=== PATIENT | female | born 1970 | race Caucasian/White ===

== ENCOUNTER 2021-10-09 16:15 | Emergency (ER) | payer OTHER ==
[2021-10-09 16:41] LABS: Hematocrit 43.1 % (36.0-45.0); Lymphocytes % 18.5 % (15.3-44.8); MPV 8.1 fL (7.6-11.3); RBC Red Blood Cell Count 5.34 M/uL (3.86-4.86)
[2021-10-09] MEDS ORDERED: NA CHLORIDE 0.9% 1,000 ML ONE (16:46)
[2021-10-09] MEDS ORDERED: ONDANSETRON 4 MG/2 ML VIAL ONE (16:46)
[2021-10-09] MEDS ORDERED: FAMOTIDINE 20 MG/2 ML VIAL IV ONE (16:46)
[2021-10-09 17:17] LABS: Albumin 3.7 g/dL (3.4-5.0); Protein, Total 8.3 g/dL (6.4-8.2)
[2021-10-09 17:18] LABS: Potassium 3.7 mmol/L (3.5-5.1)
--- NOTE | 2021-10-09 17:36 | RAD REPORT ---
EXAM DESCRIPTION: RAD - Chest Single View - 10/09/2021 5:18 pm CLINICAL HISTORY: COUGH COMPARISON: No comparisons FINDINGS: Lines: None. Lungs: No evidence of edema or pneumonia. Pleural: No significant pleural effusions or pneumothorax. Cardiac: The heart size is within normal limits. Bones: No acute fractures. Plate and screw fixation of the right proximal humerus. Remote right-sided rib fractures. Other: IMPRESSION: No acute cardiopulmonary disease.
--- NOTE | 2021-10-09 17:54 | ER ---
Nurse's Notes [facility] Name: Cindy Garcia Age: 51 yrs Sex: Female : 1970 Arrival Date: 10/09/2021 Time: 16:16 Bed 13 Private MD: Diagnosis: Nausea with vomiting, unspecified Presentation: 10/09 16:25 Chief complaint: Patient states: N/V, cough x a few days. Coronavirus screen: At this jl7 time, the client does not indicate any symptoms associated with coronavirus-19. Ebola Screen: No symptoms or risks identified at this time. Initial Sepsis Screen: Does the patient meet any 2 criteria? No. Patient's initial sepsis screen is negative. Does the patient have a suspected source of infection? No. Patient's initial sepsis screen is negative. Risk Assessment: Do you want to hurt yourself or someone else? Patient reports no desire to harm self or others. Onset of symptoms is unknown. 16:25 Method Of Arrival: Wheelchair jl7 16:25 Acuity: JOSE MIGUEL 3 jl7 Triage Assessment: 16:27 General: Appears in no apparent distress. uncomfortable, Behavior is calm, cooperative, jl7 appropriate for age. Pain: Denies pain. GI: Reports nausea, vomiting. 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 - Social history:: Smoking status: Patient denies any tobacco usage or history of. - Family history:: not pertinent. - Hospitalizations: : No recent hospitalization is reported. Screenin:46 Abuse screen: Denies threats or abuse. Nutritional screening: No deficits noted. ap3 Tuberculosis screening: No symptoms or risk factors identified. Fall Risk Fall in past 12 months (25 points). Secondary diagnosis (15 points) impaired mobility, IV access (20 points). Ambulatory Aid- None/Bed Rest/Nurse Assist (0 pts). Gait- Weak (10 pts.). Mental Status- Oriented to own ability (0 pts). Total Berg Fall Scale indicates High Risk Score (45 or more points). Fall prevention measures have been instituted. Side Rails Up X 2 Placed Close to Nursing Station Frequent Obs/Assessments Occuring As available patient and family educated on Fall Prevention Program and Strategies. Assessment: 16:47 General: Appears in no apparent distress. uncomfortable, Behavior is calm, cooperative, ap3 appropriate for age. Pain: Denies pain. Neuro: Level of Consciousness is awake, alert, obeys commands, Oriented to person, place, time, situation, Appropriate for age. Cardiovascular: Patient's skin is warm and dry. Respiratory: Airway is patent Respiratory effort is even, unlabored. GI: Abdomen is flat, Reports nausea, vomiting. 18:25 General: patient awaiting transportation prior to departure . ap3 Vital Signs: 16:25 BP 125 / 85; Pulse 81; Resp 17; Temp 96.8; Pulse Ox 100% on R/A; Weight 45.36 kg; jl7 Height 5 ft. 3 in. (160.02 cm); Pain 0/10; 18:14 BP 98 / 78; Pulse 76; Pulse Ox 100% on R/A; ap3 16:25 Body Mass Index 17.71 (45.36 kg, 160.02 cm) jl7 ED Course: 16:16 Patient arrived in ED. as 16:17 Yosvany Viveros MD is Attending Physician. rn 16:18 Iesha Stapleton RN is Primary Nurse. ap3 16:27 Triage completed. jl7 16:27 Arm band placed on right wrist. jl7 16:47 Patient has correct armband on for positive identification. Bed in low position. Call ap3 light in reach. Side rails up X 1. library monitor on. Pulse ox on. Door closed. Noise minimized. 16:47 Warm blanket given. ap3 17:20 XRAY Chest (1 view) In Process Unspecified. EDMS 18:14 No provider procedures requiring assistance completed. IV discontinued, intact, ap3 bleeding controlled, No redness/swelling at site. Pressure dressing applied. Administered Medications: 16:45 Drug: NS 0.9% 1000 ml Route: IV; Rate: 1 bolus; Site: right antecubital; jl7 18:14 Follow up: IV Status: Completed infusion; IV Intake: 1000ml ap3 16:47 Drug: Zofran (Ondansetron) 4 mg Route: IVP; Site: right antecubital; jl7 18:15 Follow up: Response: No adverse reaction; Nausea is decreased ap3 16:54 Drug: Pepcid (famotidine) 20 mg Route: IVP; Site: right antecubital; jl7 18:15 Follow up: Response: No adverse reaction ap3 Intake: 18:14 IV: 1000ml; Total: 1000ml. ap3 Outcome: 17:54 Discharge ordered by . rn 18:14 Discharged to home ambulatory. ap3 18:14 Condition: good 18:14 Discharge instructions given to patient, Instructed on discharge instructions, follow up and referral plans. medication usage, Demonstrated understanding of instructions, follow-up care, medications, Prescriptions given X 1. 18:38 Patient left the ED. ap3 Signatures: Dispatcher [employer] EDMS Flory Mckinney Roman, MD MD rn Leal, Jahala, RN RN jl7 Iesha Stapleton RN RN ap3
--- NOTE | 2021-10-09 17:54 | EDPHYS ---
Physician Documentation [facility] Name: Cindy Garcia Age: 51 yrs Sex: Female : 1970 Arrival Date: 10/09/2021 Time: 16:16 Bed 13 Private MD: ED Physician Yosvany Viveros HPI: 10/09 16:53 This 51 yrs old Female presents to ER via Wheelchair with complaints of Nausea/Vomiting rn diarrhea. 16:53 The patient presents to the emergency department with nausea, vomiting, diarrhea. rn 16:53 Onset: The symptoms/episode began/occurred 3 day(s) ago. Possible causes: unknown. The rn symptoms are aggravated by nothing. The symptoms are alleviated by nothing. Associated signs and symptoms: Pertinent positives: diarrhea, nausea, vomiting, Pertinent negatives: abdominal pain, fever, GI bleeding. Severity of symptoms: At their worst the symptoms were moderate in the emergency department the symptoms are unchanged. The patient has experienced similar episodes in the past, chronically. The patient has not recently seen a physician. Patient reports nausea/vomiting/diarrhea for a few days now. Reports associated cough and gagging when mucus is in her throat. States that this is a chronic problem, just moved here from [place] and has this almost monthly. States goes to the ER gets fluids and nausea medicine and feels better and goes home and happens all over again. Denies focal abdominal pain or fever. Reports feels dehydrated. Reports this episode feels like her other episodes. Denies any clear diagnosis in the past.. 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 - Social history:: Smoking status: Patient denies any tobacco usage or history of. - Family history:: not pertinent. - Hospitalizations: : No recent hospitalization is reported. ROS: 16:53 Constitutional: Negative for fever, chills, and weight loss, Eyes: Negative for injury, rn pain, redness, and discharge, Neck: Negative for injury, pain, and swelling, Cardiovascular: Negative for chest pain, palpitations, and edema, Respiratory: Positive for cough Abdomen/GI: Positive for nausea/vomiting/diarrhea Back: Negative for injury and pain, : Negative for injury, bleeding, discharge, and swelling, MS/Extremity: Negative for injury and deformity, Skin: Negative for injury, rash, and discoloration, Neuro: Negative for headache, numbness, tingling, and seizure. Exam: 16:53 Constitutional: This is a well developed, well nourished patient who is awake, alert, rn retching but no emesis, holding emesis bag Head/Face: Normocephalic, atraumatic. Eyes: Periorbital areas with no swelling, redness, or edema. ENT: Dry mucous membranes Cardiovascular: Regular rate and rhythm. No pulse deficits. Respiratory: No increased work of breathing, no retractions or nasal flaring. Abdomen/GI: Soft, non-tender Skin: Warm, dry MS/ Extremity: Pulses equal, no cyanosis. Neuro: Awake and alert, GCS 15, oriented to person, place, time, and situation. Cranial nerves II-XII grossly intact. Motor strength 5/5 in all extremities. Sensory grossly intact. Cerebellar exam normal. Vital Signs: 16:25 BP 125 / 85; Pulse 81; Resp 17; Temp 96.8; Pulse Ox 100% on R/A; Weight 45.36 kg; jl7 Height 5 ft. 3 in. (160.02 cm); Pain 0/10; 18:14 BP 98 / 78; Pulse 76; Pulse Ox 100% on R/A; ap3 16:25 Body Mass Index 17.71 (45.36 kg, 160.02 cm) jl7 MDM: 16:17 Patient medically screened. rn 17:53 Differential diagnosis: viral gastroenteritis, gastroenteritis, acid reflux, viral rn syndrome, chiari malformation, chronic nausea/vomiting. Data reviewed: vital signs, nurses notes, lab test result(s), radiologic studies, and as a result, I will discharge patient. Counseling: I had a detailed discussion with the patient and/or guardian regarding: the historical points, exam findings, and any diagnostic results supporting the discharge/admit diagnosis, lab results, radiology results, the need for outpatient follow up, to return to the emergency department if symptoms worsen or persist or if there are any questions or concerns that arise at home. Response to treatment: the patient's symptoms have markedly improved after treatment, and as a result, I will discharge patient. Special discussion: I discussed with the patient/guardian in detail that at this point there is no indication for admission to the hospital. It is understood, however, that if the symptoms persist or worsen the patient needs to return immediately for re-evaluation. 10/09 16:24 Order name: CBC with Diff; Complete Time: 17:11 rn 10/09 16:24 Order name: CMP; Complete Time: 17:24 rn 10/09 16:24 Order name: Lipase; Complete Time: 17:24 rn 10/09 16:24 Order name: Flu; Complete Time: 17:11 rn 10/09 16:24 Order name: XRAY Chest (1 view); Complete Time: 17:53 rn 10/09 16:24 Order name: IV Start; Complete Time: 16:30 rn 10/09 16:24 Order name: Labs collected and sent; Complete Time: 16:46 rn Administered Medications: 16:45 Drug: NS 0.9% 1000 ml Route: IV; Rate: 1 bolus; Site: right antecubital; jl7 18:14 Follow up: IV Status: Completed infusion; IV Intake: 1000ml ap3 16:47 Drug: Zofran (Ondansetron) 4 mg Route: IVP; Site: right antecubital; jl7 18:15 Follow up: Response: No adverse reaction; Nausea is decreased ap3 16:54 Drug: Pepcid (famotidine) 20 mg Route: IVP; Site: right antecubital; jl7 18:15 Follow up: Response: No adverse reaction ap3 Disposition Summary: 10/09/21 17:54 Discharge Ordered Location: Home rn Problem: an ongoing problem rn Symptoms: have improved rn Condition: Stable rn Diagnosis - Nausea with vomiting, unspecified rn Followup: rn - With: Private Physician - When: As needed - Reason: Recheck today's complaints, Re-evaluation by your physician Discharge Instructions: - Discharge Summary Sheet rn - Nausea and Vomiting, Adult rn - Chiari Malformation rn Forms: - Medication Reconciliation Form rn - Thank You Letter rn - Antibiotic learning and development assistant - Prescription Opioid Use rn Prescriptions: - Zofran 4 mg Oral Tablet - take 1 tablet by ORAL route every 12 hours As needed; 10 tablet; Refills: 0, rn Product Selection Permitted Signatures: Dispatcher [employer] EDYosvany Jennings MD MD rn Lizeth Engel RN RN jl7 Iesha Stapleton RN ap3
[2021-10-09 19:17] VITALS: TEMP 96.8; O2SAT 100
[2021-10-09 19:25] VITALS: BP 98/78
== END 2021-10-09 18:38 | disposition home or self-care (01) ==
LOC: ER 16:15
DX: R11.2 Nausea with vomiting, unspecified (principal); R19.7 Diarrhea, unspecified; Z88.5 Allergy status to narcotic agent; Z88.8 Allergy status to other drugs, medicaments and biological substances
CPT/HCPCS: 96361; 85025; 36415; 83690; 80053; 87804 ×2; 71045; 96375; 96374; 99284; J7030; J2405; J3490

== ENCOUNTER 2021-10-10 16:57 | Emergency (ER) | payer OTHER ==
--- OUTSIDE RECORDS SUMMARY | 2021-10-10 16:59 | XMS REPORT | Continuity of Care Document ---
:1970 Author Organization [facility] t Address [address] [place] [address] Care Team Providers Name Role Phone Sergio Bowers DO Primary Care Physician JOCELYNN BRASWELL Attending Clinician Unavailable [id number] Attending Clinician Unavailable Robinson MATHEW Attending Clinician Payers Payer Name Policy Type Policy Number Effective Date Expiration Date Letitia pizarro CIGNA-SHEET 2 [id number] 2021 00:00:00 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 Social History Social Habit Start Date Stop Date Quantity Comments Source Tobacco use and 2021-09-03 2021-09-03 Smokeless tobacco Ke lsey Seybold exposure 00:00:00 00:00:00 non-user Alcohol intake 2021-09-03 2021-09-03 Lifetime Haritha Godoy bold 00:00:00 00:00:00 non-drinker (finding) Education 2021-09-03 2021-09-03 17 Haritha Lyle 00:00:00 00:00:00 Sex [birth year] Haritha connelly 00:00:00 00:00:00 Smoking Status Start Date Stop Date Source Never smoked tobacco Haritha walker Medications Ordered Filled Start Stop Current Ordering Indication Dosage Frequency Signature Comments Components Source Medication Medication Date Date Medication? Clinician (SIG) Name Name hydrOXYzine 25mg Q.5D Take 25 mg Haritha HCl 25 MG 09-03 by mouth Seybo ld oral Tablet 13:59: 00:00 as needed 11 :00 in the morning and 25 mg as needed in the evening for anxiety. Citalopram Yes 20mg Take 20 mg K elsey Hydrobromid 09-03 by mouth Seyb old e 20 MG 13:58: daily oral Tablet 52 Gabapentin Yes 300mg Take 300 Ke lsey 300 MG oral 3-29 mg by Seybold Capsule 13:36: mouth 3 32 times daily predniSONE Yes [id number] 10mg Take 1 Haritha (DELTASONE) - tablet (10 Se ybold 10 MG oral 00:00: mg total) tablet 00 by mouth daily hydrOXYzine Yes Haritha HCl 25 MG 3-21 Seybold oral Tablet 00:00: 00 Omeprazole Yes 1{capsu Take 1 Ke lsey 20 MG oral 2-04 le} capsule by Sey bold Delayed 00:00: mouth Release 00 daily Capsule ROPINIROLE Yes 1{tbl} Take 1 Obdulio sey HYDROCHLORI 2-04 tablet by Sey bold DE 1 MG 00:00: mouth oral Tablet 00 daily predniSONE 2021- No 1{tbl} Take 1 Ke lsey (DELTASONE) 2-04 - tablet by Se ybold 10 MG oral 00:00: 00:00 mouth tablet 00 :00 daily Vital Signs Vital Name Observation Time Observation Value Comments Source Systolic blood pressure 2021-09-03 18:33:00 103 mm[Hg] Haritha Lyle Diastolic blood 2021-09-03 18:33:00 65 mm[Hg] Pilo badillo Seybaaron pressure Heart rate 2021-09-03 18:33:00 86 /min Haritha block Body temperature 2021-09-03 18:33:00 36.5 Maria Luisa Joyce brumfield Seybold Respiratory rate 2021-09-03 18:33:00 14 /min Joyce brumfield Seybaaron Body height 2021-09-03 18:33:00 160 cm Haritha brumfieldbomil Body weight 2021-09-03 18:33:00 46.72 kg Haritha block BMI 2021-09-03 18:33:00 18.25 kg/m2 Haritha block Oxygen saturation in 2021-09-03 18:33:00 97 /min Haritha Lyle Arterial blood by Pulse oximetry Procedures This patient has no known procedures. Encounters Start End Encounter Admission Attending Care Care Encounter Source Date/Time Date/Time Type Type Clinicians Facility Department ID 2021-10-01 2021-10-01 Outpatient HARITHA BRASWELL HARITHA [id number] Haritha 11:00:00 11:00:00 JOCELYNN Blairo ld 2021-09-03 2021-09-03 Outpatient LAB90 HARITHA HARITHA [id number] Haritha 14:20:00 14:20:00 Seybol d 2021-09-03 2021-09-03 Office Vu Bowers [id number] Haritha 13:30:00 14:00:00 Visit Sergio Rivera [id number] Se ybold [id number] Results This patient has no known results.
[2021-10-10] MEDS ORDERED: FAMOTIDINE 20 MG/2 ML VIAL IV ONE (17:47)
[2021-10-10] MEDS ORDERED: MAGNESIUM SULFATE 1 gm IVPB 1 GM/100 ML BAG IV ONE (17:47)
[2021-10-10] MEDS ORDERED: ONDANSETRON 4 MG/2 ML VIAL ONE (17:47)
--- NOTE | 2021-10-10 17:54 | RAD REPORT ---
EXAM DESCRIPTION: RAD - Chest Single View - 10/10/2021 5:48 pm CLINICAL HISTORY: COUGH COMPARISON: <Comparisons> FINDINGS: Lines: None. Lungs: No evidence of edema or pneumonia. Pleural: No significant pleural effusions or pneumothorax. Cardiac: The heart size is within normal limits. Bones: No acute fractures. Remote rib fractures. Plate and screw fixation of the right humerus. Other: IMPRESSION: No acute cardiopulmonary disease.
[2021-10-10 18:22] LABS: Albumin 3.6 g/dL (3.4-5.0); Bilirubin Total 1.7 mg/dL (0.2-1.0); Potassium 3.9 mmol/L (3.5-5.1); Protein, Total 7.9 g/dL (6.4-8.2)
[2021-10-10 18:26] LABS: Absolute Lymphocytes (CBC) 0.4 K/uL (0.7-4.9); Hematocrit 42.7 % (36.0-45.0); Lymphocytes % 5.2 % (15.3-44.8); MPV 8.1 fL (7.6-11.3); RBC Red Blood Cell Count 5.33 M/uL (3.86-4.86)
[2021-10-10 20:10] LABS: Urine Blood Negative (Negative); Urine Glucose Negative (Negative); Urine Protein Trace (Negative); Urine Specific Gravity >=1.030 (1.005-1.030); Urine pH 5.5 (5.0-7.0)
--- NOTE | 2021-10-10 20:29 | ER ---
Nurse's Notes [facility] Name: Cindy Garcia Age: 51 yrs Sex: Female : 1970 Arrival Date: 10/10/2021 Time: 17:07 Bed 2 Private MD: Diagnosis: Cough Presentation: 10/10 17:08 Chief complaint: EMS states: Toned out for shaking and sweating, pt was diaphoretic in jl7 route, no fever, reports cough x last few days, denies N/V/D, was seen here yesterday and discharged, pt reports recently moving here from [place] and every time she went to the ER there she would get at least 3 bags of fluids before being discharged. Coronavirus screen: At this time, the client does not indicate any symptoms associated with coronavirus-19. Ebola Screen: No symptoms or risks identified at this time. Initial Sepsis Screen: Does the patient meet any 2 criteria? No. Patient's initial sepsis screen is negative. Does the patient have a suspected source of infection? No. Patient's initial sepsis screen is negative. Risk Assessment: Do you want to hurt yourself or someone else? Patient reports no desire to harm self or others. Onset of symptoms is unknown. 17:08 Method Of Arrival: EMS: [facility] 17:08 Acuity: JOSE MIGUEL 3 jl7 Triage Assessment: 20:30 General: Appears comfortable, Behavior is calm, cooperative. Pain: Denies pain. 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 - Social history:: Smoking status: Patient denies any tobacco usage or history of. Screenin:29 Abuse screen: Denies threats or abuse. Nutritional screening: No deficits noted. ll3 Tuberculosis screening: No symptoms or risk factors identified. 20:40 Fall Risk No fall in past 12 months (0 pts). No secondary diagnosis (0 pts). IV access ll3 (20 points). Ambulatory Aid- None/Bed Rest/Nurse Assist (0 pts). Gait- Normal/Bed Rest/Wheelchair (0 pts) Mental Status- Oriented to own ability (0 pts). Total Breg Fall Scale indicates No Risk (0-24 pts). Assessment: 20:29 Reassessment: Patient and/or family updated on plan of care and expected duration. Pain ll3 level reassessed. Patient is alert, oriented x 3, equal unlabored respirations, skin warm/dry/pink. Patient denies pain at this time. Patient states symptoms have improved. Vital Signs: 17:08 BP 147 / 81; Pulse 79; Resp 19; Temp 97.6(O); Pulse Ox 100% on R/A; Weight 45.36 kg; jl7 Height 5 ft. 3 in. (160.02 cm); Pain 0/10; 19:01 BP 104 / 77; Pulse 79; Resp 15; Pulse Ox 97% ; jl7 20:00 BP 100 / 88; Pulse 74; Resp 17; Pulse Ox 100% on R/A; ll3 17:08 Body Mass Index 17.71 (45.36 kg, 160.02 cm) jl7 ED Course: 17:07 Patient arrived in ED. jl7 17:13 Triage completed. jl7 17:13 Arm band placed on right wrist. jl7 17:14 Akin Donaldson PA is PHCP. cp 17:14 Akin Gunderson MD is Attending Physician. cp 17:36 Lizeth Engel RN is Primary Nurse. jl7 17:50 XRAY Chest (1 view) In Process Unspecified. EDMS 20:12 Urine Microscopic Only Sent. sm5 20:30 Patient has correct armband on for positive identification. Bed in low position. Call ll3 light in reach. Side rails up X 1. 20:40 No provider procedures requiring assistance completed. IV discontinued, intact, ll3 bleeding controlled, No redness/swelling at site. Pressure dressing applied. Administered Medications: 17:55 Drug: Zofran (Ondansetron) 4 mg Route: IVP; Site: right wrist; jl7 17:56 Drug: Pepcid (famotidine) 20 mg Route: IVP; Site: right wrist; jl7 17:56 Drug: Magnesium Sulfate 1 grams Route: IVPB; Infused Over: 1 hrs; Site: right wrist; jl7 Outcome: 20:28 Discharge ordered by . cp 20:40 Discharged to home ambulatory. ll3 20:40 Condition: stable 20:40 Discharge instructions given to patient, Instructed on discharge instructions, follow up and referral plans. medication usage, Demonstrated understanding of instructions, follow-up care, medications. 20:41 Patient left the ED. ll3 Signatures: Dispatcher [employer] EDMS Akin Donaldson PA PA cp Leal, Jahala, RN RN jl7 Kevan Haskins RN RN ll3 Christal Vann RN RN sm5
--- NOTE | 2021-10-10 20:29 | EDPHYS ---
Physician Documentation [facility] Name: Cindy Garcia Age: 51 yrs Sex: Female : 1970 Arrival Date: 10/10/2021 Time: 17:07 Bed 2 Private MD: ED Physician Akin Gunderson HPI: 10/10 17:30 This 51 yrs old Female presents to ER via EMS with complaints of Shaking and Sweating. cp 17:30 The patient or guardian reports cough, chronic. cp 17:30 Severity of symptoms: in the emergency department the symptoms are unchanged. cp Associated signs and symptoms: Pertinent positives: "shaking and sweating", Pertinent negatives: fever, vomiting. The patient has been recently seen at the [facility] Emergency Department, yesterday, for similar complaints tested for COVID-19 and influenza. 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 - Social history:: Smoking status: Patient denies any tobacco usage or history of. ROS: 17:35 Constitutional: Negative for body aches, fever, poor PO intake. cp 17:35 Eyes: Negative for injury, pain, redness, and discharge. cp 17:35 ENT: Negative for drainage from ear(s), ear pain, sore throat, difficulty swallowing, difficulty handling secretions. 17:35 Cardiovascular: Negative for chest pain, edema, palpitations. 17:35 Respiratory: Positive for cough, with no reported sputum, Negative for shortness of breath, wheezing. 17:35 Abdomen/GI: Positive for nausea, Negative for abdominal pain, vomiting, diarrhea, constipation. 17:35 Back: Negative for pain at rest, pain with movement. 17:35 : Negative for urinary symptoms. 17:35 Neuro: Negative for altered mental status, headache, weakness. 17:35 All other systems are negative. Exam: 17:40 Constitutional: The patient appears in no acute distress, alert, awake, cp non-diaphoretic, non-toxic, well developed, well nourished. 17:40 Head/Face: Normocephalic, atraumatic. cp 17:40 Eyes: Periorbital structures: appear normal, Conjunctiva: normal, no exudate, no injection, Sclera: no appreciated abnormality, Lids and lashes: appear normal, bilaterally. 17:40 ENT: External ear(s): are unremarkable, Nose: is normal, Mouth: Lips: moist, Oral mucosa: pink and intact, moist, Posterior pharynx: Airway: no evidence of obstruction, patent. 17:40 Neck: ROM/movement: is normal, is supple, without pain, no range of motions limitations. 17:40 Chest/axilla: Inspection: normal. 17:40 Cardiovascular: Rate: normal, Rhythm: regular, Edema: is not appreciated, JVD: is not appreciated. 17:40 Respiratory: the patient does not display signs of respiratory distress, Respirations: normal, no use of accessory muscles, no retractions, labored breathing, is not present, Breath sounds: are clear throughout, no decreased breath sounds, no stridor, no wheezing. 17:40 Abdomen/GI: Inspection: abdomen appears normal, Bowel sounds: active, all quadrants, Palpation: abdomen is soft and non-tender, in all quadrants. 17:40 Back: pain, is absent, ROM is normal. 17:40 Skin: cellulitis, is not appreciated, no rash present. 17:40 Neuro: Orientation: to person, place \\T\\ time. Mentation: is normal, Motor: moves all fours, strength is normal, Sensation: is normal. Vital Signs: 17:08 BP 147 / 81; Pulse 79; Resp 19; Temp 97.6(O); Pulse Ox 100% on R/A; Weight 45.36 kg; jl7 Height 5 ft. 3 in. (160.02 cm); Pain 0/10; 19:01 BP 104 / 77; Pulse 79; Resp 15; Pulse Ox 97% ; jl7 20:00 BP 100 / 88; Pulse 74; Resp 17; Pulse Ox 100% on R/A; ll3 17:08 Body Mass Index 17.71 (45.36 kg, 160.02 cm) jl7 MDM: 17:15 Patient medically screened. zaid 18:00 Differential Diagnosis: Bronchitis Influenza Viral Syndrome Pneumonia Other cp dehydration, electrolyte abnormality. 20:27 Data reviewed: vital signs, nurses notes, lab test result(s), radiologic studies, plain cp films. 20:27 Counseling: I had a detailed discussion with the patient and/or guardian regarding: the cp historical points, exam findings, and any diagnostic results supporting the discharge/admit diagnosis, lab results, radiology results, to return to the emergency department if symptoms worsen or persist or if there are any questions or concerns that arise at home. 20:27 Response to treatment: the patient's symptoms have markedly improved after treatment, and as a result, I will discharge patient. 10/10 17:26 Order name: CBC with Diff; Complete Time: 19:27 10/10 19:27 Interpretation: Normal except: WBC 6.9; RBC 5.33; BRENDAN% 89.8; LYM% 5.2; LYMA 0.4. 10/10 17:26 Order name: CMP; Complete Time: 19:27 10/10 19:28 Interpretation: Normal except: NA 133; GLUC 115; GFR 78; A/G 0.8; GLOB 4.3; ALK 127; cp BILIT 1.7. 10/10 17:26 Order name: Lipase; Complete Time: 19:27 10/10 19:28 Interpretation: Reviewed. 10/10 17:26 Order name: Urine Microscopic Only 10/10 17:26 Order name: XRAY Chest (1 view); Complete Time: 19:27 10/10 19:28 Interpretation: Report review. 10/10 20:10 Order name: Urine Dipstick-Ancillary; Complete Time: 20:15 EDMS 10/10 20:15 Interpretation: Normal except: UKET 2+; UPROT Trace. 10/10 17:26 Order name: IV Saline Lock; Complete Time: 17:56 10/10 17: Order name: Labs collected and sent; Complete Time: 17:56 10/10 17: Order name: Urine Dipstick-Ancillary (obtain specimen); Complete Time: 20:12 cp Administered Medications: 17:55 Drug: Zofran (Ondansetron) 4 mg Route: IVP; Site: right wrist; jl7 17:56 Drug: Pepcid (famotidine) 20 mg Route: IVP; Site: right wrist; jl7 17:56 Drug: Magnesium Sulfate 1 grams Route: IVPB; Infused Over: 1 hrs; Site: right wrist; jl7 Disposition Summary: 10/10/21 20:28 Discharge Ordered Location: Home cp Problem: an ongoing problem cp Symptoms: have improved cp Condition: Stable cp Diagnosis - Cough cp Followup: cp - With: Private Physician - When: 1 - 2 days - Reason: Recheck today's complaints Discharge Instructions: - Discharge Summary Sheet cp - Nausea, Adult cp - Cough, Adult cp Forms: - Medication Reconciliation Form cp - Thank You Letter cp - Antibiotic Education cp - Prescription Opioid Use cp Prescriptions: - Tessalon Perles 100 mg Oral Capsule - take 1 capsule by ORAL route every 8 hours As needed; 15 capsule; Refills: 0, cp Product Selection Permitted - Zofran 4 mg Oral Tablet - take 1 tablet by ORAL route every 12 hours As needed; 20 tablet; Refills: 0, cp Product Selection Permitted Signatures: Dispatcher [employer] EDAkin Chapin MD MD cha Page, Corey, PA PA Lizeth Rodríguez RN RN jl7 Corrections: (The following items were deleted from the chart) 17:37 17:26 Urine Test ordered. cp jl7 18:02 18:00 This 51 yrs old Female presents to ER via EMS with complaints of Shaking and cp Sweating. cp 19:28 19:27 Normal except: NA 133; GLUC 115; GFR 78. cp cp 19:28 19:28 Normal except: NA 133; GLUC 115; GFR 78; A/G 0.8. cp cp
[2021-10-10 20:38] LABS: Urine Bacteria <20 /HPF (<20); Urine Mucus 3+ /HPF (NONE SEEN); Urine RBC <5 /HPF (NONE SEEN)
[2021-10-10 21:02] VITALS: TEMP 97.6
[2021-10-10 21:05] VITALS: BP 100/88; O2SAT 100
== END 2021-10-10 20:41 | disposition home or self-care (01) ==
LOC: ER 16:57
DX: R05.9 Cough, unspecified (principal); R11.0 Nausea; Z88.5 Allergy status to narcotic agent; Z88.8 Allergy status to other drugs, medicaments and biological substances
CPT/HCPCS: 85025; 36415; 83690; 80053; 71045; 96375; 96374; 99284; J3475; J2405; J3490; 81003; 81015

== ENCOUNTER 2021-12-14 23:34 | Emergency (ER) | payer OTHER, SELFPAY ==
[2021-12-15 01:03] LABS: Absolute Lymphocytes (CBC) 0.7 K/uL (0.7-4.9); Hematocrit 35.8 % (36.0-45.0); Lymphocytes % 23.2 % (15.3-44.8); MCV 80.8 fL (80-100); MPV 8.3 fL (7.6-11.3); RBC Red Blood Cell Count 4.43 M/uL (3.86-4.86)
[2021-12-15 01:08] LABS: Protime INR 1.16
[2021-12-15] MEDS ORDERED: NA CHLORIDE 0.9% 1,000 ML ONE (01:17)
[2021-12-15] MEDS ORDERED: CEFTRIAXONE 1000 MG/VIAL ONE (01:17)
[2021-12-15 01:21] LABS: ALT/SGPT 28 U/L (12-78); AST/SGOT 34 U/L (15-37); Alkaline Phosphatase 259 U/L (45-117); BUN Blood Urea Nitrogen 12 mg/dL (7-18); Bicarbonate 24 mmol/L (21-32); Bilirubin Direct 0.4 mg/dL (0-0.2); Bilirubin Total 1.1 mg/dL (0.2-1.0); Glomerular Filtration Rate 86 ml/min (=/>90); Glucose Level 89 mg/dL (74-106); Potassium 3.6 mmol/L (3.5-5.1); Sodium Level 134 mmol/L (136-145)
[2021-12-15 01:22] LABS: Albumin 3.1 g/dL (3.4-5.0); Magnesium 1.5 mg/dL (1.8-2.4); NT PRO-BNP 327 pg/mL (<125)
[2021-12-15 01:25] LABS: Troponin High Sensitivity < 3.0 pg/mL (<58.9)
[2021-12-15 02:15] LABS: Urine Blood Negative (Negative); Urine Glucose Negative (Negative); Urine Protein Negative (Negative)
--- NOTE | 2021-12-15 02:18 | ER ---
Nurse's Notes [facility] Name: Cindy Garcia Age: 51 yrs Sex: Female : 1970 Arrival Date: 12/14/2021 Time: 23:40 Bed 14 Private MD: Diagnosis: Hypomagnesemia;Acute upper respiratory infection, unspecified-Infuenza B;Fever, unspecified Presentation: 12/14 23:40 Chief complaint: EMS states: "We were called out because patient stated she couldn't vc1 cool off and she was running a low grade fever and nauseous. She also just had left hip surgery for a broken hip.". Coronavirus screen: Vaccine status: Patient reports receiving the 2nd dose of the covid vaccine. Pfizer chills, fever, nausea, shaking with chills, Client presents with at least one sign or symptom that may indicate coronavirus-19. Standard/surgical mask placed on the client. Provider contacted for isolation considerations. Ebola Screen: No symptoms or risks identified at this time. Initial Sepsis Screen: Does the patient meet any 2 criteria? HR > 90 bpm. No. Patient's initial sepsis screen is negative. Does the patient have a suspected source of infection? No. Patient's initial sepsis screen is negative. Risk Assessment: Do you want to hurt yourself or someone else? Patient reports no desire to harm self or others. Onset of symptoms was December 14, 2021. 23:40 Method Of Arrival: EMS: [facility] vc1 23:40 Acuity: JOSE MIGUEL 3 vc1 23:50 Care prior to arrival: Medication(s) given: Tylenol, 1000 mg, zofran 4 mg, Vicodin. vc1 Care prior to arrival: IV initiated. 20 GA, in the left forearm, Glucose check: 109. Triage Assessment: 23:52 General: Appears in no apparent distress. uncomfortable, Behavior is calm, cooperative, vc1 appropriate for age. Pain: Denies pain. EENT: No deficits noted. Neuro: Level of Consciousness is awake, alert, obeys commands, Oriented to person, place, time, situation, Appropriate for age. Cardiovascular: Reports diaphoresis, Denies chest pain, Patient's skin is warm and dry. Respiratory: Airway is patent Respiratory effort is even, unlabored, Respiratory pattern is regular, symmetrical. GI: Reports gaseousness, indigestion, nausea, Patient currently denies vomiting. : No deficits noted. Derm: Skin is intact, is healthy with good turgor, Skin temperature is warm Reports feeling very hot and being unable to cool off. Musculoskeletal: No deficits noted. 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 - Social history:: Smoking status: Patient denies any tobacco usage or history of. Screenin:54 Abuse screen: Denies threats or abuse. Nutritional screening: No deficits noted. vc1 Tuberculosis screening: No symptoms or risk factors identified. Fall Risk None identified. Assessment: 12/15 00:15 Reassessment: See triage assessment. vc1 01:15 Reassessment: No changes from previously documented assessment. Patient and/or family vc1 updated on plan of care and expected duration. Pain level reassessed. Patient is alert, oriented x 3, equal unlabored respirations, skin warm/dry/pink. 02:15 Reassessment: Patient and/or family updated on plan of care and expected duration. Pain vc1 level reassessed. Patient is alert, oriented x 3, equal unlabored respirations, skin warm/dry/pink. Patient states feeling better. Patient states symptoms have improved. 03:15 Reassessment: No changes from previously documented assessment. vc1 03:45 Reassessment: Patient and/or family updated on plan of care and expected duration. Pain vc1 level reassessed. Patient is alert, oriented x 3, equal unlabored respirations, skin warm/dry/pink. Patient denies pain at this time. Patient states feeling better. Patient states symptoms have improved. Vital Signs: 12/14 23:40 BP 111 / 85 RA (auto/reg); Pulse 101 MON; Resp 13; Temp 98.5(O); Pulse Ox 100% on R/A; vc1 Weight 47.63 kg; Height 5 ft. 3 in. (160.02 cm); Pain 0/10; 23:40 Body Mass Index 18.60 (47.63 kg, 160.02 cm) vc1 ED Course: 23:40 Patient arrived in ED. vc1 23:44 Triage completed. vc1 23:50 Katarina Crystal, RN is Primary Nurse. vc1 23:53 Arm band placed on right wrist. vc1 23:54 Patient has correct armband on for positive identification. Bed in low position. Call vc1 light in reach. Client placed on continuous cardiac and pulse oximetry monitoring. NIBP monitoring applied. 23:59 Akin Gunderson MD is Attending Physician. [facility] 12/15 00:40 Initial lab(s) drawn, by ED staff, sent to lab. First set of blood cultures drawn by ED 5 staff, Second set of blood cultures drawn by nd. 00:54 Maintain EMS IV. Dressing intact. Good blood return noted. 5 00:56 Warm blanket given. 5 01:09 EKG done, by ED staff, reviewed by Akin Gunderson MD COVID swab sent to lab. Flu and/or 5 RSV swab sent to lab. 01:27 XRAY Chest (1 view) In Process Unspecified. EDMS 02:16 Urine Culture Sent. mh5 03:45 No provider procedures requiring assistance completed. IV discontinued, intact, vc1 bleeding controlled, No redness/swelling at site. Pressure dressing applied. Administered Medications: 01:17 Drug: NS 0.9% 1000 ml Route: IV; Rate: 1 bolus; Site: left forearm; vc1 02:17 Follow up: IV Status: Completed infusion; IV Intake: 1000ml vc1 01:17 Drug: Rocephin (cefTRIAXone) 1 grams Route: IV; Rate: per protocol; Site: left forearm; vc1 01:20 Follow up: IV Status: Completed infusion; IV Intake: 10ml vc1 02:29 Drug: Zithromax (azithromycin) 500 mg Route: PO; vc1 03:00 Follow up: Response: No adverse reaction; Marked relief of symptoms vc1 02:30 Drug: Magnesium Sulfate 2 grams Route: IVPB; Infused Over: 30 mins; Site: left forearm; vc1 03:30 Follow up: IV Status: Completed infusion; IV Intake: 50ml vc1 02:30 Drug: Tamiflu (oseltamivir) 75 mg Route: PO; vc1 03:00 Follow up: Response: No adverse reaction vc1 Medication: 03:45 VIS not applicable for this client. vc1 Intake: 01:20 IV: 10ml; Total: 10ml. vc1 02:17 IV: 1000ml; Total: 1010ml. vc1 03:30 IV: 50ml; Total: 1060ml. vc1 Outcome: 02:18 Discharge ordered by . zaid 04:13 Patient left the ED. vc1 04:15 Discharged to home via wheelchair. vc1 04:15 Condition: improved 04:15 Discharge instructions given to patient, Instructed on discharge instructions, follow up and referral plans. Demonstrated understanding of instructions, follow-up care. 04:16 Prescriptions given X 3. vc1 Signatures: Dispatcher [employer] EDAkin Chapin MD MD cha Martinez, [facility] Katarina Crystal RN RN vc1 Corrections: (The following items were deleted from the chart) 12/14 23:46 23:44 PMHx: celiac; vc1 vc1
--- NOTE | 2021-12-15 02:19 | EDPHYS ---
Physician Documentation [facility] Name: Cindy Garcia Age: 51 yrs Sex: Female : 1970 Arrival Date: 12/14/2021 Time: 23:40 Bed 14 Private MD: ED Physician Akin Gunderson HPI: 12/15 00:27 This 51 yrs old Female presents to ER via EMS with complaints of fever, zaid nausea and weakness. 00:27 The patient presents to the emergency department with nausea, that is mild. 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 - Social history:: Smoking status: Patient denies any tobacco usage or history of. ROS: 12/15 00:43 Constitutional: Negative for fever, chills, and weight loss, Eyes: Negative for injury, zaid pain, redness, and discharge, ENT: Negative for injury, pain, and discharge, Neck: Negative for injury, pain, and swelling, Cardiovascular: Negative for chest pain, palpitations, and edema, Respiratory: Negative for shortness of breath, cough, wheezing, and pleuritic chest pain, Abdomen/GI: Negative for abdominal pain, nausea, vomiting, diarrhea, and constipation, Back: Negative for injury and pain, : Negative for injury, bleeding, discharge, and swelling, MS/Extremity: Negative for injury and deformity, Skin: Negative for injury, rash, and discoloration, Neuro: Negative for headache, weakness, numbness, tingling, and seizure, Psych: Negative for depression, anxiety, suicide ideation, homicidal ideation, and hallucinations, Allergy/Immunology: Negative for hives, rash, and allergies, Endocrine: Negative for neck swelling, polydipsia, polyuria, polyphagia, and marked weight changes, Hematologic/Lymphatic: Negative for swollen nodes, abnormal bleeding, and unusual bruising. Exam: 00:43 Constitutional: This is a well developed, well nourished patient who is awake, alert, zaid and in no acute distress. Head/Face: Normocephalic, atraumatic. Eyes: Pupils equal round and reactive to light, extra-ocular motions intact. Lids and lashes normal. Conjunctiva and sclera are non-icteric and not injected. Cornea within normal limits. Periorbital areas with no swelling, redness, or edema. ENT: Nares patent. No nasal discharge, no septal abnormalities noted. Tympanic membranes are normal and external auditory canals are clear. Oropharynx with no redness, swelling, or masses, exudates, or evidence of obstruction, uvula midline. Mucous membranes moist. Neck: Trachea midline, no thyromegaly or masses palpated, and no cervical lymphadenopathy. Supple, full range of motion without nuchal rigidity, or vertebral point tenderness. No Meningismus. Chest/axilla: Normal chest wall appearance and motion. Nontender with no deformity. No lesions are appreciated. Cardiovascular: Regular rate and rhythm with a normal S1 and S2. No gallops, murmurs, or rubs. Normal PMI, no JVD. No pulse deficits. Respiratory: Lungs have equal breath sounds bilaterally, clear to auscultation and percussion. No rales, rhonchi or wheezes noted. No increased work of breathing, no retractions or nasal flaring. Abdomen/GI: Soft, non-tender, with normal bowel sounds. No distension or tympany. No guarding or rebound. No evidence of tenderness throughout. Back: No spinal tenderness. No costovertebral tenderness. Full range of motion. Skin: Warm, dry with normal turgor. Normal color with no rashes, no lesions, and no evidence of cellulitis. MS/ Extremity: Pulses equal, no cyanosis. Neurovascular intact. Full, normal range of motion. Neuro: Awake and alert, GCS 15, oriented to person, place, time, and situation. Cranial nerves II-XII grossly intact. Motor strength 5/5 in all extremities. Sensory grossly intact. Cerebellar exam normal. Normal gait. Psych: Awake, alert, with orientation to person, place and time. Behavior, mood, and affect are within normal limits. 02:17 ECG was reviewed by the Attending Physician. [facility] Vital Signs: 12/14 23:40 BP 111 / 85 RA (auto/reg); Pulse 101 MON; Resp 13; Temp 98.5(O); Pulse Ox 100% on R/A; vc1 Weight 47.63 kg; Height 5 ft. 3 in. (160.02 cm); Pain 0/10; 23:40 Body Mass Index 18.60 (47.63 kg, 160.02 cm) vc1 MDM: 23:59 Patient medically screened. [facility] 12/15 00:47 Differential diagnosis: Nonspecific abd pain, gastritis, cholecystitis, pancreatitis, zaid diverticulitis, viral gastroenteritis, gastroenteritis, viral Infection, bacterial infection, URI, bronchitis, pneumonia UTI, gastroenteritis. Differential Diagnosis sepsis. Data reviewed: vital signs, nurses notes, lab test result(s), EKG, radiologic studies, plain films. Data interpreted: media monitor: rate is 101 beats/min, rhythm is regular, Pulse oximetry: on room air is 100 %. Test interpretation: by ED physician or midlevel provider: ECG, plain radiologic studies. Counseling: I had a detailed discussion with the patient and/or guardian regarding: the historical points, exam findings, and any diagnostic results supporting the discharge/admit diagnosis, lab results, radiology results. 12/16 99:23 Order name: Basic Metabolic Panel; Complete Time: 02:02 [facility] 12/16 99:23 Order name: CBC with Diff; Complete Time: 02:02 [facility] 12/1523 Order name: LFT's; Complete Time: 02:02 [facility] 12/1523 Order name: Magnesium; Complete Time: 02:02 [facility] 12/16 99:23 Order name: NT PRO-BNP; Complete Time: 02:02 [facility] 12/16 99:23 Order name: PT-INR; Complete Time: 02:02 [facility] 12/15 Order name: Troponin HS; Complete Time: 02:02 [facility] 12/16 99:23 Order name: XRAY Chest (1 view) [facility] 12/16 99:23 Order name: Blood Culture Adult (2) [facility] 12/16 99:23 Order name: Lactate; Complete Time: 02:02 [facility] 12/1523 Order name: Flu; Complete Time: 02:02 [facility] 12/15 00:23 Order name: SARS-COV-2 RT PCR (Document "Date of Onset" if Symptomatic); Complete Time: zaid 02:17 12/15 00:23 Order name: Urine Culture [facility] 12/15 02:15 Order name: Urine Dipstick-Ancillary; Complete Time: 02:17 EDMS 12/15 00:23 Order name: EKG; Complete Time: 00:24 zaid 12/16 99:23 Order name: Cardiac monitoring; Complete Time: : [facility] 12/16 99:23 Order name: EKG - Nurse/Tech; Complete Time: : [facility] 12/16 99:23 Order name: IV Saline Lock; Complete Time: : [facility] 12/16 99: Order name: Labs collected and sent; Complete Time: : [facility] 12/16 99: Order name: O2 Per Protocol; Complete Time: 01: [facility] 12/16 99:23 Order name: O2 Sat Monitoring; Complete Time: : [facility] 12/16 99:23 Order name: Urine Dipstick-Ancillary (obtain specimen); Complete Time: 02:16 [facility] EC: Rate is 87 beats/min. Rhythm is regular. QRS [place] is Normal. GA interval is normal. QRS zaid interval is normal. QT interval is normal. No Q waves. T waves are Normal. No ST changes noted. Clinical impression: NSR w/ Non-specific ST/T Changes and No evidence of ischemia. Interpreted by me. Reviewed by me. Administered Medications: 01: Drug: NS 0.9% 1000 ml Route: IV; Rate: 1 bolus; Site: left forearm; vc1 02:17 Follow up: IV Status: Completed infusion; IV Intake: 1000ml vc1 01:17 Drug: Rocephin (cefTRIAXone) 1 grams Route: IV; Rate: per protocol; Site: left forearm; vc1 01:20 Follow up: IV Status: Completed infusion; IV Intake: 10ml vc1 02:29 Drug: Zithromax (azithromycin) 500 mg Route: PO; vc1 03:00 Follow up: Response: No adverse reaction; Marked relief of symptoms vc1 02:30 Drug: Magnesium Sulfate 2 grams Route: IVPB; Infused Over: 30 mins; Site: left forearm; vc1 03:30 Follow up: IV Status: Completed infusion; IV Intake: 50ml vc1 02:30 Drug: Tamiflu (oseltamivir) 75 mg Route: PO; vc1 03:00 Follow up: Response: No adverse reaction vc1 Disposition Summary: 12/15/21 02:18 Discharge Ordered Location: Home [facility] Problem: new zaid Symptoms: have improved zaid Condition: Stable zaid Diagnosis - Hypomagnesemia zaid - Acute upper respiratory infection, unspecified - Infuenza B zaid - Fever, unspecified zaid Followup: [facility] - With: Private Physician - When: 2 - 3 days - Reason: Recheck today's complaints, Continuance of care, Re-evaluation by your physician Discharge Instructions: - Discharge Summary Sheet zaid - Fever, Adult zaid - Hypomagnesemia zaid - Cool Mist Vaporizer zaid - Upper Respiratory Infection, Adult, [id number] zaid - Cough, Adult, [id number] zaid - Viral Respiratory Infection, [id number] zaid - Cough, Adult [facility] Forms: - Medication Reconciliation Form [facility] - Thank You Letter [facility] - Antibiotic Education [facility] - Prescription Opioid Use [facility] Prescriptions: - Zofran 4 mg Oral Tablet - take 1 tablet by ORAL route every 12 hours As needed; 20 tablet; Refills: 0, [facility] Product Selection Permitted - Zithromax Z-Harsh 250 mg Oral Tablet - take 1 tablet by ORAL route as directed for 5 days Day 1 - take two (2) tablets [facility] one time. Day 2, 3, 4 , 5 take one (1) tablet once daily.; 6 tablet; Refills: 0, Product Selection Permitted - Tamiflu 75 mg Oral Capsule - take 1 tablet by ORAL route every 12 hours for 5 days; 14 tablet; Refills: 0, [facility] Product Selection Permitted Signatures: Dispatcher [employer] Akin Moran MD MD cha Calcote, Vanessa, RN RN vc1 Corrections: (The following items were deleted from the chart) 12/14 23:46 23:44 PMHx: celiac; vc1 vc1
[2021-12-15] MEDS ORDERED: OSELTAMIVIR 75 MG CAP ONE (02:32)
[2021-12-15] MEDS ORDERED: Magnesium Sulfate 2gm IVPB 2 G/50 ML BAG IV ONE (02:32)
[2021-12-15] MEDS ORDERED: AZITHROMYCIN 250 MG TAB ONE (02:32)
[2021-12-15 04:33] VITALS: BP 111/85; TEMP 98.5; O2SAT 100
--- NOTE | 2021-12-16 12:24 | RAD REPORT ---
EXAM DESCRIPTION: Chest Single View CLINICAL HISTORY: COUGH COMPARISON: None. FINDINGS: Single frontal radiograph view of the chest. Cardiomediastinal silhouette: Normal size and contour. Lungs: No consolidation, pneumothorax, or pleural effusion. Bones: Proximal right humeral fixation. Degenerative change of the spine. Leads overlie the chest. Re mote bilateral rib fractures. Upper abdomen: No abnormality identified. IMPRESSION: 1. No acute pulmonary process identified. Electronically signed by: Lio Melara 12/15/2021 2:32 AM CDT Due to temporary technical issues with the PACS/Fluency reporting system, reports are being signed by the in house radiologists without review as a courtesy to insure prompt reporting. The interpreting radiologist is fully responsible for the content of the report.
--- NOTE | 2021-12-16 13:49 | EKG ---
Test Date: 2021-12-15 Test Time: 01:21:57 Guidance Counselor: SHAJI MEASUREMENT RESULTS: Intervals: Rate: 87 ID: [id number] QRSD: 74 QT: 366 QTc: 440 Benedict: P: 67 ID: [id number] QRS: 73 T: 32 INTERPRETIVE STATEMENTS: Normal sinus rhythm Possible Left atrial enlargement Nonspecific T wave abnormality Abnormal ECG No previous ECG available for comparison Electronically Signed On 12-16-21 13:46:31 CDT by Gregg Horowitz
== END 2021-12-15 04:13 | disposition home or self-care (01) ==
LOC: ER 23:34
DX: J10.1 Influenza due to other identified influenza virus with other respiratory manifestations (principal); E83.42 Hypomagnesemia; F41.9 Anxiety disorder, unspecified; Z88.5 Allergy status to narcotic agent; Z88.8 Allergy status to other drugs, medicaments and biological substances; Z20.822 Contact with and (suspected) exposure to COVID-19
CPT/HCPCS: 36415; 71045; 80048; 80076; 81003; 83605; 83735; 83880; 84484; 85025; 85610; 87040; 87086; 87088; 87804; 93005; 96361; 96365; 96375; 99284; J3475; J7030; U0003

== ENCOUNTER 2022-03-25 15:32 | Inpatient (IN) | payer OTHER ==
--- OUTSIDE RECORDS SUMMARY | 2022-03-25 15:36 | XMS REPORT | Continuity of Care Document ---
:1970 Author Organization [facility] t Address [address] [place] [address] Care Team Providers Name Role Phone Sergio Bowers DO Primary Care Physician [id number] Attending Clinician Unavailable PEGGY ELY Attending Clinician Unavailable MARCELA MACHADO Attending Clinician Unavailable JOCELYNN BRASWELL Attending Clinician Unavailable LAB90 Attending Clinician Unavailable Sergio Bowers DO Attending Clinician [id number] Admitting Clinician Unavailable LACIE LEONARD Admitting Clinician Unavailable Payers Payer Name Policy Type Policy Number Effective Date Expiration Date S juarez [facility] [id number] [employer] MEDICARE [id number] 2021 00:00:00 CIGNA OON [id number] 2010 00:00:00 MED[place] [id number] 2021 00:00:00 CIGNA-SHEET METAL 2 [id number] 2021 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 HL 00:00:00 FUND Problems Condition Condition Condition Status Onset Resolution Last Treating Co mments Source Name Details Category Date Date Treatment Clinician Date 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 3-29 Seyb old 00:00: 00 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 00:00: 00 Anxiety Anxiety Disease Active Dina 3-29 Seybold 00:00: 00 Gastroesop Gastroesop Disease Active K elsey hageal hageal 3-29 Seybold reflux reflux 00:00: disease disease 00 without without esophagiti esophagiti s s 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, type I on, type I 00 RA RA Disease Active Dina (rheumatoi (rheumatoi 06-08 Se ybold d d 00:00: arthritis) arthritis) 00 Allergies, Adverse Reactions, Alerts Allergy Allergy Status Severity Reaction(s) Onset Inactive Treating Comm ents Source Name Type Date Date Clinician CYCLOBEN Allergy Active Low [facility] OXYCODON Allergy Active [facility]AM [facility] NO KNOWN Allergy Active [facility] ALLERGIE S Social History Social Habit Start Date Stop Date Quantity Comments Source Tobacco use and 2021-09-03 2021-09-03 Smokeless tobacco Ke lsey Seybold exposure 00:00:00 00:00:00 non-user Alcohol intake 2021-09-03 2021-09-03 Lifetime Dina Wrightjustino bold 00:00:00 00:00:00 non-drinker (finding) Education 2021-09-03 2021-09-03 17 Dina Wrightybold 00:00:00 00:00:00 [birth year] Dina Se ybaaron 00:00:00 00:00:00 Smoking Status Start Date Stop Date Source Never smoked tobacco Dina Seyb old Medications Ordered Filled Start Stop Current Ordering Indication Dosage Frequency Signature Comments Components Source Medication Medication Date Date Medication? Clinician (SIG) Name Name hydrOXYzine 25mg Q.5D Take 25 mg Dina HCl 25 MG 09-03 by mouth Seybo ld oral Tablet 13:59: 00:00 as needed 11 :00 in the morning and 25 mg as needed in the evening for anxiety. Citalopram Yes 20mg Take 20 mg K wilfredo Hydrobromid 09-03 by mouth Seyb old e 20 MG 13:58: daily oral Tablet 52 Gabapentin Yes 300mg Take 300 Ke lsey 300 MG oral 3-29 mg by Seybold Capsule 13:36: mouth 3 32 times daily predniSONE Yes [id number] 10mg Take 1 Dina (DELTASONE) 3-29 tablet (10 Se ybold 10 MG oral 00:00: mg total) tablet 00 by mouth daily hydrOXYzine Yes Dina HCl 25 MG 3-21 Seybold oral Tablet [...] 1{tbl} Take 1 Ke lsey (DELTASONE) 2-04 03-29 tablet by Se ybold 10 MG oral 00:00: 00:00 mouth tablet 00 :00 daily Vital Signs Vital Name Observation Time Observation Value Comments Source HEIGHT 2021-12-10 12:26:00 160 cm WEIGHT 2021-12-10 12:26:00 45.632 kg WEIGHT 2021-12-09 19:36:00 45.36 kg WEIGHT 2021-12-07 04:00:00 45.768 kg HEIGHT 2021-12-10 12:26:00 160 cm WEIGHT 2021-12-10 12:26:00 45.632 kg WEIGHT 2021-12-09 19:36:00 45.36 kg WEIGHT 2021-12-07 04:00:00 45.768 kg Systolic blood pressure 2021-09-03 18:33:00 103 mm[Hg] Dina Seybold Diastolic blood 2021-09-03 18:33:00 65 mm[Hg] Kelse y Seybold pressure Heart rate 2021-09-03 18:33:00 86 /min Dina S eybold Body temperature 2021-09-03 18:33:00 36.5 Maria Luisa Joyce ey Seybold Respiratory rate 2021-09-03 18:33:00 14 /min Joyce ey Seybold Body height 2021-09-03 18:33:00 160 cm Dina S eybold Body weight 2021-09-03 18:33:00 46.72 kg Dina S eybold BMI 2021-09-03 18:33:00 18.25 kg/m2 Dina block Oxygen saturation in 2021-09-03 18:33:00 97 /min Dinajaspal Lyle Arterial blood by Pulse oximetry Procedures This patient has no known procedures. Encounters Start End Encounter Admission Attending Care Care Encounter Source Date/Time Date/Time Type Type Clinicians Facility Department ID 2021-12-23 Outpatient 3 [id number] [facility] [id number] [facility] 14[facility] [place] 2021-12-11 Outpatient 3 [id number] [facility] REF [id number] [facility] 11:36:46 [facility] [place] 2021-12-07 Outpatient 3 [id number] [facility] REF [id number] [facility] 11:10:50 [facility] [place] 2021-12-06 Outpatient 3 [id number] [facility] REF [id number] [facility] 15:10:33 [facility] [place] 2021-12-03 2021-12-12 Inpatient ER ELY, [facility] [id number] [facility] 19:31:00 13:47:00 PEGGY 2021-10-01 2021-10-01 Outpatient DINA BRASWELL [id number] Dina 11:00:00 11:00:00 JOCELYNN Blairo ld 2021-09-03 2021-09-03 Outpatient LAB90 DINA MG [id number] Dina 14:20:00 14:20:00 Seybol d 2021-09-03 2021-09-03 Office Vu Bowers [id number] Dina 13:30:00 14:00:00 Visit Sergio Rivera [id number] Se connelly [id number] Results Test Description Test Time Test Comments Results Result Comments Source MAGNESIUM 2021-12-12 06:27:55 Test Item Value Reference Range Interpretation Comme nts MAGNESIUM (BEAKER) (test code = 627) 1.8 mg/dL 1.5-3.0 Supervisor Network Control Operators ID - LITOOperator ID - LITOOperator ID - LITOOperator ID - LITOBASIC METABOLIC [id number] 06:26:06 Test Item Value Reference Range Interpretation Comments SODIUM (BEAKER) 137 meq/L 135-148 (test code = 381) POTASSIUM (BEAKER) 3.7 meq/L 3.6-5.5 (test code = 379) CHLORIDE (BEAKER) 105 meq/L 98-106 (test code = 382) CO2 (BEAKER) (test 24 meq/L 20-29 code = 355) BLOOD UREA NITROGEN 17 mg/dL 10-26 (BEAKER) (test code = 354) CREATININE (BEAKER) 0.65 mg/dL 0.50-1.20 (test code = 358) GLUCOSE RANDOM 83 mg/dL 70-110 (BEAKER) (test code = 652) CALCIUM (BEAKER) 8.8 mg/dL 8.5-10.5 (test code = 697) EGFR (BEAKER) (test 96 mL/min/1.73 ESTIMA NATI GFR IS code = 1092) sq m NOT ACCURATE CREATININE CLEARANCE IN PREDICTING GLOMERULAR FILTRATION RATE . ESTIMATED GFR I S NOT APPLICABLE FOR DIALYSIS PATIEN TS. Supervisor Network Control Operators ID - LITOOperator ID - LITOOperator ID - LITOOperator ID - LITOOperator ID - LITOOperator ID - LITOOperator ID - LITOOperator ID - LITOOperator ID - LITOSARS-COV2/RT-PCR ([facility])2021-12-11 07:44:17 Test Item Value Reference Range Interpretation Comments SARS-COV2/RT-PCR Negative Negative The SARS-Co V-2 target (test code = nucleic acids a re not [id number]) detected in thi s specimen. Negative result s do not preclude SARS-C oV-2 infection and s hould not be used as the nico e basis for patient managem ent decisions. Nega tive results must be combine d with clinical observ ations, patient history , and epidemiological information. A false negativ e result may occur if a spec imen is improperly donna ected, transported or handled. This SARS CoV-2 test is a rapid, real-time RT-PC R test intended for th e qualitative detection of nu cleic acid from SARS-CoV-2 in a nasopharyngeal swab specimen collected from individuals suspected of CO VID-19 by their healthcar e provider. This test has been authorized by FDA under an EUA for use by authorized laboratories. This test is only authorized for the duration of the declaration that circumstances exist justifying the authorization of emergency use of in vitro diagnostic tests for detection and/or diagnosis of COVID-19 under Section 564(b)(1) of the Federal Food, Drug and Cosmetic Act, 21 U.S.C. 360bbb-3(b)(1), unless the authorization is terminated or revoked sooner. Fact Sheet for Healthcare Providers: https://www.[employer]/Documents/Xpert%20Xpress%20SARS%20CoV-2/Fact%20Sheets/302-3802%33VSAM-OAA-8%20 HEALTHCARE%20PROVIDERS%20FACT%20SHEET.pdf Fact Sheet for Healthcare Patients: https://www.[employer]/Documents/Xpert%20Xp ress%20SARS%20CoV-2/Fact%20Sheets/302-3801%69STDH-IST-3%20PATIENT%20FACT%20SHEET .[id number] 06:21:50 Test Item Value Reference Range Interpretation Comments MAGNESIUM (BEAKER) (test code = 3.2 mg/dL 1.5-3.0 H 627) Supervisor Network Control Operators ID - [id number] ID - [id number] ID - vuey59Gggrwtus ID - [id number] BASIC METABOLIC [id number] 06:20:23 Test Item Value Reference Range Interpretation Comments SODIUM (BEAKER) 136 meq/L 135-148 (test code = 381) POTASSIUM (BEAKER) 3.7 meq/L 3.6-5.5 (test code = 379) CHLORIDE (BEAKER) 102 meq/L 98-106 (test code = 382) CO2 (BEAKER) (test 24 meq/L 20-29 code = 355) BLOOD UREA NITROGEN 17 mg/dL 10-26 (BEAKER) (test code = 354) CREATININE (BEAKER) 0.74 mg/dL 0.50-1.20 (test code = 358) GLUCOSE RANDOM 93 mg/dL 70-110 (BEAKER) (test code = 652) CALCIUM (BEAKER) 8.7 mg/dL 8.5-10.5 (test code = 697) EGFR (BEAKER) (test 82 mL/min/1.73 ESTIMA NATI GFR IS code = 1092) sq m NOT ACCURATE CREATININE CLEARANCE IN PREDICTING GLOMERULAR FILTRATION RATE . ESTIMATED GFR I S NOT APPLICABLE FOR DIALYSIS PATIEN TS. Supervisor Network Control Operators ID - [id number] ID - [id number] ID - [id number] ID - jezj14Gspiuvtd ID - mzrz37Bglzwbeg ID - izuc53Ynoiywrq ID - fgsb44Jrcevepe ID - [id number] ID - [id number] 09:41:16 Test Item Value Reference Range Interpretation Comments MAGNESIUM (BEAKER) (test code = 1.5 mg/dL 1.5-3.0 627) Supervisor Network Control Operators ID - [id number] ID - [id number] ID - bdhwllqal013Qgxewrqo ID - [id number] METABOLIC [id number] 06:06:16 Test Item Value Reference Range Interpretation Comments SODIUM (BEAKER) 137 meq/L 135-148 (test code = 381) POTASSIUM (BEAKER) 3.9 meq/L 3.6-5.5 (test code = 379) CHLORIDE (BEAKER) 101 meq/L 98-106 (test code = 382) CO2 (BEAKER) (test 24 meq/L 20-29 code = 355) BLOOD UREA NITROGEN 13 mg/dL 10-26 (BEAKER) (test code = 354) CREATININE (BEAKER) 0.66 mg/dL 0.50-1.20 (test code = 358) GLUCOSE RANDOM 83 mg/dL 70-110 (BEAKER) (test code = 652) CALCIUM (BEAKER) 9.2 mg/dL 8.5-10.5 (test code = 697) EGFR (BEAKER) (test 94 mL/min/1.73 ESTIMA NATI GFR IS code = 1092) sq m NOT ACCURATE CREATININE CLEARANCE IN PREDICTING GLOMERULAR FILTRATION RATE . ESTIMATED GFR I S NOT APPLICABLE FOR DIALYSIS PATIEN TS. Supervisor Network Control Operators ID - [id number] ID - [id number] ID - [id number] ID - sndkdrehj331Etwsmpqs ID - ssuzltnsu322Hctwguze ID - cyqcwzftv641Bgfdfjeh ID - thsnzlooi585Jhomxvvn ID - cbkgltoax156Iiisalrm ID - [id number] ID - tdbrtiycv672Mmcymmgv ID - iwhekeblu758Qxoxvehz ID - [id number] 08:57:03 Test Item Value Reference Range Interpretation Comments MAGNESIUM (BEAKER) (test code = 1.3 mg/dL 1.5-3.0 L 627) Supervisor Network Control Operators ID - DSENSONBASIC METABOLIC [id number] 07:15:00 Test Item Value Reference Range Interpretation Comments SODIUM (BEAKER) 136 meq/L 135-148 (test code = 381) POTASSIUM (BEAKER) 3.7 meq/L 3.6-5.5 (test code = 379) CHLORIDE (BEAKER) 102 meq/L 98-106 (test code = 382) CO2 (BEAKER) (test 25 meq/L 20-29 code = 355) BLOOD UREA NITROGEN 11 mg/dL 10-26 (BEAKER) (test code = 354) CREATININE (BEAKER) 0.66 mg/dL 0.50-1.20 (test code = 358) GLUCOSE RANDOM 80 mg/dL 70-110 (BEAKER) (test code = 652) CALCIUM (BEAKER) 8.9 mg/dL 8.5-10.5 (test code = 697) EGFR (BEAKER) (test 94 mL/min/1.73 ESTIMA NATI GFR IS code = 1092) sq m NOT ACCURATE CREATININE CLEARANCE IN PREDICTING GLOMERULAR FILTRATION RATE . ESTIMATED GFR I S NOT APPLICABLE FOR DIALYSIS PATIEN TS. Supervisor Network Control Operators ID - [id number] ID - [id number] ID - [id number] ID - [id number] ID - ZVCO45Ximzghtt ID - QCEO35Oykryplc ID - YTTS69Vmmuwjvv ID - [id number] ID - SVPL23Eouzronr ID - KKZK64Bifjcfjg ID - DSENSONOperator ID - [id number] 08:51:49 Test Item Value Reference Range Interpretation Comments MAGNESIUM (BEAKER) (test code = 1.5 mg/dL 1.5-3.0 627) Supervisor Network Control Operators ID - DSENSONCOMPREHENSIVE METABOLIC [id number] 06:19:44 Test Item Value Reference Range Interpretation Comments TOTAL PROTEIN 6.0 gm/dL 6.0-8.5 (BEAKER) (test code = 770) ALBUMIN (BEAKER) 3.0 g/dL 3.5-5.0 L (test code = 1145) ALKALINE PHOSPHATASE 173 U/L 30-115 H (BEAKER) (test code = 346) BILIRUBIN TOTAL 0.7 mg/dL 0.1-1.2 (BEAKER) (test code = 377) SODIUM (BEAKER) (test 132 meq/L 135-148 L code = 381) POTASSIUM (BEAKER) 3.9 meq/L 3.6-5.5 (test code = 379) CHLORIDE (BEAKER) 102 meq/L 98-106 (test code = 382) CO2 (BEAKER) (test 26 meq/L 20-29 code = 355) BLOOD UREA NITROGEN 10 mg/dL 10-26 (BEAKER) (test code = 354) CREATININE (BEAKER) 0.63 mg/dL 0.50-1.20 (test code = 358) GLUCOSE RANDOM 85 mg/dL 70-110 (BEAKER) (test code = 652) CALCIUM (BEAKER) 9.2 mg/dL 8.5-10.5 (test code = 697) AST (SGOT) (BEAKER) 34 U/L 5-40 (test code = 353) ALT (SGPT) (BEAKER) 20 U/L 5-50 (test code = 347) EGFR (BEAKER) (test 99 mL/min/1.73 ESTIMA NATI GFR IS code = 1092) sq m NOT ACCURATE CREATININE CLEARANCE IN PREDICTING GLOMERULAR FILTRATION RATE . ESTIMATED GFR I S NOT APPLICABLE FOR DIALYSIS PATIEN TS. Supervisor Network Control Operators ID - [id number] ID - [id number] ID - [id number] ID - [id number] ID - [id number] ID - BHKLSKKNH646Yuoqbjcc ID - LNNEGQTVJ485Dkhpwkkj ID - [id number] ID - [id number] ID - [id number] ID - HQPVJOWZD771Ddjdzjiv ID - ZPBESWFOX657Nyqrhwpo ID - EPAUQXTXH069Tyrkwtnc ID - [id number] ID - [id number] ID -[id number] W/PLT COUNT & AUTO DIFFERENTIAL 2021-12-08 06:07:26 Test Item Value Reference Range Interpretation Comments WHITE BLOOD CELL COUNT (BEAKER) 3.7 K/ L 4.0-10.0 L (test code = 775) RED BLOOD CELL COUNT (BEAKER) 4.02 M/ L 4.00-5.00 (test code = 761) HEMOGLOBIN (BEAKER) (test code = 10.7 GM/DL 12.0-15.5 L 410) HEMATOCRIT (BEAKER) (test code = 32.6 % 36.0-46.0 L 411) MEAN CORPUSCULAR VOLUME (BEAKER) 81.1 fL 82.0-99.0 L (test code = 753) MEAN CORPUSCULAR HEMOGLOBIN 26.6 pg 27.0-33.0 L (BEAKER) (test code = 751) MEAN CORPUSCULAR HEMOGLOBIN CONC 32.8 GM/DL 32.0-36.0 (BEAKER) (test code = 752) RED CELL DISTRIBUTION WIDTH 14.4 % 12.0-15.0 (BEAKER) (test code = 412) PLATELET COUNT (BEAKER) (test 148 K/CU MM 150-430 L code = 756) MEAN PLATELET VOLUME (BEAKER) 10.5 fL 6.0-11.5 (test code = 754) NUCLEATED RED BLOOD CELLS 0 /100 WBC 0-0 (BEAKER) (test code = 413) NEUTROPHILS RELATIVE PERCENT 52 % (BEAKER) (test code = 429) LYMPHOCYTES RELATIVE PERCENT 28 % (BEAKER) (test code = 430) MONOCYTES RELATIVE PERCENT 14 % (BEAKER) (test code = 431) EOSINOPHILS RELATIVE PERCENT 5 % (BEAKER) (test code = 432) BASOPHILS RELATIVE PERCENT 1 % (BEAKER) (test code = 437) NEUTROPHILS ABSOLUTE COUNT 1.93 K/ L 1.80-8.00 (BEAKER) (test code = 670) LYMPHOCYTES ABSOLUTE COUNT 1.03 K/ L 1.48-4.50 L (BEAKER) (test code = 414) MONOCYTES ABSOLUTE COUNT (BEAKER) 0.52 K/ L 0.00-1.30 (test code = 415) EOSINOPHILS ABSOLUTE COUNT 0.19 K/ L 0.00-0.50 (BEAKER) (test code = 416) BASOPHILS ABSOLUTE COUNT (BEAKER) 0.02 K/ L 0.00-0.20 (test code = 417) IMMATURE GRANULOCYTES-RELATIVE 1 % 0-0 H PERCENT (BEAKER) (test code = 2801) COMPREHENSIVE METABOLIC [id number] 06:17:39 Test Item Value Reference Range Interpretation Comments TOTAL PROTEIN 5.6 gm/dL 6.0-8.5 L (BEAKER) (test code = 770) ALBUMIN (BEAKER) 2.7 g/dL 3.5-5.0 L (test code = 1145) ALKALINE PHOSPHATASE 180 U/L 30-115 H (BEAKER) (test code = 346) BILIRUBIN TOTAL 0.6 mg/dL 0.1-1.2 (BEAKER) (test code = 377) SODIUM (BEAKER) (test 138 meq/L 135-148 code = 381) POTASSIUM (BEAKER) 3.3 meq/L 3.6-5.5 L (test code = 379) CHLORIDE (BEAKER) 105 meq/L 98-106 (test code = 382) CO2 (BEAKER) (test 23 meq/L 20-29 code = 355) BLOOD UREA NITROGEN 9 mg/dL 10-26 L (BEAKER) (test code = 354) CREATININE (BEAKER) 0.66 mg/dL 0.50-1.20 (test code = 358) GLUCOSE RANDOM 112 mg/dL 70-110 H (BEAKER) (test code = 652) CALCIUM (BEAKER) 8.5 mg/dL 8.5-10.5 (test code = 697) AST (SGOT) (BEAKER) 16 U/L 5-40 (test code = 353) ALT (SGPT) (BEAKER) 17 U/L 5-50 (test code = 347) EGFR (BEAKER) (test 94 mL/min/1.73 ESTIMA NATI GFR IS code = 1092) sq m NOT ACCURATE CREATININE CLEARANCE IN PREDICTING GLOMERULAR FILTRATION RATE . ESTIMATED GFR I S NOT APPLICABLE FOR DIALYSIS PATIEN TS. Supervisor Network Control Operators ID - [id number] ID - cgvu15Dkhwoeli ID - gpuc30Tdgiqfcw ID - fqus54Mjggedra ID - qenw59Plrgayax ID - ccuj48Sxeiaqdf ID - jjvs11Hzegxioe ID - chxh17Ildurcrf ID - vcpm73Rwrhtzjy ID - mqtq62Btsevirp ID - qkbf37Vcbwxzad ID - zjoz65Nthaxdjk ID - wosn65Kvpvgiow ID - qovq40Iphyvjhm ID - auvs49Felfzqhj ID - jnxr16Wyvqawas ID - dpgn16Jfffpnww ID - egbu20Tdocrdje ID - [id number] W/PLT COUNT & AUTO [id number] 05:38:17 Test Item Value Reference Range Interpretation Comments WHITE BLOOD CELL COUNT (BEAKER) 3.6 K/ L 4.0-10.0 L (test code = 775) RED BLOOD CELL COUNT (BEAKER) 3.76 M/ L 4.00-5.00 L (test code = 761) HEMOGLOBIN (BEAKER) (test code = 9.9 GM/DL 12.0-15.5 L 410) HEMATOCRIT (BEAKER) (test code = 30.1 % 36.0-46.0 L 411) MEAN CORPUSCULAR VOLUME (BEAKER) 80.1 fL 82.0-99.0 L (test code = 753) MEAN CORPUSCULAR HEMOGLOBIN 26.3 pg 27.0-33.0 L (BEAKER) (test code = 751) MEAN CORPUSCULAR HEMOGLOBIN CONC 32.9 GM/DL 32.0-36.0 (BEAKER) (test code = 752) RED CELL DISTRIBUTION WIDTH 14.4 % 12.0-15.0 (BEAKER) (test code = 412) PLATELET COUNT (BEAKER) (test 157 K/CU MM 150-430 code = 756) MEAN PLATELET VOLUME (BEAKER) 10.4 fL 6.0-11.5 (test code = 754) NUCLEATED RED BLOOD CELLS 0 /100 WBC 0-0 (BEAKER) (test code = 413) NEUTROPHILS RELATIVE PERCENT 54 % (BEAKER) (test code = 429) LYMPHOCYTES RELATIVE PERCENT 27 % (BEAKER) (test code = 430) MONOCYTES RELATIVE PERCENT 14 % (BEAKER) (test code = 431) EOSINOPHILS RELATIVE PERCENT 4 % (BEAKER) (test code = 432) BASOPHILS RELATIVE PERCENT 0 % (BEAKER) (test code = 437) NEUTROPHILS ABSOLUTE COUNT 1.93 K/ L 1.80-8.00 (BEAKER) (test code = 670) LYMPHOCYTES ABSOLUTE COUNT 0.96 K/ L 1.48-4.50 L (BEAKER) (test code = 414) MONOCYTES ABSOLUTE COUNT (BEAKER) 0.50 K/ L 0.00-1.30 (test code = 415) EOSINOPHILS ABSOLUTE COUNT 0.15 K/ L 0.00-0.50 (BEAKER) (test code = 416) BASOPHILS ABSOLUTE COUNT (BEAKER) 0.01 K/ L 0.00-0.20 (test code = 417) IMMATURE GRANULOCYTES-RELATIVE 1 % 0-0 H PERCENT (BEAKER) (test code = 2801) COMPREHENSIVE METABOLIC [id number] 05:14:59 Test Item Value Reference Range Interpretation Comments TOTAL PROTEIN 5.6 gm/dL 6.0-8.5 L (BEAKER) (test code = 770) ALBUMIN (BEAKER) 2.7 g/dL 3.5-5.0 L (test code = 1145) ALKALINE PHOSPHATASE 239 U/L 30-115 H (BEAKER) (test code = 346) BILIRUBIN TOTAL 0.9 mg/dL 0.1-1.2 (BEAKER) (test code = 377) SODIUM (BEAKER) (test 137 meq/L 135-148 code = 381) POTASSIUM (BEAKER) 3.8 meq/L 3.6-5.5 (test code = 379) CHLORIDE (BEAKER) 104 meq/L 98-106 (test code = 382) CO2 (BEAKER) (test 24 meq/L 20-29 code = 355) BLOOD UREA NITROGEN 7 mg/dL 10-26 L (BEAKER) (test code = 354) CREATININE (BEAKER) 0.65 mg/dL 0.50-1.20 (test code = 358) GLUCOSE RANDOM 89 mg/dL 70-110 (BEAKER) (test code = 652) CALCIUM (BEAKER) 8.6 mg/dL 8.5-10.5 (test code = 697) AST (SGOT) (BEAKER) 39 U/L 5-40 (test code = 353) ALT (SGPT) (BEAKER) 24 U/L 5-50 (test code = 347) EGFR (BEAKER) (test 96 mL/min/1.73 ESTIMA NATI GFR IS code = 1092) sq m NOT ACCURATE CREATININE CLEARANCE IN PREDICTING GLOMERULAR FILTRATION RATE . ESTIMATED GFR I S NOT APPLICABLE FOR DIALYSIS PATIEN TS. Supervisor Network Control Operators ID - LITOOperator ID - LITOOperator ID - LITOOperator ID - LITOOperator ID - LITOOperator ID - LITOOperator ID - LITOOperator ID - LITOOperator ID - LITOOperator ID - LITOOperator ID - LITOOperator ID - LITOOperator ID - LITOOperator ID - LITOOperator ID - LITOOperator ID - LITOOperator ID - L ITOOperator ID - LITOOperator ID - LITOCBC W/PLT COUNT & AUTO DIFFERENTIAL 2021-12-06 04:52:51 Test Item Value Reference Range Interpretation Comments WHITE BLOOD CELL COUNT (BEAKER) 3.3 K/ L 4.0-10.0 L (test code = 775) RED BLOOD CELL COUNT (BEAKER) 3.84 M/ L 4.00-5.00 L (test code = 761) HEMOGLOBIN (BEAKER) (test code = 10.2 GM/DL 12.0-15.5 L 410) HEMATOCRIT (BEAKER) (test code = 31.4 % 36.0-46.0 L 411) MEAN CORPUSCULAR VOLUME (BEAKER) 81.8 fL 82.0-99.0 L (test code = 753) MEAN CORPUSCULAR HEMOGLOBIN 26.6 pg 27.0-33.0 L (BEAKER) (test code = 751) MEAN CORPUSCULAR HEMOGLOBIN CONC 32.5 GM/DL 32.0-36.0 (BEAKER) (test code = 752) RED CELL DISTRIBUTION WIDTH 14.3 % 12.0-15.0 (BEAKER) (test code = 412) PLATELET COUNT (BEAKER) (test 169 K/CU MM 150-430 code = 756) MEAN PLATELET VOLUME (BEAKER) 10.1 fL 6.0-11.5 (test code = 754) NUCLEATED RED BLOOD CELLS 0 /100 WBC 0-0 (BEAKER) (test code = 413) NEUTROPHILS RELATIVE PERCENT 55 % (BEAKER) (test code = 429) LYMPHOCYTES RELATIVE PERCENT 26 % (BEAKER) (test code = 430) MONOCYTES RELATIVE PERCENT 16 % (BEAKER) (test code = 431) EOSINOPHILS RELATIVE PERCENT 3 % (BEAKER) (test code = 432) BASOPHILS RELATIVE PERCENT 0 % (BEAKER) (test code = 437) NEUTROPHILS ABSOLUTE COUNT 1.79 K/ L 1.80-8.00 L (BEAKER) (test code = 670) LYMPHOCYTES ABSOLUTE COUNT 0.84 K/ L 1.48-4.50 L (BEAKER) (test code = 414) MONOCYTES ABSOLUTE COUNT (BEAKER) 0.52 K/ L 0.00-1.30 (test code = 415) EOSINOPHILS ABSOLUTE COUNT 0.11 K/ L 0.00-0.50 (BEAKER) (test code = 416) BASOPHILS ABSOLUTE COUNT (BEAKER) 0.01 K/ L 0.00-0.20 (test code = 417) IMMATURE GRANULOCYTES-RELATIVE 0 % 0-0 PERCENT (BEAKER) (test code = 2801) IRON, TIBC, % SAT. (WITHOUT FERRITIN)2021-12-05 05:23:52 Test Item Value Reference Range Interpretation Comments IRON (BEAKER) (test code = 547) 36.0 ug/dL 45.0-170.0 L TOTAL IRON BINDING CAPACITY 209 ug/dL 250-550 L (BEAKER) (test code = 769) IRON % SATURATION (2) (BEAKER) 17 % 20-55 L (test code = 2590) Supervisor Network Control Operators ID - [id number] ID - [id number] METABOLIC [id number] 05:23:34 Test Item Value Reference Range Interpretation Comments TOTAL PROTEIN 5.6 gm/dL 6.0-8.5 L (BEAKER) (test code = 770) ALBUMIN (BEAKER) 2.8 g/dL 3.5-5.0 L (test code = 1145) ALKALINE PHOSPHATASE 288 U/L 30-115 H (BEAKER) (test code = 346) BILIRUBIN TOTAL 1.3 mg/dL 0.1-1.2 H (BEAKER) (test code = 377) SODIUM (BEAKER) (test 133 meq/L 135-148 L code = 381) POTASSIUM (BEAKER) 3.9 meq/L 3.6-5.5 (test code = 379) CHLORIDE (BEAKER) 105 meq/L 98-106 (test code = 382) CO2 (BEAKER) (test 23 meq/L 20-29 code = 355) BLOOD UREA NITROGEN 5 mg/dL 10-26 L (BEAKER) (test code = 354) CREATININE (BEAKER) 0.73 mg/dL 0.50-1.20 (test code = 358) GLUCOSE RANDOM 107 mg/dL 70-110 (BEAKER) (test code = 652) CALCIUM (BEAKER) 8.2 mg/dL 8.5-10.5 L (test code = 697) AST (SGOT) (BEAKER) 109 U/L 5-40 H (test code = 353) ALT (SGPT) (BEAKER) 64 U/L 5-50 H (test code = 347) EGFR (BEAKER) (test 84 mL/min/1.73 ESTIMA NATI GFR IS code = 1092) sq m NOT ACCURATE CREATININE CLEARANCE IN PREDICTING GLOMERULAR FILTRATION RATE . ESTIMATED GFR I S NOT APPLICABLE FOR DIALYSIS PATIEN TS. Supervisor Network Control Operators ID - [id number] ID - [id number] ID - [id number] ID - [id number] ID - [id number] ID - [id number] ID - [id number] ID - [id number] ID - [id number] ID - [id number] ID - [id number] ID - [id number] ID - [id number] ID - [id number] ID - [id number] ID -[id number] ID - [id number] ID - [id number] ID - [id number] W/PLT COUNT & AUTO DIFFERENTIAL 2021-12-05 05:14:34 Test Item Value Reference Range Interpretation Comments WHITE BLOOD CELL COUNT (BEAKER) 2.6 K/ L 4.0-10.0 L (test code = 775) RED BLOOD CELL COUNT (BEAKER) 4.23 M/ L 4.00-5.00 (test code = 761) HEMOGLOBIN (BEAKER) (test code = 11.5 GM/DL 12.0-15.5 L 410) HEMATOCRIT (BEAKER) (test code = 35.0 % 36.0-46.0 L 411) MEAN CORPUSCULAR VOLUME (BEAKER) 82.7 fL 82.0-99.0 (test code = 753) MEAN CORPUSCULAR HEMOGLOBIN 27.2 pg 27.0-33.0 (BEAKER) (test code = 751) MEAN CORPUSCULAR HEMOGLOBIN CONC 32.9 GM/DL 32.0-36.0 (BEAKER) (test code = 752) RED CELL DISTRIBUTION WIDTH 14.8 % 12.0-15.0 (BEAKER) (test code = 412) PLATELET COUNT (BEAKER) (test 137 K/CU MM 150-430 L code = 756) MEAN PLATELET VOLUME (BEAKER) 10.5 fL 6.0-11.5 (test code = 754) NUCLEATED RED BLOOD CELLS 0 /100 WBC 0-0 (BEAKER) (test code = 413) NEUTROPHILS RELATIVE PERCENT 58 % (BEAKER) (test code = 429) LYMPHOCYTES RELATIVE PERCENT 26 % (BEAKER) (test code = 430) MONOCYTES RELATIVE PERCENT 13 % (BEAKER) (test code = 431) EOSINOPHILS RELATIVE PERCENT 3 % (BEAKER) (test code = 432) BASOPHILS RELATIVE PERCENT 0 % (BEAKER) (test code = 437) NEUTROPHILS ABSOLUTE COUNT 1.52 K/ L 1.80-8.00 L (BEAKER) (test code = 670) LYMPHOCYTES ABSOLUTE COUNT 0.67 K/ L 1.48-4.50 L (BEAKER) (test code = 414) MONOCYTES ABSOLUTE COUNT (BEAKER) 0.35 K/ L 0.00-1.30 (test code = 415) EOSINOPHILS ABSOLUTE COUNT 0.09 K/ L 0.00-0.50 (BEAKER) (test code = 416) BASOPHILS ABSOLUTE COUNT (BEAKER) 0.00 K/ L 0.00-0.20 (test code = 417) IMMATURE GRANULOCYTES-RELATIVE 0 % 0-0 PERCENT (BEAKER) (test code = 2801) U/S, ABDOMINAL, [id number] 00:01:00Reason for exam:->Elevated liver chemistries and screen for splenomegaly - 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 Liver: 12.4 cm , normal. Normal echogenicity. No focal lesions. Gallbladder: Absent. Biliary tree: No intrahepatic ductal dilatation. CBD: 6 mm. MPV: 7 mm Spleen: Splenomegaly, measuring 13.5 x 4.2 x 4.4 cm. Pancreas: Partially obscured by bowel gas but unremarkable where visualized. Right kidney: 9.5 x 3.5 x 4.3 cm. Normal echogenicity.Left kidney: 9.4 x 3.2 x 4.2 cm. Normal echogenicity. No ascites is present in the abdomen. The visualized abdominal aorta is normal in caliber. The IVC and Hepatic veins are patent. Impression: Mild splenomegaly. Previous cholecystectomy. Signed: Bridger Paniagua MDReport Verified Date/Time: 12/05/2021 00:01:33 CT, EXTREMITY, LOWER WITHOUT CONTRAST, LEFT 2021-12-04 16:18:00Unlisted Reason for Exam - Click Yes and Enter Reason Below- >NoPlease specify:->left hip [facility] : 1970 Sex: FFINAL REPORT CT of the left hip without contrast History: Hip trauma, nondiagnostic xrayComparisons: None Technique: CT of the left hip was performed without contrast. Axial images were generated as were multiplanar reformatted images in the coronal and sagittal planes. This exam was performed according to our departmental dose optimization program which includes automated exposure control, adjustment of the mA and/or kV according to patient's size and/or use of iterative reconstructivetechnique. Findings: There is a impacted subcapital fracture of the left femur, with mild valgus deformity and apex anterior angulation. Symphysis pubis is congruent. Symphysis pubis is congruent. Bony mineralization is decreased. There is a horizontal band of sclerosis in the distal sacrum, most likely to represent an insufficiency fracture. The left- sided hamstring, iliopsoas, and gluteus tendons appear grossly intact. The left pelvic and proximal thigh musculature appear unremarkable. No hematomais identified. There is peripheral vascular calcification. Visualized pelvic contents are unremarkable. IMPRESSION: Impacted subcapital left femoral fracture. Insufficiency fracture in the distal sacrum. Signed: Tiera Koch Verified Date/Time: 12/04/2021 16:18:12 Reading Location: [address] Ortho Consult Reading Room FL, FLUORO, NON-SPECIFIC, UP TO 1 [id number] 14:56:00Reason for exam:->CLOSED REDUCTION, FRACTURE, FEMUR, WITH PINNING - [facility] : 1970 Sex: FAn imaging unit was utilized for this procedure. No radiologist interpretation was requested. Refer to the EMR for findings. Refer to PACS for any patient radiation dose information.PROTHROMBIN [id number] 10:28:29 Test Item Value Reference Range Interpretation Comments PROTIME (BEAKER) 11.6 seconds 9.3-12.0 Final Infor mation (test code = 759) (Auto Outp ut) INR (BEAKER) (test 1.06 See_Comment Final Inf ormation code = 370) (Auto Output) [Automated mess age] The system [employer] generated this result transmitted ref erence range: <=5.90. The reference range was not used to int erpret this result as normal/abnormal . RECOMMENDED COUMADIN/WARFARIN INR THERAPY RANGESSTANDARD DOSE: 2.0 - 3.0 Includes: PROPHYLAXIS for venous thrombosis, systemic embolization; TREATMENT for venous thrombosis and/or pulmonary embolus.HIGH RISK: Target INR is 2.5-3.5 for patients with mechanical heart valves.RAD, FEMUR, MIN. 2 VIEWS, LEFT 2021-12-04 08:13:00Reason for exam:->left hip pain, femoral neck fracture [facility]AND[facility] : 1970 Sex: FFINAL REPORT Left humerus, 2 views. History: Left hip pain, femoral neck fracture Findings: The soft tissues are normal. The bones are diffusely osteopenic. A minimally displaced left femoral neck fracture is identified. There is no evidence of dislocation. Remaining bones are intact. There are no erosions or periosteal reaction. The joint spaces are within normal limits. IMPRESSION:Left femoral neck fracture. Signed: Robb Baumanort Verified Date/Time: 12/04/2021 08:13:08 Reading Location: [facility] Mammo Reading Room CREATINE KINASE (CK)2021-12-04 07:51:45 Test Item Value Reference Range Interpretation Comments CREATINE KINASE TOTAL (BEAKER) (test 15 U/L 25-235 L code = 380) Supervisor Network Control Operators ID - [id number] FUNCTION [id number] 07:21:47 Test Item Value Reference Range Interpretation Comments TOTAL PROTEIN (BEAKER) (test code = 5.6 gm/dL 6.0-8.5 L 770) ALBUMIN (BEAKER) (test code = 1145) 2.8 g/dL 3.5-5.0 L BILIRUBIN TOTAL (BEAKER) (test code 1.3 mg/dL 0.1-1.2 H = 377) BILIRUBIN DIRECT (BEAKER) (test 0.8 mg/dL 0.0-0.4 H code = 706) ALKALINE PHOSPHATASE (BEAKER) (test 251 U/L 30-115 H code = 346) AST (SGOT) (BEAKER) (test code = 279 U/L 5-40 H 353) ALT (SGPT) (BEAKER) (test code = 97 U/L 5-50 H 347) Supervisor Network Control Operators ID - [id number] ID - [id number] ID - [id number] ID - [id number] ID - [id number] ID - [id number] ID - frcs23Thnrexpi ID - [id number] ID - [id number] ID - [id number] 07:13:20 Test Item Value Reference Range Interpretation Comments ETHANOL (BEAKER) < mg/dL See_Comment [Automated message] The (test code = 400) system [employer] generated this result tra nsmitted reference range : <=10. The reference r sanchez was not used to int erpret this result as normal/abnormal . Supervisor Network Control Operators ID - [id number], [id number] 06:26:04 Test Item Value Reference Range Interpretation Comments PARATHYROID HORMONE INTACT 61.1 pg/mL 15.0-90.0 (BEAKER) (test code = 577) Supervisor Network Control Operators ID - [id number] METABOLIC [id number] 05:51:19 Test Item Value Reference Range Interpretation Comments TOTAL PROTEIN 5.9 gm/dL 6.0-8.5 L (BEAKER) (test code = 770) ALBUMIN (BEAKER) 3.0 g/dL 3.5-5.0 L (test code = 1145) ALKALINE PHOSPHATASE 241 U/L 30-115 H (BEAKER) (test code = 346) BILIRUBIN TOTAL 1.4 mg/dL 0.1-1.2 H (BEAKER) (test code = 377) SODIUM (BEAKER) (test 138 meq/L 135-148 code = 381) POTASSIUM (BEAKER) 4.0 meq/L 3.6-5.5 (test code = 379) CHLORIDE (BEAKER) 108 meq/L 98-106 H (test code = 382) CO2 (BEAKER) (test 24 meq/L 20-29 code = 355) BLOOD UREA NITROGEN 10 mg/dL 10-26 (BEAKER) (test code = 354) CREATININE (BEAKER) 0.70 mg/dL 0.50-1.20 (test code = 358) GLUCOSE RANDOM 92 mg/dL 70-110 (BEAKER) (test code = 652) CALCIUM (BEAKER) 8.3 mg/dL 8.5-10.5 L (test code = 697) AST (SGOT) (BEAKER) 285 U/L 5-40 H (test code = 353) ALT (SGPT) (BEAKER) 91 U/L 5-50 H (test code = 347) EGFR (BEAKER) (test 88 mL/min/1.73 ESTIMA NATI GFR IS code = 1092) sq m NOT ACCURATE CREATININE CLEARANCE IN PREDICTING GLOMERULAR FILTRATION RATE . ESTIMATED GFR I S NOT APPLICABLE FOR DIALYSIS PATIEN TS. Supervisor Network Control Operators ID - [id number] ID - [id number] ID - [id number] ID - [id number] ID - [id number] ID - [id number] ID - [id number] ID - [id number] ID - [id number] ID - [id number] ID - [id number] ID - [id number] ID - [id number] ID - [id number] ID - [id number] ID - vwic17Gpqtciae ID - eiwe16Hridlerw ID - [id number] ID - [id number] W/PLT COUNT & AUTO [id number] 05:41:52 Test Item Value Reference Range Interpretation Comments WHITE BLOOD CELL COUNT (BEAKER) 2.0 K/ L 4.0-10.0 L (test code = 775) RED BLOOD CELL COUNT (BEAKER) 4.20 M/ L 4.00-5.00 (test code = 761) HEMOGLOBIN (BEAKER) (test code = 11.3 GM/DL 12.0-15.5 L 410) HEMATOCRIT (BEAKER) (test code = 34.9 % 36.0-46.0 L 411) MEAN CORPUSCULAR VOLUME (BEAKER) 83.1 fL 82.0-99.0 (test code = 753) MEAN CORPUSCULAR HEMOGLOBIN 26.9 pg 27.0-33.0 L (BEAKER) (test code = 751) MEAN CORPUSCULAR HEMOGLOBIN CONC 32.4 GM/DL 32.0-36.0 (BEAKER) (test code = 752) RED CELL DISTRIBUTION WIDTH 14.5 % 12.0-15.0 (BEAKER) (test code = 412) PLATELET COUNT (BEAKER) (test 129 K/CU MM 150-430 L code = 756) MEAN PLATELET VOLUME (BEAKER) 10.3 fL 6.0-11.5 (test code = 754) NUCLEATED RED BLOOD CELLS 0 /100 WBC 0-0 (BEAKER) (test code = 413) NEUTROPHILS RELATIVE PERCENT 50 % (BEAKER) (test code = 429) LYMPHOCYTES RELATIVE PERCENT 29 % (BEAKER) (test code = 430) MONOCYTES RELATIVE PERCENT 15 % (BEAKER) (test code = 431) EOSINOPHILS RELATIVE PERCENT 6 % (BEAKER) (test code = 432) BASOPHILS RELATIVE PERCENT 1 % (BEAKER) (test code = 437) NEUTROPHILS ABSOLUTE COUNT 1.00 K/ L 1.80-8.00 L (BEAKER) (test code = 670) LYMPHOCYTES ABSOLUTE COUNT 0.59 K/ L 1.48-4.50 L (BEAKER) (test code = 414) MONOCYTES ABSOLUTE COUNT (BEAKER) 0.30 K/ L 0.00-1.30 (test code = 415) EOSINOPHILS ABSOLUTE COUNT 0.11 K/ L 0.00-0.50 (BEAKER) (test code = 416) BASOPHILS ABSOLUTE COUNT (BEAKER) 0.01 K/ L 0.00-0.20 (test code = 417) IMMATURE GRANULOCYTES-RELATIVE 0 % 0-0 PERCENT (BEAKER) (test code = 2801) SCREEN, [id number] 05:26:16 Test Item Value Reference Range Interpretation Comments TEST URINE (BEAKER) (test Negative Negative code = 583) SARS-COV2/RT-PCR ([facility])2021-12-04 01:49:23 Test Item Value Reference Range Interpretation Comments SARS-COV2/RT-PCR (test Negative Not Detected, Negative, See code = 8508769) external report for linked test COMPREHENSIVE METABOLIC [id number] 21:22:23 Test Item Value Reference Range Interpretation Comments TOTAL PROTEIN 6.2 gm/dL 6.0-8.5 (BEAKER) (test code = 770) ALBUMIN (BEAKER) 3.2 g/dL 3.5-5.0 L (test code = 1145) ALKALINE PHOSPHATASE 108 U/L 30-115 (BEAKER) (test code = 346) BILIRUBIN TOTAL 1.0 mg/dL 0.1-1.2 (BEAKER) (test code = 377) SODIUM (BEAKER) (test 139 meq/L 135-148 code = 381) POTASSIUM (BEAKER) 3.5 meq/L 3.6-5.5 L (test code = 379) CHLORIDE (BEAKER) 109 meq/L 98-106 H (test code = 382) CO2 (BEAKER) (test 22 meq/L 20-29 code = 355) BLOOD UREA NITROGEN 11 mg/dL 10-26 (BEAKER) (test code = 354) CREATININE (BEAKER) 0.68 mg/dL 0.50-1.20 (test code = 358) GLUCOSE RANDOM 100 mg/dL 70-110 (BEAKER) (test code = 652) CALCIUM (BEAKER) 8.6 mg/dL 8.5-10.5 (test code = 697) AST (SGOT) (BEAKER) 27 U/L 5-40 (test code = 353) ALT (SGPT) (BEAKER) 13 U/L 5-50 (test code = 347) EGFR (BEAKER) (test 91 mL/min/1.73 ESTIMA NATI GFR IS code = 1092) sq m NOT ACCURATE CREATININE CLEARANCE IN PREDICTING GLOMERULAR FILTRATION RATE . ESTIMATED GFR I S NOT APPLICABLE FOR DIALYSIS PATIEN TS. Supervisor Network Control Operators ID - PAULSILOCOOperator ID - PAULSILOCOOperator ID - PAULSILOCOOperator ID - PAULSILOCOOperator ID - PAULSILOCOOperator ID - PAULSILOCOOperator ID - PAULSILOCOOperator ID - PAULSILOCOOperator ID - PAULSILOCOOperator ID - PAULSILOCOOperator ID - PAULSILOCOOperator ID - PAULSILOCOOperator ID - P AULSILOCOOperator ID - PAULSILOCOOperator ID - PAULSILOCOOperator ID - [id number] 21:19:26 Test Item Value Reference Range Interpretation Comments MAGNESIUM (BEAKER) (test code = 1.5 mg/dL 1.5-3.0 627) Supervisor Network Control Operators ID - PAULSILOCOOperator ID - PAULSILOCOOperator ID - PAULSILOCOOperator ID - [id number] 21:15:47 Test Item Value Reference Range Interpretation Comments PHOSPHORUS (BEAKER) (test code = 2.6 mg/dL 2.5-4.5 604) Supervisor Network Control Operators ID - PAULSILOCOPROTHROMBIN TIME/[id number] 21:14:26 Test Item Value Reference Range Interpretation Comments PROTIME (BEAKER) 11.1 seconds 9.3-12.0 Final Infor mation (test code = 759) (Auto Outp ut) INR (BEAKER) (test 1.01 See_Comment Final Inf ormation code = 370) (Auto Output) [Automated mess age] The system [employer] generated this result transmitted ref erence range: <=5.90. The reference range was not used to int erpret this result as normal/abnormal . RECOMMENDED COUMADIN/WARFARIN INR THERAPY RANGESSTANDARD DOSE: 2.0 - 3.0 Includes: PROPHYLAXIS for venous thrombosis, systemic embolization; TREATMENT for venous thrombosis and/or pulmonary embolus.HIGH RISK: Target INR is 2.5-3.5 for patients with mechanical heart valves.CBC W/PLT COUNT & AUTO [id number] 21:03:25 Test Item Value Reference Range Interpretation Comments WHITE BLOOD CELL COUNT (BEAKER) 4.2 K/ L 4.0-10.0 (test code = 775) RED BLOOD CELL COUNT (BEAKER) 4.42 M/ L 4.00-5.00 (test code = 761) HEMOGLOBIN (BEAKER) (test code = 11.8 GM/DL 12.0-15.5 L 410) HEMATOCRIT (BEAKER) (test code = 36.6 % 36.0-46.0 411) MEAN CORPUSCULAR VOLUME (BEAKER) 82.8 fL 82.0-99.0 (test code = 753) MEAN CORPUSCULAR HEMOGLOBIN 26.7 pg 27.0-33.0 L (BEAKER) (test code = 751) MEAN CORPUSCULAR HEMOGLOBIN CONC 32.2 GM/DL 32.0-36.0 (BEAKER) (test code = 752) RED CELL DISTRIBUTION WIDTH 14.3 % 12.0-15.0 (BEAKER) (test code = 412) PLATELET COUNT (BEAKER) (test 174 K/CU MM 150-430 code = 756) MEAN PLATELET VOLUME (BEAKER) 10.3 fL 6.0-11.5 (test code = 754) NUCLEATED RED BLOOD CELLS 0 /100 WBC 0-0 (BEAKER) (test code = 413) NEUTROPHILS RELATIVE PERCENT 56 % (BEAKER) (test code = 429) LYMPHOCYTES RELATIVE PERCENT 24 % (BEAKER) (test code = 430) MONOCYTES RELATIVE PERCENT 17 % (BEAKER) (test code = 431) EOSINOPHILS RELATIVE PERCENT 3 % (BEAKER) (test code = 432) BASOPHILS RELATIVE PERCENT 0 % (BEAKER) (test code = 437) NEUTROPHILS ABSOLUTE COUNT 2.37 K/ L 1.80-8.00 (BEAKER) (test code = 670) LYMPHOCYTES ABSOLUTE COUNT 1.00 K/ L 1.48-4.50 L (BEAKER) (test code = 414) MONOCYTES ABSOLUTE COUNT (BEAKER) 0.70 K/ L 0.00-1.30 (test code = 415) EOSINOPHILS ABSOLUTE COUNT 0.13 K/ L 0.00-0.50 (BEAKER) (test code = 416) BASOPHILS ABSOLUTE COUNT (BEAKER) 0.01 K/ L 0.00-0.20 (test code = 417) IMMATURE GRANULOCYTES-RELATIVE 0 % 0-0 PERCENT (BEAKER) (test code = 2801)
[2022-03-25 17:00] LABS: Absolute Lymphocytes (CBC) 0.6 K/uL (0.7-4.9); Hematocrit 43.1 % (36.0-45.0); Lymphocytes % 22.1 % (15.3-44.8); MCV 84.4 fL (80-100); MPV 8.8 fL (7.6-11.3); RBC Red Blood Cell Count 5.11 M/uL (3.86-4.86)
[2022-03-25 17:01] LABS: Protime INR 1.03
--- NOTE | 2022-03-25 17:06 | RAD REPORT ---
EXAM DESCRIPTION: Jose Elias Single View03/25/2022 4:57 pm CLINICAL HISTORY: Vomiting, malaise COMPARISON: 2020 FINDINGS: The lungs appear clear of acute infiltrate. The heart is normal size IMPRESSION: No acute abnormalities displayed
[2022-03-25 17:17] LABS: Albumin 3.5 g/dL (3.4-5.0); Bilirubin Direct 0.3 mg/dL (0-0.2); Magnesium 1.7 mg/dL (1.8-2.4); Potassium 3.6 mmol/L (3.5-5.1); Protein, Total 7.3 g/dL (6.4-8.2); Troponin High Sensitivity 4.4 pg/mL (<58.9)
[2022-03-25] MEDS ORDERED: ONDANSETRON 4 MG/2 ML VIAL ONE (17:22)
[2022-03-25] MEDS ORDERED: MAGNESIUM SULFATE 1 gm IVPB 1 GM/100 ML BAG IV ONE (17:28)
--- NOTE | 2022-03-25 19:07 | RAD REPORT ---
EXAM DESCRIPTION: US - Abdomen Exam Complete - 03/25/2022 6:44 pm CLINICAL HISTORY: Abdominal pain COMPARISON: none FINDINGS: The liver has a normal echotexture. Cholecystectomy. The biliary tree is normal caliber. The pancreas is normal in size and echotexture The right kidney measures 9 centimeters with a normal echotexture. The left kidney measures 9 centimeters with a normal echotexture. The spleen measures 16 centimeters. Abdominal aorta/IVC do not demonstrate a significant abnormality IMPRESSION: Mild to moderate splenomegaly
[2022-03-25 19:16] LABS: Blood Morphology Comment NOT SEEN (NOT SEEN); Platelet Estimate ADEQ; White Blood Cell Scan OK (OK)
[2022-03-25] MEDS ORDERED: FENTANYL CITR 100 MCG/2 ML ONE (20:07)
--- NOTE | 2022-03-25 21:13 | RAD REPORT ---
EXAM DESCRIPTION: CT - Abdomen Pelvis W Contrast - 03/25/2022 8:57 pm CLINICAL HISTORY: Abdominal pain COMPARISON: none. TECHNIQUE: Computed axial tomography of the abdomen pelvis was obtained. 100 cc Isovue-300 was admin istered intravenously. Oral contrast was not requested which limits evaluation of bowel and appendix All CT scans are performed using dose optimization technique as appropriate and may include automated exposure control or mA/KV adjustment according to patient size. FINDINGS: Cholecystectomy. Mild prominence of the intra and extrahepatic biliary tree Spleen is mildly to moderately enlarged The liver,, pancreas, adrenal and left kidney appear unremarkable. Tiny right renal calculus. No hydronephrosis There is no evidence of diverticulitis. No adnexal mass Postsurgical changes involve the femora IMPRESSION: Mild to moderate splenomegaly Mild prominence of the intra and extrahepatic biliary tree probably is physiologic and related to the cholecystectomy. Pathology such as a stricture or non visualized stone within the duct can also resu lt in this appearance and should be correlated clinically and with appropriate lab values
--- NOTE | 2022-03-25 22:13 | ER ---
Nurse's Notes [facility] Name: Cindy Garcia Age: 51 yrs Sex: Female : 1970 Arrival Date: 03/25/2022 Time: 15:47 Bed 23 Private MD: Diagnosis: Nausea with vomiting, unspecified;Elevated liver enzymes Presentation: 03/25 15:50 Chief complaint: EMS states: "patient was with sister and she is complaining of em6 generalized weakness and nausea and vomiting. No pain. we started a 20 G Right AC. gave 250 mL of fluids. normal sinus rhythm and normal vitals. gave 4 mg of Zofran.". Coronavirus screen: At this time, the client does not indicate any symptoms associated with coronavirus-19. Ebola Screen: Patient negative for fever greater than or equal to 101.5 degrees Fahrenheit, and additional compatible Ebola Virus Disease symptoms. Initial Sepsis Screen: Does the patient meet any 2 criteria? No. Patient's initial sepsis screen is negative. Does the patient have a suspected source of infection? No. Patient's initial sepsis screen is negative. Risk Assessment: Do you want to hurt yourself or someone else? Patient reports no desire to harm self or others. Onset of symptoms was March 24, 2022 at 21:00. 15:50 Acuity: JOSE MIGUEL 3 em6 15:50 Method Of Arrival: EMS: [facility] em6 Historical: - Allergies: 15:52 Cyclobenzaprine; em6 15:52 Oxycodone HCl; em6 15:52 OxyContin; em6 - Home Meds: 15:52 "anti-anxiety" [Active]; "heart burn med" [Active]; Prednisone Oral [Active]; Requip em6 Oral [Active]; - PMHx: 15:52 celiac; chiari malformation; GERD; Osteoporosis; Rheumatoid Arthritis; em6 - PSHx: 15:52 Appendectomy; Cholecystectomy; em6 - Immunization history:: Adult Immunizations unknown. - Social history:: Smoking status: unknown. Screenin:49 Abuse screen: Denies threats or abuse. Nutritional screening: No deficits noted. em6 Tuberculosis screening: No symptoms or risk factors identified. Fall Risk IV access (20 points). Gait- Weak (10 pts.). Total Berg Fall Scale indicates No Risk (0-24 pts). Assessment: 15:48 General: Appears comfortable, Behavior is cooperative. Pain: Denies pain. Neuro: Level em6 of Consciousness is awake, alert, obeys commands, Oriented to person, place, time, situation, Reports weakness. Cardiovascular: Patient's skin is warm and dry. Respiratory: Airway is patent Respiratory effort is even, unlabored, Respiratory pattern is regular, symmetrical, Breath sounds are clear bilaterally. GI: Abdomen is non-distended, Abd is soft and non tender X 4 quads. Reports nausea, vomiting. : No signs and/or symptoms were reported regarding the genitourinary system. EENT: No signs and/or symptoms were reported regarding the EENT system. Derm: No signs and/or symptoms reported regarding the dermatologic system. Musculoskeletal: Circulation, motion, and sensation intact. 16:57 Reassessment: Patient appears in no apparent distress at this time. No changes from em6 previously documented assessment. Patient and/or family updated on plan of care and expected duration. Pain level reassessed. Patient is alert, oriented x 3, equal unlabored respirations, skin warm/dry/pink. 18:00 Reassessment: Patient appears in no apparent distress at this time. No changes from em6 previously documented assessment. Patient and/or family updated on plan of care and expected duration. Pain level reassessed. Patient is alert, oriented x 3, equal unlabored respirations, skin warm/dry/pink. 19:00 Reassessment: Patient appears in no apparent distress at this time. No changes from em6 previously documented assessment. Patient and/or family updated on plan of care and expected duration. Pain level reassessed. Patient is alert, oriented x 3, equal unlabored respirations, skin warm/dry/pink. 20:00 Reassessment: notified provider of pain. new order given. Pain: Complains of pain in em6 abdomen Pain currently is 7 out of 10 on a pain scale. 21:00 Reassessment: Patient appears in no apparent distress at this time. No changes from em6 previously documented assessment. Patient and/or family updated on plan of care and expected duration. Pain level reassessed. Patient is alert, oriented x 3, equal unlabored respirations, skin warm/dry/pink. 22:00 Reassessment: Patient appears in no apparent distress at this time. No changes from em6 previously documented assessment. Patient and/or family updated on plan of care and expected duration. Pain level reassessed. Patient is alert, oriented x 3, equal unlabored respirations, skin warm/dry/pink. 23:00 Reassessment: Patient appears in no apparent distress at this time. No changes from em6 previously documented assessment. Patient and/or family updated on plan of care and expected duration. Pain level reassessed. Patient is alert, oriented x 3, equal unlabored respirations, skin warm/dry/pink. Vital Signs: 15:47 BP 115 / 95; Pulse 70; Resp 16; Temp 97.2; Pulse Ox 100% on R/A; Weight 52.16 kg; em6 Height 5 ft. (152.40 cm); Pain 0/10; 16:57 BP 114 / 74; Pulse 69; Resp 20; Pulse Ox 100% on R/A; em6 18:00 BP 106 / 79; Pulse 68; Resp 17; Pulse Ox 100% on R/A; em6 19:00 BP 103 / 69; Pulse 69; Resp 20; Pulse Ox 100% on R/A; em6 20:00 BP 110 / 84; Pulse 76; Resp 20; Pulse Ox 100% ; em6 21:00 BP 102 / 72; Pulse 70; Resp 20; Pulse Ox 100% on R/A; em6 22:00 BP 99 / 65; Pulse 77; Resp 18; Pulse Ox 98% on R/A; em6 15:47 Body Mass Index 22.46 (52.16 kg, 152.40 cm) em6 ED Course: 15:47 Patient arrived in ED. em6 15:47 Donna Mckinney, RN is Primary Nurse. em6 15:50 Maintain EMS IV. Dressing intact. Good blood return noted. Site clean \\T\\ dry. Gauge \\T\\ em 6 site: 20 Right AC . 15:52 Triage completed. em6 15:52 Arm band placed on. em6 15:53 [facility] snw 15:53 Akin Gunderson MD is Attending Physician. snw 15:53 Bed in low position. Call light in reach. Side rails up X2. Pulse ox on. NIBP on. Warm em6 blanket given. 16:56 XRAY Chest (1 view) Sent. em6 16:59 XRAY Chest (1 view) In Process Unspecified. EDMS 18:46 US Abdomen Complete In Process Unspecified. EDMS 20:59 Abdomen In Process Unspecified. EDMS 22:11 Adalberto Cummings MD is Hospitalizing Provider. snw 23:24 SARS RAPID Sent. em6 Administered Medications: 17:35 Drug: Zofran (Ondansetron) 4 mg Route: IVP; Site: right antecubital; em6 18:13 Follow up: Response: No adverse reaction em6 17:35 Drug: Magnesium Sulfate 1 grams Route: IVPB; Infused Over: 1 hrs; Site: right em6 antecubital; 19:18 Follow up: Response: No adverse reaction; IV Status: Completed infusion; IV Intake: em6 250ml 20:08 Drug: fentaNYL (PF) 25 mcg Route: IVP; Site: right antecubital; em6 21:00 Follow up: Response: No adverse reaction; RASS: Alert and Calm (0) em6 23:05 Drug: predniSONE 10 mg Route: PO; em6 23:49 Follow up: Response: No adverse reaction em6 Intake: 19:18 IV: 250ml; Total: 250ml. em6 Outcome: 22:12 Decision to Hospitalize by Provider. snw 03/26 01:21 Patient left the ED. cg Signatures: Dispatcher [employer] Regla Olivo, CORNER CUTTER-C CORNER CUTTER-Joyce Mcpherson RN RN Dnona Carmona RN RN em6
--- NOTE | 2022-03-25 22:13 | EDPHYS ---
Physician Documentation [facility] Name: Cindy Garcia Age: 51 yrs Sex: Female : 1970 Arrival Date: 03/25/2022 Time: 15:47 Bed 23 Private MD: ED Physician Akin Gunderson HPI: 03/25 16:09 This 51 yrs old Female presents to ER via EMS with complaints of Weakness, snw Nausea/Vomiting. 16:09 The patient presents to the emergency department with weakness of the entire body, snw generalized weakness, that is moderate. Onset: The symptoms/episode began/occurred acutely. Associated signs and symptoms: Pertinent positives: nausea, weakness. Severity of symptoms: At their worst the symptoms were mild moderate. The patient has experienced similar episodes in the past. It is unknown whether or not the patient has recently seen a physician, sees Dr Engel. Historical: - Allergies: 15:52 Cyclobenzaprine; em6 15:52 Oxycodone HCl; em6 15:52 OxyContin; em6 - Home Meds: 15:52 "anti-anxiety" [Active]; "heart burn med" [Active]; Prednisone Oral [Active]; Requip em6 Oral [Active]; - PMHx: 15:52 celiac; chiari malformation; GERD; Osteoporosis; Rheumatoid Arthritis; em6 - PSHx: 15:52 Appendectomy; Cholecystectomy; em6 - Immunization history:: Adult Immunizations unknown. - Social history:: Smoking status: unknown. ROS: 16:09 Eyes: Negative for injury, pain, redness, and discharge, ENT: Negative for injury, snw pain, and discharge, Neck: Negative for injury, pain, and swelling, Cardiovascular: Negative for chest pain, palpitations, and edema, Respiratory: Negative for shortness of breath, cough, wheezing, and pleuritic chest pain. 16:09 Back: Negative for injury and pain, : Negative for injury, bleeding, discharge, and swelling, MS/Extremity: Negative for injury and deformity, Skin: Negative for injury, rash, and discoloration, Psych: Negative for depression, anxiety, suicide ideation, homicidal ideation, and hallucinations. 16:09 Constitutional: Positive for body aches, fatigue, malaise, poor PO intake. 16:09 Abdomen/GI: Positive for nausea and vomiting. 16:09 Neuro: Positive for weakness. Exam: 16:07 Head/Face: Normocephalic, atraumatic. Eyes: Pupils equal round and reactive to light, snw extra-ocular motions intact. Lids and lashes normal. Conjunctiva and sclera are non-icteric and not injected. Cornea within normal limits. Periorbital areas with no swelling, redness, or edema. Neck: Trachea midline, no thyromegaly or masses palpated, and no cervical lymphadenopathy. Supple, full range of motion without nuchal rigidity, or vertebral point tenderness. No Meningismus. Chest/axilla: Normal chest wall appearance and motion. Nontender with no deformity. No lesions are appreciated. Cardiovascular: Regular rate and rhythm with a normal S1 and S2. No gallops, murmurs, or rubs. Normal PMI, no JVD. No pulse deficits. Respiratory: Lungs have equal breath sounds bilaterally, clear to auscultation and percussion. No rales, rhonchi or wheezes noted. No increased work of breathing, no retractions or nasal flaring. Abdomen/GI: Soft, non-tender, with normal bowel sounds. No distension or tympany. No guarding or rebound. No evidence of tenderness throughout. Back: No spinal tenderness. No costovertebral tenderness. Full range of motion. MS/ Extremity: Pulses equal, no cyanosis. Neurovascular intact. Full, normal range of motion. 16:07 Neuro: Awake and alert, GCS 15, oriented to person, place, time, and situation. Cranial nerves II-XII grossly intact. Motor strength 5/5 in all extremities. Sensory grossly intact. Cerebellar exam normal. 16:07 Constitutional: The patient appears awake, frail, listless, unkempt, edentulous 16:07 ENT: Dental exam: missing teeth, diffusely. 16:07 Skin: Appearance: Color: dusky, Moisture: dry. Vital Signs: 15:47 BP 115 / 95; Pulse 70; Resp 16; Temp 97.2; Pulse Ox 100% on R/A; Weight 52.16 kg; em6 Height 5 ft. (152.40 cm); Pain 0/10; 16:57 BP 114 / 74; Pulse 69; Resp 20; Pulse Ox 100% on R/A; em6 18:00 BP 106 / 79; Pulse 68; Resp 17; Pulse Ox 100% on R/A; em6 19:00 BP 103 / 69; Pulse 69; Resp 20; Pulse Ox 100% on R/A; em6 20:00 BP 110 / 84; Pulse 76; Resp 20; Pulse Ox 100% ; em6 21:00 BP 102 / 72; Pulse 70; Resp 20; Pulse Ox 100% on R/A; em6 22:00 BP 99 / 65; Pulse 77; Resp 18; Pulse Ox 98% on R/A; em6 15:47 Body Mass Index 22.46 (52.16 kg, 152.40 cm) em6 MDM: 15:55 Patient medically screened. zaid 21:51 Data reviewed: vital signs, nurses notes. Data interpreted: Pulse oximetry: on room air snw is 100 %. Interpretation: normal. Counseling: I had a detailed discussion with the patient and/or guardian regarding: the historical points, exam findings, and any diagnostic results supporting the discharge/admit diagnosis, lab results, radiology results, the need for further work-up and treatment in the hospital. Physician consultation: Nathaly Steiner PA-C was called at 21:51, regarding admission, to the medical/surgical unit. 03/25 15:57 Order name: Basic Metabolic Panel; Complete Time: 17:20 snw 03/25 15:57 Order name: CBC with Diff; Complete Time: 19:18 snw 03/25 15:57 Order name: LFT's; Complete Time: 17:20 snw 03/25 15:57 Order name: Magnesium; Complete Time: 17:20 snw 03/25 15:57 Order name: NT PRO-BNP; Complete Time: 17:20 snw 03/25 15:57 Order name: PT-INR; Complete Time: 17:06 snw 03/25 15:57 Order name: Troponin HS; Complete Time: 17:20 snw 03/25 15:57 Order name: XRAY Chest (1 view); Complete Time: 17:06 snw 03/25 17:36 Order name: US Abdomen Complete; Complete Time: 19:10 snw 03/25 19:17 Order name: CBC Smear Scan; Complete Time: 19:18 EDMS 03/25 19:20 Order name: Add On-Lab snw 03/25 19:37 Order name: [place] Screen; Complete Time: 19:37 EDMS 03/25 19:45 Order name: CT Abd/Pelvis - IV Contrast Only snw 03/25 22:51 Order name: SARS RAPID; Complete Time: 23:40 snw 03/25 15:57 Order name: EKG; Complete Time: 15:57 snw 03/25 15:57 Order name: Cardiac monitoring; Complete Time: 16:56 snw 03/25 15:57 Order name: EKG - Nurse/Tech; Complete Time: 16:56 snw 03/25 15:57 Order name: IV Saline Lock; Complete Time: 16:56 snw 03/25 15:57 Order name: Labs collected and sent; Complete Time: 16:56 snw 03/25 15:57 Order name: O2 Per Protocol; Complete Time: 16:56 snw 03/25 15:57 Order name: O2 Sat Monitoring; Complete Time: 16:56 snw 03/25 20:46 Order name: Abdomen ; Complete Time: 21:18 EDMS EC:55 Rhythm is regular. QRS [place] is Normal. MD interval is normal. Clinical impression: snw Normal ECG. Administered Medications: 17:35 Drug: Zofran (Ondansetron) 4 mg Route: IVP; Site: right antecubital; em6 18:13 Follow up: Response: No adverse reaction em6 17:35 Drug: Magnesium Sulfate 1 grams Route: IVPB; Infused Over: 1 hrs; Site: right em6 antecubital; 19:18 Follow up: Response: No adverse reaction; IV Status: Completed infusion; IV Intake: em6 250ml 20:08 Drug: fentaNYL (PF) 25 mcg Route: IVP; Site: right antecubital; em6 21:00 Follow up: Response: No adverse reaction; RASS: Alert and Calm (0) em6 23:05 Drug: predniSONE 10 mg Route: PO; em6 23:49 Follow up: Response: No adverse reaction em6 Disposition Summary: 03/25/22 22:12 Hospitalization Ordered Hospitalization Status: Inpatient Admission snw Provider: Adalberto Cummings Location: Telemetry/MedSurg (Inpatient) snw Condition: Stable snw Problem: new snw Symptoms: are unchanged snw Bed/Room Type: Standard snw Room Assignment: 403(03/25/22 23:58) cg Diagnosis - Nausea with vomiting, unspecified snw - Elevated liver enzymes snw Forms: - Medication Reconciliation Form snw - SBAR form snw Signatures: Dispatcher [employer] EDMS Akin Gunderson MD MD cha Waters, Shelly, MERCHANDISE DISPLAYER-C MERCHANDISE DISPLAYER-Csnw Joyce Post, RN RN cg Donna Mckinney RN RN em6 Nathaly Steiner, PALashonC PAGloria sb4 Corrections: (The following items were deleted from the chart) 20:39 20:13 CT CHEST,ABD,PELVIS W/WO ordered. EDMS EDMS 20:39 20:39 Chest Abdomen Pelvis W Cont ordered. EDMS EDMS 20:58 20:41 Abdomen ordered. EDMS EDMS 23:58 22:12 snw cg
[2022-03-25] MEDS ORDERED: predniSONE 10 MG TAB ONE (23:05)
--- NOTE | 2022-03-25 23:10 | P.HP ---
Certification for Inpatient Patient admitted to: Inpatient With expected LOS: <2 Midnights Patient will require the following post-hospital care: None Practitioner: I am a practitioner with admitting privileges, knowledge of patient current condition, hospital course, and medical plan of care. Services: Services provided to patient in accordance with Admission requirements found in Title 42 Section 412.3 of the Code of Federal Regulations Patient History Date of Service: 03/25/22 Primary Care Provider: Maren Reason for admission: Weakness, N/V, Elevated LFTs History of Present Illness: Patient is a 51-year-old female with medical history of celiac disease, RA, GERD, chiari malformation and thrombocytopenia who presented to the ED with complaints of generalized weakness and nausea and vomiting that began this morning. She is not complaining of any abdominal pain. Her labs are significant for WBC 2.9, AST 226, ALT 241, alk phos 324, direct bili 0.3, magnesium 1.7. Her gallbladder was removed in 2009. Abdominal US showed mild to moderate splenomegaly. Abdominal CT showed "Mild prominence of the intra and extrahepat ic biliary tree probably is physiologic and related to the cholecystectomy. Pathology such as a stricture or non visualized stone within the duct can also result in this appearance and should be correlated clinically and with appropriate lab values." She was given Zofran, magnesium, and fentanyl in the ED. General surgery was contacted for possible intraoperative cholangiogram tomorrow. Patient is admitted for further management. Home medications list reviewed: Yes - Past Medical/Surgical History Diabetic: No -: Chiari malformation -: Celiac disease -: Thrombocytopenia -: GERD -: Rheumatoid arthritis -: Cholecystectomy -: Appendectomy -: Hip repair Psychosocial/ Personal History: Patient lives at home with her sister - Family History Mother -: Heart disease Father -: Lung disease - Social History Smoking Status: Never smoker Alcohol use: No CD- Drugs: No Caffeine use: Yes Place of Residence: Home Review of Systems General: Weakness Gastrointestinal: Nausea, Vomiting Physical Examination - Physical Exam General: Alert, In no apparent distress HEENT: Atraumatic, EOMI, Sclerae nonicteric Neck: Supple, No LAD Respiratory: Clear to auscultation bilaterally, Normal air movement Cardiovascular: Regular rate/rhythm, Normal S1 S2 Gastrointestinal: Normal bowel sounds, No tenderness Musculoskeletal: No tenderness Integumentary: No rashes Neurological: Normal speech, Sensation intact, Normal affect - Studies Laboratory Data (last 24 hrs) 03/25/22 16:49: PT 11.3, INR 1.03 03/25/22 16:49: WBC 2.90 L, Hgb 14.8, Hct 43.1, Plt Count 141 L 03/25/22 16:49: Sodium 140, Potassium 3.6, BUN 15, Creatinine 0.80, Glucose 91, Magnesium 1.7 L, Total Bilirubin 1.0, AST 226 H, ALT 241 H, Alkaline Phosphatase 325 H Assessment and Plan - Problems (Diagnosis) (1) Elevated LFTs Current Visit: Yes Status: Acute (2) Thrombocytopenia Current Visit: Yes Status: Chronic (3) Hypomagnesemia Current Visit: Yes Status: Acute (4) Rheumatoid arthritis Current Visit: Yes Status: Chronic Qualifiers: Rheumatoid arthritis location: multiple sites Rheumatoid factor presence: unspecified presence Qualified Code(s): M06.9 - Rheumatoid arthritis, unspecified - Plan -Patient will be admitted for further management -NPO at midnight. IV fluids for hydration -General surgery notified about possible intraoperative cholangiogram -Monitor LFTs. Per chart review, alk phos was elevated 3 months ago but AST and ALT were not. -Pain medication and antiemetics as needed -Monitor and replete electrolytes per protocol -Reconcile and continue home medications -VTE prophylaxis -Full code Discharge Plan: Home Plan to discharge in: 48 Hours - Advance Directives Does patient have a Living Will: No Does patient have a Durable POA for Healthcare: No - Code Status/Comfort Care Code Status Assessed: Yes (Full) Critical Care: No Time Spent Managing Pts Care (In Minutes): 50
[2022-03-25 23:39] LABS: SARS-CoV-2 Antigen Rapid Res Negative (Negative)
[2022-03-26] MEDS ORDERED: ACETAMINOPHEN 500 MG TAB PO PRN (01:14)
[2022-03-26 01:20] VITALS: BMI 20.7
[2022-03-26] MEDS: MORPHINE 2 MG/ML SYR IV PRN ×2 (01:40→10:53)
[2022-03-26] MEDS: ONDANSETRON 4 MG/2 ML VIAL IV PRN ×3 (01:40→23:02)
[2022-03-26] MEDS: NA CHLORIDE 0.9% 1,000 ML IV SCH ×2 (01:40→13:40)
[2022-03-26 01:52] LABS: Urine Bilirubin NEGATIVE (Negative); Urine Blood Negative (Negative); Urine Clarity Clear (Clear); Urine Color Light-Yellow (Yellow); Urine Glucose NEGATIVE (Negative); Urine Protein NEGATIVE (Negative); Urine Urobilinogen Normal (Normal)
[2022-03-26 01:53] LABS: Specific Gravity > 1.030 (1.005-1.030)
[2022-03-26] MEDS ORDERED: CODEINE 30MG/APAP 300MG TAB PO PRN ×2 (05:26→05:50)
[2022-03-26 05:27] LABS: Absolute Lymphocytes (CBC) 0.5 K/uL (0.7-4.9); Hematocrit 40.7 % (36.0-45.0); Lymphocytes % 18.7 % (15.3-44.8); MCV 84.3 fL (80-100); MPV 8.5 fL (7.6-11.3); RBC Red Blood Cell Count 4.83 M/uL (3.86-4.86)
[2022-03-26 05:43] LABS: Albumin 3.2 g/dL (3.4-5.0); Bilirubin Total 1.3 mg/dL (0.2-1.0); Magnesium 2.2 mg/dL (1.8-2.4); Phosphorus 3.2 mg/dL (2.5-4.9); Potassium 3.8 mmol/L (3.5-5.1); Protein, Total 6.5 g/dL (6.4-8.2)
[2022-03-26] MEDS ORDERED: KCL 20 MEQ/100 mL IVPB 20 MEQ/100 ML BAG IV SCH (07:30)
[2022-03-26] MEDS ORDERED: INFLUENZA VACCINE (for 6+ mo) 0.5 ML DOSE IMVAC ONE (08:00)
[2022-03-26] MEDS: predniSONE 10 MG TAB PO SCH (08:00)
[2022-03-26] MEDS: GABAPENTIN 300 MG CAP PO SCH (08:38)
[2022-03-26] MEDS: ROPINIROLE HCL 1 MG TAB PO SCH (08:38)
--- NOTE | 2022-03-26 13:08 | RAD REPORT ---
EXAM DESCRIPTION: MRI - Cholangiogram - 03/26/2022 12:50 pm CLINICAL HISTORY: biliary obstruction Abdominal pain COMPARISON: Abdomen Pelvis W Contrast dated 03/25/2022 FINDINGS: Three-dimensional MRCP was performed using maximum intensity projection reconstruction on the same work station. The intrahepatic biliary tree is mildly prominent. The common bile duct is normal caliber without radha dence of retained stone, stricture or mass. The pancreatic duct is not pathologically dilated. Cholecystectomy. Limited T2 sequences through the abdomen demonstrates no bulky adenopathy, significant free fluid or abscess. IMPRESSION: Mild intrahepatic biliary tree dilatation is seen status post cholecystectomy. This is m ost likely related physiologic reservoir affect. There is no evidence of retained stone or a strictur e in the common bile duct.
--- NOTE | 2022-03-26 14:53 | P.CNS ---
Date of Consult: 03/26/22 PC: I was asked to see this 51-year-old female in regards to her elevation of liver enzymes. HPC: Patient apparently had a laparoscopic cholecystectomy done a number of years ago. She presents now with not feeling well nausea and vomiting and elevation of her liver enzymes alkaline phosphatase and bilirubin. PSHx: Laparoscopic cholecystectomy 10 years ago. PMHx: Celiac disease and chronic abdominal issues Social Hx: Allergic to oxycodone Sys R: No cough, wheeze, shortness of breath. No chest pain or palpitations. Denies any urinary complaint O/E: Awake alert stable HEENT: Nonicteric Chest: Chest movement equal bilaterally Abd: Soft nontender no localizing signs [place]: Intact Data: Liver enzymes alkaline phosphatase and bilirubin were elevated on admission. Have subsided slightly since then. MRCP read as no stones seen. Some post surgical dilatation. Impression: Patient has already had a cholecystectomy so a cholangiogram would not be an option at this point. MRCP essentially is normal. Patient, once her pain subsides, could possibly be worked up as an outpatient with a consultation to a chalk cutter regarding her transaminases bilirubin and alk phosphatase. Plan: Patient does not require any immediate surgical intervention at this time. Thank you for the consult.
[2022-03-26] MEDS ORDERED: PROMETHAZINE 25 MG TABLET PO ONE (16:09)
--- NOTE | 2022-03-26 16:34 | EKG ---
Test Date: 2022-03-25 Test Time: 16:49:03 Production Specialist: SARMAD MEASUREMENT RESULTS: Intervals: Rate: 76 AK: 138 QRSD: 70 QT: 398 QTc: 447 [place]: P: 70 AK: 138 QRS: 75 T: 69 INTERPRETIVE STATEMENTS: Normal sinus rhythm Normal ECG Compared to ECG 12/15/2021 01:21:57 T-wave abnormality no longer present Electronically Signed On 03-26-22 16:33:27 CDT by Gregg Horowitz
[2022-03-27] MEDS: NA CHLORIDE 0.9% 1,000 ML IV SCH ×2 (01:10→08:27)
[2022-03-27 01:42] VITALS: O2SAT 98
[2022-03-27 03:43] LABS: Absolute Lymphocytes (CBC) 0.7 K/uL (0.7-4.9); Hematocrit 38.5 % (36.0-45.0); Lymphocytes % 27.6 % (15.3-44.8); MPV 7.8 fL (7.6-11.3); RBC Red Blood Cell Count 4.54 M/uL (3.86-4.86)
[2022-03-27 04:00] LABS: Albumin 2.9 g/dL (3.4-5.0)
[2022-03-27 04:04] LABS: Bilirubin Total 1.3 mg/dL (0.2-1.0); Protein, Total 6.1 g/dL (6.4-8.2)
[2022-03-27 04:19] LABS: Potassium 3.2 mmol/L (3.5-5.1)
[2022-03-27 04:20] LABS: Magnesium 1.8 mg/dL (1.8-2.4)
[2022-03-27] MEDS: predniSONE 10 MG TAB PO SCH (08:00)
[2022-03-27] MEDS: KCL 20 MEQ/100 mL IVPB 20 MEQ/100 ML BAG IV SCH ×2 (08:26→10:01)
[2022-03-27] MEDS: ROPINIROLE HCL 1 MG TAB PO SCH (08:27)
[2022-03-27] MEDS: GABAPENTIN 300 MG CAP PO SCH (08:27)
[2022-03-27] MEDS ORDERED: POTASSIUM CL SA 10 MEQ TAB PO ONE (09:00)
[2022-03-27] MEDS ORDERED: MAGNESIUM SULFATE 1 gm IVPB 1 GM/100 ML BAG IV ONE (09:00)
--- NOTE | 2022-03-27 10:45 | P.PN ---
Date of Service: 03/26/22 Subjective Patient continues to improve. His clinical symptoms are much better. He do not have this MRCP is pending. Physical Examination - Physical Exam General: Alert, In no apparent distress Respiratory: Clear to auscultation bilaterally, Normal air movement Cardiovascular: Regular rate/rhythm, Normal S1 S2 Gastrointestinal: Normal bowel sounds, No tenderness Neurological: No focal deficits Assessment and Plan - Problems (Diagnosis) (1) Elevated LFTs Current Visit: Yes Status: Acute (2) Thrombocytopenia Current Visit: Yes Status: Chronic (3) Hypomagnesemia Current Visit: Yes Status: Acute (4) Rheumatoid arthritis Current Visit: Yes Status: Chronic Qualifiers: Rheumatoid arthritis location: multiple sites Rheumatoid factor presence: unspecified presence Qualified Code(s): M06.9 - Rheumatoid arthritis, unspecified - Plan -Patient will be admitted for further management -MRCP; spoke with surgery and no surgical intervention at this time -General surgery notified; no surgical intervention at this time -Transient elevation of LFTs; refrain from liver toxic medications going forward; refrain from alcohol use -Pain medication and antiemetics as needed -Monitor and replete electrolytes per protocol -Reconcile and continue home medications -VTE prophylaxis -Full code
--- NOTE | 2022-03-27 10:49 | P.DS ---
Discharge Date: 03/27/22 Primary Care Provider: Maren Reason for Admission: Weakness, N/V, Elevated LFTs Brief History of Present Illness: Patient is a 51-year-old female with medical history of celiac disease, RA, GERD, chiari malformation and thrombocytopenia who presented to the ED with complaints of generalized weakness and nausea and vomiting that began this morning. She is not complaining of any abdominal pain. Her labs are significant for WBC 2.9, AST 226, ALT 241, alk phos 324, direct bili 0.3, magnesium 1.7. Her gallbladder was removed in 2009. Abdominal US showed mild to moderate splenomegaly. Abdominal CT showed "Mild prominence of the intra and extrahepatic biliary tree probably is physiologic and related to the cholecystectomy. Pathology such as a stricture or non visualized stone within the duct can also result in this appearance and should be correlated clinically and with appropriate lab values." She was given Zofran, magnesium, and fentanyl in the ED. General surgery was contacted for possible intraoperative cholangiogram tomorrow. Patient is admitted for further management. Hospital Course: Patient is clinically doing better. MRCP did not reveal any significant abnormalities. LFTs have improved. At this time, patient is stable for discharge home. Outpatient gastroenterology follow-up for her celiac disease. Outpatient rheumatologic follow-up. Vital Signs/Physical Exam: Temp Pulse Resp BP Pulse Ox 97.0 F 74 14 119/76 99 03/27/22 08:00 03/27/22 08:00 03/27/22 08:00 03/27/22 08:00 03/27/22 08:00 General: Alert, In no apparent distress, Oriented x3 Laboratory Data at Discharge: WBC Cancelled 03/27/22 06:00 Hgb Cancelled 03/27/22 06:00 Hct Cancelled 03/27/22 06:00 Plt Count Cancelled 03/27/22 06:00 PT 11.3 SECONDS (9.5-12.5) 03/25/22 16:49 INR 1.03 03/25/22 16:49 Sodium Cancelled 03/27/22 06:00 Potassium Cancelled 03/27/22 06:00 BUN Cancelled 03/27/22 06:00 Creatinine Cancelled 03/27/22 06:00 Glucose Cancelled 03/27/22 06:00 Phosphorus 3.2 mg/dL (2.5-4.9) 03/26/22 05:08 Magnesium 1.8 mg/dL (1.8-2.4) 03/27/22 03:19 Total Bilirubin Cancelled 03/27/22 06:00 AST Cancelled 03/27/22 06:00 ALT Cancelled 03/27/22 06:00 Alkaline Phosphatase Cancelled 03/27/22 06:00 Home Medications: Citalopram [Celexa*] 10 mg PO DAILY 03/26/22 Codeine/APAP [Tylenol #3*] 1 tab PO PRN PRN 03/26/22 Gabapentin 300 mg PO DAILY 03/26/22 Ropinirole HCl [Requip*] 1 mg PO DAILY 03/26/22 predniSONE [Deltasone*] 10 mg PO DAILY 03/26/22 Physician Discharge Instructions: -DC IV and DC home -Follow-up with PCP in 1 to 2 weeks -Follow-up with curriculum manager in 1 to 2 weeks -Follow-up with supervisor screen printing in 1 to 2 weeks -Please call Dr. Cummings at [phone] if any questions regarding hospital stay -Please call nursing station at [phone] if any nursing or medication questions -Return to the emergency room if symptoms worsen Diet: Regular Activity: Non-weight bearing Followup: NONE,NONE [Primary Care Provider] - Time spent managing pt's care (in minutes): 35
[2022-03-27] MEDS ORDERED: SODIUM CHLORIDE 0.9% 10ML INJ IV PRN (11:28)
[2022-03-27] MEDS ORDERED: PANTOPRAZOLE 40 MG INJ IVP ONE (11:28)
[2022-03-27] MEDS: ONDANSETRON 4 MG/2 ML VIAL IV PRN (11:56)
[2022-03-27 13:01] VITALS: BP 102/68; TEMP 97.7
== END 2022-03-27 12:23 | disposition home or self-care (01) | DRG 948 ==
LOC: ER 15:32 → ERHOLD 23:01 → 4TH 03-26 01:12
PROVIDERS: ADMIT Hospitalist; ATTEND Hospitalist
DX: R53.1 Weakness (principal); K21.9 Gastro-esophageal reflux disease without esophagitis; M06.9 Rheumatoid arthritis, unspecified; E83.42 Hypomagnesemia; D69.6 Thrombocytopenia, unspecified; R16.1 Splenomegaly, not elsewhere classified; R79.89 Other specified abnormal findings of blood chemistry; Z23 Encounter for immunization; Z88.5 Allergy status to narcotic agent; Z88.8 Allergy status to other drugs, medicaments and biological substances; Z90.49 Acquired absence of other specified parts of digestive tract; Z79.52 Long term (current) use of systemic steroids; Z79.899 Other long term (current) drug therapy; Z20.822 Contact with and (suspected) exposure to COVID-19
CPT/HCPCS: 36415; 71045; 74177; 74181; 76700; 80048; 80053; 80076; 81003; 83735; 83880; 84100; 84484; 85025; 85610; 86308; 87811; 90471; 93005; 96365; 96366; 96375; 99284; C9113; J2270; J2405; J3010; J3475; J3480; J7030; J7512; Q0169; Q2035; Q9967

== ENCOUNTER 2022-11-04 14:48 | Emergency (ER) | payer OTHER ==
--- OUTSIDE RECORDS SUMMARY | 2022-11-04 14:53 | XMS REPORT | Continuity of Care Document ---
:1970 Author Organization [facility] t Address [address] [place] [address] [place] [id number] Care Team Providers Name Role Phone Chava Bowers DO Primary Care Physician [id number] Attending Clinician Unavailable SHIMON POST Attending Clinician Unavailable Shimon Post DDS Attending Clinician CHAVA BOWERS Attending Clinician Unavailable Doctor Unassigned, Craig Beach Attending Clinician Unavailable PEGGY ELY Attending Clinician Unavailable MARCELA MACHADO Attending Clinician Unavailable JOCELYNN BRASWELL Attending Clinician Unavailable LAB90 Attending Clinician Unavailable Chava Bowers DO Attending Clinician [id number] Admitting Clinician Unavailable LACIE LEONARD Admitting Clinician Unavailable Payers Payer Name Policy Type Policy Number Effective Date Expiration Date S juarez WM WM [id number] DENTAL GENERIC [id number] 2022 00:00:00 CIGNA-SHEET METAL 2 [id number] 2021 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 HL 00:00:00 FUND WELLMED MEDICARE [id number] 2021 00:00:00 CIGNA OON [id number] 2010 00:00:[address] 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 00:00: 00 Anxiety Anxiety Disease Active Dina 3-29 Seybold 00:00: 00 Gastroesop Gastroesop Disease Active Anoop villalobos hageal hageal 3- Seybold reflux reflux 00:00: disease disease 00 without without esophagiti esophagiti s s 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 [address] [place] CYCLOBEN DRUG Active Low Dizziness Unive rs ZAPRINE INGREDI 6-28 ity of 00:00: [address] OXYCODON DRUG Active Low ITCHING Univers E-ACETAM 6-28 ity of INOPHEN 00:00: [address] Cycloben Drug Active Dizziness Unive rs zaprine Intolera 6-28 ity of nce 00:00: [address] Oxycodon Drug Active Itching Univers e-Acetam Intolera 6-28 ity of inophen nce 00:00: [address] NO KNOWN Allergy Active [facility] ALLERGIE S NO KNOWN Drug Active Univers ALLERGIE Class ity of S [facility] Social History Social Habit Start Date Stop Date Quantity Comments Source Exposure to 2022-07-28 2022-08-07 Not sure University SARS-CoV-2 00:00:00 13:14:00 [facility] (event) Branch Tobacco use and 2021-09-03 2021-09-03 Smokeless tobacco Ke mickyey Seybold exposure 00:00:00 00:00:00 non-user Alcohol intake 2021-09-03 2021-09-03 Lifetime Dina Godoy bold 00:00:00 00:00:00 non-drinker (finding) Education 2021-09-03 2021-09-03 17 Dina Valdo 00:00:00 00:00:00 Sex [birth year] Universit y of 00:00:00 00:00:00 [facility] Smoking Status Start Date Stop Date Source Tobacco smoking consumption Univ [facility] of [facility] Branch Never smoked tobacco Dina walker Medications Ordered Filled Start Stop Current Ordering Indication Dosage Frequency Signature Comments Components Source Medication Medication Date Date Medication? Clinician (SIG) Name Name citalopram Yes 20mg Take 1 Unive rs 20 mg 3-02 tablet by ity of tablet 13:23: mouth. [address] Branch gabapentin Yes 600mg Take 1 Univ ers 600 mg 3-02 tablet by ity of tablet 13:23: mouth. [address] citalopram Yes 20mg Take 1 Unive rs 20 mg 3-02 tablet by ity of tablet 13:23: mouth. [address] gabapentin Yes 600mg Take 1 Univ ers 600 mg 3-02 tablet by ity of tablet 13:23: mouth. [address] Branch citalopram Yes 20mg Take 1 Unive rs 20 mg 3-02 tablet by ity of tablet 13:23: mouth. [address] Branch gabapentin Yes 600mg Take 1 Univ ers 600 mg 3-02 tablet by ity of tablet 13:23: mouth. [address] escitalopra 2021-06 Yes TAKE 1 Univ ers m oxalate 2-06 TABLET BY ity o f 10 mg 00:00: MOUTH [place] tablet 00 EVERY DAY Medical *NEEDS Branch APPT* escitalopra 2021-06 Yes TAKE 1 Univ ers m oxalate 2-06 TABLET BY ity o f 10 mg 00:00: MOUTH [place] tablet 00 EVERY DAY Medical *NEEDS Branch APPT* escitalopra 2021-06 Yes TAKE 1 Univ ers m oxalate 2-06 TABLET BY ity o f 10 mg 00:00: MOUTH [place] tablet 00 EVERY DAY Medical *NEEDS Branch APPT* predniSONE 2021-06 Yes 10mg Take 1 Unive rs 10 mg 0-23 tablet by ity of tablet 00:00: mouth in [place] 00 the Medical morning. Branch predniSONE 2021-06 Yes 10mg Take 1 Unive rs 10 mg 0-23 tablet by ity of tablet 00:00: mouth in [place] 00 the Medical morning. Branch predniSONE 2021-06 Yes 10mg Take 1 Unive rs 10 mg 0-23 tablet by ity of tablet 00:00: mouth in [place] 00 the Medical morning. Branch acetaminoph 2021-06 Yes TAKE 1 Univ ers en-codeine 0-20 TABLET BY ity of 300-30 mg 00:00: MOUTH [place] tablet 00 EVERY 6 Medical HOURS Branch NEEDED FOR PAIN SCALE 5-7 (MODERATE) *MAY IMPAIR ALERTNESS* * acetaminoph 2021-06 Yes TAKE 1 Univ ers en-codeine 0-20 TABLET BY ity of 300-30 mg 00:00: MOUTH [place] tablet 00 EVERY 6 Medical HOURS Branch NEEDED FOR PAIN SCALE 5-7 (MODERATE) *MAY IMPAIR ALERTNESS* * acetaminoph 2021-06 Yes TAKE 1 Univ ers en-codeine 0-20 TABLET BY ity of 300-30 mg 00:00: MOUTH [place] tablet 00 EVERY 6 Medical HOURS Branch NEEDED FOR PAIN SCALE 5-7 (MODERATE) *MAY IMPAIR ALERTNESS* * ondansetron Yes 4mg 1 tablet. U nivers 4 mg tablet - ity of 00:00: [place] 00 Medical Branch ondansetron Yes 4mg 1 tablet. U nivers 4 mg tablet - ity of 00:00: [place] Medical Branch ondansetron Yes 4mg 1 tablet. U nivers 4 mg tablet 10-14 ity of 00:00: [place] 00 Medical Branch hydrOXYzine 2021-2021- No 25mg Q.5D Take 25 mg Dina HCl 25 MG -03 09-29 by mouth Seybo ld oral Tablet 13:59: 00:00 as needed 11 :00 in the morning and 25 mg as needed in the evening for anxiety. Citalopram Yes 20mg Take 20 mg K elsey Hydrobromid -29 by mouth Seyb old e 20 MG 13:58: daily oral Tablet 52 Gabapentin 2021-0 Yes 300mg Take 300 Ke lsey 300 MG oral 3-29 mg by Seybold Capsule 13:36: mouth 3 32 times daily predniSONE 2022-0 Yes [id number] 10mg Take 1 Dina (DELTASONE) 3-29 tablet (10 Se ybold 10 MG oral 00:00: mg total) tablet 00 by mouth daily hydrOXYzine 2021-0 Yes 25mg 1 tablet. U nivers 25 mg 3-21 ity of tablet 00:00: [address] hydrOXYzine 2021-0 Yes 25mg 1 tablet. U nivers 25 mg 3-21 ity of tablet 00:00: [address] hydrOXYzine 2021-0 Yes 25mg 1 tablet. U nivers 25 mg 3-21 ity of tablet 00:00: [address] hydrOXYzine 2021-0 Yes Dina HCl 25 MG 3-21 Seybold oral Tablet 00:00: 00 omeprazole 2021-0 Yes 20mg Take 1 Unive rs 20 mg 2-04 capsule by ity of capsule 00:00: mouth in [place] the Medical morning. Branch omeprazole 2021-0 Yes 20mg Take 1 Unive rs 20 mg 2-04 capsule by ity of capsule 00:00: mouth in [place] the Medical morning. Branch omeprazole 2021-0 Yes 20mg Take 1 Unive rs 20 mg 2-04 capsule by ity of capsule 00:00: mouth in [place] the Medical morning. Branch Omeprazole 2021-0 Yes 1{capsu Take 1 Ke lsey 20 MG oral 2-04 le} capsule by Sey bold Delayed 00:00: mouth Release 00 daily Capsule ROPINIROLE 2021-0 Yes 1{tbl} Take 1 Obdulio sey HYDROCHLORI 2-04 tablet by Jayne bold DE 1 MG 00:00: mouth oral Tablet 00 daily predniSONE 2021-0 2021- No 1{tbl} Take 1 Ke lsey (DELTASONE) 2-04 03-29 tablet by Se ybold 10 MG oral 00:00: 00:00 mouth tablet 00 :00 daily Vital Signs Vital Name Observation Time Observation Value Comments Source Systolic blood 2022-08-07 19:23:00 113 mm[Hg] Univer sity of pressure [facility] Diastolic blood 2022-08-07 19:23:00 78 mm[Hg] Unive rsity of pressure [facility] Heart rate 2022-08-07 19:23:00 67 /[facility] 2022-08-07 19:23:00 36.72 Maria Luisa [facility] Body height 2022-08-07 19:23:00 154.9 cm [facility] Body weight 2022-08-07 19:23:00 48.988 kg [facility] BMI 2022-08-07 19:23:00 20.41 kg/m2 [facility] HEIGHT 2021-12-10 12:26:00 160 cm WEIGHT 2021-12-10 12:26:00 45.632 kg WEIGHT 2021-12-09 19:36:00 45.36 kg WEIGHT 2021-12-07 04:00:00 45.768 kg HEIGHT 2021-12-10 12:26:00 160 cm WEIGHT 2021-12-10 12:26:00 45.632 kg WEIGHT 2021-12-09 19:36:00 45.36 kg WEIGHT 2021-12-07 04:00:00 45.768 kg Systolic blood 2021-09-03 18:33:00 103 mm[Hg] Dina Seybold pressure Diastolic blood 2021-09-03 18:33:00 65 mm[Hg] Kelse y Seybold pressure Heart rate 2021-09-03 18:33:00 86 /min Dina S octavianobold Body temperature 2021-09-03 18:33:00 36.5 Maria Luisa Joyce ey Seybold Respiratory rate 2021-09-03 18:33:00 14 /min Joyce ey Seybold Body height 2021-09-03 18:33:00 160 cm Dina S eybold Body weight 2021-09-03 18:33:00 46.72 kg Dina S eybold BMI 2021-09-03 18:33:00 18.25 kg/m2 Dina S octavianobold Oxygen saturation in 2021-09-03 18:33:00 97 /min Dina Wrightybold Arterial blood by Pulse oximetry Procedures Procedure Date / Time Performed Performing Clinician [facility] e REFERRAL- 2022-06-25 06:01:00 Doctor [facility] REQUEST/RESPONSE Name Medical Branch Encounters Start End Encounter Admission Attending Care Care Encounter Source Date/Time Date/Time Type Type Clinicians Facility Department ID 2021-12-23 Outpatient 3 [id number] ENCSL [facility] [id number] [facility] 14:41:40 [facility] [place] 2021-12-11 Outpatient 3 [id number] ENCSL REF [id number] [facility] 11:36:46 [facility] [place] 2021-12-07 Outpatient 3 [id number] ENCS[facility] REF [id number] [facility] 11:10:50 [facility] [place] 2021-12-06 Outpatient 3 [id number] ENCSL REF [id number] [facility] 15:10:33 [facility] [place] 2022-08-07 2022-08-07 [id number] Univers 13:30:00 13:48:30 SHIMON mcwilliams of [facility] 2022-08-07 2022-08-07 Office Sincere [facility] [id number] Univers 13:30:00 13:48:30 Visit Shimon VALENTIN [id number] ity [facility] [id number] [id number] [facility] 199 Branch 2022-07-09 2022-07-09 Outpatient DINA BOWERS [id number] Dina 13:30:00 13:30:00 CHAVA Seybol d 2022-06-26 2022-06-26 Outpatient DINA BOWERS [id number] Dina 14:45:00 14:45:00 CHAVA Seybol d 2022-06-25 2022-06-25 Outpatient DINA BOWERS [id number] Dina 00:00:00 00:00:00 CHAVA Seybol d 2022-06-25 2022-06-25 Orders Doctor BERGER [id number] Univers 00:00:00 00:00:00 Only Unassigned, MAULIK [id number] ity of [facility] [id number] Jaime as [id number] [facility] 009 Branch 2021-12-03 2021-12-12 Inpatient ER ELY, [facility] Orth[facility]edic [id number] [facility] 19:31:00 13:47:00 PEGGY 2021-10-01 2021-10-01 Outpatient DINA BRASWELL [id number] Dina 11:00:00 11:00:00 JOCELYNN Queen ld 2021-09-03 2021-09-03 Outpatient LAB90 DINA MG [id number] Dina 14:20:00 14:20:00 Seybol d 2021-09-03 2021-09-03 Office Vu Bowers [id number] Dina 13:30:00 14:00:00 Visit Chava Rivera [id number] Se connelly [id number] Results Test Description Test Time Test Comments Results Result Comments Source MAGNESIUM 2021-12-12 06:27:55 Test Item Value Reference Range Interpretation Comme nts MAGNESIUM (BEAKER) (test code = 627) 1.8 mg/dL 1.5-3.0 Checker/Stocker ID - LITOOperator ID - LITOOperator ID - LITOOperator ID - LITOBASIC METABOLIC [id number] 06:26:06 Test Item Value Reference Range Interpretation [...] S NOT APPLICABLE FOR DIALYSIS PATIEN TS. Checker/Stocker ID - LITOOperator ID - LITOOperator ID - LITOOperator ID - LITOOperator ID - LITOOperator ID - LITOOperator ID - LITOOperator ID - LITOOperator ID - LITOSARS-COV2/RT-PCR ([facility])2021-12-11 07:44:17 Test Item Value Reference Range Interpretation Comments SARS-COV2/RT-PCR Negative Negative The SARS-Co V-2 target (test code = nucleic acids a re not [id number]) detected in thi s specimen. Negative result [...] revoked sooner. Fact Sheet for Healthcare Providers: https://www.[employer]co m/Documents/Xpert%20Xpress%20SARS%20CoV-2/Fact%20Sheets/532-3802%48VLDA-KPQ-5%20 HEALTHCARE%20PROVIDERS%20FACT%20SHEET.pdf Fact Sheet for Healthcare Patients: https://www.[employer]Documents/Xpert%20Xp ress%20SARS%20CoV-2/Fact%20Sheets/861-3801%00KNUT-XWA-5%20PATIENT%20FACT%20SHEET .[id number] 06:21:50 Test Item Value Reference Range Interpretation Comments MAGNESIUM (BEAKER) (test code = 3.2 mg/dL 1.5-3.0 H 627) Checker/Stocker ID - [id number] ID - akhb34Pfdfsmqo ID - eaih91Ufcqbesb ID - znmp04 BASIC METABOLIC [id number] 06:20:23 Test Item Value Reference Range Interpretation [...] S NOT APPLICABLE FOR DIALYSIS PATIEN TS. Checker/Stocker ID - tbbt14Lqiomfmk ID - yqiv56Zypebnpk ID - noiu65Steacqph ID - ymlo22Bugwtvvq ID - fojo00Ifgwrnia ID - tkrv89Ktpqcwlu ID - rlqc18Uhzohneo ID - ubfg21Tmvkaukm ID - [id number] 09:41:16 Test Item Value Reference Range Interpretation Comments MAGNESIUM (BEAKER) (test code = 1.5 mg/dL 1.5-3.0 627) Checker/Stocker ID - jyuvvljnj031Ltxswdpu ID - kwwvceyrb756Gclooest ID - jrzxoaclh646Adcjxfgu ID - vjabdrsgl127IANKV METABOLIC [id number] 06:06:16 Test Item Value Reference Range Interpretation Comments SODIUM (BEAKER) 137 meq/L 135-148 (test code = 381) POTASSIUM (BEAKER) 3.9 meq/L 3.6-5.5 (test code = 379) CHLORIDE (BEAKER) 101 meq/L 98-106 (test code = 382) CO2 (BEAKER) (test 24 meq/L - code = 355) BLOOD UREA NITROGEN 13 mg/dL 10- (BEAKER) (test code = 354) CREATININE (BEAKER) [...] S NOT APPLICABLE FOR DIALYSIS PATIEN TS. Checker/Stocker ID - ehhervxwp185Ulkrpwcp ID - vcbfycvxj820Vmuwqblc ID - ybpuwyhrj311Acacqfii ID - cenokicfi215Mkzculxf ID - nvkifyulz601Fronluzm ID - vuxmwouuj038Fsxubyoq ID - fccyvvcvg388Pfgdbyzf ID - vsxpmrukp825Muvcxgmv ID - tvzkfuhyt766Trgckvhy ID - utdocexts098Swbwykrc ID - negddieuc346Jxxxtpbt ID - [id number] 08:57:03 Test Item Value Reference Range Interpretation Comments MAGNESIUM (BEAKER) (test code = 1.3 mg/dL 1.5-3.0 L 627) Checker/Stocker ID - DSENSONBASIC METABOLIC [id number] 07:15:00 Test Item Value Reference Range Interpretation Comments SODIUM (BEAKER) 136 meq/L 135-148 (test code = 381) POTASSIUM (BEAKER) 3.7 meq/L 3.6-5.5 (test code = 379) CHLORIDE (BEAKER) 102 meq/L 98-106 (test code = 382) CO2 (BEAKER) (test 25 meq/L -29 code = 355) BLOOD UREA NITROGEN 11 mg/dL 10- (BEAKER) (test code = 354) CREATININE (BEAKER) [...] S NOT APPLICABLE FOR DIALYSIS PATIEN TS. Checker/Stocker ID - BPXM80Wiprwhhz ID - GFSE07Itkbprjf ID - EUMT03Tlrasorz ID - AGHN86Zqlmttrs ID - LURR38Ibjjlmah ID - BRNY72Pftgzjqr ID - NRIX16Wkaktjkb ID - RIEX34Melihstv ID - XEEO54Oceeifua ID - CIKP53Dwazcygs ID - DSENSONOperator ID - [id number] 08:51:49 Test Item Value Reference Range Interpretation Comments MAGNESIUM (BEAKER) (test code = 1.5 mg/dL 1.5-3.0 627) Checker/Stocker ID - DSENSONCOMPREHENSIVE METABOLIC [id number] 06:19:44 Test Item Value Reference Range Interpretation [...] S NOT APPLICABLE FOR DIALYSIS PATIEN TS. Checker/Stocker ID - [id number] ID - EFCBCREXA398Epzgdmad ID - TBHNBSVKQ867Xrxmtova ID - RTDLLOWXG611Jupbxjlk ID - NPTXBMBZB037Ztdvrwhc ID - LZYZNJIRY772Bvcneacf ID - CNEDTHVBI217Fgtwsvpp ID - FRGOTXVNI020Faewvayn ID - ZKPUZZWWL554Bwhtfseu ID - OOXBJERFK083Hsobgaqw ID - YOBLQFQJX560Bgyauhwi ID - PQYQWRBOP174Ypptkceb ID - KRWHTEXZY806Nyakomqf ID - ELKZAJSAL565Lhcxfiur ID - RNEPPYASW514Qruzqvjz ID -CIPGGCENH710JCH W/PLT COUNT & AUTO DIFFERENTIAL 2021-12-08 06:07:26 [...] (BEAKER) (test code = 2801) COMPREHENSIVE METABOLIC [id number] 06:17:39 Test Item Value Reference Range Interpretation [...] S NOT APPLICABLE FOR DIALYSIS PATIEN TS. Checker/Stocker ID - iwdn89Dmhpuinz ID - qhfm92Mtegvine ID - ipds74Livvmpzl ID - bohq33Zoeuyhug ID - tcad86Zklxapqm ID - szbt61Dtnyavsn ID - vkmg59Fqhetzfl ID - nugv02Qbiipbpz ID - wldg57Soyqdadw ID - tyto31Xjotdjwn ID - tumm31Ktvrzhvj ID - phgx81Fckiwpce ID - renz28Lnzaalcf ID - adzy43Lcmupiqh ID - pkdc79Daqzhztu ID - grcv06Oauqeggq ID - tywu63Qaiednho ID - dezy64Wbocbipz ID - rzef79ODN W/PLT COUNT & AUTO [id number] 05:38:17 Test Item Value Reference Range Interpretation [...] (BEAKER) (test code = 2801) COMPREHENSIVE METABOLIC [id number] 05:14:59 Test Item Value Reference Range Interpretation [...] S NOT APPLICABLE FOR DIALYSIS PATIEN TS. Checker/Stocker ID - LITOOperator ID - LITOOperator ID [...] 17 % 20-55 L (test code = 6120) Checker/Stocker ID - [id number] ID - TFHJOTVOI778PGGKGXGFJVESE METABOLIC [id number] 05:23:34 Test Item Value Reference Range Interpretation [...] S NOT APPLICABLE FOR DIALYSIS PATIEN TS. Checker/Stocker ID - WZYZILHOH222Pcyxlwrk ID - IHMAFQZCK057Eahadkke ID - LQCBZDGWK143Cmcfncrm ID - HDRGHJUNT771Ihhrftkt ID - LYLEQRANM120Ncznuibi ID - TVYYNRFSD235Uqptfwkf ID - LARATQLDJ730Gxsxirui ID - ACRWSZIRV976Sjylwmmv ID - TZKYFWEMK001Lspesrys ID - MRYNEVCLS089Ucttqywj ID - FUNWERCMI432Htyukkuw ID - ZBQQAHAGZ763Wmiuecmi ID - BVMKTIDQW430Ryxdyjsg ID - BFSFXXUKL344Pgppmdgy ID - EPHESRBPW131Istjuonm ID -VXEPKYOSG746Tozjkbjh ID - SNRBZFIYO783Rfbwiwyu ID - NPZIGHYVI596Xgsqocjl ID - NFVCGKCJI445MVB W/PLT COUNT & AUTO DIFFERENTIAL 2021-12-05 05:14:34 [...] (BEAKER) (test code = 2801) U/S, ABDOMINAL, [id number] 00:01:00Reason for exam:->Elevated liver chemistries and screen for splenomegaly - concern for Felty [facility] 1970 Sex: FFINAL REPORT History: Elevated [...] and Enter Reason Below- >NoPlease specify:->left hip [facility] : 1970 Sex: FFINAL REPORT [...] in the distal sacrum. Signed: Tiera Koch MDReport Verified Date/Time: 12/04/2021 16:18:12 Reading Location: [facility] B1 C013X Ortho Consult Reading Room FL, FLUORO, NON-SPECIFIC, UP TO 1 [id number] 14:56:00Reason for exam:->CLOSED REDUCTION, FRACTURE, FEMUR, WITH PINNING - Left [facility] : 1970 Sex: FAn imaging unit was utilized for this procedure. No radiologist interpretation was requested. Refer to the EMR for findings. Refer to PACS for any patient radiation dose information.PROTHROMBIN TIME/[id number] 10:28:29 Test Item Value Reference Range Interpretation Comments PROTIME (BEAKER) 11.6 seconds 9.3-12.0 Final Infor mation (test code = 759) (Auto Outp ut) INR (BEAKER) (test 1.06 See_Comment Final Inf ormation code = 370) (Auto Output) [Automated mess age] The system [employer] generated this result transmitted ref erence range: [...] for exam:->left hip pain, femoral neck fracture [facility] : 1970 Sex: FFINAL REPORT Left humerus, 2 views. History: Left hip pain, femoral neck fracture Findings: The soft tissues are normal. The bones are diffusely osteopenic. A minimally displaced left femoral neck fracture is identified. There is no evidence of dislocation. Remaining bones are intact. There are no erosions or periosteal reaction. The joint spaces are within normal limits. IMPRESSION:Leftfemoral neck fracture. Signed: [facility] Verified Date/Time: 12/04/2021 08:13:08 Reading Location: [facility] Mammo Reading Room CREATINE KINASE (CK)2021-12-04 07:51:45 Test Item Value Reference Range Interpretation Comments CREATINE KINASE TOTAL (BEAKER) (test 15 U/L 25-235 L code = 380) Checker/Stocker ID - [id number] FUNCTION [id number] 07:21:47 Test Item Value Reference Range Interpretation [...] code = 97 U/L 5-50 H 347) Checker/Stocker ID - xjxo00Ofoidfvw ID - lstb17Tkflwvxe ID - fhjo10Muwrjfgh ID - jwsq55Prjikahs ID - ztmt20Zfznyqvd ID - bufb22Wpdsoadu ID - uczt61Klqctnol ID - zzqo37Kpcdcpac ID - obiu04Sufkefek ID - [id number] 07:13:20 Test Item Value Reference Range Interpretation Comments ETHANOL (BEAKER) < mg/dL See_Comment [Automated message] The (test code = 400) system [employer] generated this result tra nsmitted reference range : <=10. The reference r sanchez was not used to int erpret this result as normal/abnormal . Checker/Stocker ID - [id number], [id number] 06:26:04 Test Item Value Reference Range Interpretation Comments PARATHYROID HORMONE INTACT 61.1 pg/mL 15.0-90.0 (BEAKER) (test code = 577) Checker/Stocker ID - [id number] METABOLIC [id number] 05:51:19 Test Item Value Reference Range Interpretation [...] S NOT APPLICABLE FOR DIALYSIS PATIEN TS. Checker/Stocker ID - jsaz29Kbypfoep ID - aotp63Ajivbckm ID - uwie73Shokeojx ID - gyew94Fjpeznlo ID - ckqz83Lpjyvvra ID - pwmh95Qejgskzz ID - sapc88Lbxetdpl ID - dtib84Lvqiyjtc ID - yfve09Cexuiqqr ID - gkvt02Wmmtxlan ID - oseu17Faiiawln ID - wuwm46Fzzvcktd ID - khid28Phcvbzhn ID - qchp68Uxltvcaz ID - vdsc16Zepdrvsn ID - cakj90Yhmzhzci ID - sxpk45Uglnevis ID - bcuh85Kfheartg ID - cthu67HTZ W/PLT COUNT & AUTO [id number] 05:41:52 Test Item Value Reference Range Interpretation [...] PERCENT (BEAKER) (test code = 2801) SCREEN, [id number] 05:26:16 Test Item Value Reference Range Interpretation Comments TEST URINE (BEAKER) (test Negative Negative code = 583) SARS-COV2/RT-PCR ([facility])2021-12-04 01:49:23 Test Item Value Reference Range Interpretation Comments SARS-COV2/RT-PCR (test Negative Not Detected, Negative, See code = 5028852) external report for linked test COMPREHENSIVE METABOLIC [id number] 21:22:23 Test Item Value Reference Range Interpretation [...] S NOT APPLICABLE FOR DIALYSIS PATIEN TS. Checker/Stocker ID - PAULSILOCOOperator ID - PAULSILOCOOperator ID - PAULSILOCOOperator ID - PAULSILOCOOperator ID - PAULSILOCOOperator ID - PAULSILOCOOperator ID - PAULSILOCOOperator ID - PAULSILOCOOperator ID - PAULSILOCOOperator ID - PAULSILOCOOperator ID - PAULSILOCOOperator ID - PAULSILOCOOperator ID - P AULSILOCOOperator ID - PAULSILOCOOperator ID - PAULSILOCOOperator ID - [id number] 21:19:26 Test Item Value Reference Range Interpretation Comments MAGNESIUM (BEAKER) (test code = 1.5 mg/dL 1.5-3.0 627) Checker/Stocker ID - PAULSILOCOOperator ID - PAULSILOCOOperator ID - PAULSILOCOOperator ID - [id number] 21:15:47 Test Item Value Reference Range Interpretation Comments PHOSPHORUS (BEAKER) (test code = 2.6 mg/dL 2.5-4.5 604) Checker/Stocker ID - PAULSILOCOPROTHROMBIN [id number] 21:14:26 Test Item Value Reference Range Interpretation Comments PROTIME (BEAKER) 11.1 seconds 9.3-12.0 Final Infor mation (test code = 759) (Auto Outp ut) INR (BEAKER) (test 1.01 See_Comment Final Inf ormation code = 370) (Auto Output) [Automated mess age] The system [employer] generated this result transmitted ref erence range: <=5.90. The reference range was not used to int erpret this result as normal/abnormal . RECOMMENDED COUMADIN/WARFARIN INR THERAPY RANGESSTANDARD DOSE: 2.0 - 3.0 Includes: PROPHYLAXIS for venous thrombosis, systemic embolization; TREATMENT for venous thrombosis and/or pulmonary embolus.HIGH RISK: Target INR is 2.5-3.5 for patients with mechanical heart valves.CBC W/PLT COUNT & AUTO [id number] 21:03:25 Test Item Value Reference Range Interpretation [...] % 0-0 PERCENT (BEAKER) (test code = 4617)
--- NOTE | 2022-11-04 16:30 | RAD REPORT ---
EXAM DESCRIPTION: RAD - Lumbar Spine 3 Views - 11/04/2022 4:23 pm CLINICAL HISTORY: Back pain FINDINGS: Mild compression deformities involve several lower thoracic and lumbar vertebra without significant c hange 2021 No acute fracture or dislocation is seen. Mild spondylosis. Bones are osteoporotic
[2022-11-04] MEDS ORDERED: LIDOCAINE 4% PATCH ONE (17:12)
[2022-11-04] MEDS ORDERED: HYDROCODONE/APAP 5/325 MG TAB ONE (17:12)
--- NOTE | 2022-11-04 17:34 | RAD REPORT ---
EXAM DESCRIPTION: CT - Pelvis Wo Cont - 11/04/2022 5:13 pm CLINICAL HISTORY: Pelvic pain COMPARISON: None. TECHNIQUE: Computed axial tomography of the pelvis was obtained. Coronal and sagittal reconstruction performed All CT scans are performed using dose optimization technique as appropriate and may include automated exposure control or mA/KV adjustment according to patient size. FINDINGS: Compression screws have been placed into left femoral head and neck. The left femoral head is flattened and sclerotic compatible with avascular necrosis. Screws and plates have been placed into proximal right femur, right femoral neck and head. There is a lucency within the hardware at the level of the intratrochanteric region. No bony fracture visualized. No dislocation. Osteoporosis Small left hip joint effusion. Muscles surrounding the hips unremarkable. Subcutaneous tissues normal IMPRESSION: Avascular necrosis left femoral head Lucency within the hardware involving the right femur. Presumably this represents a fracture of the h ardware although this is uncertain No bony fracture visualized
--- NOTE | 2022-11-04 17:40 | RAD REPORT ---
EXAM DESCRIPTION: CTSpine Lumbar Wo Con11/04/2022 5:13 pm CLINICAL HISTORY: Back pain. Lumbar fracture COMPARISON: 2021 TECHNIQUE: Computed axial tomography lumbar spine was obtained with coronal and sagittal reconstruct ion. All CT scans are performed using dose optimization technique as appropriate and may include automated exposure control or mA/KV adjustment according to patient size. FINDINGS: Mild old compression deformities involve L1, L2, L3 and L4. No acute fracture visualized. No dislocation Disc bulge L2-3 results in mild central spinal stenosis Disc bulge, ligamentum flavum facet hypertrophy L3-4 and L4-5 resulting in mild to moderate central s cici stenosis IMPRESSION: Negative for an acute lumbar fracture Spondylosis L3-4 and L4-5 resulting in mild to moderate central spinal stenosis If patient continues to have symptoms to suggest significant lumbar spinal pathology then MRI would b e recommended
--- NOTE | 2022-11-04 17:46 | RAD REPORT ---
EXAM DESCRIPTION: CTThoracic Spine W/o Cont11/04/2022 5:13 pm CLINICAL HISTORY: Back pain. thoracic spine fracture COMPARISON: None TECHNIQUE: Computed axial tomography of thoracic spine was obtained with coronal and sagittal recons truction. All CT scans are performed using dose optimization technique as appropriate and may include automated exposure control or mA/KV adjustment according to patient size. FINDINGS: Mild compression deformities involve T7, T10, T11 and T12 vertebral bodies. They all appea r chronic. No acute fracture or dislocation is seen. No high-grade central/foraminal stenosis is visualized. IMPRESSION: Negative for acute thoracic fracture If the patient has clinical symptoms to suggest spinal cord pathology then MRI would be recommended.
--- NOTE | 2022-11-04 19:21 | EDPHYS ---
Physician Documentation [facility] Name: Cindy Garcia Age: 52 yrs Sex: Female : 1970 Arrival Date: 11/04/2022 Time: 14:48 Bed Treatment Private MD: ED Physician Armani Reed HPI: 11/04 15:50 This 52 yrs old Female presents to ER via EMS with complaints of Back Pain. cp 15:50 The patient presents with pain that is chronic. cp 15:50 The symptoms are located in the low back. Onset: The symptoms/episode began/occurred cp worse over past 4 days after moving items in home. The pain does not radiate. Associated signs and symptoms: Pertinent negatives: abdominal pain, chest pain, constipation, dysuria, fever, hematuria, incontinence, numbness, urinary retention, weakness. Severity of symptoms: in the emergency department the symptoms are unchanged, despite home interventions. Historical: - Allergies: 15:39 Cyclobenzaprine; iw 15:39 Oxycodone HCl; iw 15:39 OxyContin; iw - PMHx: 15:39 celiac; chiari malformation; GERD; Osteoporosis; Rheumatoid Arthritis; iw - PSHx: 15:39 Appendectomy; Cholecystectomy; iw - Immunization history:: Adult Immunizations up to date. - Social history:: Smoking status: unknown. ROS: 15:55 Constitutional: Negative for body aches, chills, fever, poor PO intake. cp 15:55 Eyes: Negative for injury, pain, redness, and discharge. cp 15:55 Neck: Negative for pain with movement, pain at rest, stiffness. 15:55 Cardiovascular: Negative for chest pain, edema, palpitations. 15:55 Respiratory: Negative for cough, shortness of breath, wheezing. 15:55 Abdomen/GI: Negative for abdominal pain, nausea, vomiting, and diarrhea, constipation, bowel incontinence. 15:55 Back: Positive for pain at rest, pain with movement, of the low back area and mid back area. 15:55 : Negative for urinary symptoms, hematuria, difficulty urinating, bladder incontinence. 15:55 Skin: Negative for rash. 15:55 Neuro: Negative for altered mental status, dizziness, headache, numbness, tingling, weakness. 15:55 All other systems are negative. Exam: 16:00 Constitutional: The patient appears in no acute distress, alert, awake, cp non-diaphoretic, non-toxic, well developed, frail. 16:00 Head/Face: Normocephalic, atraumatic. cp 16:00 Eyes: Periorbital structures: appear normal, Conjunctiva: normal, Sclera: no appreciated abnormality, Lids and lashes: appear normal, bilaterally. 16:00 ENT: External ear(s): are unremarkable, Nose: is normal, Mouth: Lips: moist, Oral mucosa: pink and intact, moist, Posterior pharynx: is normal, airway is patent, no erythema, no exudate. 16:00 Neck: ROM/movement: is normal, is supple, without pain, no range of motions limitations, no nuchal rigidity. 16:00 Chest/axilla: Inspection: normal. 16:00 Cardiovascular: Rate: normal, Rhythm: regular. 16:00 Respiratory: the patient does not display signs of respiratory distress, Respirations: normal, no use of accessory muscles, no retractions, Breath sounds: are clear throughout, no decreased breath sounds, no stridor, no wheezing. 16:00 Abdomen/GI: Inspection: abdomen appears normal, Palpation: abdomen is soft and non-tender, in all quadrants. 16:00 Back: pain, that is moderate, of the low back area and mid back area, ROM is painful, with all movement. 16:00 Skin: no rash present. 16:00 Neuro: Motor: moves all fours, strength is normal, Sensation: is normal, Deep tendon reflexes are 3+ (brisk) in the right patellar and left patellar. Vital Signs: 17:45 BP 115 / 63; Pulse 75; Resp 16; Temp 98; Pulse Ox 98% ; bp MDM: 15:40 Patient medically screened. cp 17:00 Differential diagnosis: chronic back pain, Fracture Neoplasm Pyelonephritis ruptured cp disc, spinal injury, Ureterolithiasis vertebral fracture. 19:20 Data reviewed: vital signs, nurses notes, radiologic studies, CT scan, plain films. cp 19:20 Consideration of Admission/Observation Escalation of care including cp admission/observation considered. I considered the following discharge prescriptions or medication management in the emergency department Medications were administered in the Emergency Department. See MAR. Care significantly affected by the following chronic conditions: osteoporosis. Counseling: I had a detailed discussion with the patient and/or guardian regarding: the historical points, exam findings, and any diagnostic results supporting the discharge/admit diagnosis, radiology results, the need for outpatient follow up, a family practitioner, a neurosurgeon, to return to the emergency department if symptoms worsen or persist or if there are any questions or concerns that arise at home. Response to treatment: the patient's symptoms have markedly improved after treatment, and as a result, I will discharge patient. 11/04 15:41 Order name: XRAY Lumbar Spine (3 Views); Complete Time: 17:53 cp 11/04 16:36 Order name: CT Thoracic Spine Wo Cont; Complete Time: 17:53 cp 11/04 16:36 Order name: CT Lumbar Spine Wo Con; Complete Time: 17:53 cp 11/04 16:36 Order name: CT Pelvis wo Cont; Complete Time: 17:53 cp Administered Medications: 17:28 Drug: Lidoderm Topical Patch 5 % (700 mg/patch) 1 patches Route: Topical; Site: kb3 affected area; 17:28 Drug: HYDROcodone-acetaminophen PO 5 mg-325 mg 1 tabs Route: PO; kb3 Disposition Summary: 11/04/22 19:21 Discharge Ordered Location: Home cp Problem: an acute exacerbation cp Symptoms: have improved cp Condition: Stable cp Diagnosis - Dorsalgia, unspecified cp Followup: cp - With: Private Physician - When: 2 - 3 days - Reason: Recheck today's complaints Discharge Instructions: - Discharge Summary Sheet cp - Chronic Back Pain cp Forms: - Medication Reconciliation Form cp - Thank You Letter cp - Antibiotic Education cp - Prescription Opioid Use cp Prescriptions: - Mobic 7.5 mg Oral Tablet - take 1 tablet by ORAL route once daily take with food; 20 tablet; Refills: 0, cp Product Selection Permitted - Tramadol 50 mg Oral Tablet - take 1 tablet by ORAL route every 8 hours as needed; 12 tablet; Refills: 0, cp Product Selection Permitted - methocarbamol 500 mg Oral Tablet - take 1 tablet by ORAL route 3 times per day; 30 tablet; Refills: 0, Product cp Selection Permitted Signatures: Dispatcher [employer] Ayana Israel RN RN Akin Mcginnis PA PA cp Peltier, Brian, RN RN bp Bradberry, Kelly, RN RN kb3
--- NOTE | 2022-11-04 19:21 | ER ---
Nurse's Notes [facility] Name: Cindy Garcia Age: 52 yrs Sex: Female : 1970 Arrival Date: 11/04/2022 Time: 14:48 Bed Treatment Private MD: Diagnosis: Dorsalgia, unspecified Presentation: 11/04 15:37 Chief complaint: Patient states: back pain X 4 days after moving stuff in her house. iw Coronavirus screen: At this time, the client does not indicate any symptoms associated with coronavirus-19. Ebola Screen: Patient negative for fever greater than or equal to 101.5 degrees Fahrenheit, and additional compatible Ebola Virus Disease symptoms Patient denies exposure to infectious person. Patient denies travel to an Ebola-affected area in the 21 days before illness onset. No symptoms or risks identified at this time. Initial Sepsis Screen: Does the patient meet any 2 criteria? No. Patient's initial sepsis screen is negative. Does the patient have a suspected source of infection? No. Patient's initial sepsis screen is negative. Risk Assessment: Do you want to hurt yourself or someone else? Patient reports no desire to harm self or others. Onset of symptoms was October 31, 2022. 15:37 Method Of Arrival: EMS: [facility] iw 15:37 Acuity: JOSE MIGUEL 3 iw Triage Assessment: 17:30 General: Appears uncomfortable, Behavior is cooperative, appropriate for age, anxious. bp Pain: Complains of pain in back. EENT: No deficits noted. Neuro: No deficits noted. Cardiovascular: No deficits noted. Respiratory: No deficits noted. GI: No signs and/or symptoms were reported involving the gastrointestinal system. : No signs and/or symptoms were reported regarding the genitourinary system. Derm: No deficits noted. Musculoskeletal: Reports pain in back. Historical: - Allergies: 15:39 Cyclobenzaprine; iw 15:39 Oxycodone HCl; iw 15:39 OxyContin; iw - PMHx: 15:39 celiac; chiari malformation; GERD; Osteoporosis; Rheumatoid Arthritis; iw - PSHx: 15:39 Appendectomy; Cholecystectomy; iw - Immunization history:: Adult Immunizations up to date. - Social history:: Smoking status: unknown. Screenin:47 [facility] ED Fall Risk Assessment (Adult) History of falling in the last 3 months, bp including since admission No falls in past 3 months (0 pts). Abuse screen: Denies threats or abuse. Denies injuries from another. Nutritional screening: No deficits noted. Tuberculosis screening: No symptoms or risk factors identified. Assessment: 17:30 General: SEE TRIAGE NOTE. bp 19:43 Reassessment: Patient appears in no apparent distress at this time. Patient and/or jb4 family updated on plan of care and expected duration. Pain level reassessed. Patient is alert, oriented x 3, equal unlabored respirations, skin warm/dry/pink. Vital Signs: 17:45 BP 115 / 63; Pulse 75; Resp 16; Temp 98; Pulse Ox 98% ; bp ED Course: 14:53 Patient arrived in ED. im 15:04 Akin Donaldson PA is PHCP. cp 15:04 Armani Reed MD is Attending Physician. cp 15:38 Triage completed. iw 15:39 Arm band placed on. iw 16:24 XRAY Lumbar Spine (3 Views) In Process Unspecified. EDMS 17:15 CT Thoracic Spine Wo Cont In Process Unspecified. EDMS 17:15 CT Lumbar Spine Wo Con In Process Unspecified. EDMS 17:15 CT Pelvis wo Cont In Process Unspecified. EDMS 17:44 Paul Carranza, RN is Primary Nurse. bp 17:47 Patient has correct armband on for positive identification. Bed in low position. Call bp light in reach. Side rails up X2. 19:43 No provider procedures requiring assistance completed. IV discontinued, intact, jb4 bleeding controlled, No redness/swelling at site. Pressure dressing applied. Administered Medications: 17:28 Drug: Lidoderm Topical Patch 5 % (700 mg/patch) 1 patches Route: Topical; Site: kb3 affected area; 17:28 Drug: HYDROcodone-acetaminophen PO 5 mg-325 mg 1 tabs Route: PO; kb3 Medication: 17:30 VIS not applicable for this client. bp Outcome: 19:21 Discharge ordered by . cp 19:43 Discharged to home via wheelchair, with family. jb4 19:43 Condition: stable 19:43 Discharge instructions given to patient, Instructed on discharge instructions, follow up and referral plans. no drinking with medication, no driving heavy equipment, medication usage, Demonstrated understanding of instructions, follow-up care, medications, Prescriptions given X 3. 19:44 Patient left the ED. jb4 Signatures: Dispatcher [employer] EDMS Ayana Thomas, RN RN Akin Mcginnis PA PA cp Bryson, James RN RN jb4 Paul Carranza RN RN Goldie Young, RN RN kb3 Miriam Herring
[2022-11-04 19:56] VITALS: BP 115/63; TEMP 98; O2SAT 98
== END 2022-11-04 19:44 | disposition home or self-care (01) ==
LOC: ER 14:48
DX: M54.9 Dorsalgia, unspecified (principal); Z88.5 Allergy status to narcotic agent; Z88.6 Allergy status to analgesic agent
CPT/HCPCS: 72131; 72128; 72192; 72100; J2001; 99284

== ENCOUNTER 2023-02-20 16:51 | Emergency (ER) | payer OTHER ==
--- OUTSIDE RECORDS SUMMARY | 2023-02-20 16:56 | XMS REPORT | Continuity of Care Document ---
:1970 Author Organization [facility] t Address [address] [place] [address] [address] [place] [address] Care Team Providers Name Role Phone Chava Bowers DO Primary Care Physician [id number] Attending Clinician Unavailable Doctor Unassigned, [place] Attending Clinician Unavailable SHIMON POST Attending Clinician Unavailable Shimon Post DDS Attending Clinician CHAVA BOWERS Attending Clinician Unavailable PEGGY ELY Attending Clinician Unavailable MARCELA MACHADO Attending Clinician Unavailable JOCELYNN BRASWELL Attending Clinician Unavailable LAB90 Attending Clinician Unavailable Chava Bowers DO Attending Clinician [id number] Admitting Clinician Unavailable LACIE LEONARD Admitting Clinician Unavailable Payers Payer Name Policy Type Policy Number Effective Date Expiration Date S juarez [facility] WM [id number] CIGNA-SHEET METAL 2 [id number] 2021 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 00:00:00 [facility] MEDICARE [id number] 2021 00:00:00 CIGNA OON [id number] 2010 00:00:00 MEDICAID OF [place] [id number] 2021 00:00:00 Problems Condition Condition Condition Status Onset Resolution Last Treating Co mments Source Name Details Category Date Date Treatment Clinician Date Left Left Disease Active [facility] displaced 12-04 Luke s femoral femoral 00:00: Medical neck neck 00 Center fracture fracture Age-relate Age-relate Disease Active [facility] 6-29 [facility] osteoporos osteoporos 00:00: Me dical is with is with 00 Center current current pathologic pathologic al al fracture fracture Femur Femur Disease Recurre [facility] fracture, fracture, nce 6- Luke s left left 00:00: Medical 00 Center 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 [...] [facility] E-ACETAM 6-28 [facility] INOPHEN 00:00: Medical Center Cycloben Drug Active [facility] zaprine Intolera -28 [facility] nce 00:00: Medical Center Oxycodon Drug Active [facility] e-Acetam Intolera 6-28 [facility] inophen nce 00:00: Medical Center CYCLOBEN DRUG Active Low Dizziness Unive rs ZAPRINE INGREDI 6- ity of 00:00: [address] OXYCODON DRUG Active Low ITCHING Univers E-ACETAM 6-28 ity of INOPHEN 00:00: [address] NO KNOWN Allergy Active [facility] ALLERGIE S NO KNOWN Drug Active Univers ALLERGIE Class ity of S [facility] Social History Social Habit Start Date Stop Date Quantity Comments Source History SDOH [facility] Transport Non-Med Medical [facility] History SDOH [facility] Alcohol Std Medical Cente r Drinks History SDSD [facility] Alcohol Binge Medical Shaye ter Exposure to 2022-07-28 2022-08-07 [facility]14[facility]00 [place] [facility] (event) Branch Alcohol intake 2021-12-06 2021-12-[address] [facility] 00:00:00 00:00:00 non-drinker Medical Cente r (finding) History SDSD 2021-12-04 2021-12-[address] [facility] Transport Med 00:00:00 00:00:[address] History [facility] 2021-12-04 2021-12-[address] [facility] Housing Unable to 00:00:00 00:00:00 Medical Center Pay History [facility] 2021-12-04 2021-12-[address] [facility] Housing Places 00:00:00 00:00:00 Medical Ce nter Lived History [facility] 2021-12-04 2021-12-[address] [facility] Housing Homeless 00:00:00 00:00:00 Medical Center Last Year Tobacco use and 2021-12-03 2021-12-[address] [facility] exposure 00:00:00 00:00:00 non-user Medical Center History [facility] 2021-12-03 2021-12-[address] [facility] Alcohol Frequency 00:00:00 00:00:00 Medical Center Education 2021-09-03 2021-09-03 17 Dina Lyle 00:00:00 00:00:00 Sex Ass[birth year] At [birth year] Universit y of 00:00:00 00:00:00 [place] [facility] Smoking Status Start Date Stop Date Source Tobacco smoking consumption [facility] unknown Branch Never smoked tobacco [facility] Medications Ordered Filled Start Stop Current Ordering Indication Dosage Frequency Signature Comments Components Source Medication Medication Date Date Medication? Clinician (SIG) Name Name citalopram Yes 20mg Take 1 Unive rs 20 mg 3-02 tablet by ity of tablet 13:23: mouth. [place] [address] Medical Branch gabapentin Yes 600mg Take 1 Univ ers 600 mg 3-02 tablet by ity of tablet 13:23: mouth. [address] citalopram 2022-0 Yes 20mg Take 1 Unive rs 20 mg 3-02 tablet by ity of tablet 13:23: mouth. [address] Branch gabapentin 3-0 Yes 600mg Take 1 Univ ers 600 mg 3-02 tablet by ity of tablet 13:23: mouth. [address] citalopram 2022-0 Yes 20mg Take 1 Unive rs 20 mg 3-02 tablet by ity of tablet 13:23: mouth. [address] Branch gabapentin 3-0 Yes 600mg Take 1 Univ ers 600 mg 3-02 tablet by ity of tablet 13:23: mouth. [address] citalopram 2022-0 Yes 20mg Take 1 Unive rs 20 mg 3-02 tablet by ity of tablet 13:23: mouth. [address] gabapentin 3-0 Yes 600mg Take 1 Univ ers 600 mg 3-02 tablet by ity of tablet 13:23: mouth. [address] Branch escitalopra 2021-06 Yes TAKE 1 Univ ers [...] by ity of tablet 00:00: mouth in [place] 00 the Medical morning. Branch predniSONE 2021-06 Yes 10mg Take 1 Unive rs 10 mg 0-23 tablet by ity of tablet 00:00: mouth in [place] 00 the Medical morning. Branch predniSONE 2021-06 Yes 10mg Take 1 Unive rs 10 mg 0-23 tablet by ity of tablet 00:00: mouth in [place] 00 the Medical morning. Branch predniSONE 2021-06 Yes 10mg Take 1 Unive rs 10 mg 0-23 tablet by ity of tablet 00:00: mouth in [place] 00 the Medical morning. Branch acetaminoph 2021-06 [...] SCALE 5-7 (MODERATE) *MAY IMPAIR ALERTNESS* * ergocalcife 2022- No [id number] Q7D Take [address] rol 12-14- capsule [facility] (ERGOCALCIF 00:00: 23:59 (50,000 Me dical LÓPEZ) 1,250 00 :00 Units Center mcg (50,000 total) by unit) mouth once capsule a week. predniSONE Yes 10mg QD Take [address] (DELTASONE) 7-07 by mouth Luke s 10 MG 13:52: daily. Medical tablet 51 Center gabapentin Yes 600mg Take [address] (NEURONTIN) 7-07 mg by [facility]ukes 600 MG 13:52: mouth 2 Medical tablet 51 (two) Center times daily before meals TID - 600 mg, 300 mg, 600 mg . gabapentin Yes 300mg Take [address] (NEURONTIN) 7-07 mg by Lukes 300 MG 13:52: mouth Medical capsule 51 daily Center before lunch. citalopram 2021-0 Yes 20mg QD Take [address] (CeleXA) 20 -07 by mouth Luke s MG tablet 13:52: daily. Medica l [address] omeprazole 2021-0 Yes 20mg QD Take [address] (PriLOSEC) 07 by mouth [facility]ukes 20 MG 13:52: daily. Medical capsule [address] ondansetron 2021-0 Yes 4mg 1 tablet. U nivers 4 mg tablet - ity of 00:00: [address] ondansetron 2021-0 Yes 4mg 1 tablet. U nivers 4 mg tablet 10-14 ity of 00:00: [address] ondansetron 2021-0 Yes 4mg 1 tablet. U nivers 4 mg tablet 10-14 ity of 00:00: [place] [facility] ondansetron 2021-0 Yes 4mg 1 tablet. U nivers 4 mg tablet 10-14 ity of 00:00: [address] hydrOXYzine 2021-0 2021- No 25mg Q.5D Take 25 mg Dina HCl 25 MG 3-29 03-29 by mouth Seybo ld oral Tablet 13:59: 00:00 as needed 11 :00 in the morning and 25 mg as needed in the evening for anxiety. Citalopram 2021-0 Yes 20mg Take 20 mg K elsey Hydrobromid 3-29 by mouth Seyb old e 20 MG 13:58: daily oral Tablet 52 Gabapentin 2021-0 Yes 300mg Take 300 [place] 300 MG oral 3-29 mg by Seybold Capsule 13:36: mouth 3 32 times daily predniSONE 2021-0 Yes [id number] 10mg Take 1 Dina (DELTASONE) 3-29 tablet (10 Se ybold 10 MG oral 00:00: mg total) tablet 00 by mouth daily hydrOXYzine 2-0 Yes 25mg 1 tablet. U nivers 25 mg 3-21 ity of tablet 00:00: [address] hydrOXYzine 2-0 Yes 25mg 1 tablet. U nivers 25 mg 3-21 ity of tablet 00:00: [address] hydrOXYzine 2-0 Yes 25mg 1 tablet. U nivers 25 mg 3-21 ity of tablet 00:00: [place] 00 Medical Branch hydrOXYzine 2021-0 Yes 25mg 1 tablet. U nivers 25 mg 3-21 ity of tablet 00:00: [place] 00 Medical Branch hydrOXYzine 2021-0 Yes Dina HCl 25 MG 3-21 Seybold oral Tablet 00:00: 00 omeprazole 2021-0 Yes 20mg Take 1 Unive rs 20 mg 2-04 capsule by ity of capsule 00:00: mouth in [place] the Medical morning. Branch omeprazole 2021-0 Yes 20mg Take 1 Unive rs 20 mg 2-04 capsule by ity of capsule 00:00: mouth in [place] the Medical morning. Branch omeprazole 2021-0 Yes 20mg Take 1 Unive rs 20 mg 2-04 capsule by ity of capsule 00:00: mouth in [place] the Medical morning. Branch omeprazole 2021-0 Yes 20mg Take 1 Unive rs 20 mg 2-04 capsule by ity of capsule 00:00: mouth in [place] the Medical morning. Branch Omeprazole 0 Yes 1{capsu Take 1 Ke lsey 20 MG oral 2-04 le} capsule by y bold Delayed 00:00: mouth Release 00 daily [...] 19:23:00 113 mm[Hg] Univer sity of pressure [facility] Diastolic blood 2022-08-07 19:23:00 78 mm[Hg] Unive rsity [facility] Heart rate 2022-08-07 19:23:00 67 /min [facility] Body temperature 2022-08-07 19:23:00 36.72 Maria Luisa [facility] Body height 2022-08-07 19:23:00 154.9 cm [facility] Body weight 2022-08-07 19:23:00 48.988 kg [facility] BMI 2022-08-07 19:23:00 20.41 kg/m2 [facility] HEIGHT 2021-12-10 12:26:00 160 cm [...] Heart rate 2021-09-03 18:33:00 86 /min Dina brumfieldbold Body temperature 2021-09-03 18:33:00 36.5 Maria Luisa Joyce ey Seybold Respiratory rate 2021-09-03 18:33:00 14 /min Joyce ey Seybold Body height 2021-09-03 18:33:00 160 cm Dina S eybold Body weight 2021-09-03 18:33:00 46.72 kg Dina S eybold BMI 2021-09-03 18:33:00 18.25 kg/m2 Dina brumfieldbold Oxygen saturation in 2021-09-03 18:33:00 97 /min Dina Wrightybold Arterial blood by Pulse oximetry Procedures Procedure Date / Time Performing Clinician Source Performed AUTHORIZATION TO RELEASE 2022-11-07 05:01:00 Doctor Unassigned, No [facility] PHI TO [facility] Name [facility] Branch REFERRAL- 2022-06-25 06:01:00 Doctor Unassigned, No [facility] REQUEST/RESPONSE Name [facility] Plan of Care Planned Activity Planned Date Details Comments Source Future Scheduled 2026-09-03 Lipid panel (procedure) [facility] Test 00:00:00 [code = 43468059] Medical Ce nter Future Scheduled 2023-02-06 Influenza Vaccine (#1) [facility] Test 00:00:00 [code = Influenza Vaccine [facility] (#1)] Future Scheduled 2022-12-[address] [facility] Test 00:00:00 Counseling and Screening [facility] (12+) [code = Tobacco Cessation Counseling and Screening (12+)] Future Scheduled 2022-06-09 MEDICARE ANNUAL WELLNESS [facility] Test 00:00:00 (YEAR 2 or FIRST YEAR if [facility] no IPPE) [code = MEDICARE ANNUAL WELLNESS (YEAR 2 or FIRST YEAR if no IPPE)] Future Scheduled 2022-06-[address] [facility] Test 00:00:00 (12+) [code = DEPRESSION [facility] SCREENING (12+)] Future Scheduled 2019 SHINGLES VACCINES ([address] [facility] Test 00:00:00 2) [code = SHINGLES [facility] Center VACCINES (1 of 2)] Future Scheduled 1990 Screening for malignant [facility] Test 00:00:00 neoplasm of cervix Medical C enter (procedure) [code = 099786047] Future Scheduled 1988 DTAP/TDAP/TD VACCINES ([address] [facility] Test 00:00:00 - Tdap) [code = Medical Cent er DTAP/TDAP/TD VACCINES (1 - Tdap)] Future Scheduled 1987 HEPATITIS C SCREENING [facility] Test 00:00:00 [code = HEPATITIS C Medical Center SCREENING] Future Scheduled [address] [facility] Test 00:00:00 virus screening Medical Cent er (procedure) [code = 658798863] Future Scheduled 1970 COVID-19 VACCINE (#1) [facility] Test 00:00:00 [code = COVID-[address] [facility] (#1)] Future Scheduled 1969 Screening for malignant [facility] Test 00:00:00 neoplasm of breast Medical C enter (procedure) [code = 283950841] Future Scheduled 1969 CT Colonography (combo) [facility] Test 00:00:00 [code = CT Colonography [facility] Center (combo)] Future Scheduled 1969 Screening for malignant [facility] Test 00:00:00 neoplasm of colon Medical Ce nter (procedure) [code = 067926254] Future Scheduled 1969 Screening for malignant [facility] Test 00:00:00 neoplasm of colon Medical Ce nter (procedure) [code = 035897030] Future Scheduled 1969 Screening for malignant [facility] Test 00:00:00 neoplasm of colon Medical Ce nter (procedure) [code = 561474899] Future Scheduled 1969 Screening for malignant [facility] Test 00:00:00 neoplasm of colon Medical Ce nter (procedure) [code = 201274711] Future Scheduled 1970 Sigmoidoscopy [code = [facility] Test 00:00:00 Sigmoidoscopy] Medical Cente r Encounters Start End Encounter Admission Attending Care Care Encounter Source Date/Time Date/Time Type Type Clinicians Facility Department ID 2021-12-23 Outpatient [id number] [facility] [id number] [facility] 14:41:40 [facility] [place] 2021-12-11 Outpatient 3 [id number] [facility] REF [id number] [facility] 11:36:46 [facility] [place] 2021-12-07 Outpatient 3 [id number] [facility] REF [id number] [facility] 11:10:50 [facility] [place] 2021-12-06 Outpatient 3 [id number] [facility] REF [id number] [facility] 15:10:33 [facility] [place] 2022-11-07 2022-11-07 Orders Doctor BERGER [id number] Univers 00:00:00 00:00:00 Only Unassigned, MAULIK [id number] ity of [place] [facility] 4.2.7.2.686 Jaime as [id number] [address] 2022-08-07 2022-08-07 Outpatient IMELDA HOUSER [facility] [id number] Univers 13:30:00 13:48:30 SHIMON mcwilliams [facility] 2022-08-07 2022-08-07 Office IMELDA Post [id number] Univers 13:30:00 13:48:30 Visit Shimon VALENTIN [id number] ity [facility] 4[place].7.2.[place] [id number] [facility] 199 Branch 2022-07-09 2022-07-09 Outpatient DINA BOWERS [id number] Dina 13:30:00 13:30:00 CHAVA Seybol d 2022-06-26 2022-06-26 Outpatient DINA BOWERS [id number] Dina 14:45:00 14:45:00 CHAVA Seybol d 2022-06-25 2022-06-25 Outpatient DINA BOWERS [id number] Dina 00:00:00 00:00:00 CHAVA Seybol d 2022-06-25 2022-06-25 Orders Doctor AB [id number] Univers 00:00:00 00:00:00 Only Unassigned, MAULIK 350.1.13.10 ity of [place] [facility] 4.2.7.2.686 Jaime as [id number] [facility] 009 Branch 2021-12-03 2021-12-12 Inpatient ER ELY, [facility] 7 [id number] [facility] 19:31:00 13:47:00 PEGGY 2021-10-01 2021-10-01 Outpatient DINA BRASWELL [id number] Dina 11:00:00 11:00:00 JOCELYNN jaeger 2021-09-03 2021-09-03 Outpatient LAB90 DINA MG [id number] Dina 14:20:00 14:20:00 Seybol d 2021-09-03 2021-09-03 Office Vu Bowers [id number] Dina 13:30:00 14:00:00 Visit Chava Rivera 350.1.13.13 Se ybaaron 1.2.7.2.686 [id number] Results Test Description Test Time Test Comments Results Result Comments Source MAGNESIUM 2021-12-12 06:27:55 Test Item Value Reference Range Interpretation Comme nts MAGNESIUM (BEAKER) (test code = 627) 1.8 mg/dL 1.5-3.0 Decorative Engraver ID - LITOOperator ID - LITOOperator ID - LITOOperator ID - LITOBASIC METABOLIC [id number] 06:26:06 Test Item Value Reference Range Interpretation [...] S NOT APPLICABLE FOR DIALYSIS PATIEN TS. Decorative Engraver ID - LITOOperator ID - LITOOperator ID - LITOOperator ID - LITOOperator ID - LITOOperator ID - LITOOperator ID - LITOOperator ID - LITOOperator ID - LITOSARS-COV2/RT-PCR ([facility])2021-12-11 07:44:17 Test Item Value Reference Range Interpretation Comments SARS-COV2/RT-PCR Negative Negative The SARS-Co V-2 target (test code = nucleic acids a re not [id number]) detected in thi s specimen. Negative result [...] revoked sooner. Fact Sheet for Healthcare Providers: https://www.[employer]/Documents/Xpert%20Xpress%20SARS%20CoV-2/Fact%20Sheets/302-3802%97QXVD-URZ-7%2 0HEALTHCARE%20PROVIDERS%20FACT%20SHEET.pdf Fact Sheet for Healthcare Patients: https://www.[employer]/Documents/Xpert%20X press%20SARS%20CoV-2/Fact%20Sheets/302-3801%48HLHH-DZJ-6%20PATIENT%20FACT%20SHEE T.[id number] 06:21:50 Test Item Value Reference Range Interpretation Comments MAGNESIUM (BEAKER) (test code = 3.2 mg/dL 1.5-3.0 H 627) Decorative Engraver ID - maoa31Rnrtjwte ID - zchj16Qammcrql ID - pent41Hnftvmbq ID - znmp04 BASIC METABOLIC [id number] 06:20:23 Test Item Value Reference Range Interpretation [...] S NOT APPLICABLE FOR DIALYSIS PATIEN TS. Decorative Engraver ID - azji14Fhotvwdw ID - djww73Vnwwrxwp ID - vtth91Cxqumasf ID - wvsu72Epqergyw ID - ltgs69Xewlamqc ID - gdwf23Vvpvrhes ID - uuio65Ndzqjwyk ID - ukqs80Xybcyhnv ID - [id number] 09:41:16 Test Item Value Reference Range Interpretation Comments MAGNESIUM (BEAKER) (test code = 1.5 mg/dL 1.5-3.0 627) Decorative Engraver ID - eywehixth289Fkyjncht ID - lseyiahlv131Bogdiojx ID - soanqzofs371Xzomhoty ID - vnuanqhaz103BFNGL METABOLIC [id number] 06:06:16 Test Item Value Reference Range Interpretation [...] S NOT APPLICABLE FOR DIALYSIS PATIEN TS. Decorative Engraver ID - hdgejaxnu377Vtxpopsw ID - hajmmaoon061Hzbnysam ID - ocejpvezb549Hwjshwla ID - pzxyyekku930Zbohcleu ID - jmclbqwwi503Ajnzrwqi ID - mtdswlzua207Owqcehxs ID - hcxebzzho949Jbugafnl ID - aksahnjyf539Wiwvlotn ID - uahlgfhdp033Kgvfmkkl ID - uanqwhxhk278Eklltnat ID - edczsufjo487Qigoejvo ID - [id number] 08:57:03 Test Item Value Reference Range Interpretation Comments MAGNESIUM (BEAKER) (test code = 1.3 mg/dL 1.5-3.0 L 627) Decorative Engraver ID - DSENSONBASIC METABOLIC [id number] 07:15:00 Test Item Value Reference Range Interpretation [...] S NOT APPLICABLE FOR DIALYSIS PATIEN TS. Decorative Engraver ID - VVAZ87Wfynzfxy ID - RIWJ43Fmqwgirp ID - UTQA34Yakdkkkt ID - YBWG91Jiwyyrbe ID - PGHU63Axeomjsg ID - WOWP11Xkhnzngy ID - QTYI02Pwltejor ID - TFMF85Wqnrqzxj ID - IYIP87Hpgovwcw ID - LFIO46Nwovgvvy ID - DSENSONOperator ID - [id number] 08:51:49 Test Item Value Reference Range Interpretation Comments MAGNESIUM (BEAKER) (test code = 1.5 mg/dL 1.5-3.0 627) Decorative Engraver ID - DSENSONCOMPREHENSIVE METABOLIC [id number] 06:19:44 Test Item Value Reference Range Interpretation [...] S NOT APPLICABLE FOR DIALYSIS PATIEN TS. Decorative Engraver ID - DRZBZJPJV105Vameqvdj ID - PJUTAMXFT437Ozkaplzz ID - ONPJURUWP915Wlfhsrfh ID - OAGYRDXDX084Ovvpkfxy ID - CJUDAAWGJ247Yagcrhks ID - MTYNCERLM000Fkownpbu ID - BLFAXGUEI711Vmdkfxmy ID - QNVPNPNPU928Orqtatzz ID - CLTTFHLZK435Zfqpocql ID - UFUBEXYQD676Znrllpng ID - BBFQOUWNK641Qbqmubqz ID - EYBONYXDR698Qqgmcshm ID - EIDNTEYGL728Vyfwlroe ID - YRIALOSJC078Wvmfrmbz ID - PJXLUAMDW438Kdpogovt ID -AADQHEZMZ399APO W/PLT COUNT & AUTO DIFFERENTIAL 2021-12-08 06:07:26 [...] (BEAKER) (test code = 2801) COMPREHENSIVE METABOLIC [id number] 06:17:39 Test Item Value Reference Range Interpretation [...] S NOT APPLICABLE FOR DIALYSIS PATIEN TS. Decorative Engraver ID - tksa55Wnjuqcxa ID - txkw07Vtkvsrfy ID - sbyt89Rwxfrfef ID - munx18Cgiizdqt ID - qtvj49Nrhuahoi ID - hpgc42Mpedcuih ID - elqh23Rjuazbeu ID - ovkn23Xdzzhqfn ID - swxw93Bcylulnf ID - xxcm50Ccdxgpjr ID - visd19Ndmxnskf ID - hems90Zlowsnas ID - azor23Scquzylc ID - ibop80Yijlbpls ID - ovot44Ymqprwmr ID - asnq50Vqnygpqx ID - eyod94Lcmetfqv ID - vbhg38Omdzmeqd ID - ogot75MJT W/PLT COUNT & AUTO [id number] 05:38:17 Test Item Value Reference Range Interpretation [...] (BEAKER) (test code = 2801) COMPREHENSIVE METABOLIC [id number] 05:14:59 Test Item Value Reference Range Interpretation [...] S NOT APPLICABLE FOR DIALYSIS PATIEN TS. Decorative Engraver ID - LITOOperator ID - LITOOperator ID [...] % 20-55 L (test code = 2590) Decorative Engraver ID - VSYDHOLCY133Ioamsnwo ID - QKMYVACJK381UPJGHLUXWQDIN METABOLIC [id number] 05:23:34 Test Item Value Reference Range Interpretation [...] S NOT APPLICABLE FOR DIALYSIS PATIEN TS. Decorative Engraver ID - WMCYQGPFF420Vilwmfyo ID - CDGBSOMQO145Draglkec ID - SSJSZHJOJ607Ctibmide ID - GLSVOBLEY496Qpelvawz ID - TLLQDCATQ478Wsexwpuz ID - QLTBHBJTE924Wxntymkn ID - XVSALWRQZ596Rxytkjkz ID - VSYFSHFPJ173Usidwmot ID - CJRTLRRCM297Apslkpsy ID - YYYLGKWXW008Zhvxgndq ID - BVRCIAFZK975Hxynvflu ID - BTVRLFODV454Qrcmrwzl ID - CFETDIPUK302Hgwitihw ID - NXTPYCDLJ590Nrunzrwz ID - RZVVKBQKT202Unuholzm ID -XTMWLKBZU223Igqcsuxy ID - TRLYLKLUG593Naomotkq ID - DJIPIMATJ835Fqlgrjfj ID - MRPZHOKOX759SZF W/PLT COUNT & AUTO DIFFERENTIAL 2021-12-05 05:14:34 [...] (BEAKER) (test code = 2801) U/S, ABDOMINAL, [id number] 00:01:00Reason for exam:->Elevated liver chemistries and screen for splenomegaly - 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 Previous cholecystectomy. Signed: Bridger Paniagua MDRgayatriort Verified Date/Time: 12/05/2021 00:01:33 CT, EXTREMITY, LOWER WITHOUT CONTRAST, LEFT 2021-12-04 16:18:00Unlisted Reason for Exam - Click Yes and Enter Reason Below- >NoPlease specify:->left [facility] 1970 Sex: FFINAL REPORT CT of the left hip without contrast History: Hip trauma, nondiagnostic xray Comparisons: None Technique: CT of the left hip was performed without contrast. Axial images were generated as were multiplanar reformatted images in the coronal and sagittal planes. This exam was performed according to our departmental dose optimization program which includes automated exposure control, adjustment of the mA and/or kV according to patient's size and/or use of iterative reconstructive technique. Findings: There is a impacted subcapital fracture [...] and proximal thigh musculature appear unremarkable. No hematoma is identified. There is peripheral vascular calcification. Visualized pelvic contents are unremarkable. IMPRESSION: Impacted subcapital left femoral fracture. Insufficiency fracture in the distal sacrum. Signed: Tiera Koch Verified Date/Time: 12/04/2021 16:18:12 Reading Location: [address] Ortho Consult Reading Room FL, FLUORO, NON-SPECIFIC, UP TO 1 [id number] 14:56:00Reason for exam:->CLOSED REDUCTION, FRACTURE, FEMUR, WITH PINNING - Left [facility] : 1970 Sex: FAn imaging unit was utilized for this procedure. No radiologist interpretation was requested. Refer to the EMR for findings. Refer to PACS for any patient radiation dose information.PROTHROMBIN TIME/[id number] 10:28:29 Test Item Value Reference Range Interpretation Comments PROTIME (BEAKER) 11.6 seconds 9.3-12.0 Final Infor mation (test code = 759) (Auto Outp ut) INR (BEAKER) (test 1.06 See_Comment Final Inf ormation code = 370) (Auto Output) [Automated mess age] The system [employer] generated this result transmitted ref erence range: [...] for exam:->left hip pain, femoral neck fracture [facility] 1970 Sex: FFINAL [...] 15 U/L 25-235 L code = 380) Decorative Engraver ID - tzxk08AFFHETC FUNCTION [id number] 07:21:47 Test Item Value Reference Range Interpretation [...] code = 97 U/L 5-50 H 347) Decorative Engraver ID - kleb54Bfocexkr ID - tvft99Ylskythd ID - stfm98Dinunawz ID - ioji27Dcgwkcqc ID - xbvc14Muhykygl ID - fxwh05Yfnvvhbq ID - ihac49Fydwhgom ID - yhjp29Hawrtmiw ID - skrb28Bjnkhwly ID - [id number] 07:13:20 Test Item Value Reference Range Interpretation Comments ETHANOL (BEAKER) < mg/dL See_Comment [Automated message] The (test code = 400) system [employer] generated this result tra nsmitted reference range : <=10. The reference r sanchez was not used to int erpret this result as normal/abnormal . Decorative Engraver ID - gehh89WHF, [id number] 06:26:04 Test Item Value Reference Range Interpretation Comments PARATHYROID HORMONE INTACT 61.1 pg/mL 15.0-90.0 (BEAKER) (test code = 577) Decorative Engraver ID - [id number] METABOLIC [id number] 05:51:19 Test Item Value Reference Range Interpretation [...] S NOT APPLICABLE FOR DIALYSIS PATIEN TS. Decorative Engraver ID - [id number] ID - [id number] ID - [id number] ID - [id number] ID - [id number] ID - [id number] ID - [id number] ID - [id number] ID - [id number] ID - [id number] ID - [id number] ID - [id number] ID - [id number] ID - [id number] ID - [id number] ID - [id number] ID - [id number] ID - [id number] ID - [id number] W/PLT COUNT & AUTO [id number] 05:41:52 Test Item Value Reference Range Interpretation [...] PERCENT (BEAKER) (test code = 2801) SCREEN, [id number] 05:26:16 Test Item Value Reference Range Interpretation Comments TEST URINE (BEAKER) (test Negative Negative code = 583) SARS-COV2/RT-PCR ([facility])2021-12-04 01:49:23 Test Item Value Reference Range Interpretation Comments SARS-COV2/RT-PCR (test Negative Not Detected, Negative, See code = [id number]) external report for linked test COMPREHENSIVE METABOLIC [id number] 21:22:23 Test Item Value Reference Range Interpretation [...] S NOT APPLICABLE FOR DIALYSIS PATIEN TS. Decorative Engraver ID - PAULSILOCOOperator ID - PAULSILOCOOperator ID - PAULSILOCOOperator ID - PAULSILOCOOperator ID - PAULSILOCOOperator ID - PAULSILOCOOperator ID - PAULSILOCOOperator ID - PAULSILOCOOperator ID - PAULSILOCOOperator ID - PAULSILOCOOperator ID - PAULSILOCOOperator ID - PAULSILOCOOperator ID - P AULSILOCOOperator ID - PAULSILOCOOperator ID - PAULSILOCOOperator ID - [id number] 21:19:26 Test Item Value Reference Range Interpretation Comments MAGNESIUM (BEAKER) (test code = 1.5 mg/dL 1.5-3.0 627) Decorative Engraver ID - PAULSILOCOOperator ID - PAULSILOCOOperator ID - PAULSILOCOOperator ID - [id number] 21:15:47 Test Item Value Reference Range Interpretation Comments PHOSPHORUS (BEAKER) (test code = 2.6 mg/dL 2.5-4.5 604) Decorative Engraver ID - PAULSILOCOPROTHROMBIN [id number] 21:14:26 Test Item Value Reference Range Interpretation Comments PROTIME (BEAKER) 11.1 seconds 9.3-12.0 Final Infor mation (test code = 759) (Auto Outp ut) INR (BEAKER) (test 1.01 See_Comment Final Inf ormation code = 370) (Auto Output) [Automated mess age] The system [employer] generated this result transmitted ref erence range: <=5.90. The reference range was not used to int erpret this result as normal/abnormal . RECOMMENDED COUMADIN/WARFARIN INR THERAPY RANGESSTANDARD DOSE: 2.0 - 3.0 Includes: PROPHYLAXIS for venous thrombosis, systemic embolization; TREATMENT for venous thrombosis and/or pulmonary embolus.HIGH RISK: Target INR is 2.5-3.5 for patients with mechanical heart valves.CBC W/PLT COUNT & AUTO [id number] 21:03:25 Test Item Value Reference Range Interpretation [...]
--- NOTE | 2023-02-20 17:14 | ER ---
Nurse's Notes [facility] Name: Cindy Garcia Age: 52 yrs Sex: Female : 1970 Arrival Date: 02/20/2023 Time: 16:51 Bed IW1 Private MD: Diagnosis: Rheumatoid arthritis, unspecified Presentation: 02/20 17:06 Chief complaint: Takes prednisone 10 mg PO ever night, has been out for 7 days, c/o hb pain all over 10. Hx of RA. Coronavirus screen: At this time, the client does not indicate any symptoms associated with coronavirus-19. Ebola Screen: No symptoms or risks identified at this time. Initial Sepsis Screen: Does the patient meet any 2 criteria? No. Patient's initial sepsis screen is negative. Does the patient have a suspected source of infection? No. Patient's initial sepsis screen is negative. Risk Assessment: Do you want to hurt yourself or someone else? Patient reports no desire to harm self or others. Onset of symptoms was February 20, 2023. 17:06 Method Of Arrival: Ambulatory hb 17:06 Acuity: JOSE MIGUEL 4 hb Historical: - Allergies: 17:09 Cyclobenzaprine; hb 17:09 Oxycodone HCl; hb 17:09 OxyContin; hb - PMHx: 17:09 celiac; chiari malformation; GERD; Osteoporosis; Rheumatoid Arthritis; hb - PSHx: 17:09 Appendectomy; Cholecystectomy; hb - Immunization history:: Adult Immunizations up to date. - Social history:: Smoking status: Patient denies any tobacco usage or history of. Vital Signs: 17:06 BP 114 / 83; Pulse 87; Resp 16; Temp 97.9(O); Pulse Ox 100% on R/A; Weight 41.73 kg; hb Height 5 ft. 1 in. ; Pain 10/10; 17:06 Body Mass Index 17.38 (41.73 kg, 154.94 cm) hb 17:06 Pain Scale: Adult hb ED Course: 16:55 Patient arrived in ED. mg5 16:56 [facility] Steiner [facility] sb4 16:56 Cr Norman DO is Attending Physician. sb4 17:09 Triage completed. hb 17:09 Arm band placed on. hb Administered Medications: 17:20 Drug: predniSONE PO 10 mg Route: PO; hb Outcome: 17:13 Discharge ordered by MD. shook 17:22 Patient left the ED. hb Signatures: Vielka Holman RN RN Nathaly Rubi PA-C PA-C sb4 Elham Adams mg5 Corrections: (The following items were deleted from the chart) 17:13 17:06 Acuity: JOSE MIGUEL 3 hb hb
--- NOTE | 2023-02-20 17:14 | EDPHYS ---
Physician Documentation [facility] Name: Cindy Garcia Age: 52 yrs Sex: Female : 1970 Arrival Date: 02/20/2023 Time: 16:51 Bed IW1 Private MD: ED Physician Cr Norman HPI: 02/20 17:17 This 52 yrs old Female presents to ER via Ambulatory with complaints of Pain All Over. sb4 17:17 patient with history of rheumatoid arthritis. she has been taking prednisone daily for sb4 15+ years. 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 she did speak with someone today told her she had an appointment yesterday that she missed. they refused to refill her prednisone until she was seen and she couldn't get in for another appointment for 2 more weeks. she complains of severe pain all over and cannot get any relief. Historical: - Allergies: 17:09 Cyclobenzaprine; hb 17:09 Oxycodone HCl; hb 17:09 OxyContin; hb - PMHx: 17:09 celiac; chiari malformation; GERD; Osteoporosis; Rheumatoid Arthritis; hb - PSHx: 17:09 Appendectomy; Cholecystectomy; hb - Immunization history:: Adult Immunizations up to date. - Social history:: Smoking status: Patient denies any tobacco usage or history of. ROS: 17:20 Constitutional: Negative for fever, chills, and weight loss. sb4 17:20 MS/extremity: Positive for pain, entire body. 17:20 All other systems are negative. Exam: 17:22 Head/Face: Normocephalic, atraumatic. Eyes: Extra-ocular motions intact. Periorbital sb4 areas with no swelling, redness, or edema. ENT: Mucous membranes moist. Skin: Warm, dry with normal turgor. Normal color with no rashes, no lesions, and no evidence of cellulitis. MS/ Extremity: Pulses equal, no cyanosis. Neurovascular intact. Full, normal range of motion. Neuro: Awake and alert, GCS 15, oriented to person, place, time, and situation. Cranial nerves II-XII grossly intact. Motor strength 5/5 in all extremities. Sensory grossly intact. Cerebellar exam normal. Normal gait. 17:22 Constitutional: The patient appears alert, awake, frail, in obvious pain. Vital Signs: 17:06 BP 114 / 83; Pulse 87; Resp 16; Temp 97.9(O); Pulse Ox 100% on R/A; Weight 41.73 kg; hb Height 5 ft. 1 in. ; Pain 10/10; 17:06 Body Mass Index 17.38 (41.73 kg, 154.94 cm) hb 17:06 Pain Scale: Adult hb MDM: 17:10 Patient medically screened. sb4 17:22 Data reviewed: vital signs, nurses notes, and as a result, I will discharge patient. sb4 Counseling: I had a detailed discussion with the patient and/or guardian regarding the historical points, exam findings, and any diagnostic results supporting the discharge/admit diagnosis, the need for outpatient follow up, a custom shop worker, to return to the emergency department if symptoms worsen or persist or if there are any questions or concerns that arise at home. Administered Medications: 17:20 Drug: predniSONE PO 10 mg Route: PO; hb Disposition: 19:26 Co-signature as Attending Physician, Cr Norman DO I was immediately available on-site ms3 in the Emergency Department for consultation in the care of the patient. Disposition Summary: 02/20/23 17:13 Discharge Ordered Location: Home sb4 Problem: an acute exacerbation sb4 Symptoms: are unchanged sb4 Condition: Stable sb4 Diagnosis - Rheumatoid arthritis, unspecified sb4 Followup: sb4 - With: Private Physician - When: As needed - Reason: Recheck today's complaints, Continuance of care, Re-evaluation by your physician Discharge Instructions: - Discharge Summary Sheet sb4 - Rheumatoid Arthritis sb4 Forms: - Medication Reconciliation Form sb4 - Thank You Letter sb4 - Antibiotic Education sb4 - Prescription Opioid Use sb4 - Patient Portal Instructions sb4 - Leadership Thank You Letter sb4 Prescriptions: - prednisone 10 mg Oral tablet - take 1 tablet by ORAL route daily; 20 tablet; Refills: 0, Product Selection sb4 Permitted Signatures: Vielka Holman, RN RN Cr Norman DO DO ms3 Nathaly Steiner PA-C PA-C sb4
[2023-02-20] MEDS ORDERED: predniSONE 10 MG TAB ONE (17:27)
[2023-02-20 17:32] VITALS: BP 114/83; TEMP 97.9; O2SAT 100
== END 2023-02-20 17:22 | disposition home or self-care (01) ==
LOC: ER 16:51
DX: M06.9 Rheumatoid arthritis, unspecified (principal); Z88.5 Allergy status to narcotic agent; Z88.8 Allergy status to other drugs, medicaments and biological substances
CPT/HCPCS: 99282; J7512

== ENCOUNTER 2023-05-01 18:53 | Emergency (ER) | payer OTHER ==
--- OUTSIDE RECORDS SUMMARY | 2023-05-01 18:58 | XMS REPORT | Continuity of Care Document ---
:1970 Author Organization [facility] t Address [address] [place] [address] [address] [place] [address] Care Team Providers Name Role Phone Pcp, Patient Does Not Have A Primary Care Physician [phone] Attending Clinician Unavailable Doctor Unassigned, [place] Attending Clinician Unavailable SHIMON POST Attending Clinician Unavailable Shimon Post DDS Attending Clinician CHAVA BOWERS Attending Clinician Unavailable PEGGY ELY Attending Clinician Unavailable MARCELA MACHADO Attending Clinician Unavailable JOCELYNN BRASWELL Attending Clinician Unavailable LAB90 Attending Clinician Unavailable Chava Bowers DO Attending Clinician [id number] Admitting Clinician Unavailable LACIE LEONARD Admitting Clinician Unavailable Payers Payer Name Policy Type Policy Number Effective Date Expiration Date S juarez [facility] WM [id number] CIGNA-SHEET METAL 2 [id number] 2021 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 00:00:00 FUND [facility] MEDICARE [id number] 2021 00:00:00 CIGNA OON [id number] 2010 00:00:00 MEDICAID OF [place] [id number] 2021 00:00:00 Problems Condition Condition Condition Status [...] Source Name Type Date Date Clinician CYCLOBEN DRUG Active Low Dizziness Unive rs ZAPRINE INGREDI 6-28 ity of 00:00: [address] OXYCODON DRUG Active Low ITCHING Univers E-ACETAM 6-28 ity of INOPHEN 00:00: [address] CYCLOBEN Allergy Active Low [facility]28 [facility] 00:[facility]: Medical [place] OXYCODON Allergy Active Low [facility] E-ACETAM 6-28 [facility] INOPHEN 00:00: Medical [place] Cycloben Drug Active [facility] zaprine Intolera 6-28 [facility] nce 00:[facility]: Medical Center Oxycodon Drug Active [facility] e-Acetam Intolera 6-28 [facility] inophen nce 00:00: Medical 00 [place] NO KNOWN Drug Active Univers ALLERGIE Class ity of S [facility] NO KNOWN Allergy Active [facility] ALLERGIE S Social History Social Habit Start Date Stop Date Quantity Comments Source History SDOH [facility] Alcohol Std Drinks Medica l Center History [facility] Alcohol Binge Medical Shaye [facility] History [facility] Non-Med Medical Center Sexual orientation [facility] Exposure to 2022-07-28 2022-08-07 Not sure University SARS-CoV-2 (event) 00:00:00 13:14:00 [facility] Alcohol intake 2021-12-06 2021-12-[address] [facility] 00:00:00 00:00:00 non-drinker Medical Cente r (finding) History [facility] 2021-12-04 2021-12-[address] [facility] Transport Med 00:00:00 00:00:[address] History [facility] 2021-12-04 2021-12-[address] [facility] Housing Unable to 00:00:00 00:00:00 Medical Center Pay History [facility] 2021-12-04 2021-12-[address] [facility] Housing Places 00:00:00 00:00:00 Medical Ce nter Lived History [facility] 2021-12-04 2021-12-[address] [facility] Housing Homeless 00:00:00 00:00:00 Medical Center Last Year Tobacco use and 2021-12-03 2021-12-[address] [facility] k[facility] exposure 00:00:00 00:00:00 tobacco non-user Medical Center History [facility] 2021-12-03 2021-12-[address] [facility] Alcohol Frequency 00:00:00 00:00:00 Medical Center Education 2021-09-03 2021-09-03 17 Dina Lyle 00:00:00 00:00:00 Sex [birth year] At [birth year] Universit y of 00:00:00 00:00:00 [place] [facility] [place] Smoking Status Start Date Stop Date Source Tobacco smoking consumption Univ [facility] Branch Never smoked tobacco [facility] Medications Ordered Filled Start Stop Current Ordering Indication Dosage Frequency Signature Comments Components Source Medication Medication Date Date Medication? Clinician (SIG) Name Name citalopram Yes 20mg Take 1 Unive rs 20 mg 3-02 tablet by ity of tablet 13:23: mouth. [place] [address] Medical Branch gabapentin 2023-0 Yes 600mg Take 1 Univ ers 600 mg 3-02 tablet by ity of tablet 13:23: mouth. [address] Branch citalopram 2022-0 Yes 20mg Take 1 Unive rs 20 mg 3-02 tablet by ity of tablet 13:23: mouth. [address] gabapentin 2022-0 Yes 600mg Take 1 Univ ers 600 mg 3-02 tablet by ity of tablet 13:23: mouth. [address] Branch citalopram 2022-0 Yes 20mg Take 1 Unive rs 20 mg 3-02 tablet by ity of tablet 13:23: mouth. [address] gabapentin 2022-0 Yes 600mg Take 1 Univ ers 600 mg 3-02 tablet by ity of tablet 13:23: mouth. [address] citalopram 2022-0 Yes 20mg Take 1 Unive rs 20 mg 3-02 tablet by ity of tablet 13:23: mouth. [address] gabapentin 2022-0 Yes 600mg Take 1 Univ ers 600 mg 3-02 tablet by ity of tablet 13:23: mouth. [place] [address] Medical Branch escitalopra 2021-06 Yes TAKE 1 Univ [...] by ity of tablet 00:00: mouth in [place] 00 the Medical morning. Branch predniSONE 2021-06 Yes 10mg Take 1 Unive rs 10 mg 0-23 tablet by ity of tablet 00:00: mouth in [place] 00 the Medical morning. Branch predniSONE 2021-06 Yes 10mg Take 1 Unive rs 10 mg 0-23 tablet by ity of tablet 00:00: mouth in [place] 00 the Medical morning. Branch predniSONE 2021-06 Yes 10mg Take 1 Unive rs 10 mg 0-23 tablet by ity of tablet 00:00: mouth in [place] 00 the Medical morning. Branch acetaminoph 2021-06 [...] 5-7 (MODERATE) *MAY IMPAIR ALERTNESS* * ergocalcife 3- No [id number] Q7D Take [address] rol 12-14- capsule [facility] (ERGOCALCIF 00:00: 23:59 (50,000 Me dical LÓPEZ) 1,250 00 :00 Units Center mcg (50,000 total) by unit) mouth once capsule a week. ergocalcife 2021-0 3- No [id number] Q7D Take [address] rol 12-14- capsule [facility]ukes (ERGOCALCIF 00:00: 23:59 (50,000 Me dical LÓPEZ) 1,250 00 :00 Units Center mcg (50,000 total) by unit) mouth once capsule a week. ergocalcife 2021-0 3- No [id number] Q7D Take [address] rol 12-14- capsule [facility] (ERGOCALCIF 00:00: 23:59 (50,000 Me dical LÓPEZ) 1,250 00 :00 Units Center mcg (50,000 total) by unit) mouth once capsule a week. predniSONE 2022-0 Yes 10mg QD Take [address] (DELTASONE) 7-07 by mouth Luke s 10 MG 13:52: daily. Medical tablet 51 Center gabapentin 2022-0 Yes 600mg Take [address] (NEURONTIN) 7-07 mg by [facility]ukes 600 MG 13:52: mouth 2 Medical tablet 51 (two) Center times daily before meals TID - 600 mg, 300 mg, 600 mg . gabapentin 2022-0 Yes 300mg Take [address] (NEURONTIN) 7-07 mg by [facility]ukes 300 MG 13:52: mouth Medical capsule 51 daily Center before lunch. citalopram 2022-0 Yes 20mg QD Take [address] (CeleXA) 20 7-07 by mouth Luke s MG tablet 13:52: daily. Medica l Center omeprazole 2-0 Yes 20mg QD Take [address] (PriLOSEC) 7-07 by mouth [facility]ukes 20 MG 13:52: daily. Medical capsule 51 Center predniSONE 2-0 Yes 10mg QD Take [address] (DELTASONE) 7-07 by mouth Luke s 10 MG 13:52: daily. Medical tablet 51 Center gabapentin 2-0 Yes 600mg Take [address] (NEURONTIN) 7-07 mg by [facility]ukes 600 MG 13:52: mouth 2 Medical tablet 51 (two) Center times daily before meals TID - 600 mg, 300 mg, 600 mg . gabapentin 2022-0 Yes 300mg Take [address] (NEURONTIN) 7-07 mg by [facility]ukes 300 MG 13:52: mouth Medical capsule 51 daily Center before lunch. citalopram 2022-0 Yes 20mg QD Take [address] (CeleXA) 20 7-07 by mouth Luke s MG tablet 13:52: daily. Medica l Center omeprazole 2022-0 Yes 20mg QD Take [address] (PriLOSEC) 7-07 by mouth [facility] 20 MG 13:52: daily. Medical capsule 51 Center predniSONE 2022-0 Yes 10mg QD Take [address] (DELTASONE) 7-07 by mouth Luke s 10 MG 13:52: daily. Medical tablet 51 Center gabapentin 0 Yes 600mg Take [address] (NEURONTIN) 7-07 mg by [facility]ukes 600 MG 13:52: mouth 2 Medical tablet 51 (two) Center times daily before meals TID - 600 mg, 300 mg, 600 mg . gabapentin 0 Yes 300mg Take [address] (NEURONTIN) 7-07 mg by [facility]ukes 300 MG 13:52: mouth Medical capsule 51 daily Center before lunch. citalopram 0 Yes 20mg QD Take [address] (CeleXA) 20 7-07 by mouth Luke s MG tablet 13:52: daily. Medica l 51 Center omeprazole 0 Yes 20mg QD Take [address] (PriLOSEC) -07 by mouth [facility]ukes 20 MG 13:52: daily. Medical capsule 51 Center ondansetron 0 Yes 4mg 1 tablet. U nivers 4 mg tablet 5- ity of 00:00: [address] ondansetron 0 Yes 4mg 1 tablet. U nivers 4 mg tablet - ity of 00:00: [address] ondansetron 0 Yes 4mg 1 tablet. U nivers 4 mg tablet - ity of 00:00: [address] ondansetron 0 Yes 4mg 1 tablet. U nivers 4 mg tablet - ity of 00:00: [address] hydrOXYzine 2021-0 2021- No 25mg Q.5D Take 25 mg Dina HCl 25 MG -03 09- by mouth Seybo ld oral Tablet 13:59: [...] 3 32 times daily predniSONE 2021-0 Yes [id number] 10mg Take 1 Dina (DELTASONE) -29 tablet (10 Se ybold 10 MG oral 00:00: mg total) tablet 00 by mouth daily hydrOXYzine 2022-0 Yes 25mg 1 tablet. U nivers 25 mg 3-21 ity of tablet 00:00: [address] Branch hydrOXYzine 2022-0 Yes 25mg 1 tablet. U nivers 25 mg 3-21 ity of tablet 00:00: [address] Branch hydrOXYzine 2-0 Yes 25mg 1 tablet. U nivers 25 mg 3-21 ity of tablet 00:00: [address] Branch hydrOXYzine 2-0 Yes Dina HCl 25 MG 3-21 Seybold oral Tablet 00:00: 00 hydrOXYzine 2-0 Yes 25mg 1 tablet. U nivers 25 mg 3-21 ity of tablet 00:00: [address] Omeprazole 2021-0 Yes 1{capsu Take 1 Ke lsey 20 MG oral 2-04 le} capsule by Sey bold Delayed 00:00: mouth Release 00 daily Capsule omeprazole 2021-0 Yes 20mg Take 1 Unive rs 20 mg 2-04 capsule by ity of capsule 00:00: mouth in [place] the Medical morning. Branch omeprazole 2-0 Yes 20mg Take 1 Unive rs 20 mg 2-04 capsule by ity of capsule 00:00: mouth in [place] the Medical morning. Branch ROPINIROLE 2021-0 Yes 1{tbl} Take 1 Obdulio sey HYDROCHLORI 2-04 tablet by Sey bold DE 1 MG 00:00: mouth oral Tablet 00 daily omeprazole 2-0 Yes 20mg Take 1 Unive rs 20 mg 2-04 capsule by ity of capsule 00:00: mouth in [place] the Medical morning. Branch omeprazole 2-0 Yes 20mg Take 1 Unive rs 20 mg 2-04 capsule by ity of capsule 00:00: mouth in [place] the Medical morning. Branch predniSONE 2-0 2021- No 1{tbl} Take 1 Ke lsey (DELTASONE) 2-04 -29 tablet by Se ybold 10 MG oral 00:00: 00:00 mouth tablet 00 :00 daily Vital Signs Vital Name Observation Time Observation Value Comments Source Systolic blood 2022-08-07 19:23:00 113 mm[Hg] Univer sity of pressure [facility] Diastolic blood 2022-08-07 19:23:00 78 mm[Hg] Unive rsity of [facility] Heart rate 2022-08-07 19:23:00 67 /min [facility] Body temperature 2022-08-07 19:23:00 36.72 Maria Luisa [facility] Body height 2022-08-07 19:23:00 154.9 cm [facility] Body weight 2022-08-07 19:23:00 48.988 kg [facility] BMI 2022-08-07 19:23:00 20.41 kg/m2 [facility] HEIGHT 2021-12-10 12:26:00 160 cm WEIGHT 2021-12-10 12:26:00 45.632 kg WEIGHT 2021-12-09 19:36:00 45.36 kg WEIGHT 2021-12-07 04:00:00 45.768 kg HEIGHT 2021-12-10 12:26:00 160 cm WEIGHT 2021-12-10 12:26:00 45.632 kg WEIGHT 2021-12-09 19:36:00 45.36 kg WEIGHT 2021-12-07 04:00:00 45.768 kg Heart rate 2021-09-03 18:33:00 86 /min Dina S octavianobomil Body temperature 2021-09-03 18:33:00 36.5 Maria Luisa Joyce ey Seybold Respiratory rate 2021-09-03 18:33:00 14 /min Joyce ey Seybold Body height 2021-09-03 18:33:00 160 cm Dina S eybold Body weight 2021-09-03 18:33:00 46.72 kg Dina S eybold BMI 2021-09-03 18:33:00 18.25 kg/m2 Dina S octavianobold Oxygen saturation in 2021-09-03 18:33:00 97 /min Dina Lyle Arterial blood by Pulse oximetry Systolic blood 2021-09-03 18:33:00 103 mm[Hg] Dina Seybold pressure Diastolic blood 2021-09-03 18:33:00 65 mm[Hg] Kelse y Seybold pressure Procedures Procedure Date / Time Performing Clinician Source Performed AUTHORIZATION TO RELEASE 2022-11-07 05:01:00 Doctor Unassigned, No [facility] PHI TO [facility] Name Medical Branch REFERRAL- 2022-06-25 06:01:00 Doctor Unassigned, No [facility] REQUEST/RESPONSE Name Medical Branch Plan of Care Planned Activity Planned Date Details Comments Source Future Scheduled 2026-09-03 Lipid panel (procedure) [facility] 00:00:00 [code = 73600529] Medical Ce nter Future Scheduled 2026-09-03 Lipid panel (procedure) [facility] 00:00:00 [code = 29814613] Medical Ce nter Future Scheduled 2026-09-03 Lipid panel (procedure) [facility] Test 00:00:00 [code = 83461243] Medical Ce nter Future Scheduled 2023-02-06 Influenza Vaccine (#1) [facility] 00:00:00 [code = Influenza Vaccine Me dical Center (#1)] Future Scheduled 2023-02-06 Influenza Vaccine (#1) [facility] 00:00:00 [code = Influenza Vaccine Me dical Center (#1)] Future Scheduled 2023-02-06 Influenza Vaccine (#1) [facility] 00:00:00 [code = Influenza Vaccine Me dical Center (#1)] Future Scheduled 2022-12-[address] [facility] Test 00:00:00 Counseling and Screening Med ical Center (12+) [code = Tobacco Cessation Counseling and Screening (12+)] Future Scheduled 2022-12-[address] [facility] Test 00:00:00 Counseling and Screening Med ical Center (12+) [code = Tobacco Cessation Counseling and Screening (12+)] Future Scheduled 2022-12-[address] [facility] Test 00:00:00 Counseling and Screening Med ical Center (12+) [code = Tobacco Cessation Counseling and Screening (12+)] Future Scheduled 2022-06-09 MEDICARE ANNUAL WELLNESS [facility] Test 00:00:00 (YEAR 2 or FIRST YEAR if Med ical Center no IPPE) [code = MEDICARE ANNUAL WELLNESS (YEAR 2 or FIRST YEAR if no IPPE)] Future Scheduled 2022-06-09 MEDICARE ANNUAL WELLNESS [facility] Test 00:00:00 (YEAR 2 or FIRST YEAR if Med ical Center no IPPE) [code = MEDICARE ANNUAL WELLNESS (YEAR 2 or FIRST YEAR if no IPPE)] Future Scheduled 2022-06-09 MEDICARE ANNUAL WELLNESS [facility] Test 00:00:00 (YEAR 2 or FIRST YEAR if Med ical Center no IPPE) [code = MEDICARE ANNUAL WELLNESS (YEAR 2 or FIRST YEAR if no IPPE)] Future Scheduled 2022-06-[address] [facility] Test 00:00:00 (12+) [code = DEPRESSION Med ical Center SCREENING (12+)] Future Scheduled 2022-06-[address] [facility] Test 00:00:00 (12+) [code = DEPRESSION Med ical Center SCREENING (12+)] Future Scheduled 2022-06-[address] [facility] Test 00:00:00 (12+) [code = DEPRESSION Med ical Center SCREENING (12+)] Future Scheduled 2019 SHINGLES VACCINES ([address] [facility] 00:00:00 2) [code = SHINGLES [facility] Center VACCINES (1 of 2)] Future Scheduled 2019 SHINGLES VACCINES ([address] [facility] Test 00:00:00 2) [code = SHINGLES [facility] Center VACCINES (1 of 2)] Future Scheduled 2019 SHINGLES VACCINES ([address] [facility] 00:00:00 2) [code = SHINGLES Medical Center VACCINES (1 of 2)] Future Scheduled 1990 Screening for malignant [facility] Test 00:00:00 neoplasm of cervix Medical C enter (procedure) [code = 882989947] Future Scheduled 1990 Screening for malignant [facility] Test 00:00:00 neoplasm of cervix Medical C enter (procedure) [code = 698280950] Future Scheduled 1990 Screening for malignant [facility] Test 00:00:00 neoplasm of cervix Medical C enter (procedure) [code = 084288600] Future Scheduled 1988 DTAP/TDAP/TD VACCINES ([address] [facility] 00:00:00 - Tdap) [code = Medical Cent er DTAP/TDAP/TD VACCINES (1 - Tdap)] Future Scheduled 1988 DTAP/TDAP/TD VACCINES ([address] [facility] Test 00:00:00 - Tdap) [code = Medical Cent er DTAP/TDAP/TD VACCINES (1 - Tdap)] Future Scheduled 1988 DTAP/TDAP/TD VACCINES ([address] [facility] 00:00:00 - Tdap) [code = Medical Cent er DTAP/TDAP/TD VACCINES (1 - Tdap)] Future Scheduled 1987 HEPATITIS C [facility]CRE[facility] 00:00:00 [code = HEPATITIS C Medical Center SCREENING] Future Scheduled 1987 HEPATITIS C [facility] 00:00:00 [code = HEPATITIS C Medical Center SCREENING] Future Scheduled 1987 HEPATITIS C [facility]CRE[facility] 00:00:00 [code = HEPATITIS C Medical Center SCREENING] Future Scheduled [address] [facility] 00:00:00 virus screening Medical Cent er (procedure) [code = 499783749] Future Scheduled [address] [facility] 00:00:00 virus screening Medical Cent er (procedure) [code = 267949733] Future Scheduled [address] [facility] 00:00:00 virus screening Medical Cent er (procedure) [code = 445393957] Future Scheduled 1970 COVID-19 VACCINE (#1) [facility] 00:00:00 [code = COVID-19 VACCINE Med ical Center (#1)] Future Scheduled 1969 COVID-19 VACCINE (#1) [facility] 00:00:00 [code = COVID-19 VACCINE Med ical Center (#1)] Future Scheduled 1969 COVID-19 VACCINE (#1) [facility] 00:00:00 [code = COVID-19 VACCINE Med ical Center (#1)] Future Scheduled 1969 Screening for malignant [facility] Test 00:00:00 neoplasm of breast Medical C enter (procedure) [code = 468609106] Future Scheduled 1969 CT Colonography (combo) [facility] 00:00:00 [code = CT Colonography [facility] (combo)] Future Scheduled 1969 Screening for malignant [facility] Test 00:00:00 neoplasm of colon Medical Ce nter (procedure) [code = 170815663] Future Scheduled 1969 Screening for malignant [facility] Test 00:00:00 neoplasm of colon Medical Ce nter (procedure) [code = 116923686] Future Scheduled 1969 Screening for malignant [facility] Test 00:00:00 neoplasm of colon Medical Ce nter (procedure) [code = 847872165] Future Scheduled 1969 Screening for malignant [facility] Test 00:00:00 neoplasm of colon Medical Ce nter (procedure) [code = 297143141] Future Scheduled 1970 Sigmoidoscopy [code = [facility] S[facility]oidoscopy] Medical Cente r Future Scheduled 1969 Screening for malignant [facility] Test 00:00:00 neoplasm of breast Medical C enter (procedure) [code = 028269743] Future Scheduled 1969 CT Colonography (combo) [facility] Test 00:00:00 [code = CT [facility] (combo)] Future Scheduled 1969 Screening for malignant [facility] Test 00:00:00 neoplasm of colon Medical Ce nter (procedure) [code = 554781103] Future Scheduled 1969 Screening for malignant [facility] Test 00:00:00 neoplasm of colon Medical Ce nter (procedure) [code = 416291496] Future Scheduled 1969 Screening for malignant [facility] 00:00:00 neoplasm of colon Medical Ce nter (procedure) [code = 860956476] Future Scheduled 1969 Screening for malignant [facility] 00:00:00 neoplasm of colon Medical Ce nter (procedure) [code = 870802198] Future Scheduled 1970 Sigmoidoscopy [code = [facility] 00:00:[facility] Sigmoidoscopy] Medical Cente r Future Scheduled 1969 Screening for malignant [facility] Test 00:00:00 neoplasm of breast Medical C enter (procedure) [code = 766603121] Future Scheduled 1969 CT Colonography (combo) [facility] Test 00:00:00 [code = CT Colonography [facility] (combo)] Future Scheduled 1969 Screening for malignant [facility] Test 00:00:00 neoplasm of colon Medical Ce nter (procedure) [code = 787533696] Future Scheduled 1969 Screening for malignant [facility] 00:00:00 neoplasm of colon Medical Ce nter (procedure) [code = 205198306] Future Scheduled 1969 Screening for malignant [facility] 00:00:00 neoplasm of colon Medical Ce nter (procedure) [code = 237569414] Future Scheduled 1969 Screening for malignant [facility] 00:00:00 neoplasm of colon Medical Ce nter (procedure) [code = 839488506] Future Scheduled 1970 Sigmoidoscopy [code = [facility] 00:[facility] Sigmoidoscopy] Medical Cente r Encounters Start End Encounter Admission Attending Care Care Encounter Source Date/Time Date/Time Type Type Clinicians Facility Department ID 2021-12-23 Outpatient 3 [id number] ENCSL [facility] [id number] [facility] 14:41:40 [facility] [place] 2021-12-11 Outpatient 3 [id number] ENCS[facility] REF [id number] [facility] 11:36:46 [facility] [place] 2021-12-07 Outpatient 3 [id number] [facility] REF [id number] [facility] 11:10:50 [facility] [place] 2021-12-06 Outpatient 3 [id number] ENCS[facility] REF [id number] [facility] 15:10:33 [facility] [place] 2022-11-07 2022-11-07 Orders Doctor AB [id number] Univers 00:00:00 00:00:00 Only Unassigned, MAULIK [id number] ity of [place] [facility] [id number] Jaime as [id number] [address] 2022-08-07 2022-08-07 Outpatient IMELDA HOUSER RIGARRET [id number] Univers 13:30:00 13:48:30 SHIMON mcwilliams [facility] 2022-08-07 2022-08-07 Office IMELDA Post [id number] Univers 13:30:00 13:48:30 Visit Shimon VALENTIN [id number] ity of [facility] [place] [id number] [facility] 199 Branch 2022-07-09 2022-07-09 Outpatient DINA BOWERS [id number] Dina 13:30:00 13:30:00 CHAVA Seybol d 2022-06-26 2022-06-26 Outpatient DINA BOWERS [id number] Dina 14:45:00 14:45:00 CHAVA Seybol d 2022-06-25 2022-06-25 Outpatient DINA BOWERS [id number] Dina 00:00:00 00:00:00 CHAVA Seybol d 2022-06-25 2022-06-25 Orders Doctor BERGER [id number] Univers 00:00:00 00:00:00 Only Unassigned, MAULIK [id number] ity of [facility] 4.2.7.2.686 Jaime as [id number] [facility] 009 Branch 2021-12-03 2021-12-12 Inpatient ER ELY, [facility] [id number] [facility] 19:31:00 13:47:00 PEGGY 2021-10-01 2021-10-01 Outpatient DINA BRASWELL [id number] Dina 11:00:00 11:00:00 JOCELYNN jaeger 2021-09-03 2021-09-03 Outpatient LAB90 DINA MG [id number] Dina 14:20:00 14:20:00 Seybol d 2021-09-03 2021-09-03 Office Vu Bowers [id number] Dina 13:30:00 14:00:00 Visit Chava Rivera 350.1.13.13 maricel 1.2.7.2.686 [id number] Results Test Description Test Time Test Comments Results Result Comments Source MAGNESIUM 2021-12-12 06:27:55 Test Item Value Reference Range Interpretation Comme nts MAGNESIUM (BEAKER) (test code = 627) 1.8 mg/dL 1.5-3.0 Warehouse Team Leader ID - LITOOperator ID - LITOOperator ID - LITOOperator ID - LITOBASIC METABOLIC [id number] 06:26:06 Test Item Value Reference Range Interpretation [...] S NOT APPLICABLE FOR DIALYSIS PATIEN TS. Warehouse Team Leader ID - LITOOperator ID - LITOOperator ID - LITOOperator ID - LITOOperator ID - LITOOperator ID - LITOOperator ID - LITOOperator ID - LITOOperator ID - LITOSARS-COV2/RT-PCR ([facility])2021-12-11 07:44:17 Test Item Value Reference Range Interpretation Comments SARS-COV2/RT-PCR Negative Negative The SARS-Co V-2 target (test code = nucleic acids a re not [id number]) detected in thi s specimen. Negative result [...] revoked sooner. Fact Sheet for Healthcare Providers: https://www.[employer] m/Documents/Xpert%20Xpress%20SARS%20CoV-2/Fact%20Sheets/302-3802%86UJUM-EPH-5%20 HEALTHCARE%20PROVIDERS%20FACT%20SHEET.pdf Fact Sheet for Healthcare Patients: https://www.[employer]/Documents/Xpert%20Xp ress%20SARS%20CoV-2/Fact%20Sheets/302-3801%71HKCM-WNY-6%20PATIENT%20FACT%20SHEET .[id number] 06:21:50 Test Item Value Reference Range Interpretation Comments MAGNESIUM (BEAKER) (test code = 3.2 mg/dL 1.5-3.0 H 627) Warehouse Team Leader ID - [id number] ID - [id number] ID - [id number] ID - [id number] BASIC METABOLIC [id number] 06:20:23 Test Item Value Reference Range Interpretation [...] S NOT APPLICABLE FOR DIALYSIS PATIEN TS. Warehouse Team Leader ID - [id number] ID - [id number] ID - [id number] ID - [id number] ID - [id number] ID - [id number] ID - [id number] ID - [id number] ID - [id number] 09:41:16 Test Item Value Reference Range Interpretation Comments MAGNESIUM (BEAKER) (test code = 1.5 mg/dL 1.5-3.0 627) Warehouse Team Leader ID - [id number] ID - [id number] ID - [id number] ID - [id number] METABOLIC [id number] 06:06:16 Test Item Value Reference Range Interpretation [...] S NOT APPLICABLE FOR DIALYSIS PATIEN TS. Warehouse Team Leader ID - [id number] ID - [id number] ID - [id number] ID - [id number] ID - [id number] ID - [id number] ID - exjeeniwk100Hxortdzl ID - [id number] ID - [id number] ID - [id number] ID - [id number] ID - [id number] 08:57:03 Test Item Value Reference Range Interpretation Comments MAGNESIUM (BEAKER) (test code = 1.3 mg/dL 1.5-3.0 L 627) Warehouse Team Leader ID - DSENSONBASIC METABOLIC [id number] 07:15:00 Test Item Value Reference Range Interpretation [...] S NOT APPLICABLE FOR DIALYSIS PATIEN TS. Warehouse Team Leader ID - [id number] ID - GZXJ27Lxxwpvog ID - JREZ43Cbfajccs ID - TRQV01Skfoptgw ID - ARCZ34Hqphtqgl ID - PBUG61Essxkqcb ID - CPRI15Scfregia ID - PEFO54Extvgdun ID - VFDV91Jlyfureo ID - UOHA17Ahlcgtci ID - DSENSONOperator ID - [id number] 08:51:49 Test Item Value Reference Range Interpretation Comments MAGNESIUM (BEAKER) (test code = 1.5 mg/dL 1.5-3.0 627) Warehouse Team Leader ID - DSENSONCOMPREHENSIVE METABOLIC [id number] 06:19:44 Test Item Value Reference Range Interpretation [...] S NOT APPLICABLE FOR DIALYSIS PATIEN TS. Warehouse Team Leader ID - [id number] ID - ZQJKVLEUQ156Pjhqmgde ID - DGVWAKKWH738Yhrtyqqa ID - DDPOFQSZY793Ltzvpric ID - KWRVRTGPZ018Xyzjdggl ID - OOIQWBJRE197Tgsdsbbr ID - XCIJUSOMK366Nfpvdcqk ID - UYPAQRQAP427Zitxtmhx ID - THYLIYCZK788Mxjwedfu ID - GQKFIJUUM376Xcmmxwqi ID - DYMNPYWWZ620Ncpjqame ID - EJVMXZPZI486Rsujateo ID - MVSTTVVHT870Tsznordh ID - TQFBNOCXI554Uflmhihc ID - JHEKAPXEJ426Bcmpnrkw ID -[id number] W/PLT COUNT & AUTO DIFFERENTIAL 2021-12-08 06:07:26 [...] (BEAKER) (test code = 2801) COMPREHENSIVE METABOLIC [id number] 06:17:39 Test Item Value Reference Range Interpretation [...] S NOT APPLICABLE FOR DIALYSIS PATIEN TS. Warehouse Team Leader ID - wmer39Pgtwrkwg ID - kxhb52Jijnuysq ID - jknh46Xbqqkdrh ID - zset79Jklgmwey ID - fgnd92Mzlmovru ID - vfgq93Jtbhossu ID - fmwg54Uuhtkxys ID - zylo23Couiezmd ID - ayio13Mdimdcgs ID - swej12Qizxdzln ID - rgce85Zrygzojm ID - gfhp57Vmnxagyz ID - imvx29Fhmchozg ID - pagx03Qhtdjezs ID - tguq36Vmauioyb ID - dwxy45Radibxhp ID - vrhw47Cnzlxcpk ID - jziy97Mfjfeapy ID - kjoq06BSC W/PLT COUNT & AUTO [id number] 05:38:17 Test Item Value Reference Range Interpretation [...] (BEAKER) (test code = 2801) COMPREHENSIVE METABOLIC [id number] 05:14:59 Test Item Value Reference Range Interpretation [...] S NOT APPLICABLE FOR DIALYSIS PATIEN TS. Warehouse Team Leader ID - LITOOperator ID - LITOOperator ID [...] % 20-55 L (test code = 2590) Warehouse Team Leader ID - [id number] ID - [id number] METABOLIC [id number] 05:23:34 Test Item Value Reference Range Interpretation [...] S NOT APPLICABLE FOR DIALYSIS PATIEN TS. Warehouse Team Leader ID - [id number] ID - IVRQCQFNU289Jxesxfzd ID - BQQSVGSZT585Spjymsgo ID - RZGFJQJWI212Ykyefeaz ID - FKWQJHXSQ569Qjcgacbo ID - OPDYXANTS839Orxmhohv ID - DPEJZTLKH042Mpxsxzsr ID - WWKOSKIXZ824Jbebwogw ID - TJQIXDSVT920Mkwfphha ID - PLWDZPOLE654Ibvccvoo ID - YBIEGJQAY334Yedqdike ID - HQUGJKUUU042Txmchcfv ID - MMTILFEFF960Jpcwzekt ID - ENBGCBWKG269Mbgintzr ID - YPGFAMDNN203Atsuzexp ID -CQMOUEJTI770Yuzimpxi ID - HOKPPOXGT337Jsmtlzvq ID - FYKWPYYWT733Zwyfhkuz ID - [id number] W/PLT COUNT & AUTO DIFFERENTIAL 2021-12-05 05:14:34 [...] (BEAKER) (test code = 2801) U/S, ABDOMINAL, [id number] 00:01:00Reason for exam:->Elevated liver chemistries and screen for splenomegaly - 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 Liver: 12.4 cm , normal. Normal echogenicity. No focallesions. Gallbladder: Absent. Biliary tree: No intrahepatic ductal dilatation. CBD: 6 mm. MPV: 7 mm Spleen: Splenomegaly, measuring 13.5 x 4.2 x 4.4 cm. Pancreas: Partially obscured by bowel gas but unremarkable where visualized. Right kidney: 9.5 x 3.5 x 4.3 cm. Normal echogenicity.Left kidney: 9.4 x3.2 x 4.2 cm. Normal echogenicity. No ascites is present in the abdomen. The visualized abdominal aor ta is normal in caliber. The IVC and Hepatic veins are patent. Impression: Mild splenomegaly. Previous cholecystectomy. Signed: Bridger Paniagua MDReport Verified Date/Time: 12/05/2021 00:01:33 CT, EXTREMITY, LOWER WITHOUT CONTRAST, [id number] 16:18:00Unlisted Reason for Exam - Click Yes and Enter Reason Below->NoPlease specify:->left hip [facility] : 1970 Sex: [...] Koch Verified Date/Time: 12/04/2021 16:18:12 Reading Location: [address] Ortho Consult Reading Room FL, FLUORO, NON-SPECIFIC, UP TO 1 [id number] 14:56:00Reason for exam:->CLOSED REDUCTION, FRACTURE, FEMUR, WITH PINNING - Left [facility] : 1970 Sex: FAn imaging unit was utilized for this procedure. No radiologist interpretation was requested. Refer to the EMR for findings. Refer to PACS for any patient radiation dose information.PROTHROMBIN [id number] 10:28:29 Test Item Value Reference Range Interpretation Comments PROTIME (BEAKER) 11.6 seconds 9.3-12.0 Final Infor mation (test code = 759) (Auto Outp ut) INR (BEAKER) (test 1.06 See_Comment Final Inf ormation code = 370) (Auto Output) [Automated mess age] The system Avitide generated this result transmitted ref erence range: [...] for exam:->left hip pain, femoral neck fracture [facility] : 1970 Sex: FFINAL REPORT [...] Baumanort Verified Date/Time: 12/04/2021 08:13:08 Reading Location: [facility] Mammo Reading Room CREATINE KINASE (CK)2021-12-04 07:51:45 Test Item Value Reference Range Interpretation Comments CREATINE KINASE TOTAL (BEAKER) (test 15 U/L 25-235 L code = 380) Warehouse Team Leader ID - [id number] FUNCTION [id number] 07:21:47 Test Item Value Reference Range Interpretation [...] code = 97 U/L 5-50 H 347) Warehouse Team Leader ID - umsj95Xleochze ID - qhze60Tdrnpjws ID - cqpl37Nelmyriy ID - ycxa87Cwqpwovi ID - tidh39Bvlattiz ID - xrly57Mwzoesmc ID - xihc28Ssuoajrh ID - dpbg26Iafjvmbm ID - gfcm14Lknudguf ID - [id number] 07:13:20 Test Item Value Reference Range Interpretation Comments ETHANOL (BEAKER) < mg/dL See_Comment [Automated message] The (test code = 400) system i generated this result tra nsmitted reference range : <=10. The reference r sanchez was not used to int erpret this result as normal/abnormal . Warehouse Team Leader ID - [id number], [id number] 06:26:04 Test Item Value Reference Range Interpretation Comments PARATHYROID HORMONE INTACT 61.1 pg/mL 15.0-90.0 (BEAKER) (test code = 577) Warehouse Team Leader ID - [id number] METABOLIC [id number] 05:51:19 Test Item Value Reference Range Interpretation [...] S NOT APPLICABLE FOR DIALYSIS PATIEN TS. Warehouse Team Leader ID - qmhw97Gzdnmegp ID - tfxq00Vovlyykv ID - mpsh16Ptvkoily ID - lacz61Hqjbgnpy ID - fxre46Iswiljkp ID - fehr58Fbowocku ID - jwfp21Ewtofmoy ID - zpfp38Pwockqzj ID - rjwc97Ymottcvm ID - sail71Yxkklmtu ID - zydl09Csijfzev ID - fhpb93Napfzpdg ID - pamd26Apimbrps ID - fmfs24Iayjmrch ID - wbfp30Kukxbrmn ID - myeu19Gkglpvti ID - pzcs11Pkyfyrii ID - bbcx17Fnyddnjd ID - xodv53OQG W/PLT COUNT & AUTO [id number] 05:41:52 Test Item Value Reference Range Interpretation [...] PERCENT (BEAKER) (test code = 2801) SCREEN, [id number] 05:26:16 Test Item Value Reference Range Interpretation Comments TEST URINE (BEAKER) (test Negative Negative code = 583) SARS-COV2/RT-PCR ([facility])2021-12-04 01:49:23 Test Item Value Reference Range Interpretation Comments SARS-COV2/RT-PCR (test Negative Not Detected, Negative, See code = [id number]) external report for linked test COMPREHENSIVE METABOLIC [id number] 21:22:23 Test Item Value Reference Range Interpretation [...] S NOT APPLICABLE FOR DIALYSIS PATIEN TS. Warehouse Team Leader ID - PAULSILOCOOperator ID - PAULSILOCOOperator ID - PAULSILOCOOperator ID - PAULSILOCOOperator ID - PAULSILOCOOperator ID - PAULSILOCOOperator ID - PAULSILOCOOperator ID - PAULSILOCOOperator ID - PAULSILOCOOperator ID - PAULSILOCOOperator ID - PAULSILOCOOperator ID - PAULSILOCOOperator ID - P AULSILOCOOperator ID - PAULSILOCOOperator ID - PAULSILOCOOperator ID - [id number] 21:19:26 Test Item Value Reference Range Interpretation Comments MAGNESIUM (BEAKER) (test code = 1.5 mg/dL 1.5-3.0 627) Warehouse Team Leader ID - PAULSILOCOOperator ID - PAULSILOCOOperator ID - PAULSILOCOOperator ID - [id number] 21:15:47 Test Item Value Reference Range Interpretation Comments PHOSPHORUS (BEAKER) (test code = 2.6 mg/dL 2.5-4.5 604) Warehouse Team Leader ID - PAULSILOCOPROTHROMBIN [id number] 21:14:26 Test Item Value Reference Range Interpretation Comments PROTIME (BEAKER) 11.1 seconds 9.3-12.0 Final Infor mation (test code = 759) (Auto Outp ut) INR (BEAKER) (test 1.01 See_Comment Final Inf ormation code = 370) (Auto Output) [Automated mess age] The system [employer]itide generated this result transmitted ref erence range: <=5.90. The reference range was not used to int erpret this result as normal/abnormal . RECOMMENDED COUMADIN/WARFARIN INR THERAPY RANGESSTANDARD DOSE: 2.0 - 3.0 Includes: PROPHYLAXIS for venous thrombosis, systemic embolization; TREATMENT for venous thrombosis and/or pulmonary embolus.HIGH RISK: Target INR is 2.5-3.5 for patients with mechanical heart valves.CBC W/PLT COUNT & AUTO [id number] 21:03:25 Test Item Value Reference Range Interpretation [...] 417) IMMATURE GRANULOCYTES-RELATIVE 0 % 0-0 PERCENT (FELICIA) (test code = 2801)
[2023-05-01 19:56] LABS: Absolute Lymphocytes (CBC) 1.3 K/uL (0.7-4.9); Hematocrit 35.8 % (36.0-45.0); Lymphocytes % 17.3 % (15.3-44.8); MCV 85.4 fL (80-100); MPV 8.2 fL (7.6-11.3); Platelets 140 thou/uL (152-406); RBC Red Blood Cell Count 4.19 M/uL (3.86-4.86)
[2023-05-01 20:16] LABS: Magnesium 1.7 mg/dL (1.6-2.4); Potassium 3.1 mEq/L (3.5-5.1)
--- NOTE | 2023-05-01 20:30 | EDPHYS ---
Physician Documentation [facility] Name: Cindy Garcia Age: 53 yrs Sex: Female : 1970 Arrival Date: 05/01/2023 Time: 18:53 Bed 19 Private MD: James Engel ED Physician Cr Norman HPI: 05/01 19:22 This 53 yrs old Female presents to ER via EMS with complaints of Abnormal Lab Results. ms3 19:22 53-year-old female with past medical history of celiac disease, Arnold-Chiari ms3 malformation, GERD, osteoporosis, rheumatoid arthritis presents to the emergency department via [facility] for diarrhea that began 1 hour prior to arrival. Patient denies pain at this time. Patient denies any alleviating or inciting factors. Patient states she is concerned her magnesium may be low. Historical: - Allergies: 18:56 Cyclobenzaprine; eh3 18:56 Oxycodone HCl; eh3 18:56 OxyContin; eh3 - PMHx: 18:56 celiac; chiari malformation; GERD; Osteoporosis; Rheumatoid Arthritis; eh3 19:45 Pseudothrombocytopenia; eh3 - PSHx: 18:56 Appendectomy; Cholecystectomy; eh3 - Immunization history:: Adult Immunizations unknown. - Social history:: Smoking status: unknown. ROS: 19:22 Constitutional: Negative for fever, and chills. Cardiovascular: Negative for chest ms3 pain, and palpitations. Respiratory: Negative for shortness of breath, cough, wheezing, and pleuritic chest pain, 19:22 MS/Extremity: Negative for injury and deformity, Skin: Negative for injury, rash, and discoloration, 19:22 Abdomen/GI: Positive for diarrhea, 19:22 All other systems are negative, Exam: 19:22 Constitutional: This is a well developed, well nourished patient who is awake, alert, ms3 and in no acute distress. Head/Face: Normocephalic, atraumatic. Neck: Trachea midline, no cervical lymphadenopathy. Supple, full range of motion without nuchal rigidity, or vertebral point tenderness. No Meningismus. Chest/axilla: Normal chest wall appearance and motion. Nontender with no deformity. Cardiovascular: Regular rate and rhythm with a normal S1 and S2. No gallops, murmurs, or rubs. Normal PMI, no JVD. No pulse deficits. Respiratory: Lungs have equal breath sounds bilaterally, clear to auscultation and percussion. No rales, rhonchi or wheezes noted. No increased work of breathing, no retractions or nasal flaring. Abdomen/GI: Soft, non-tender, with normal bowel sounds. No distension or tympany. No guarding or rebound. No evidence of tenderness throughout. MS/ Extremity: Pulses equal, no cyanosis. Neurovascular intact. Full, normal range of motion. 19:22 Skin: Multiple sores on face. Vital Signs: 18:56 BP 103 / 76; Pulse 82; Resp 18; Temp 98.2(O); Pulse Ox 98% on R/A; Weight 45.81 kg; eh3 Height 5 ft. 0 in. ; 20:00 BP 106 / 73; Pulse 72; Resp 18; Pulse Ox 100% on R/A; eh3 18:56 Body Mass Index 19.73 (45.81 kg, 152.4 cm) [facility] MDM: 19:22 Differential diagnosis: viral gastroenteritis, Hypomagnesemia versus electrolyte ms3 abnormality. 19:24 Patient medically screened. ms3 20:30 Data reviewed: vital signs, nurses notes, lab test result(s), and as a result, I will ms3 discharge patient. I considered the following discharge prescriptions or medication management in the emergency department Medications were administered in the Emergency Department. See MAR. Historians other than the Patient: EMS: [facility]. Counseling: I had a detailed discussion with the patient and/or guardian regarding the historical points, exam findings, and any diagnostic results supporting the discharge/admit diagnosis, lab results, the need for outpatient follow up, to return to the emergency department if symptoms worsen or persist or if there are any questions or concerns that arise at home. Special discussion: I discussed with the patient/guardian in detail that at this point there is no indication for admission to the hospital. It is understood, however, that if the symptoms persist or worsen the patient needs to return immediately for re-evaluation. ED course: Discussed labs with patient. Patient to follow with her primary care physician in 2 to 3 days. Patient understands and agrees with plan. All questions were answered. Return precautions discussed include worsening symptoms, or any other concerns. On reevaluation patient's abdomen benign, patient ambulatory in emergency department, alert and oriented x4, in no apparent distress.. 05/01 19:22 Order name: CBC with Diff; Complete Time: 20:24 ms3 05/01 19:22 Order name: BMP; Complete Time: 20:24 ms3 05/01 19:22 Order name: Magnesium; Complete Time: 20:24 ms3 Administered Medications: 20:30 Drug: Potassium Chloride PO 40 mEq PO once Route: PO; 3 20:48 Follow up: Response: No adverse reaction eh3 Disposition Summary: 05/01/23 20:30 Discharge Ordered Notes: Location: Home ms3 Condition: Stable ms3 Diagnosis - Hypokalemia ms3 - Diarrhea, unspecified ms3 Followup: ms3 - With: James Engel MD - When: 2 - 3 days - Reason: Recheck today's complaints Discharge Instructions: - Discharge Summary Sheet ms3 - Diarrhea, Adult ms3 - Hypokalemia ms3 Forms: - Medication Reconciliation Form ms3 - Thank You Letter ms3 - Antibiotic Education ms3 - Prescription Opioid Use ms3 - Patient Portal Instructions ms3 - Leadership Thank You Letter ms3 Signatures: Dispatcher [employer] EDMS Cr Norman DO DO ms3 Nilsa Smith, RN RN 3
--- NOTE | 2023-05-01 20:30 | ER ---
Nurse's Notes [facility] Name: Cindy Garcia Age: 53 yrs Sex: Female : 1970 Arrival Date: 05/01/2023 Time: 18:53 Bed 19 Private MD: James Engel Diagnosis: Hypokalemia;Diarrhea, unspecified Presentation: 05/01 18:56 Chief complaint: EMS states: toned out to home for cold sweats, nausea, diarrhea, and eh3 dizziness. Pt reports that she has celiac disease, has not taken magnesium in one week, and thinks her magnesium level is low. Coronavirus screen: Vaccine status: Patient reports being unvaccinated. Ebola Screen: No symptoms or risks identified at this time. Risk Assessment: Do you want to hurt yourself or someone else? Patient reports no desire to harm self or others. Onset of symptoms was May 01, 2023. 18:56 Method Of Arrival: EMS: [facility] 18:56 Acuity: JOSE MIGUEL 3 eh3 18:56 Initial Sepsis Screen: Does the patient meet any 2 criteria? No. Patient's initial 3 sepsis screen is negative. Does the patient have a suspected source of infection? No. Patient's initial sepsis screen is negative. Triage Assessment: 18:56 General: Appears in no apparent distress. uncomfortable, Behavior is cooperative. Pain: eh3 Denies pain. Neuro: Level of Consciousness is awake, alert, obeys commands, Oriented to person, place, time, situation. Neuro: Reports dizziness. Cardiovascular: Capillary refill < 3 seconds Patient's skin is warm and dry. Respiratory: Airway is patent Respiratory effort is even, unlabored, Respiratory pattern is regular, symmetrical. GI: Abdomen is flat, non-distended, Reports diarrhea, nausea. Derm: Skin is pink, warm \T\ dry. Musculoskeletal: Circulation, motion, and sensation intact. Historical: - Allergies: 18:56 Cyclobenzaprine; eh3 18:56 Oxycodone HCl; eh3 18:56 OxyContin; eh3 - PMHx: 18:56 celiac; chiari malformation; GERD; Osteoporosis; Rheumatoid Arthritis; eh3 19:45 Pseudothrombocytopenia; eh3 - PSHx: 18:56 Appendectomy; Cholecystectomy; eh3 - Immunization history:: Adult Immunizations unknown. - Social history:: Smoking status: unknown. Screenin:01 [facility] ED Fall Risk Assessment (Adult) Score/Fall Risk Level 0 - 2 = Low Risk. Abuse eh3 screen: Denies threats or abuse. Denies injuries from another. Nutritional screening: No deficits noted. Tuberculosis screening: No symptoms or risk factors identified. Assessment: 19:01 Reassessment: No changes from previously documented assessment. See triage assessment. 3 20:00 Reassessment: Patient appears in no apparent distress at this time. Patient and/or 3 family updated on plan of care and expected duration. Pain level reassessed. Patient is alert, oriented x 3, equal unlabored respirations, skin warm/dry/pink. Vital Signs: 18:56 BP 103 / 76; Pulse 82; Resp 18; Temp 98.2(O); Pulse Ox 98% on R/A; Weight 45.81 kg; eh3 Height 5 ft. 0 in. ; 20:00 BP 106 / 73; Pulse 72; Resp 18; Pulse Ox 100% on R/A; eh3 18:56 Body Mass Index 19.73 (45.81 kg, 152.4 cm) 3 ED Course: 18:54 Patient arrived in ED. as 18:54 James Engel MD is Private Physician. as 18:55 Cr Norman DO is Attending Physician. ms3 18:56 Nilsa Smith, AGUSTINA is Primary Nurse. eh3 18:56 Arm band placed on. 3 19:01 Triage completed. eh3 19:01 Patient has correct armband on for positive identification. Bed in low position. Call 3 light in reach. Side rails up X2. Provided Education on: use of call schmitt. Client placed on continuous cardiac and pulse oximetry monitoring. NIBP monitoring applied. 19:01 Maintain EMS IV. Dressing intact. Good blood return noted. Site clean \T\ dry. Gauge \T\ eh 3 site: 20g RAC. 20:29 James Engel MD is Referral Physician. ms3 20:49 No provider procedures requiring assistance completed. IV discontinued, intact, eh3 bleeding controlled, No redness/swelling at site. Pressure dressing applied. Administered Medications: 20:30 Drug: Potassium Chloride PO 40 mEq PO once Route: PO; 3 20:48 Follow up: Response: No adverse reaction 3 Medication: 20:49 VIS not applicable for this client. 3 Outcome: 20:30 Discharge ordered by . ms3 20:49 Discharged to home via wheelchair, [facility] 20:49 Condition: stable 20:49 Discharge instructions given to patient, Instructed on discharge instructions, follow up and referral plans. Demonstrated understanding of instructions, follow-up care, 20:55 Patient left the ED. 3 Signatures: Flory Mckinney Marcus, DO DO ms3 Nilsa Smith, RN RN 3
[2023-05-01] MEDS ORDERED: POTASSIUM CL SA 10 MEQ TAB PO ONE (20:45)
[2023-05-01 21:49] VITALS: TEMP 98.2
[2023-05-01 21:51] VITALS: BP 106/73; O2SAT 100
== END 2023-05-01 20:55 | disposition home or self-care (01) ==
LOC: ER 18:53
DX: E87.6 Hypokalemia (principal); R19.7 Diarrhea, unspecified; K90.0 Celiac disease; Q07.00 Arnold-Chiari syndrome without spina bifida or hydrocephalus; K21.9 Gastro-esophageal reflux disease without esophagitis; M81.0 Age-related osteoporosis without current pathological fracture; M06.9 Rheumatoid arthritis, unspecified
CPT/HCPCS: 36415; 80048; 83735; 85025; 99284

== ENCOUNTER 2023-05-12 09:55 | Observation (INO) | payer OTHER ==
[2023-05-07 11:30] LABS: Absolute Lymphocytes (CBC) 0.7 K/uL (0.7-4.9); Hematocrit 39.6 % (36.0-45.0); Lymphocytes % 12.3 % (15.3-44.8); MPV 8.9 fL (7.6-11.3); Platelets 138 thou/uL (152-406)
--- NOTE | 2023-05-08 14:50 | EKG ---
Test Date: 2023-05-07 Test Time: 11:50:45 Green Coffee Blender: ESTELLE MEASUREMENT RESULTS: Intervals: Rate: 54 WI: 128 QRSD: 70 QT: 420 QTc: 398 [place]: P: 46 WI: 128 QRS: 71 T: 75 INTERPRETIVE STATEMENTS: Sinus bradycardia Otherwise normal ECG Compared to ECG 03/25/2022 16:49:03 Sinus rhythm no longer present Electronically Signed On 05-08-23 14:46:03 BICYCLE REPAIRER by Gregg Horowitz
[2023-05-12] MEDS ORDERED: CEFAZOLIN SODIUM 1 GM/VIAL ONE (10:12)
[2023-05-12] MEDS ORDERED: Ringers Lactate 1,000 ML IV ONE ×4 (10:12→16:02)
[2023-05-12] MEDS ORDERED: dexAMETHasone 10 MG/ML VIAL ONE (10:52)
[2023-05-12] MEDS ORDERED: LIDOCAINE 1% MPF 5 ML VIAL ONE (10:52)
[2023-05-12] MEDS ORDERED: DEXMEDETOMIDINE HCL 200 MCG/2 ML VIAL ONE (10:53)
[2023-05-12] MEDS ORDERED: FENTANYL CITR 100 MCG/2 ML ONE (10:53)
[2023-05-12] MEDS ORDERED: EPINEPHRINE 1 MG/ML VIAL ONE (10:53)
[2023-05-12] MEDS ORDERED: ROPLVACAINE HCL 20 ML ONE (10:54)
[2023-05-12] MEDS ORDERED: ROPIVACAINE HCL 20 ML ONE (10:54)
[2023-05-12] MEDS ORDERED: MAGNESIUM SULFATE 1 gm IVPB 1 GM/100 ML BAG IV ONE (10:54)
[2023-05-12] MEDS ORDERED: MIDAZOLAM HCL 2 MG/2 ML INJ ONE ×2 (10:54→11:04)
[2023-05-12] MEDS ORDERED: propofoL 200 MG/20 ML VIAL IV ONE (12:18)
[2023-05-12] MEDS ORDERED: EPINEPHrine 1 MG/10 ML SYR ONE (12:18)
[2023-05-12] MEDS ORDERED: LIDOCAINE 2% MPF 5 ML VIAL ONE ×3 (12:18→12:50)
[2023-05-12] MEDS ORDERED: Phenylephrine HCl 10 MG/ML 1 ML VIAL ONE (12:22)
[2023-05-12] MEDS ORDERED: NS 0.9% VIAL 20 ML ONE (12:22)
[2023-05-12] MEDS ORDERED: ONDANSETRON 4 MG/2 ML VIAL ONE (12:23)
[2023-05-12] MEDS ORDERED: propofoL 1,000 MG/100 ML VIAL IV ONE (13:02)
[2023-05-12] MEDS ORDERED: KETAMINE HCL IN 0.9 % NACL 50 MG/5 ML SYRINGE IV ONE (13:13)
[2023-05-12] MEDS ORDERED: HYDROCORTISONE SUC 250 MG INJ ONE (14:25)
[2023-05-12] MEDS ORDERED: DOCUSATE NA 100 MG CAP PO PRN (14:58)
--- NOTE | 2023-05-12 14:58 | RAD REPORT ---
EXAM DESCRIPTION: RAD - Hip Right 1 View - 05/12/2023 2:27 pm CLINICAL HISTORY: Right hip surgery FINDINGS: No fracture visualized. Osteoporosis Intraoperative film obtained during the placement of a right hip prosthesis
[2023-05-12] MEDS ORDERED: NS 0.9% VIAL 10 ML ONE (15:00)
--- NOTE | 2023-05-12 15:07 | P.BOP ---
Preoperative diagnosis: left hip arthritis with retained hardware Postoperative diagnosis: same Primary procedure: total hip arthoplasty Secondary procedure: hardware removal Estimated blood loss: 150 ccs Anesthesia: Spinal Complications: None Transferred to: Recovery Room Condition: Good
--- NOTE | 2023-05-12 15:34 | P.CNS ---
Date of Consult: 05/12/23 Reason for Consult: Medical management Requesting Physician: Kenroy Faulkner Chief Complaint: Left hip pain History of Present Illness: 53-year-old female with history of rheumatoid arthritis, GERD, restless leg syndrome, anxiety/depression had surgery today with Dr. Faulkner for left hip arthritis with retained hardware, she had a total hip arthroplasty with hardware removal. Hospitalist team has been consulted for assistance with medical management Allergies oxycodone [From OxyContin] Allergy (Severe, Verified 05/07/23 10:31) Severe vomiting/Vertigo cyclobenzaprine Allergy (Verified 05/07/23 10:31) Nausea/Vomiting Home Medications: Ropinirole HCl [Requip*] 1 mg PO BEDTIME 03/26/22 predniSONE [Deltasone*] 10 mg PO DAILY 03/26/22 Calcium Carbonate [Calcium] 600 mg PO DAILY 05/07/23 Escitalopram [Lexapro] 20 mg PO DAILY 05/07/23 Lactose-Reduced Food [Ensure Complete] 296 ml PO DAILY 05/07/23 Magnesium [Magnesium Gluconate] 200 mg PO DAILY 05/07/23 Omeprazole 20 mg PO DAILY 05/07/23 - Past Medical/Surgical History Diabetic: No -: Chiari malformation -: pseudothrombocytopenia -: Rheumatoid arthritis -: Celiac Disease -: Anxiety/depression -: GERD -: Cholecystectomy/Appendectomy -: right ankle reconstruction (pins removed later) -: left Hip repair -: right shoulder repair (pins and Plate) -: Chiari malformation decompression -: femur fracture surgery (gonzalez) -: left knee patella repair -: right wrist Psychosocial/ Personal History: Patient lives at home with her sister - Family History Mother Medical History: Heart disease, Other (see notes) Notes: alcoholic/smoker Father Medical History: Lung disease, Other (see notes) Notes: of Asthma attack - Social History Smoking Status: Unknown if ever smoked Alcohol use: No CD- Drugs: Yes Caffeine use: Yes Place of Residence: Home Review of Systems 10-point ROS is otherwise unremarkable Musculoskeletal: Other (Left hip pain) Physical Examination Temp Pulse Resp BP Pulse Ox 97.6 F 57 16 70/43 L 05/12/23 15:11 05/12/23 15:21 05/12/23 15:21 05/12/23 15:21 General: Alert, In no apparent distress, Oriented x3 HEENT: Atraumatic, PERRLA, Mucous membr. moist/pink Neck: Supple, 2+ carotid pulse no bruit Respiratory: Clear to auscultation bilaterally, Normal air movement Cardiovascular: Regular rate/rhythm, Normal S1 S2 Gastrointestinal: Normal bowel sounds Musculoskeletal: No tenderness Integumentary: No rashes Neurological: Normal speech, Normal affect Conclusions/Impression: Assessment: Left hip arthritis status post arthroplasty, hardware removal 05/12/2023 Rheumatoid arthritis GERD Restless leg syndrome Anxiety/depression Plan: Left hip arthritis status post arthroplasty, hardware removal 05/12/2023 Continue with plan per Ortho PT, social media assistant consult in place As needed pain medications Rheumatoid arthritis Takes prednisone 10 mg daily chronically, continued As needed pain medication GERD PPI continued Restless leg syndrome Ropinirole continued Anxiety/depression Continue home medication DVT PPX: Lovenox Code status: Full Critical Care: No Time Spent Managing Pts care (In Minutes): 25
[2023-05-12 17:21] LABS: Hematocrit 34.2 % (36.0-45.0)
--- NOTE | 2023-05-12 17:59 | OP ---
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 Procedure: 1.Left total hip arthroplasty using the [place] cemented system from [employer]. 2.Secondary procedure is removal of retained hip screws. Estimated Blood Loss: 150 cc. Complication: There were no complications. Indications For Operation: Ms. Garcia is a 53-year-old female who unfortunately sustained a hip fra cture. This was treated at an outside facility with 3 cannulated screws. Unfortunately, she apparen tly went on to have AVN and protrusion of the screws as well as severe arthritic change and extreme p ain. Despite conservative measures, she continued to have pain and problems, and risks, benefits, an d alternatives of different methods of treating this have been discussed. Our primary concern is the hip arthritis; however, to achieve total hip arthroplasty, we will need to remove the screw. She sa ys she understands things as presented, understands the risks associated with total hip arthroplasty as well as screw removal. Also understands her bones were extremely brittle. May have some intraope rative complications because of this, in addition to other possible complications. She says she unde rstands everything as presented and agrees to proceed. Description Of Procedure: The patient was taken to the operating room. Spinal anesthesia was obtain ed by Anesthesia. Following this, she was then rolled right side down and her left lower extremity w as then prepped and draped in usual sterile fashion for the procedure. The incision that was made by the other physician to place the screws appeared to be off target from where our incision would be. Therefore, we made an incision which was slightly more distal than normal, although only slightly di stal in the normal position. This was taken down carefully through skin and soft tissues. Meticulou s hemostasis being maintained using Bovie electrocautery. This led down to the fascia. The fascia w as then divided. The screws were easily seen and the fascia was divided up until gluteus guy mus cles were encountered. They were then spread using finger pressure. Following this, the Charnley wa s placed and we have good access to the screws, which were then sequentially removed without difficul ty. The wound was then copiously irrigated. Following this, the external rotators and capsule were then taken down as 1 layer and carefully tagged for later repair. The hip was then dislocated and a standard neck cut was made. Attempts were made to size the head, however, it was completely misshape n and we can only get a rough estimate. Following this, attention was turned to the acetabulum. The re was a quite a bit of soft tissue in the acetabulum, which was removed. Also the labrum was remove d. After this, initial reaming was then done with placement of a reamer, which appeared to be approp riate sized, then reamed up sequentially. A size 46 cup appeared to be ideal and it was then placed in the usual fashion. It appeared to be extremely stable. After this, attention was then turned to the femur and very carefully box sorter was used followed by broaching. This was then carefully broa ched up with very light taps to avoid any fracture of the femur. Decision was made not to move forwa rd with press-fit, but a longer cemented hip. The femur itself was then jet lavaged until it ran com pletely clear. The bone plug was placed to appropriate depth and cement was pressurized observing th e holes in the femur for any extravasation of cement and pressure over the holes allowing for some in terdigitation of the cement proximally. Following this, the extra stem was then placed to appropriat e depth and held in place inversion until the cement hardened. After this, the liner was placed in t he acetabulum and gently tapped. After this was then trialed using a neutral ball, this was extremel y stable with full flexion, full adduction, internal rotation to at least 45 degrees. She had some t ightness in extension, however, it was felt that she does have a tight hip from her previous injuries and we will go with this standard option. Standard option was then placed on the femoral neck. It was then relocated. It was copiously irrigated and the external rotators and capsule were then repai red back to the greater trochanter using bone tunnels. This was followed by copious irrigation and c losure of the fascia using Vicryl in a watertight fashion followed by closure of skin followed by sta ples. She was then placed in Aquacel dressing, awakened, taken to recovery room in good condition. There were no complications. SE/MODL Voice ID: [id number] Report ID: [id number]
[2023-05-12] MEDS ORDERED: HYDROMORPHONE HCL 1 MG/ML INJ ONE (18:04)
--- OUTSIDE RECORDS SUMMARY | 2023-05-12 19:45 | XMS REPORT | Continuity of Care Document ---
:1970 Author Organization [facility] t Address [address] [place] [address]. [address] [place] [address] Care Team Providers Name Role Phone Pcp, Patient Does Not Have A Primary Care Physician [phone] Attending Clinician Unavailable Doctor Unassigned, [place] Attending Clinician Unavailable HSIMON POST Attending Clinician Unavailable Shimon Post DDS Attending Clinician CHAVA BOWERS Attending Clinician Unavailable PEGGY ELY Attending Clinician Unavailable MARCELA MACHADO Attending Clinician Unavailable JOCELYNN BRASWELL Attending Clinician Unavailable LAB90 Attending Clinician Unavailable Chava Bowers DO Attending Clinician [id number] Admitting Clinician Unavailable LACIE LEONARD Admitting Clinician Unavailable Payers Payer Name Policy Type Policy Number Effective Date Expiration Date S juarez [facility] [id number] CIGNA-SHEET METAL 2 [id number] 2021 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 HL 00:00:00 FUND WELLMED MEDICARE [id number] 2021 00:00:00 CIGNA OON [id number] 2010 00:00:00 [facility] [id number] 2021 00:00:00 Problems Condition Condition Condition Status [...] Gastroesop Disease Active Anoop villalobos hageal hageal 09-03 [facility] reflux reflux 00:00: [...] [facility] 00:00: Medical [place] OXYCODON Allergy Active Low [facility] E-ACETAM 6[facility]28 [facility] INOPHEN 00:00: Medical Center CYCLOBEN DRUG Active Low Dizziness Unive rs ZAPRINE INGREDI 6-28 ity of 00:00: [address] OXYCODON DRUG Active Low ITCHING Univers E-ACETAM 6-28 ity of INOPHEN 00:00: [address] Cycloben Drug Active [facility] z[facility]rine Intolera 6-28 [facility] nce 00:00: Medical [place] Oxycodon Drug Active [facility] e-Acetam Intolera 6-28 [facility] inophen nce 00:00: Medical Center NO KNOWN Allergy Active [facility] ALLERGIE S NO KNOWN Drug Active Univers ALLERGIE Class [facility] [place] [facility] Social History Social Habit Start Date Stop Date Quantity Comments Source History SDTN [facility] Alcohol Std Drinks Medica l Center History SDTN [facility] Alcohol Binge Medical Shaye ter History [facility] Transport Non-Med Medical Center Sexual orientation [facility] Exposure to 2022-07-28 2022-08-07 Not sure [facility]-CoV-2 (event) 00:00:00 13:14:00 [facility] Alcohol intake 2021-12-06 2021-12-[address] [facility] 00:00:00 00:00:00 non-drinker Medical Cente r (finding) History [facility] 2021-12-04 2021-12-[address] [facility] Transport Med 00:00:00 00:00:[address] History [facility] 2021-12-04 2021-12-[address] [facility] Housing Unable to 00:00:00 00:00:00 Medical Center Pay History [facility] 2021-12-04 2021-12-[address] [facility] Housing Places 00:00:00 00:00:00 Medical Ce nter Lived History [facility] 2021-12-04 2021-12-[address] [facility] Housing Homeless 00:00:00 00:00:00 Medical Center Last Year Tobacco use and 2021-12-03 2021-12-[address] Jayshree kes exposure 00:00:00 00:00:00 tobacco non-user Medical Center History [facility] 2021-12-03 2021-12-[address] [facility] Alcohol Frequency 00:00:00 00:00:00 Medical Center Education 2021-09-03 2021-09-03 17 Dian Lyle 00:00:00 00:00:00 Sex [birth year] At [birth year] Universit y of 00:00:00 00:00:00 [facility] Smoking Status Start Date Stop Date Source Tobacco smoking consumption [facility] Branch Never smoked tobacco [facility] Medications Ordered Filled Start Stop Current Ordering Indication Dosage Frequency Signature Comments Components Source Medication Medication Date Date Medication? Clinician (SIG) Name Name citalopram Yes 20mg Take 1 Unive rs 20 mg 3-02 tablet by ity of tablet 13:23: mouth. [place] [facility] gabapentin 2022-0 Yes 600mg Take 1 Univ ers 600 mg 3-02 tablet by ity of tablet 13:23: mouth. [address] citalopram 2022-0 Yes 20mg Take 1 Unive rs 20 mg 3-02 tablet by ity of tablet 13:23: mouth. [address] gabapentin 2022-0 Yes 600mg Take 1 Univ ers 600 mg 3-02 tablet by ity of tablet 13:23: mouth. [address] citalopram 2022-0 Yes 20mg Take 1 Unive rs 20 mg 3-02 tablet by ity of tablet 13:23: mouth. [address] gabapentin 2022-0 Yes 600mg Take 1 Univ ers 600 mg 3-02 tablet by ity of tablet 13:23: mouth. [address] citalopram 2022-0 Yes 20mg Take 1 Unive rs 20 mg 3-02 tablet by ity of tablet 13:23: mouth. [address] gabapentin 2022-0 Yes 600mg Take 1 Univ ers 600 mg 3-02 tablet by ity of tablet 13:23: mouth. [address] Branch escitalopra 2021-06 Yes TAKE 1 [...] by ity of tablet 00:00: mouth in [place] 00 the Medical morning. Branch predniSONE 2021-06 Yes 10mg Take 1 Unive rs 10 mg 0-23 tablet by ity of tablet 00:00: mouth in [place] 00 the Medical morning. Branch predniSONE 2022-1 Yes 10mg Take 1 Unive rs 10 mg 0-23 tablet by ity of tablet 00:00: mouth in [place] 00 the Medical morning. Branch predniSONE 2021-06 Yes 10mg Take 1 Unive rs 10 mg 0-23 tablet by ity of tablet 00:00: mouth in [place] 00 the Medical morning. Branch acetaminoph 2021-06 [...] *MAY IMPAIR ALERTNESS* * ergocalcife 2022- No [id number] Q7D Take [address] rol 12-14 capsule [facility] (ERGOCALCIF 00:00: 23:59 (50,000 Me dical LÓPEZ) 1,250 00 :00 Units Center mcg (50,000 total) by unit) mouth once capsule a week. ergocalcife 2021-0 3- No [id number] Q7D Take [address] rol 12-14- capsule [facility] (ERGOCALCIF 00:00: 23:59 (50,000 Me dical LÓPEZ) 1,250 00 :00 Units Center mcg (50,000 total) by unit) mouth once capsule a week. ergocalcife 2021-0 3- No [id number] Q7D Take [address] rol 12-14 capsule [facility] (ERGOCALCIF 00:00: 23:59 (50,000 Me dical LÓPEZ) 1,250 00 :00 Units Center mcg (50,000 total) by unit) mouth once capsule a week. ergocalcife 202-0 2023- No [id number] Q7D Take [address] rol 12-14-09 capsule [facility] (ERGOCALCIF 00:00: 23:59 (50,000 Me dical LÓPEZ) 1,250 00 :00 Units Center mcg (50,000 total) by unit) mouth once capsule a week. predniSONE 2022-0 Yes 10mg QD Take [address] (DELTASONE) 7-07 by mouth Luke s 10 MG 13:52: daily. Medical tablet 51 Center gabapentin 2021-0 Yes 600mg Take [address] (NEURONTIN) 7-07 mg by [facility] 600 MG 13:52: mouth 2 Medical tablet 51 (two) Center times daily before meals TID - 600 mg, 300 mg, 600 mg . gabapentin 2-0 Yes 300mg Take [address] (NEURONTIN) 7-07 mg by [facility]ukes 300 MG 13:52: mouth Medical capsule 51 daily Center before lunch. citalopram 2-0 Yes 20mg QD Take [address] (CeleXA) 20 7-07 by mouth Luke s MG tablet 13:52: daily. Medica l 51 Center omeprazole 2021-0 Yes 20mg QD Take 20 [...] mg, 300 mg, 600 mg . gabapentin 2-0 Yes 300mg Take [address] (NEURONTIN) 7-07 mg by [facility]ukes 300 MG 13:52: mouth Medical capsule 51 daily Center before lunch. citalopram 2-0 Yes 20mg QD Take [address] (CeleXA) 20 7-07 by mouth Luke s MG tablet 13:52: daily. Medica l [address] [place] [address] omeprazole 2-0 Yes 20mg QD Take [address] (PriLOSEC) 7-07 by mouth [facility]ukes 20 MG 13:52: daily. Medical capsule [address] [place] [address] predniSONE 2-0 Yes 10mg QD Take [address] (DELTASONE) 7-07 by mouth Luke s 10 MG 13:52: daily. Medical tablet [address] [place] [address] gabapentin 2-0 Yes 600mg Take 600 CH [...] s MG tablet 13:52: daily. Medica l [address] [place] [address] omeprazole 2022-0 Yes 20mg QD Take [address] (PriLOSEC) 7-07 by mouth [facility] 20 MG 13:52: daily. Medical capsule [address] [place] [address] ondansetron 2-0 Yes 4mg 1 tablet. U nivers 4 mg tablet - ity of 00:00: [place] [facility] ondansetron 2021-0 Yes 4mg 1 tablet. U nivers 4 mg tablet 10-14 ity of 00:00: [address] ondansetron 2021-0 Yes 4mg 1 tablet. U nivers 4 mg tablet 10-14 ity of 00:00: [place] [facility] ondansetron 2021-0 Yes 4mg 1 tablet. U nivers 4 mg tablet 10-14 ity of 00:00: [address] hydrOXYzine 2021-0 2022- No 25mg Q.5D Take 25 mg Dina [...] 3 32 times daily predniSONE 2021-0 Yes [id number] 10mg Take 1 Dina (DELTASONE) 3-29 tablet (10 Se ybold 10 MG oral 00:00: mg total) tablet 00 by mouth daily hydrOXYzine 2021-0 Yes Dina HCl 25 MG 3-21 Seybold oral Tablet 00:00: 00 hydrOXYzine 2021-0 Yes 25mg 1 tablet. U nivers 25 mg 3-21 ity of tablet 00:00: [address] hydrOXYzine 2-0 Yes 25mg 1 tablet. U nivers 25 mg 3-21 ity of tablet 00:00: [address] hydrOXYzine 2021-0 Yes 25mg 1 tablet. U nivers 25 mg 3-21 ity of tablet 00:00: [address] hydrOXYzine 2021-0 Yes 25mg 1 tablet. U nivers 25 mg 3-21 ity of tablet 00:00: [address] omeprazole 2021-0 Yes 20mg Take 1 Unive rs 20 mg 2-04 capsule by ity of capsule 00:00: mouth in [place] the Medical morning. Branch omeprazole Yes 20mg Take 1 Unive rs 20 mg 2-04 capsule by ity of capsule 00:00: mouth in [place] the morning. Branch omeprazole 0 Yes 20mg Take 1 Unive rs 20 mg 2-04 capsule by ity of capsule 00:00: mouth in [place] the morning. Branch Omeprazole Yes 1{capsu Take 1 Ke lsey 20 MG oral 2-04 le} capsule by Sey bold Delayed 00:00: mouth Release 00 daily Capsule ROPINIROLE Yes 1{tbl} Take 1 Obdulio sey HYDROCHLORI 2-04 tablet by Sey bold DE 1 MG 00:00: mouth oral Tablet 00 daily omeprazole Yes 20mg Take 1 Unive rs 20 mg 2-04 capsule by ity of capsule 00:00: mouth in [place] 00 the morning. Branch predniSONE 2021- No 1{tbl} Take 1 Ke lsey (DELTASONE) 2-04 03-29 tablet by Se ybold 10 MG oral 00:00: 00:00 mouth tablet 00 :00 daily Vital Signs Vital Name Observation Time Observation Value Comments Source Systolic blood 2022-08-07 19:23:00 113 mm[Hg] Univer sity of [facility] Diastolic blood 2022-08-07 19:23:00 78 mm[Hg] [facility] rate 2022-08-07 19:23:00 67 /min [facility] Body temperature 2022-08-07 19:23:00 36.72 Maria Luisa [facility] Body height 2022-08-07 19:23:00 154.9 cm [facility] Body weight 2022-08-07 19:23:00 48.988 kg [facility] BMI 2022-08-07 19:23:00 20.41 kg/m2 [facility] HEIGHT 2021-12-10 12:26:00 160 cm WEIGHT 2021-12-10 12:26:00 45.632 kg WEIGHT 2021-12-09 19:36:00 45.36 kg WEIGHT 2021-12-07 04:00:00 45.768 kg HEIGHT 2021-12-10 12:26:00 160 cm WEIGHT 2021-12-10 12:26:00 45.632 kg WEIGHT 2021-12-09 19:36:00 45.36 kg WEIGHT 2021-12-07 04:00:00 45.768 kg Body height 2021-09-03 18:33:00 160 cm Dnia block Body weight 2021-09-03 18:33:00 46.72 kg Dina brumfieldbomil BMI 2021-09-03 18:33:00 18.25 kg/m2 Dina block Oxygen saturation in 2021-09-03 18:33:00 97 /min Dinajaspal Lyle Arterial blood by Pulse oximetry Systolic blood 2021-09-03 18:33:00 103 mm[Hg] Dina Seybold pressure Diastolic blood 2021-09-03 18:33:00 65 mm[Hg] Kelse y Seybold pressure Heart rate 2021-09-03 18:33:00 86 /min Dina block Body temperature 2021-09-03 18:33:00 36.5 Maria Luisa Joyce ey Seybold Respiratory rate 2021-09-03 18:33:00 14 /min Joyce ey Seybold Procedures Procedure Date / Time Performing Clinician Source Performed AUTHORIZATION TO RELEASE 2022-11-07 05:01:00 Doctor Unassigned, No [facility] PHI TO [facility] Name Medical Branch REFERRAL- 2022-06-25 06:01:00 Doctor Unassigned, No [facility] REQUEST/RESPONSE Name Medical Branch Plan of Care Planned Activity Planned Date Details Comments Source Future Scheduled 2026-09-03 Lipid panel (procedure) [facility] 00:00:00 [code = 06717372] Medical Ce nter Future Scheduled 2026-09-03 Lipid panel (procedure) [facility] 00:00:00 [code = 23518139] Medical Ce nter Future Scheduled 2026-09-03 Lipid panel (procedure) [facility] Test 00:00:00 [code = 25872890] Medical Ce nter Future Scheduled 2026-09-03 Lipid panel (procedure) [facility] Test 00:00:00 [code = 16679126] Medical Ce nter Future Scheduled 2023-02-06 Influenza [...] cervix Medical C enter (procedure) [code = 249296731] Future Scheduled 1990 Screening for malignant [facility] Test 00:00:00 neoplasm of cervix Medical C enter (procedure) [code = 796072689] Future Scheduled 1990 Screening for malignant [facility] Test 00:00:00 neoplasm of cervix Medical C enter (procedure) [code = 122776667] Future Scheduled 1990 Screening for malignant [facility] Test 00:00:00 neoplasm of cervix Medical C enter (procedure) [code = 184195553] Future Scheduled 1988 DTAP/TDAP/TD VACCINES (1 CHI [...] screening Medical Cent er (procedure) [code = 295266846] Future Scheduled [address] [facility] Test 00:00:00 virus screening Medical Cent er (procedure) [code = 871549023] Future Scheduled [address] [facility] Test 00:00:00 virus screening Medical Cent er (procedure) [code = 304790419] Future Scheduled [address] [facility] Test 00:00:00 virus screening Medical Cent er (procedure) [code = 726187117] Future Scheduled 1969 COVID-19 VACCINE (#1) CH [...] breast Medical C enter (procedure) [code = 077345604] Future Scheduled 1969 CT Colonography (combo) [facility] Test 00:00:00 [code = CT Colonography [facility] (combo)] Future Scheduled 1969 Screening for malignant [facility] Test 00:00:00 neoplasm of colon Medical Ce nter (procedure) [code = 626446427] Future Scheduled 1969 Screening for malignant [facility] Test 00:00:00 neoplasm of colon Medical Ce nter (procedure) [code = 278504498] Future Scheduled 1969 Screening for malignant [facility] Test 00:00:00 neoplasm of colon Medical Ce nter (procedure) [code = 566841070] Future Scheduled 1969 Screening for malignant [facility] Test 00:00:00 neoplasm of colon Medical Ce nter (procedure) [code = 260749081] Future Scheduled 1970 Sigmoidoscopy [code = [facility] Sigmoidoscopy] Medical Cente r Future Scheduled 1969 Screening for malignant [facility] Test 00:00:00 neoplasm of breast Medical C enter (procedure) [code = 939562299] Future Scheduled 1969 CT Colonography (combo) [facility] Test 00:00:00 [code = CT Colonography [facility] (combo)] Future Scheduled 1969 Screening for malignant [facility] Test 00:00:00 neoplasm of colon Medical Ce nter (procedure) [code = 710809338] Future Scheduled 1969 Screening for malignant [facility] Test 00:00:00 neoplasm of colon Medical Ce nter (procedure) [code = 180622315] Future Scheduled 1969 Screening for malignant [facility] Test 00:00:00 neoplasm of colon Medical Ce nter (procedure) [code = 068911543] Future Scheduled 1969 Screening for malignant [facility] Test 00:00:00 neoplasm of colon Medical Ce nter (procedure) [code = 536236117] Future Scheduled 1970 Sigmoidoscopy [code = [facility] 00:[facility]:00 Sigmoidoscopy] Medical Cente r Future Scheduled 1969 Screening for malignant [facility] Test 00:00:00 neoplasm of breast Medical C enter (procedure) [code = 172618267] Future Scheduled 1969 CT Colonography (combo) [facility] Test 00:00:00 [code = CT Colonography [facility] (combo)] Future Scheduled 1969 Screening for malignant [facility] Test 00:00:00 neoplasm of colon Medical Ce nter (procedure) [code = 777536990] Future Scheduled 1969 Screening for malignant [facility] Test 00:00:00 neoplasm of colon Medical Ce nter (procedure) [code = 982214254] Future Scheduled 1969 Screening for malignant [facility] Test 00:00:00 neoplasm of colon Medical Ce nter (procedure) [code = 463469273] Future Scheduled 1969 Screening for malignant [facility] Test 00:00:00 neoplasm of colon Medical Ce nter (procedure) [code = 439360244] Future Scheduled 1970 Sigmoidoscopy [code = [facility] 00:[facility] Sigmoidoscopy] Medical Cente r Future Scheduled 1969 Screening for malignant [facility] Test 00:00:00 neoplasm of breast Medical C enter (procedure) [code = 758947423] Future Scheduled 1969 CT Colonography (combo) [facility] Test 00:00:00 [code = CT Colonography [facility]i [facility]ef[facility] Center (combo)] Future Scheduled 1969 Screening for malignant [facility] Test 00:00:00 neoplasm of colon Medical Ce nter (procedure) [code = 420306582] Future Scheduled 1969 Screening for malignant [facility] Test 00:00:00 neoplasm of colon Medical Ce nter (procedure) [code = 906203564] Future Scheduled 1969 Screening for malignant [facility] Test 00:00:00 neoplasm of colon Medical Ce nter (procedure) [code = 481403936] Future Scheduled 1969 Screening for malignant [facility] Test 00:00:00 neoplasm of colon Medical Ce nter (procedure) [code = 810242851] Future Scheduled 1970 Sigmoidoscopy [code = [facility] 00:[facility] Sigmoidoscopy] Medical Cente r Encounters Start End Encounter Admission Attending Care Care Encounter Source Date/Time Date/Time Type Type Clinicians Facility Department ID 2021-12-23 Outpatient 3 [id number] [facility] [id number] [facility] 14:41:[facility] 2021-12-11 Outpatient 3 [id number] [facility] REF [id number] [facility] 11:36:46 [facility] 2021-12-07 Outpatient 3 [id number] [facility] REF [id number] [facility] 11:10:50 [facility] 2021-12-06 Outpatient 3 [id number] [facility] REF [id number] [facility] 15:10:33 [facility] 2022-11-07 2022-11-07 Orders Doctor AB 1.2.840.114 [id number] Univers 00:00:00 00:00:00 Only Unassigned, MAULIK 350.1.13.10 ity of [place] [facility] 4.2.7.2.686 Jaime as [id number] [address] 2022-08-07 2022-08-07 Outpatient R [facility] [id number] Univers 13:30:00 13:48:30 SHIMON mcwilliams [facility] 2022-08-07 2022-08-07 Office IMELDA Post 1.2.840.114 [id number] Univers 13:30:00 13:48:30 Visit Shimon Seble VALENTIN 350.1.13.10 ity of [facility] 4[place]7.2.[place] [id number] [facility] 199 Branch 2022-07-09 2022-07-09 Outpatient DINA BOWERS [id number] Dina 13:30:00 13:30:00 CHAVA Seybol d 2022-06-26 2022-06-26 Outpatient DINA BOWERS [id number] Dina 14:45:00 14:45:00 CHAVA Seybol d 2022-06-25 2022-06-25 Outpatient DINA BOWERS [id number] Dina 00:00:00 00:00:00 CHAVA Seybol d 2022-06-25 2022-06-25 Orders Doctor AB 1.2.840.114 [id number] Univers 00:00:00 00:00:00 Only Unassigned, MAULIK 350.1.13.[address] [facility] 4.2.7.2.686 Jaime as [id number] [facility] 009 Branch 2021-12-03 2021-12-12 Inpatient ER ELY, [facility] [id number] [facility] 19:31:00 13:47:00 PEGGY 2021-10-01 2021-10-01 Outpatient DINA BRASWELL [id number] Dina 11:00:00 11:00:00 JOCELYNN jaeger 2021-09-03 2021-09-03 Outpatient LAB90 DINA MG [id number] Dina 14:20:00 14:20:00 Seybol d 2021-09-03 2021-09-03 Office Vu Bowers 1.2.840.114 [id number] Dina 13:30:00 14:00:00 Visit Chava Rivera 350.1.13.13 Se maricel 1.2.7.2.686 [id number] 0 Results Test Description Test Time Test Comments Results Result Comments Source MAGNESIUM 2021-12-12 06:27:55 Test Item Value Reference Range Interpretation Comme nts MAGNESIUM (BEAKER) (test code = 627) 1.8 mg/dL 1.5-3.0 Computer Numerical Control Grinder ID - LITOOperator ID - LITOOperator ID - LITOOperator ID - LITOBASIC METABOLIC [id number] 06:26:06 Test Item Value Reference Range Interpretation [...] S NOT APPLICABLE FOR DIALYSIS PATIEN TS. Computer Numerical Control Grinder ID - LITOOperator ID - LITOOperator ID - LITOOperator ID - LITOOperator ID - LITOOperator ID - LITOOperator ID - LITOOperator ID - LITOOperator ID - LITOSARS-COV2/RT-PCR ([facility])2021-12-11 07:44:17 Test Item Value Reference Range Interpretation Comments SARS-COV2/RT-PCR Negative Negative The SARS-Co V-2 target (test code = nucleic acids a re not [id number]) detected in thi s specimen. Negative result [...] revoked sooner. Fact Sheet for Healthcare Providers: https://www.[employer]/Documents/Xpert%20Xpress%20SARS%20CoV-2/Fact%20Sheets/302-3802%04GDNR-QGD-3%2 0HEALTHCARE%20PROVIDERS%20FACT%20SHEET.pdf Fact Sheet for Healthcare Patients: https://www.[employer]/Documents/Xpert%20X press%20SARS%20CoV-2/Fact%20Sheets/302-3801%36QLNG-WVS-8%20PATIENT%20FACT%20SHEE T.[id number] 06:21:50 Test Item Value Reference Range Interpretation Comments MAGNESIUM (BEAKER) (test code = 3.2 mg/dL 1.5-3.0 H 627) Computer Numerical Control Grinder ID - hyfr29Zmojvnte ID - aovl98Pqykjhyw ID - soks32Edyenawo ID - [id number] BASIC METABOLIC [id number] 06:20:23 Test Item Value Reference Range Interpretation [...] S NOT APPLICABLE FOR DIALYSIS PATIEN TS. Computer Numerical Control Grinder ID - uriq56Zbqolazb ID - glfd30Klikmcrv ID - hwzh30Kpymyurd ID - fedc46Qiyrfcek ID - heos72Sgjuslzb ID - wrhi22Adeoencp ID - dhvk66Lttuszau ID - wamb44Jrxpalyx ID - [id number] 09:41:16 Test Item Value Reference Range Interpretation Comments MAGNESIUM (BEAKER) (test code = 1.5 mg/dL 1.5-3.0 627) Computer Numerical Control Grinder ID - hckcimuhn450Qzkfirve ID - ttdtjfxtn277Sikrgfre ID - cbhdpetgz475Nnfbeuqe ID - fbjmlcydl545TKCIM METABOLIC [id number] 06:06:16 Test Item Value Reference Range Interpretation [...] S NOT APPLICABLE FOR DIALYSIS PATIEN TS. Computer Numerical Control Grinder ID - fyvpaxivw250Khaesdnb ID - ysmpzujzz311Zanejlxc ID - yhkqlziow856Ckneovgk ID - borugmkgh320Wmdtxmto ID - acmfveyse953Wawahryc ID - yldjgrapp290Oaaiuysq ID - liyfahxsd857Wuxgrdnq ID - rqhjsejim022Orenftxc ID - qjteidtyj713Mwakknho ID - rrlbvanqo667Zwfqbinm ID - hubzhdurt817Adusdxis ID - [id number] 08:57:03 Test Item Value Reference Range Interpretation Comments MAGNESIUM (BEAKER) (test code = 1.3 mg/dL 1.5-3.0 L 627) Computer Numerical Control Grinder ID - DSENSONBASIC METABOLIC [id number] 07:15:00 Test Item Value Reference Range Interpretation [...] S NOT APPLICABLE FOR DIALYSIS PATIEN TS. Computer Numerical Control Grinder ID - [id number] ID - RLWR74Liwqkpiy ID - MCBB32Nqmniket ID - YBXP24Vvtwmfpn ID - IUGB26Lntrdxtu ID - BTUB80Fsxkqhlz ID - SYAE72Vhhqyqqk ID - RPSO77Jbruumpp ID - XYWG00Jjlgxtep ID - SFVJ49Cjvwsfgs ID - DSENSONOperator ID - [id number] 08:51:49 Test Item Value Reference Range Interpretation Comments MAGNESIUM (BEAKER) (test code = 1.5 mg/dL 1.5-3.0 627) Computer Numerical Control Grinder ID - DSENSONCOMPREHENSIVE METABOLIC [id number] 06:19:44 Test Item Value Reference Range Interpretation [...] S NOT APPLICABLE FOR DIALYSIS PATIEN TS. Computer Numerical Control Grinder ID - [id number] ID - [id number] ID - CIJWVFUXU761Bpayuxny ID - RYLROGQFU421Nikerqpw ID - VRYPLUIEV472Spwmcxlf ID - NCWUHUTLE049Gfvjscju ID - QDPBLLXED013Ytbrbcws ID - GMYUMXJNJ710Oqepxwqz ID - VSEHUCWAH415Layxotsv ID - FKOTGCYCA513Zcierpyg ID - KRLZMGFQI346Ljedxcfv ID - OOEURDJEC079Gtkudtez ID - FVKJEHLMJ520Vyufgapc ID - EBAEJKANM599Qzqcduic ID - XJFSLCPEZ474Fremrpzo ID -[id number] W/PLT COUNT & AUTO DIFFERENTIAL 2021-12-08 06:07:26 [...] (BEAKER) (test code = 2801) COMPREHENSIVE METABOLIC [id number] 06:17:39 Test Item Value Reference Range Interpretation [...] S NOT APPLICABLE FOR DIALYSIS PATIEN TS. Computer Numerical Control Grinder ID - gbnl63Mpbitasy ID - sbyx46Zfupspkk ID - hwug14Spsijqsl ID - iyeq77Mrervhww ID - bjen57Fhqgljhr ID - slts34Esgexnhe ID - ebhd49Iijjferg ID - jhoc07Meygiwrq ID - xerf54Kmjykysy ID - pnvk55Sudirwkf ID - mlwo17Afclvawd ID - nkzr69Lrlrpskh ID - rnsf68Kwxsqeup ID - kfsg71Dcrutkex ID - pkog68Eaarlzuv ID - lgiz20Vsoxyegi ID - zeqt04Zdvkakps ID - qhyy96Lxtyavld ID - uwud12ZRW W/PLT COUNT & AUTO [id number] 05:38:17 Test Item Value Reference Range Interpretation [...] (BEAKER) (test code = 2801) COMPREHENSIVE METABOLIC [id number] 05:14:59 Test Item Value Reference Range Interpretation [...] S NOT APPLICABLE FOR DIALYSIS PATIEN TS. Computer Numerical Control Grinder ID - LITOOperator ID - LITOOperator ID [...] % 20-55 L (test code = 2590) Computer Numerical Control Grinder ID - [id number] ID - [id number] METABOLIC [id number] 05:23:34 Test Item Value Reference Range Interpretation [...] S NOT APPLICABLE FOR DIALYSIS PATIEN TS. Computer Numerical Control Grinder ID - [id number] ID - WBDJVZMRP184Muxxutnm ID - IOZZBSEAO507Lvaqvouk ID - KYFNSSBDL044Bmonwjkg ID - WWIFQXWAY262Nduptmaa ID - MOMGYJUDV828Xcbmmiyk ID - UZBFLOKDP583Yvacehjh ID - DYJVIBSYC904Mmdvftsy ID - VBLNBCIUG928Wpufqmbk ID - DKKJWEGXM583Kdoobwpi ID - [id number] ID - [id number] ID - [id number] ID - [id number] ID - [id number] ID -[id number] ID - [id number] ID - [id number] ID - [id number] W/PLT COUNT & AUTO DIFFERENTIAL 2021-12-05 05:14:34 [...] (BEAKER) (test code = 2801) U/S, ABDOMINAL, [id number] 00:01:00Reason for exam:->Elevated liver chemistries and screen for splenomegaly - 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 Signed: [facility] Verified Date/Time: 12/04/2021 16:18:12 Reading Location: [facility] C013X Ortho Consult Reading Room FL, FLUORO, NON-SPECIFIC, UP TO 1 [id number] 14:56:00Reason for exam:->CLOSED REDUCTION, FRACTURE, FEMUR, WITH PINNING - Left [facility] 1970 Sex: FAn imaging unit was utilized for this procedure. No radiologist interpretation was requested. Refer to the EMR for findings. Refer to PACS for any patient radiation dose information.PROTHROMBIN [id number] 10:28:29 Test Item Value Reference Range Interpretation Comments PROTIME (BEAKER) 11.6 seconds 9.3-12.0 Final Infor mation (test code = 759) (Auto Outp ut) INR (BEAKER) (test 1.06 See_Comment Final Inf ormation code = 370) (Auto Output) [Automated mess age] The system [employer] generated this result transmitted ref erence range: [...] for exam:->left hip pain, femoral neck fracture [facility] : 1970 Sex: FFINAL [...] limits. IMPRESSION:Left femoral neck fracture. Signed: Robb Bauman MDReport Verified Date/Time: 12/04/2021 08:13:08 [facility] CREATINE KINASE (CK)2021-12-04 07:51:45 Test Item Value Reference Range Interpretation Comments CREATINE KINASE TOTAL (BEAKER) (test 15 U/L 25-235 L code = 380) Computer Numerical Control Grinder ID - [id number] FUNCTION [id number] 07:21:47 Test Item Value Reference Range Interpretation [...] code = 97 U/L 5-50 H 347) Computer Numerical Control Grinder ID - [id number] ID - izox20Fvwwetxl ID - gfql87Mfczmbdc ID - oflc74Zbjrusqr ID - hewo87Fpvqfyxm ID - amkw38Lwmyrexs ID - xaqn39Xopdimbt ID - xagc29Gfpgcycs ID - wiry81Ismecrtj ID - [id number] 07:13:20 Test Item Value Reference Range Interpretation Comments ETHANOL (BEAKER) < mg/dL See_Comment [Automated message] The (test code = 400) system [facility] generated this result tra nsmitted reference range : <=10. The reference r sanchez was not used to int erpret this result as normal/abnormal . Computer Numerical Control Grinder ID - [id number], [id number] 06:26:04 Test Item Value Reference Range Interpretation Comments PARATHYROID HORMONE INTACT 61.1 pg/mL 15.0-90.0 (BEAKER) (test code = 577) Computer Numerical Control Grinder ID - [id number] METABOLIC [id number] 05:51:19 Test Item Value Reference Range Interpretation [...] S NOT APPLICABLE FOR DIALYSIS PATIEN TS. Computer Numerical Control Grinder ID - [id number] ID - ikxg04Cjhhdagx ID - iflk13Cvgubyny ID - cofi25Qtzkocvj ID - jyyw20Yitribup ID - vtje84Ajmwkggl ID - cdfd46Mxohsyoi ID - oehh44Vaagvepp ID - zzoo17Yjcypojt ID - mykl26Ewireptr ID - ygbh15Lefvtayi ID - nfsy11Jhhlmhwl ID - pnxr49Nbxhygro ID - kirr81Ukqmzgfd ID - wrqu29Moiacctv ID - bbuk41Fxddfnal ID - xgys32Ljlrsjni ID - fovt74Pajfoppi ID - [id number] W/PLT COUNT & AUTO [id number] 05:41:52 Test Item Value Reference Range Interpretation [...] PERCENT (BEAKER) (test code = 2801) SCREEN, [id number] 05:26:16 Test Item Value Reference Range Interpretation Comments TEST URINE (BEAKER) (test Negative Negative code = 583) SARS-COV2/RT-PCR ([facility])2021-12-04 01:49:23 Test Item Value Reference Range Interpretation Comments SARS-COV2/RT-PCR (test Negative Not Detected, Negative, See code = 1945473) external report for linked test COMPREHENSIVE METABOLIC [id number] 21:22:23 Test Item Value Reference Range Interpretation [...] S NOT APPLICABLE FOR DIALYSIS PATIEN TS. Computer Numerical Control Grinder ID - PAULSILOCOOperator ID - PAULSILOCOOperator ID - PAULSILOCOOperator ID - PAULSILOCOOperator ID - PAULSILOCOOperator ID - PAULSILOCOOperator ID - PAULSILOCOOperator ID - PAULSILOCOOperator ID - PAULSILOCOOperator ID - PAULSILOCOOperator ID - PAULSILOCOOperator ID - PAULSILOCOOperator ID - P AULSILOCOOperator ID - PAULSILOCOOperator ID - PAULSILOCOOperator ID - [id number] 21:19:26 Test Item Value Reference Range Interpretation Comments MAGNESIUM (BEAKER) (test code = 1.5 mg/dL 1.5-3.0 627) Computer Numerical Control Grinder ID - PAULSILOCOOperator ID - PAULSILOCOOperator ID - PAULSILOCOOperator ID - [id number] 21:15:47 Test Item Value Reference Range Interpretation Comments PHOSPHORUS (BEAKER) (test code = 2.6 mg/dL 2.5-4.5 604) Computer Numerical Control Grinder ID - [id number] [id number] 21:14:26 Test Item Value Reference Range Interpretation Comments PROTIME (BEAKER) 11.1 seconds 9.3-12.0 Final Infor mation (test code = 759) (Auto Outp ut) INR (BEAKER) (test 1.01 See_Comment Final Inf ormation code = 370) (Auto Output) [Automated mess age] The system [employer] generated this result transmitted ref erence range: <=5.90. The reference range was not used to int erpret this result as normal/abnormal . RECOMMENDED COUMADIN/WARFARIN INR THERAPY RANGESSTANDARD DOSE: 2.0 - 3.0 Includes: PROPHYLAXIS for venous thrombosis, systemic embolization; TREATMENT for venous thrombosis and/or pulmonary embolus.HIGH RISK: Target INR is 2.5-3.5 for patients with mechanical heart valves.CBC W/PLT COUNT & AUTO [id number] 21:03:25 Test Item Value Reference Range Interpretation [...]
[2023-05-12] MEDS: CEFAZOLIN 1 GM in NA CHLORIDE 0.9% 50 ML IVPB SCH (20:18)
[2023-05-12] MEDS: HYDROCODONE/APAP 7.5/325 MG TAB PO PRN (20:20)
[2023-05-12] MEDS: ROPINIROLE HCL 1 MG TAB PO SCH (20:21)
[2023-05-12] MEDS ORDERED: NA CHLORIDE 0.9% 100 ML ONE (20:28)
[2023-05-12 20:45] LABS: Hematocrit 31.8 % (36.0-45.0)
[2023-05-12 23:27] VITALS: BMI 17.2
[2023-05-12] MEDS: MORPHINE 2 MG/ML SYR IV PRN (23:28)
[2023-05-13] MEDS: CEFAZOLIN 1 GM in NA CHLORIDE 0.9% 50 ML IVPB SCH ×2 (00:32→07:56)
[2023-05-13] MEDS: HYDROCODONE/APAP 7.5/325 MG TAB PO PRN ×3 (02:04→16:01)
[2023-05-13] MEDS: ONDANSETRON 4 MG/2 ML VIAL IV PRN (02:08)
[2023-05-13 02:13] LABS: Hematocrit 28.3 % (36.0-45.0)
[2023-05-13] MEDS: MORPHINE 2 MG/ML SYR IV PRN ×3 (07:54→20:23)
[2023-05-13] MEDS: CALCIUM CARB 500MG/VIT D 200 IU TAB PO SCH (07:56)
[2023-05-13] MEDS: ESCITALOPRAM 20 MG TAB PO SCH (07:56)
[2023-05-13] MEDS: MAGNESIUM OXIDE 400 MG TAB PO SCH (07:56)
[2023-05-13] MEDS: PANTOPRAZOLE 40MG TABLET PO SCH (07:56)
[2023-05-13] MEDS: ENSURE PLANT-BASED PROTEIN VANILLA 330 ML CAN PO SCH (07:57)
[2023-05-13] MEDS: ENOXAPARIN 40 MG/0.4 ML SQ SCH (07:57)
[2023-05-13] MEDS: predniSONE 10 MG TAB PO SCH (07:57)
--- NOTE | 2023-05-13 08:59 | P.PN ---
Date of Service: 05/13/23 Subjective: Having a lot of pain this morning to left hip No other acute events overnight ROS: 10 point ROS as noted above, otherwise negative Physical exam GEN: Alert, oriented, NAD HEENT: Normal conjunctiva, sclera anicteric CV: Regular rate and rhythm, no edema Pulm: Nonlabored respirations on room air ABD: Soft, nontender, nondistended MSK: No joint tenderness Integumentary: Dressing to left hip CDI Neuro: Normal speech, normal affect Vitals reviewed Problem List Left hip arthritis status post arthroplasty, hardware removal 05/12/2023 Rheumatoid arthritis GERD Restless leg syndrome Anxiety/depression Plan: Left hip arthritis status post arthroplasty, hardware removal 05/12/2023 Continue with plan per Ortho PT, hospice social worker consult in place WBAT with posterior hip precautions LLE As needed pain medications Rheumatoid arthritis Takes prednisone 10 mg daily chronically, continued As needed pain medication GERD PPI continued Restless leg syndrome Ropinirole continued Anxiety/depression Continue home medication DVT PPX: Lovenox 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 Plan of care discussed with EEG TECHNICIAN Vaughn. Agree with plan as noted above with the following additions/corre ctions: Patient quite a bit of pain overnight and this morning, doing much better this afternoon Ambulated with physical therapy around the floor States she has 3 large steps to get into her house/IV, and is concerned that she will be able to go up the steps Will discuss further with physical therapy, to practice on steps prior to discharge Otherwise doing okay, anticipate DC home in the next 24 hours <Geovanni Viveros - Last Filed: 05/13/23 18:20>
[2023-05-13] MEDS: ROPINIROLE HCL 1 MG TAB PO SCH (20:19)
[2023-05-14] MEDS: HYDROCODONE/APAP 7.5/325 MG TAB PO PRN ×2 (01:20→20:41)
[2023-05-14] MEDS: ONDANSETRON 4 MG/2 ML VIAL IV PRN ×3 (01:21→20:53)
[2023-05-14 02:27] LABS: Hematocrit 30.3 % (36.0-45.0)
[2023-05-14] MEDS: MORPHINE 2 MG/ML SYR IV PRN (06:48)
[2023-05-14] MEDS: ENSURE PLANT-BASED PROTEIN VANILLA 330 ML CAN PO SCH (09:00)
[2023-05-14] MEDS: MAGNESIUM OXIDE 400 MG TAB PO SCH (09:00)
[2023-05-14] MEDS: ESCITALOPRAM 20 MG TAB PO SCH (09:42)
[2023-05-14] MEDS: CALCIUM CARB 500MG/VIT D 200 IU TAB PO SCH (09:42)
[2023-05-14] MEDS: ENOXAPARIN 40 MG/0.4 ML SQ SCH (09:43)
[2023-05-14] MEDS: predniSONE 10 MG TAB PO SCH (09:43)
[2023-05-14] MEDS: PANTOPRAZOLE 40MG TABLET PO SCH (09:43)
--- NOTE | 2023-05-14 16:12 | P.DS ---
Admission Date: 05/12/23 Discharge Date: 05/14/23 Disposition: DC HOME/HOME HEALTH CARE Discharge Condition: GOOD Reason for Admission: Left hip pain Procedures: Left hip arthroplasty Brief History of Present Illness: 53-year-old female with history of rheumatoid arthritis, GERD, restless leg syndrome, anxiety/depression had surgery today with Dr. Faulkner for left hip arthritis with retained hardware, she had a total hip arthroplasty with hardware removal. Hospitalist team has been consulted for assistance with medical management Hospital Course: Problem List Left hip arthritis status post arthroplasty, hardware removal 05/12/2023 Rheumatoid arthritis GERD Restless leg syndrome Anxiety/depression Patient was admitted to the hospital under observation after receiving a total left hip arthroplasty secondary to left hip arthritis with retained hardware. She tolerated the procedure well, had some significant pain thereafter admission but was able to work with physical therapy walking 250 feet, also was able to walk up steps as she has 3 steps to walk up at home. At this time she is stable for discharge. Follow-up with primary care doctor and orthopedics in 1 to 2 weeks. Vital Signs/Physical Exam: Temp Pulse Resp BP Pulse Ox 97.5 F 71 16 95/67 96 05/14/23 11:47 05/14/23 11:47 05/14/23 11:47 05/14/23 11:47 05/14/23 11:47 General: Alert, In no apparent distress, Oriented x3 HEENT: Atraumatic, PERRLA, EOMI Neck: Supple, JVD not distended Respiratory: Clear to auscultation bilaterally, Normal air movement Cardiovascular: Regular rate/rhythm, Normal S1 S2 Gastrointestinal: Normal bowel sounds Musculoskeletal: No tenderness Integumentary: No rashes Neurological: Normal speech, Normal tone Laboratory Data at Discharge: WBC 5.90 thou/uL (4.3-10.9) 05/07/23 10:58 Hgb 10.5 g/dL (12.0-15.0) L 05/14/23 01:47 Hct 30.3 % (36.0-45.0) L 05/14/23 01:47 Plt Count 138 thou/uL (152-406) L 05/07/23 10:58 Sodium 140 mEq/L (136-145) 05/07/23 10:58 Potassium 4.0 mEq/L (3.5-5.1) 05/07/23 10:58 BUN 11 mg/dL (7-18) 05/07/23 10:58 Creatinine 0.71 mg/dL (0.55-1.02) 05/07/23 10:58 Glucose 97 mg/dL (74-106) 05/07/23 10:58 Home Medications: Ropinirole HCl [Requip*] 1 mg PO BEDTIME 03/26/22 predniSONE [Deltasone*] 10 mg PO DAILY 03/26/22 Calcium Carbonate [Calcium] 600 mg PO DAILY 05/07/23 Escitalopram [Lexapro*] 20 mg PO DAILY 05/07/23 Lactose-Reduced Food [Ensure Complete] 296 ml PO DAILY 05/07/23 Magnesium [Magnesium Gluconate] 200 mg PO DAILY 05/07/23 Omeprazole 20 mg PO DAILY 05/07/23 Hydrocodone/Acetaminophen [Hydrocodon-Acetaminoph 7.5-325] 1 tab PO Q6H PRN #20 tab 05/13/23 New Medications: Hydrocodone/Acetaminophen [Hydrocodon-Acetaminoph 7.5-325] 1 tab PO Q6H PRN #20 tab PRN Reason: Pain Scale 5-7 (Moderate) Physician Discharge Instructions: Patient was admitted to the hospital under observation after receiving a total left hip arthroplasty secondary to left hip arthritis with retained hardware. She tolerated the procedure well, had some significant pain thereafter admission but was able to work with physical therapy walking 250 feet, also was able to walk up steps as she has 3 steps to walk up at home. At this time she is stable for discharge. Follow-up with primary care doctor and orthopedics in 1 to 2 weeks. Diet: Regular Activity: Weight bearing as tolerated Followup: Kenroy Faulkner MD [ACTIVE - CAN ADMIT] - 1-2 Weeks James Engel MD [Primary Care Provider] - 1-2 Weeks () Time spent managing pt's care (in minutes): 25
[2023-05-14] MEDS: ROPINIROLE HCL 1 MG TAB PO SCH (20:41)
[2023-05-14 22:35] VITALS: BP 101/62; TEMP 97.2
[2023-05-15 00:34] VITALS: O2SAT 99
== END 2023-05-14 23:15 | disposition home health service (06) ==
LOC: PRE 09:55 → 2ND 19:38
PROVIDERS: ADMIT Orthopaedic Surgery; ATTEND Orthopaedic Surgery
PROC: 0SRB019 Replacement of Left Hip Joint with Metal Synthetic Substitute, Cemented, Open Approach (ICD-10-PCS; 2023-05-12)
PROC: 0YPB0YZ Removal of Other Device from Left Lower Extremity, Open Approach (ICD-10-PCS; principal; 2023-05-12 11:30)
DX: M16.12 Unilateral primary osteoarthritis, left hip (principal); T85.848A Pain due to other internal prosthetic devices, implants and grafts, initial encounter; K21.9 Gastro-esophageal reflux disease without esophagitis; G25.81 Restless legs syndrome; F41.9 Anxiety disorder, unspecified; F32.A Depression, unspecified
CPT/HCPCS: 20680; 27130; 93005; 85025; 80048; 36415 ×3; 82947; 88300; 88304; 88311; 85018 ×4; 85014 ×4; 73501; 97116 ×3; 97161; 97530 ×2; C1776; J2704 ×2; J7512 ×2; J3475; A4216 ×2; J2001 ×4; J2371; J1650 ×2; J2250 ×2; J3010; J1100; J2270 ×5; J0171 ×2; J1170; J2405 ×5; J1720; G0378 ×4; J7120 ×4; J0690 ×5; G0379; 88305

== ENCOUNTER → 2023-08-29 | Emergency (ER) | payer OTHER ==
[~2023-08-29] MED LIST: FENTANYL CITR 100 MCG/2 ML ONE; KETOROLAC 30 MG/ML INJ ONE
--- NOTE | 2023-08-29 17:50 | RAD REPORT ---
EXAM DESCRIPTION: RAD - Knee Left 3 View - 08/29/2023 5:40 pm CLINICAL HISTORY: PAIN COMPARISON: No comparisons FINDINGS/IMPRESSION: No acute fracture. No malalignment. No significant focal degenerative changes. Osteopenia.
--- NOTE | 2023-08-29 18:08 | EDPHYS ---
Physician Documentation [facility] Name: Cindy Garcia Age: 53 yrs Sex: Female : 1970 Arrival Date: 08/29/2023 Time: 16:31 Bed 15 Private MD: James Engel ED Physician Akin Gunderson HPI: 08/28 17:35 This 53 yrs old Female presents to ER via Wheelchair with complaints of Knee Injury. cp 17:35 The patient presents with an injury, pain, that is acute. cp 17:35 The complaints affect the left knee. Context: the patient can fully bear weight, the cp patient is able to ambulate, with moderate difficulty, Problem is a result from a previous injury: Yes. lost balance causing twisting injury to left knee. Onset: The symptoms/episode began/occurred 2 day(s) ago. Associated signs and symptoms: The patient has no apparent associated signs or symptoms. 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 - Social history:: Smoking status: Reported history of juuling and/or vaping. ROS: 17:40 MS/extremity: Positive for pain, tenderness, of the left knee, painful ROM, Negative cp for deformity, 17:40 Constitutional: Negative for body aches, chills, fever, cp Exam: 17:45 Constitutional: The patient appears in no acute distress, alert, awake, non-toxic, well cp developed, well nourished, uncomfortable, 17:45 Head/Face: Normocephalic, atraumatic. cp 17:45 Eyes: Periorbital structures: appear normal, Conjunctiva: normal, no exudate, no injection, Sclera: no appreciated abnormality, Lids and lashes: appear normal, bilaterally, 17:45 ENT: External ear(s): are unremarkable, Nose: is normal, Mouth: Lips: moist, Oral mucosa: pink and intact, moist, Posterior pharynx: Airway: no evidence of obstruction, patent, 17:45 Chest/axilla: Inspection: normal, 17:45 Cardiovascular: Rate: normal, 17:45 Respiratory: the patient does not display signs of respiratory distress, Respirations: normal, 17:45 Abdomen/GI: Inspection: abdomen appears normal, 17:45 Back: pain, is absent, ROM is normal, 17:45 Musculoskeletal/extremity: Extremities: noted in the left knee: pain to palpation pre-patellar tendon and patellar tendon, no swelling, pain with passive ROM, no joint line tenderness, Vital Signs: 17:09 BP 127 / 97; Pulse 71; Resp 15; Temp 98.2; Pulse Ox 100% ; ko1 18:33 BP 118 / 89; Pulse 73; Resp 18; Temp 97.5; Pulse Ox 99% on R/A; ph MDM: 17:20 Patient medically screened. [facility] 18:06 Data reviewed: vital signs, nurses notes, radiologic studies, plain films. 18:06 I considered the following discharge prescriptions or medication management in the emergency department Medications were administered in the Emergency Department. See MAR. Independent interpretation of the following test(s) in the Emergency Department X-Ray: My interpretation is images of left knee negative for fracture. Counseling: I had a detailed discussion with the patient and/or guardian regarding the historical points, exam findings, and any diagnostic results supporting the discharge/admit diagnosis, radiology results, the need for outpatient follow up, a orthopedic surgeon, to return to the emergency department if symptoms worsen or persist or if there are any questions or concerns that arise at home. Response to treatment: the patient's symptoms have mildly improved after treatment. 08/28 17:33 Order name: XRAY Knee LEFT 3 view; Complete Time: 18:06 cp 08/28 18:06 Order name: Jassi wrap-joint; Complete Time: 18:56 cp Administered Medications: 18:32 Drug: Ketorolac IM 30 mg IM once Route: IM; Site: right deltoid; ph 18:56 Follow up: Response: No adverse reaction ph 18:32 Drug: fentaNYL (PF) IM 25 mcg IM once Route: IM; Site: right deltoid; ph 18:56 Follow up: Response: No adverse reaction ph Disposition Summary: 08/29/23 18:07 Discharge Ordered Notes: Location: Home cp Problem: new cp Symptoms: have improved cp Condition: Stable cp Diagnosis - Pain in left knee cp Followup: cp - With: Kenroy Faulkner MD - When: 5 - 6 days - Reason: Recheck today's complaints Discharge Instructions: - Discharge Summary Sheet cp - Elastic Bandage and RICE Therapy cp - How to Use a Knee Brace cp - Acute Knee Pain, Adult cp Forms: - Medication Reconciliation Form cp - Thank You Letter cp - Antibiotic Education cp - Prescription Opioid Use cp - Patient Portal Instructions cp - Leadership Thank You Letter cp Prescriptions: - diclofenac potassium 50 mg Oral tablet - take 1 tablet ORAL route every 12 hours as needed for pain; 20 tablet; Refills: cp 0, Product Selection Permitted Signatures: Dispatcher [employer] EDAkin Chapin MD MD cha Hall, Patricia RN RN Akin Hdz, GREG PA Lori Bazan, RN RN ko1
--- NOTE | 2023-08-29 18:08 | ER ---
Nurse's Notes [facility] Name: Cindy Garcia Age: 53 yrs Sex: Female : 1970 Arrival Date: 08/29/2023 Time: 16:31 Bed 15 Private MD: James Engel Diagnosis: Pain in left knee Presentation: 08/28 17:09 Chief complaint: Patient states: lost balance 2 days ago and "pulled left knee", has ko1 had a previous surgery on it and is afraid the ligament tore. Coronavirus screen: At this time, the client does not indicate any symptoms associated with coronavirus-19. Ebola Screen: No symptoms or risks identified at this time. Initial Sepsis Screen: Does the patient meet any 2 criteria? No. Patient's initial sepsis screen is negative. Does the patient have a suspected source of infection? No. Patient's initial sepsis screen is negative. Risk Assessment: Do you want to hurt yourself or someone else? Patient reports no desire to harm self or others. Onset of symptoms is unknown. 17:09 Method Of Arrival: Wheelchair ko1 17:09 Acuity: JOSE MIGUEL 3 ko1 Triage Assessment: 17:11 General: Appears in no apparent distress. slender, Behavior is calm, cooperative, ko1 appropriate for age. Pain: Complains of pain in left knee. Musculoskeletal: Reports pain in left knee. Injury Description: twisted. 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 - Social history:: Smoking status: Reported history of juuling and/or vaping. Screenin:40 [facility] ED Fall Risk Assessment (Adult) History of falling in the last 3 months, ph including since admission No falls in past 3 months (0 pts). [facility] ED Fall Risk Assessment (Adult) Confusion or Disorientation No (0 pts) Intoxicated or Sedated No (0 pts) Impaired Gait Yes (1 pt) Mobility Assist Device Used No (0 pt) Altered Elimination No (0 pt) Score/Fall Risk Level 0 - 2 = Low Risk Oriented to surroundings, Maintained a safe environment, Hourly rounding (assess needs \\T\\ fall precautionary measures) done. Abuse screen: Denies threats or abuse. Denies injuries from another. Nutritional screening: No deficits noted. Tuberculosis screening: No symptoms or risk factors identified. Assessment: 18:33 General: Appears in no apparent distress. Behavior is calm, cooperative. Pain: ph Complains of pain in left knee. Neuro: Level of Consciousness is awake, alert, obeys commands, Oriented to person, place, time, situation. Derm: Skin is pink, warm \\T\\ dry. Vital Signs: 17:09 BP 127 / 97; Pulse 71; Resp 15; Temp 98.2; Pulse Ox 100% ; ko1 18:33 BP 118 / 89; Pulse 73; Resp 18; Temp 97.5; Pulse Ox 99% on R/A; ph ED Course: 16:33 Patient arrived in ED. mr 16:34 James Engel MD is Private Physician. mr 17:11 Triage completed. ko1 17:11 Arm band placed on right wrist. Patient placed in waiting room, in a wheelchair, ko1 Patient notified of wait time. 17:19 Akin Donaldson PA is PHCP. cp 17:19 Akin Gunderson MD is Attending Physician. cp 17:39 Brittny Smith, AGUSTINA is Primary Nurse. ph 17:41 XRAY Knee LEFT 3 view In Process Unspecified. EDMS 18:07 Kenroy Faulkner MD is Referral Physician. cp 18:33 Patient has correct armband on for positive identification. Bed in low position. Call ph light in reach. Side rails up X 1. Pulse ox on. NIBP on. Door closed. Noise minimized. Warm blanket given. 18:33 No provider procedures requiring assistance completed. Patient did not have IV access ph during this emergency room visit. Jassi wrap to left knee. Administered Medications: 18:32 Drug: Ketorolac IM 30 mg IM once Route: IM; Site: right deltoid; ph 18:56 Follow up: Response: No adverse reaction ph 18:32 Drug: fentaNYL (PF) IM 25 mcg IM once Route: IM; Site: right deltoid; ph 18:56 Follow up: Response: No adverse reaction ph Medication: 17:40 VIS not applicable for this client. ph Outcome: 18:07 Discharge ordered by . cp 18:57 Discharged to home via wheelchair, ph 18:57 Discharged to home with friend, 18:57 Condition: good 18:57 Discharge instructions given to patient, Instructed on discharge instructions, follow up and referral plans. medication usage, Demonstrated understanding of instructions, follow-up care, medications, Prescriptions given X 1, 18:57 Patient left the ED. ph Signatures: Dispatcher [employer] EDMS Jaymie Basilio, Reg Reg mr Brittny Smith, RN RN ph Akin Donaldson PA PA cp Oliver, Kathy, RN RN ko1
[2023-08-29 19:16] VITALS: BP 118/89; TEMP 97.5; O2SAT 99
== END ==
LOC: ER 16:31
DX: M25.562 Pain in left knee (principal); Z88.5 Allergy status to narcotic agent; Z88.6 Allergy status to analgesic agent
CPT/HCPCS: 73562; 96372; 99284; J3010

== ENCOUNTER 2023-08-30 22:32 | Inpatient (IN) | payer OTHER ==
[2023-08-30 23:24] LABS: Absolute Lymphocytes (CBC) 0.6 K/uL (0.7-4.9); Absolute Monocytes 0.5 K/uL (0.1-1.3); Absolute Neutrophil 6.3 K/uL (1.8-8.0); Basophils % 0.1 % (0-1.3); Eosinophils % 0.3 % (0-4.4); Hematocrit 38.8 % (36.0-45.0); Hemoglobin 13.3 g/dL (12.0-15.0); Lymphocytes % 7.9 % (15.3-44.8); MCH 28.9 pg (27.0-35.0); MCHC 34.2 g/dL (32.0-36.0); MCV 84.4 fL (80-100); MPV 8.3 fL (7.6-11.3); Monocytes % 6.9 % (3.3-12.3); Neutrophils % 84.8 % (41.7-73.7); Platelets 122 thou/uL (152-406); Red Cell Distribution Width 15.3 % (12.1-15.2)
[2023-08-30 23:36] LABS: PTT, Activated Partial Thromb 26.3 SECONDS (24.3-36.9)
[2023-08-30 23:44] LABS: ALT/SGPT 20 U/L (13-56); AST/SGOT 11 U/L (15-37); Albumin 3.3 g/dL (3.4-5.0); Alkaline Phosphatase 85 U/L (45-117); Anion Gap 10.1 mEq/L (5.0-15.0); BUN Blood Urea Nitrogen 13 mg/dL (7-18); Bicarbonate 24 mEq/L (21-32); Globulin 3.2 g/dL (2.3-3.5); Glomerular Filtration Rate 103 ml/min (=/>90); Glucose Level 138 mg/dL (74-106); Potassium 3.1 mEq/L (3.5-5.1); Protein, Total 6.5 g/dL (6.4-8.2); Sodium Level 138 mEq/L (136-145)
[2023-08-31 00:03] LABS: Troponin High Sensitivity < 3.0 pg/mL (<58.9)
[2023-08-31 00:05] LABS: SARS-CoV-2 Antigen CONTROL BLUE LINE VIS/BG OK; SARS-CoV-2 Antigen Rapid Res Negative (Negative); Sqamous Epithelial <5 /HPF (None Seen); Urine Bacteria None Seen /HPF (<20); Urine Bilirubin NEGATIVE (Negative); Urine Blood Negative (Negative); Urine Clarity Turbid (Clear); Urine Color Light-Yellow (Yellow); Urine Culture Reflex Order NOT NEEDED; Urine Glucose NEGATIVE (Negative); Urine Ketones NEGATIVE (Negative); Urine Microscopic Reflex YN ORDER UMIC; Urine Mucus Slight /HPF (None Seen); Urine Nitrite NEGATIVE (Negative); Urine Protein NEGATIVE (Negative); Urine RBC None Seen /HPF (None Seen); Urine Urobilinogen 1+ (Normal); Urine WBC <5 /HPF (<5); Urine pH 5.5 (5.0-7.0)
[2023-08-31] MEDS ORDERED: POTASSIUM CL SA 10 MEQ TAB PO ONE (00:55)
[2023-08-31] MEDS ORDERED: NA CHLORIDE 0.9% 500 ML ONE (00:55)
[2023-08-31] MEDS ORDERED: KCL 20 MEQ/100 mL IVPB 100 ML IV ONE (00:55)
--- NOTE | 2023-08-31 03:35 | ER ---
Nurse's Notes [facility] Name: Cindy Garcia Age: 53 yrs Sex: Female : 1970 Arrival Date: 08/30/2023 Time: 22:32 Bed 15 Private MD: Diagnosis: Infectious gastroenteritis and colitis, unspecified;Intussusception-transient, in setting of enteritis;Hypokalemia;Dehydration Presentation: 08/29 22:35 Chief complaint: EMS states: Patient states that she has been diaphoretic and yb generalized body weakness x 1 day and worsening. Glucose per EMS 115 who gave zofran 4mg IV and IVFs. Hx. Celiac Disease. 22:35 Coronavirus screen: Vaccine status: Patient reports being unvaccinated. Client denies yb travel out of the [place] in the last 14 days. Ebola Screen: Patient negative for fever greater than or equal to 101.5 degrees Fahrenheit, and additional compatible Ebola Virus Disease symptoms. Initial Sepsis Screen: Does the patient meet any 2 criteria? No. Patient's initial sepsis screen is negative. Initial Sepsis Screen: Does the patient have a suspected source of infection? No. Patient's initial sepsis screen is negative. Risk Assessment: Do you want to hurt yourself or someone else? Patient reports no desire to harm self or others. Onset of symptoms was August 30, 2023. Care prior to arrival: Medication(s) given: Normal saline infusion, 500 mL, 1000 mL, 200 zofran 4 mg. Transition of care: patient was not received from another setting of care. 22:35 Method Of Arrival: EMS: [facility] yb 22:35 Acuity: JOSE MIGUEL 3 yb Triage Assessment: 22:47 General: Appears slender, unkempt, emaciated, Behavior is calm, cooperative, crying, yb Smells of Reports feeling ill for 12-24 hours, Denies. Pain: Denies pain. EENT: Oral mucosa is dry. Poor dentition noted. Neuro: No deficits noted. Level of Consciousness is awake, alert, obeys commands. Cardiovascular: Denies chest pain. Respiratory: No deficits noted. Airway is patent Respiratory effort is even, unlabored, Respiratory pattern is regular. Derm: Rash noted that is red, on right leg, lateral aspect of left foot and dorsum of left foot. Musculoskeletal: Circulation, motion, and sensation intact. Capillary refill < 3 seconds, Reports weakness in right arm, left arm, right leg, left leg, back of left arm, back of right arm, back of left leg and back of right leg. Historical: - Allergies: 22:45 Cyclobenzaprine; yb 22:45 OxyContin; yb 22:45 Oxycodone HCl; yb - PMHx: 22:45 celiac; chiari malformation; GERD; Osteoporosis; Pseudothrombocytopenia; Rheumatoid yb Arthritis; - PSHx: 22:45 Appendectomy; Cholecystectomy; yb - Immunization history:: Adult Immunizations not up to date, Client reports having NOT received the Covid vaccine. Last tetanus immunization: unknown, Pneumococcal vaccine is not up to date, Flu vaccine is not up to date. - Social history:: Smoking status: Reported history of juuling and/or vaping. Patient uses Patient/guardian denies using The patient lives alone. - Family history:: not pertinent. - Hospitalizations: : No recent hospitalization is reported. Screenin/25 04:15 [facility] ED Fall Risk Assessment (Adult) History of falling in the last 3 months, tm6 including since admission No falls in past 3 months (0 pts) Confusion or Disorientation No (0 pts) Intoxicated or Sedated No (0 pts) Impaired Gait Yes (1 pt) Mobility Assist Device Used No (0 pt) Altered Elimination No (0 pt) Score/Fall Risk Level 0 - 2 = Low Risk Oriented to surroundings, Maintained a safe environment. Abuse screen: Denies threats or abuse. Denies injuries from another. Nutritional screening: No deficits noted. Tuberculosis screening: No symptoms or risk factors identified. Assessment: 08/29 22:40 General: See triage assessment. yb 23:40 Reassessment: Patient and/or family updated on plan of care and expected duration. Pain ha1 level reassessed. Patient is alert, oriented x 3, equal unlabored respirations, skin warm/dry/pink. 08/30 00:45 Reassessment: Patient and/or family updated on plan of care and expected duration. Pain ha1 level reassessed. Patient is alert, oriented x 3, equal unlabored respirations, skin warm/dry/pink. Patient states feeling better. Patient states symptoms have improved. 02:00 Reassessment: Patient and/or family updated on plan of care and expected duration. Pain yb level reassessed. Patient is alert, oriented x 3, equal unlabored respirations, skin warm/dry/pink. Patient denies pain at this time. 03:36 Reassessment: Patient and/or family updated on plan of care and expected duration. Pain yb level reassessed. Patient is alert, oriented x 3, equal unlabored respirations, skin warm/dry/pink. Provider at bedside. 04:21 Reassessment: Patient and/or family updated on plan of care and expected duration. Pain yb level reassessed. Patient is alert, oriented x 3, equal unlabored respirations, skin warm/dry/pink. Hospitalist at bedside. Vital Signs: 08/29 22:35 BP 120 / 89; Pulse 80; Resp 18; Temp 98(TE); Pulse Ox 99% ; yb 23:00 BP 99 / 79; Pulse 62; Resp 16; Pulse Ox 99% ; yb 23:30 BP 101 / 72; Pulse 57; Resp 18; Pulse Ox 100% ; yb 08/30 00:00 BP 97 / 70; Pulse 62; Resp 18; Pulse Ox 99% ; yb 00:45 BP 95 / 66; Pulse 64; Resp 17 S; Pulse Ox 99% on R/A; ha1 01:30 BP 95 / 68; Pulse 61; Resp 18; Pulse Ox 97% ; yb 02:15 BP 101 / 67; Pulse 64; Resp 18; Pulse Ox 97% on R/A; yb 03:04 BP 110 / 76; Pulse 84; Resp 18; Pulse Ox 99% on R/A; yb 04:15 BP 94 / 74; Pulse 65; Resp 14; Pulse Ox 96% on R/A; tm6 ED Course: 08/29 22:35 Patient arrived in ED. wm 22:36 Yosvany Viveros MD is Attending Physician. rn 22:40 Beverly Steiner RN is Primary Nurse. yb 22:40 Arm band placed on right wrist. tm6 22:40 Patient has correct armband on for positive identification. Placed in gown. Bed in low tm6 position. Call light in reach. Side rails up X2. Provided Education on: need for admit. Client placed on continuous cardiac and pulse oximetry monitoring. NIBP monitoring applied. personnel monitor on. Pulse ox on. NIBP on. 22:45 Triage completed. yb 22:55 Urinalysis w/ reflexes Sent. tm6 22:55 Flu Sent. tm6 22:55 SARS RAPID Sent. tm6 22:59 Chest Single View XRAY In Process Unspecified. EDMS 23:00 Inserted saline lock: 20 gauge in right forearm, using aseptic technique. Blood yb collected. 08/30 02:40 CT Abd/Pelvis - IV Contrast Only In Process Unspecified. EDMS 03:03 Warm blanket given. Verbal reassurance given. Head of bed elevated. Cleaned of yb incontinence. Linen changed. 03:33 Santana Hines is Hospitalizing Provider. rn 03:40 Assisted with bedpan. yb 05:07 No provider procedures requiring assistance completed. Patient admitted, IV remains in tm6 place. Administered Medications: 08/29 23:32 Drug: NS 0.9% IV 500 ml IV at bolus once Route: IV; Rate: bolus; Infused Over: 30 mins; yb Site: right forearm; 08/30 00:00 Follow up: Response: No adverse reaction; IV Status: Completed infusion; IV Intake: yb 500ml 01:04 Drug: Potassium Chloride IV 20 mEq IV at calculated rate once; administer over 1-2 ha1 hours Route: IV; Rate: calculated rate; Site: right forearm; 03:33 Follow up: Response: No adverse reaction; Cardiac rhythm is unchanged; IV Status: yb Completed infusion; IV Intake: 100ml 01:04 Drug: Potassium Chloride PO 40 mEq PO once Route: PO; ha1 03:00 Follow up: Response: No adverse reaction; Cardiac rhythm is unchanged yb 01:04 Drug: NS 0.9% IV 500 ml IV at bolus once Route: IV; Rate: bolus; Site: right forearm; ha1 05:09 Follow up: IV Status: Completed infusion; IV Intake: 500ml tm6 Medication: 05:09 VIS not applicable for this client. tm6 Intake: 00:00 IV: 500ml; Total: 500ml. yb 03:33 IV: 100ml; Total: 600ml. yb 05:09 IV: 500ml; Total: 1100ml. tm6 Outcome: 03:34 Decision to Hospitalize by Provider. rn 05:06 Admitted to Med/surg room 420, with chart, Report called to report faxed to 4th floor tm6 05:06 Condition: stable 05:06 Instructed on the need for admit, 06:07 Patient left the ED. tm6 Signatures: Dispatcher [employer] EDMS Yosvany Viveros MD MD rn Keyonna Auguste Heidy, RN RN ha1 Maryanne Anaya RN RN tm6 Beverly Steiner RN RN yb
--- NOTE | 2023-08-31 03:35 | EDPHYS ---
Physician Documentation [facility] Name: Cindy Garcia Age: 53 yrs Sex: Female : 1970 Arrival Date: 08/30/2023 Time: 22:32 Bed 15 Private MD: ED Physician Yosvany Viveros HPI: 08/29 23:36 This 53 yrs old Female presents to ER via EMS with complaints of weakness. rn 23:37 Patient reports feels generalized weakness and malaise. Began tonight. Denies fever food counselor illness. No chest pain or shortness of breath. No abdominal pain. No vomiting or diarrhea. Patient reports has had this happen multiple times and has had issues with her potassium and magnesium being low. Denies head injury.. Onset: The symptoms/episode began/occurred today. Severity of symptoms: At their worst the symptoms were mild in the emergency department the symptoms are unchanged. The patient has experienced similar episodes in the past. The patient has not recently seen a physician. Historical: - Allergies: 22:45 Cyclobenzaprine; yb 22:45 OxyContin; yb 22:45 Oxycodone HCl; yb - PMHx: 22:45 celiac; chiari malformation; GERD; Osteoporosis; Pseudothrombocytopenia; Rheumatoid yb Arthritis; - PSHx: 22:45 Appendectomy; Cholecystectomy; yb - Immunization history:: Adult Immunizations not up to date, Client reports having NOT received the Covid vaccine. Last tetanus immunization: unknown, Pneumococcal vaccine is not up to date, Flu vaccine is not up to date. - Social history:: Smoking status: Reported history of juuling and/or vaping. Patient uses Patient/guardian denies using The patient lives alone. - Family history:: not pertinent. - Hospitalizations: : No recent hospitalization is reported. ROS: 23:37 Constitutional: Negative for fever, chills, and weight loss, Eyes: Negative for injury, rn pain, redness, and discharge, Neck: Negative for injury, pain, and swelling, Cardiovascular: Negative for chest pain, palpitations, and edema, Respiratory: Negative for shortness of breath, cough, wheezing, and pleuritic chest pain, Abdomen/GI: Negative for abdominal pain, nausea, vomiting, diarrhea, and constipation, Back: Negative for injury and pain, MS/Extremity: Negative for injury and deformity, Skin: Negative for injury, rash, and discoloration, Neuro: Positive for generalized weakness and malaise. Negative for focal weakness. No headache. No seizure. Exam: 23:37 Constitutional: This is a well developed, well nourished patient who is awake, alert, rn and in no acute distress. Head/Face: Normocephalic, atraumatic. Eyes: Pupils equal round and reactive to light, extra-ocular motions intact. ENT: Dry mucous membranes, no stridor Neck: Trachea midline, no masses palpated, and no cervical lymphadenopathy. Supple, full range of motion without nuchal rigidity, or vertebral point tenderness. No Meningismus. Cardiovascular: Regular rate and rhythm. No pulse deficits. Respiratory: No increased work of breathing, no retractions or nasal flaring. Abdomen/GI: Soft, non-tender MS/ Extremity: Pulses equal, no cyanosis. Neuro: Awake and alert, GCS 15, oriented to person, place, time, and situation. Cranial nerves II-XII grossly intact. Motor strength 4/5 in all extremities. Sensory grossly intact. Vital Signs: 22:35 BP 120 / 89; Pulse 80; Resp 18; Temp 98(TE); Pulse Ox 99% ; yb 23:00 BP 99 / 79; Pulse 62; Resp 16; Pulse Ox 99% ; yb 23:30 BP 101 / 72; Pulse 57; Resp 18; Pulse Ox 100% ; yb 08/30 00:00 BP 97 / 70; Pulse 62; Resp 18; Pulse Ox 99% ; yb 00:45 BP 95 / 66; Pulse 64; Resp 17 S; Pulse Ox 99% on R/A; ha1 01:30 BP 95 / 68; Pulse 61; Resp 18; Pulse Ox 97% ; yb 02:15 BP 101 / 67; Pulse 64; Resp 18; Pulse Ox 97% on R/A; yb 03:04 BP 110 / 76; Pulse 84; Resp 18; Pulse Ox 99% on R/A; yb 04:15 BP 94 / 74; Pulse 65; Resp 14; Pulse Ox 96% on R/A; tm6 MDM: 08/29 22:36 Patient medically screened. rn 08/30 03:29 Differential Diagnosis electrolyte disorder, dehydration, hypokalemia, enteritis, viral rn syndrome. Data reviewed: vital signs, nurses notes, lab test result(s), radiologic studies, CT scan, and as a result, I will admit patient. Consideration of Admission/Observation Patient was admitted/placed on observation. Escalation of care including admission/observation considered. Counseling: I had a detailed discussion with the patient and/or guardian regarding the historical points, exam findings, and any diagnostic results supporting the discharge/admit diagnosis, lab results, radiology results, the need for further work-up and treatment in the hospital. Response to treatment: the patient's symptoms have mildly improved after treatment, and as a result, I will admit patient. ED course: CT shows enteritis and possible transient intussusception as seen with enteritis. Normal WBC, negative lactate. Patient most likely early in her clinical picture or illness. Patient feeling better after IV fluids. No abdominal pain or peritoneal signs. Will admit to hospitalist service for further care, IV hydration, and observation. 08/29 22:45 Order name: Blood Culture Adult (2) 08/29 22:45 Order name: CBC with Diff; Complete Time: 23:36 08/29 22:45 Order name: CMP 08/29 22:45 Order name: Lactate w/ 2H reflex if indic.; Complete Time: 00:37 08/29 22:45 Order name: Protime (+inr); Complete Time: 00:37 08/29 22:45 Order name: Ptt, Activated; Complete Time: 00:37 08/29 22:45 Order name: Urinalysis w/ reflexes; Complete Time: 00:37 08/29 22:45 Order name: Troponin High Sensitivity 08/29 22:45 Order name: SARS RAPID; Complete Time: 00:37 08/29 22:45 Order name: Flu; Complete Time: 00:37 08/29 23:14 Order name: Glucose, Ancillary Testing; Complete Time: 23:36 EDMS 08/30 04:41 Order name: Thyroid Stimulating Hormone EDMS 08/30 04:41 Order name: Urinalysis w/ reflexes EDMS 08/30 04:41 Order name: Basic Metabolic Panel EDMS 08/30 04:41 Order name: Basic Metabolic Panel EDMS 08/30 04:41 Order name: CBC with Automated Diff EDMS 08/30 04:41 Order name: CBC with Automated Diff EDMS 08/30 04:41 Order name: Magnesium EDMS 08/30 04:41 Order name: Magnesium EDMS 08/30 04:41 Order name: Phosphorus EDMS 08/30 04:41 Order name: Phosphorus EDMS 08/30 05:58 Order name: Thyroid Stimulating Hormone EDMS 08/29 22:45 Order name: Chest Single View XRAY rn 08/30 02:05 Order name: CT Abd/Pelvis - IV Contrast Only rn 08/29 22:45 Order name: EKG; Complete Time: 22:46 rn 08/29 22:45 Order name: Accucheck; Complete Time: 23:03 rn 08/29 22:45 Order name: Cardiac monitoring; Complete Time: 23:10 rn 08/29 22:45 Order name: EKG - Nurse/Tech; Complete Time: 23:14 rn 08/29 22:45 Order name: IV Saline Lock - Large Bore; Complete Time: 23:10 rn 08/29 22:45 Order name: Labs collected and sent; Complete Time: 23:10 rn 08/29 22:45 Order name: O2 Per Protocol; Complete Time: 23:41 rn 08/29 22:45 Order name: O2 Sat Monitoring; Complete Time: 23:41 rn 08/29 22:45 Order name: Vital Signs; Complete Time: 23:41 rn Administered Medications: 08/29 23:32 Drug: NS 0.9% IV 500 ml IV at bolus once Route: IV; Rate: bolus; Infused Over: 30 mins; yb Site: right forearm; 08/30 00:00 Follow up: Response: No adverse reaction; IV Status: Completed infusion; IV Intake: yb 500ml 01:04 Drug: Potassium Chloride IV 20 mEq IV at calculated rate once; administer over 1-2 ha1 hours Route: IV; Rate: calculated rate; Site: right forearm; 03:33 Follow up: Response: No adverse reaction; Cardiac rhythm is unchanged; IV Status: yb Completed infusion; IV Intake: 100ml 01:04 Drug: Potassium Chloride PO 40 mEq PO once Route: PO; ha1 03:00 Follow up: Response: No adverse reaction; Cardiac rhythm is unchanged yb 01:04 Drug: NS 0.9% IV 500 ml IV at bolus once Route: IV; Rate: bolus; Site: right forearm; ha1 05:09 Follow up: IV Status: Completed infusion; IV Intake: 500ml tm6 Disposition Summary: 08/31/23 03:34 Hospitalization Ordered Notes: Hospitalization Status: Observation rn Provider: Santana Hines rn Location: Telemetry/MedSurg (observation) rn Condition: Stable rn Problem: new rn Symptoms: have improved rn Bed/Room Type: Standard rn Room Assignment: 420(08/31/23 04:51) wm Diagnosis - Infectious gastroenteritis and colitis, unspecified rn - Intussusception - transient, in setting of enteritis rn - Hypokalemia rn - Dehydration rn Forms: - Medication Reconciliation Form rn - SBAR form rn - Leadership Thank You Letter rn Signatures: Dispatcher [employer] EDYosvany Jennings MD MD rn Marsh, Wendy Cyndie Fitzpatrick RN RN ha1 Beverly Steiner RN RN Maryanne Aanya RN tm6 Corrections: (The following items were deleted from the chart) 04:51 03:34 rn
--- NOTE | 2023-08-31 04:51 | P.HP ---
Certification for Inpatient Patient admitted to: Observation With expected LOS: <2 Midnights Practitioner: I am a practitioner with admitting privileges, knowledge of patient current condition, hospital course, and medical plan of care. Services: Services provided to patient in accordance with Admission requirements found in Title 42 Section 412.3 of the Code of Federal Regulations Patient History Date of Service: 08/31/23 Reason for admission: Generalized weakness History of Present Illness: 53-year-old with a history of celiac disease presented to the emergency department with a complaint of a feeling of generalized illness, lightheadedness and diaphoresis. Patient denied any nausea or vomiting, she denied any diarrhea or constipation, she denied any abdominal pain. Patient blood pressure was noted to be borderline low in the ED. Blood work showed hypokalemia, no sepsis. CT abdomen and pelvis suggests enteritis and possible transient intussusception, no bowel obstruction. Patient stated she felt better after IV hydration in the ED. UA suggest no UTI. Patient is hospitalized for further management Allergies oxycodone [From OxyContin] Allergy (Severe, Verified 05/07/23 10:31) Severe vomiting/Vertigo cyclobenzaprine Allergy (Verified 05/07/23 10:31) Nausea/Vomiting Home Medications: Ropinirole HCl [Requip*] 1 mg PO BEDTIME 03/26/22 predniSONE [Deltasone*] 10 mg PO DAILY 03/26/22 Calcium Carbonate [Calcium] 600 mg PO DAILY 05/07/23 Escitalopram [Lexapro*] 20 mg PO DAILY 05/07/23 Lactose-Reduced Food [Ensure Complete] 296 ml PO DAILY 05/07/23 Magnesium [Magnesium Gluconate] 200 mg PO DAILY 05/07/23 Omeprazole 20 mg PO DAILY 05/07/23 Hydrocodone/Acetaminophen [Hydrocodon-Acetaminoph 7.5-325] 1 tab PO Q6H PRN #20 tab 05/13/23 - Past Medical/Surgical History Diabetic: No -: Chiari malformation -: pseudothrombocytopenia -: Rheumatoid arthritis -: Celiac Disease -: Anxiety/depression -: GERD -: Cholecystectomy/Appendectomy -: right ankle reconstruction (pins removed later) -: left Hip repair -: right shoulder repair (pins and Plate) -: Chiari malformation decompression -: femur fracture surgery (gonzalez) -: left knee patella repair -: right wrist Psychosocial/ Personal History: Patient lives at home with her sister - Family History Mother -: Heart disease, Other (see notes) Notes: alcoholic/smoker Father -: Lung disease, Other (see notes) Notes: of Asthma attack - Social History Alcohol use: No CD- Drugs: No Caffeine use: Yes Review of Systems Other: Patient denied any fever. She denied any headache. She denies any chest pain or shortness of breath. Except as documented, all other systems reviewed and negative. Physical Examination - Physical Exam General: Alert, In no apparent distress, Oriented x3 HEENT: Atraumatic, Mucous membr. moist/pink, Sclerae nonicteric Neck: Supple, JVD not distended Respiratory: Clear to auscultation bilaterally, Normal air movement Cardiovascular: No edema, Regular rate/rhythm, Normal S1 S2, No murmurs Capillary refill: <2 Seconds Gastrointestinal: Normal bowel sounds, Soft and benign, Non-distended, No tenderness Musculoskeletal: No swelling, No tenderness Integumentary: No rashes, No cyanosis Neurological: Normal speech, Normal strength at 5/5 x4 extr, Cranial nerves 3-12 intact Lymphatics: No axilla or inguinal lymphadenopathy - Studies Laboratory Data (last 24 hrs) 08/30/23 08/30/23 08/30/23 23:00 23:00 23:00 WBC 7.50 Hgb 13.3 Hct 38.8 Plt Count 122 L PT 11.0 INR 1.00 APTT 26.3 Sodium 138 Potassium 3.1 L BUN 13 Creatinine 0.68 Glucose 138 H Total Bilirubin 1.0 AST 11 L ALT 20 Alkaline Phosphatase 85 Microbiology Data (last 24 hrs): 08/30/23 22:50 Nasopharnyx Influenza Type A Antigen Screen - Final 08/30/23 22:50 Nasopharnyx Influenza Type B Antigen Screen - Final Assessment and Plan - Problems (Diagnosis) (1) Enteritis Current Visit: Yes Status: Acute (2) Hypokalemia Current Visit: Yes Status: Acute - Plan Place patient in the observation Hydrate with IV D5 normal saline Start IV Cipro and Flagyl for enteritis Clear liquid diet Serial abdominal examination Monitor for signs of bowel obstruction Reconcile and continue other home medications - Advance Directives Does patient have a Living Will: No Does patient have a Durable POA for Healthcare: No
[2023-08-31] MEDS: D5NS KCL 20MEQ 20 MEQ/1,000 ML BAG IV SCH (06:03)
[2023-08-31 06:50] VITALS: BMI 18.8
[2023-08-31] MEDS: CIPROFLOXACIN 400mg IV 400 MG/200 ML BAG IV SCH (07:33)
[2023-08-31] MEDS: METRONIDAZOLE 500mg IVPB 500 MG/100 ML BAG IV SCH (07:34)
[2023-08-31] MEDS: HEPARIN 5000 UNIT/ML 1 ML VIAL SQ SCH (07:34)
[2023-08-31] MEDS: POTASSIUM CL SA 10 MEQ TAB PO ONE (09:08)
[2023-08-31] MEDS: ACETAMINOPHEN 325 MG TABLET PO PRN (10:16)
--- NOTE | 2023-08-31 11:11 | P.PN ---
Subjective Date of Service: 08/31/23 Chief Complaint: Generalized weakness Pt is resting comfortably in bed. She is getting iv flagyl and cipro for enteritis. No other complaints. Review of Systems General: Unremarkable Eyes: Unremarkable ENT: Unremarkable Respiratory: Unremarkable Cardiovascular: Unremarkable Gastrointestinal: Nausea, Abdominal Pain Genitourinary: Unremarkable Musculoskeletal: Unremarkable Integumentary: Unremarkable Neurological: Unremarkable Lymphatics: Unremarkable Physical Examination - Vital Signs Temperature: 97.9 F Blood Pressure: 119/73 Pulse: 73 Respirations: 18 Pulse Ox (%): 98 - Physical Exam General: Alert, In no apparent distress, Oriented x3 HEENT: Atraumatic, Normocephalic, PERRLA Neck: Supple, 2+ carotid pulse no bruit, JVD not distended Respiratory: Clear to auscultation bilaterally, Normal air movement Cardiovascular: No edema, Normal pulses, Regular rate/rhythm, Normal S1 S2 Capillary refill: <2 Seconds Gastrointestinal: Normal bowel sounds, Soft and benign, Non-distended Musculoskeletal: No clubbing, No swelling Integumentary: No rashes, No breakdown, No significant lesion Neurological: Normal gait, Normal speech, Normal strength at 5/5 x4 extr, Sensation intact Lymphatics: No axilla or inguinal lymphadenopathy - Studies Laboratory Data (last 24 hrs) 08/30/23 08/30/23 08/30/23 23:00 23:00 23:00 WBC 7.50 Hgb 13.3 Hct 38.8 Plt Count 122 L PT 11.0 INR 1.00 APTT 26.3 Sodium 138 Potassium 3.1 L BUN 13 Creatinine 0.68 Glucose 138 H Total Bilirubin 1.0 AST 11 L ALT 20 Alkaline Phosphatase 85 Microbiology Data (last 24 hrs): 08/30/23 22:50 Nasopharnyx Influenza Type A Antigen Screen - Final 08/30/23 22:50 Nasopharnyx Influenza Type B Antigen Screen - Final Assessment And Plan - Plan Acute Enteritis: Will continue IVF, iv cipro and flagyl. Will f/u blood cx. Will f/u serial KUB. Lactate is 1.7 Hypokalemia: K is 3.1. Will replete and monitor. Thrombocytopenia: Plt is 122. Will avoid antiplatelet. Hypotension: Will give IVF and monitor vital signs. Depression: continue home meds RLS: Continue ropinrole DVT ppx: heparin Dispo: pending hospital course.
--- NOTE | 2023-08-31 14:15 | EKG ---
Test Date: 2023-08-30 Test Time: 22:10:07 Team Physician: DIONTE MEASUREMENT RESULTS: Intervals: Rate: 57 IN: 122 QRSD: 74 QT: 420 QTc: 408 [place]: P: 20 IN: 122 QRS: 75 T: 65 INTERPRETIVE STATEMENTS: Sinus bradycardia Otherwise normal ECG Compared to ECG 05/07/2023 11:50:45 No significant changes Electronically Signed On 08-31-23 14:13:27 CDT by Gregg Horowitz
[2023-08-31] MEDS: ESCITALOPRAM 20 MG TAB PO SCH (20:11)
[2023-08-31] MEDS: ROPINIROLE HCL 1 MG TAB PO SCH (20:11)
[2023-08-31] MEDS: ONDANSETRON 4 MG/2 ML VIAL IV PRN (20:49)
--- NOTE | 2023-08-31 22:00 | RAD REPORT ---
EXAM DESCRIPTION: XR Chest, 1 View CLINICAL HISTORY: The patient is 53 years old and is Female; diaphoresis TECHNIQUE: Frontal view of the chest. COMPARISON: No relevant prior studies available. FINDINGS: Lungs: Unremarkable. No consolidation. Pleural space: Unremarkable. No pneumothorax. Heart: Unremarkable. Mediastinum: Unremarkable. Normal mediastinal contour. Bones/joints: Old rib fractures. IMPRESSION: No acute findings in the chest. Electronically signed by: Dilshad Garcia MD 08/30/2023 11:24 PM CDT Due to temporary technical issues with the PACS/Fluency reporting system, reports are being signed by the in house radiologists without review as a courtesy to insure prompt reporting. The interpreting radiologist is fully responsible for the content of the report.
--- NOTE | 2023-08-31 22:28 | RAD REPORT ---
EXAM DESCRIPTION: CT Abdomen and Pelvis With Intravenous Contrast CLINICAL HISTORY: The patient is 53 years old and is Female; dizzy, weak, diaphoresis IV ONLY B ed Name: 15 TECHNIQUE: Axial computed tomography images of the abdomen and pelvis with intravenous contrast. S agittal and coronal reformatted images were created and reviewed. This CT exam was performed using one or more of the following dose reduction techniques: automated exposure control, adjustment of t he mA and/or kV according to patient size, and/or use of iterative reconstruction technique. COMPARISON: 03/25/2022 CT abdomen pelvis with contrast FINDINGS: LUNG BASES: Unremarkable No mass. No consolidation. ABDOMEN: LIVER: Unremarkable No mass. GALLBLADDER AND BILE DUCTS: Cholecystectomy clips noted in the gallbladder fossa. No greater than e xpected ductal dilatation. PANCREAS: Unremarkable No mass. No ductal dilation. SPLEEN: Splenomegaly, unchanged. No focal splenic parenchymal abnormality. ADRENALS: Unremarkable No mass. KIDNEYS AND URETERS: Unremarkable No solid mass. No hydronephrosis. STOMACH AND BOWEL: Multiple loops of prominent, nonpathologically dilated small bowel within the le ft and right mid abdomen with associated mucosal thickening, favoring enteritis. Short segment enteroenteric intussusceptions noted in the right abdomen (measuring up to 2 cm in length) and left of midline lower abdomen (measuring up to 2.5 cm in length) are noted, without a ppreciable lead point or associated obstruction of the more proximal bowel loops demonstrated. Multiple radiopaque ovoid structures which appear identical demonstrated within the gastric l umen, presumably reflecting ingested medication. Colon appears unremarkable. PELVIS: APPENDIX: No findings to suggest acute appendicitis. BLADDER: Unremarkable No mass. REPRODUCTIVE: Unremarkable as visualized. ABDOMEN and PELVIS: INTRAPERITONEAL SPACE: Unremarkable No free air. No significant fluid collection. BONES/JOINTS: Multilevel remote compression deformities of the visualized inferior thoracic and lum bar spine with no acute osseous abnormality. Total left hip arthroplasty with right femoral neck fixation screws and plate demonstrated. Multilevel spondylosis. No dislocation. SOFT TISSUES: Unremarkable VASCULATURE: Mild calcified atherosclerosis of the abdominal aorta without aneurysmal dilatation. LYMPH NODES: Unremarkable No enlarged lymph nodes. IMPRESSION: 1. Multiple loops of prominent, nonpathologically dilated small bowel within the left and right mid abdomen with associated mucosal thickening, favoring enteritis. 2. 2 short segment enteroenteric intussusceptions noted in the right and left of midline abdomen, w ithout appreciable lead point or associated obstruction of the more proximal bowel loops demonstrated . Findings most consistent with transient intussusception. 3. Multiple radiopaque ovoid structures which appear identical demonstrated within the gastric lume n, presumably reflecting ingested medication. Clinical correlation recommended. 4. Additional nonacute findings as above. Electronically signed by: Beck Salazar MD 08/31/2023 03:13 AM CDT Due to temporary technical issues with the PACS/Fluency reporting system, reports are being signed by the in house radiologists without review as a courtesy to insure prompt reporting. The interpreting radiologist is fully responsible for the content of the report.
[2023-09-01 07:04] LABS: Absolute Monocytes 0.5 K/uL (0.1-1.3); Absolute Neutrophil 2.5 K/uL (1.8-8.0); Basophils % 0.3 % (0-1.3); Eosinophils % 0.9 % (0-4.4); Hematocrit 36.9 % (36.0-45.0); Hemoglobin 12.7 g/dL (12.0-15.0); Lymphocytes % 24.9 % (15.3-44.8); MCHC 34.4 g/dL (32.0-36.0); MCV 84.3 fL (80-100); MPV 8.2 fL (7.6-11.3); Monocytes % 13.3 % (3.3-12.3); Neutrophils % 60.6 % (41.7-73.7); Nucleated Red Blood Cells % 0.1 % (0-0); Platelets 121 thou/uL (152-406); RBC Red Blood Cell Count 4.38 M/uL (3.86-4.86); Red Cell Distribution Width 15.3 % (12.1-15.2)
[2023-09-01 07:18] LABS: Magnesium 1.5 mg/dL (1.6-2.4); Phosphorus 2.3 mg/dL (2.5-4.9)
[2023-09-01] MEDS: Magnesium Sulfate 2gm IVPB 2 G/50 ML BAG IV ONE (08:59)
--- NOTE | 2023-09-01 10:51 | P.PN ---
Subjective Date of Service: 09/01/23 Chief Complaint: Generalized weakness Pt is resting comfortably in bed. She is getting iv flagyl and cipro for enteritis. She is asking for solid food. Mag is 1.5. No other complaints. Review of Systems General: Unremarkable Eyes: Unremarkable ENT: Unremarkable Respiratory: Unremarkable Cardiovascular: Unremarkable Gastrointestinal: Unremarkable Genitourinary: Unremarkable Musculoskeletal: Unremarkable Integumentary: Unremarkable Neurological: Unremarkable Lymphatics: Unremarkable Physical Examination - Vital Signs Temperature: 97.1 F Blood Pressure: 137/79 Pulse: 80 Respirations: 14 Pulse Ox (%): 98 - Physical Exam General: Alert, In no apparent distress, Oriented x3 HEENT: Atraumatic, Normocephalic, PERRLA Neck: Supple, 2+ carotid pulse no bruit Respiratory: Clear to auscultation bilaterally, Normal air movement Cardiovascular: No edema, Normal pulses, Regular rate/rhythm, Normal S1 S2 Capillary refill: <2 Seconds Gastrointestinal: Normal bowel sounds, Soft and benign, Non-distended Musculoskeletal: No clubbing, No swelling Integumentary: No rashes, No breakdown, No significant lesion Neurological: Normal gait, Normal speech, Normal strength at 5/5 x4 extr, Normal tone Lymphatics: No axilla or inguinal lymphadenopathy Assessment And Plan - Plan Acute Enteritis: Will continue IVF, iv cipro and flagyl. Will f/u blood cx. Will f/u serial KUB. CT abd shows enteritis and short segment of enteroenteric intussusceptions noted in the right and left of midline abdomen, without appreciable lead point or associated obstruction of the more proximal bowel loops demonstrated. Lactate is 1.7 Hypokalemia: K is 4.0 <- 3.1. Will replete and monitor. Thrombocytopenia: Plt is 121<- 122. Will avoid antiplatelet. Hypotension: Improved. Will continue IVF and monitor vital signs. Depression: continue home meds RLS: Continue ropinrole DVT ppx: heparin Dispo: pending hospital course.
--- NOTE | 2023-09-01 14:24 | RAD REPORT ---
EXAM DESCRIPTION: RAD - Abdomen 1 View (KUB) - 09/01/2023 2:16 pm CLINICAL HISTORY: r/o obstruction. CT abd shows intussusception Pain COMPARISON: Abdomen Pelvis W Contrast dated 08/31/2023 FINDINGS: The bowel gas pattern is non-obstructive. No evidence of free air or pneumatosis. No suspi cious calcifications. Hardware is present both hips. Cholecystectomy clips. Multiple chronic lumbar osteoporotic compression deformities. IMPRESSION: No evidence of bowel obstruction.
[2023-09-01] MEDS ORDERED: D5W 1,000 ML IV SCH (20:00)
[2023-09-01] MEDS: PROMETHAZINE INJ 25 MG/ML AMP IV PRN (21:35)
[2023-09-02] MEDS: MAGNESIUM SULFATE 1 gm IVPB 1 GM/100 ML BAG IV ONE (08:44)
[2023-09-02] MEDS: NAPROXEN 250 MG TAB PO ONE (12:17)
--- NOTE | 2023-09-02 18:14 | P.PN ---
Subjective Date of Service: 09/02/23 Chief Complaint: Generalized weakness Patient is complaining of severe headache. She has been tolerating diet. She denies any diarrhea. Physical Examination - Vital Signs Temperature: 97.5 F Blood Pressure: 117/61 Pulse: 77 Respirations: 18 Pulse Ox (%): 97 - Physical Exam General: Alert, In no apparent distress, Oriented x3 HEENT: Mucous membr. moist/pink Neck: Supple, JVD not distended Respiratory: Clear to auscultation bilaterally, Normal air movement Cardiovascular: No edema, Regular rate/rhythm, Normal S1 S2, No murmurs Gastrointestinal: Normal bowel sounds, Soft and benign, Non-distended, No tenderness Musculoskeletal: No swelling Integumentary: No rashes, No erythema Neurological: Normal speech, Normal strength at 5/5 x4 extr Lymphatics: No axilla or inguinal lymphadenopathy Assessment And Plan - Current Problems (Diagnosis) (1) Enteritis Current Visit: Yes Status: Acute (2) Hypokalemia Current Visit: Yes Status: Acute - Plan Patient's main concern today is headache. She attributes her headache to her children malformation and requested for naproxen which she states usually helps her headaches Continue IV hydration Continue antibiotics. Advance diet as tolerated Serial abdominal examination
[2023-09-02] MEDS: HEPARIN 5000 UNIT/ML 1 ML VIAL SQ SCH (20:33)
[2023-09-02] MEDS: predniSONE 10 MG TAB PO SCH (20:33)
[2023-09-03 03:57] LABS: Anion Gap 10.3 mEq/L (5.0-15.0); Magnesium 1.8 mg/dL (1.6-2.4); Phosphorus 2.5 mg/dL (2.5-4.9); Potassium 4.3 mEq/L (3.5-5.1)
[2023-09-03] MEDS: PANTOPRAZOLE 40MG TABLET PO SCH (05:58)
[2023-09-03] MEDS: MAGNESIUM OXIDE 400 MG TAB PO SCH (09:00)
[2023-09-03] MEDS: CALCIUM CARBONATE 500 MG TAB PO SCH (09:13)
[2023-09-03 11:59] VITALS: O2SAT 96
[2023-09-03 16:42] VITALS: BP 104/65; TEMP 98.6
--- NOTE | 2023-09-03 18:26 | P.DS ---
Admission Date: 09/01/23 Discharge Date: 09/03/23 Disposition: ROUTINE DISCHARGE Discharge Condition: FAIR Reason for Admission: Generalized weakness - Problems (1) Enteritis Current Visit: Yes Status: Acute (2) Hypokalemia Current Visit: Yes Status: Acute Brief History of Present Illness: 53-year-old with a history of celiac disease presented to the emergency department with a complaint of a feeling of generalized illness, lightheadedness and diaphoresis. Patient denied any nausea or vomiting, she denied any diarrhea or constipation, she denied any abdominal pain. Patient blood pressure was noted to be borderline low in the ED. Blood work showed hypokalemia, no sepsis. CT abdomen and pelvis suggests enteritis and possible transient intussusception, no bowel obstruction. Patient stated she felt better after IV hydration in the ED. UA suggest no UTI. Patient was hospitalized for further management Hospital Course: Patient admitted to the medical floor and treated for enteritis with IV Cipro and Flagyl. Blood cultures yielded no growth. CT abd shows enteritis and short segment of enteroenteric intussusceptions noted in the right and left of midline abdomen, without appreciable lead point or associated obstruction of the more proximal bowel loops demonstrated. Repeat KUB was unremarkable. Patient's symptoms clinically improved. She denied any diarrhea or constipation patient tolerated diet. Her blood pressure was borderline low on presentation but improved with IV hydration. CT abdomen pelvis findings discussed with surgery Dr. Soni who advised small bowel series to further evaluate for any possible mass that could trigger the intussusception. Small bowel series reported no evidence of intussusception. Patient has tolerated diet, abdominal pain resolved and currently asymptomatic. She is deemed stable for discharge. Vital Signs/Physical Exam: Temp Pulse Resp BP Pulse Ox 98.6 F 73 16 104/65 98 09/03/23 16:00 09/03/23 16:00 09/03/23 16:00 09/03/23 16:00 09/03/23 16:00 General: Alert, In no apparent distress, Oriented x3 HEENT: Mucous membr. moist/pink Neck: JVD not distended Respiratory: Clear to auscultation bilaterally, Normal air movement Cardiovascular: No edema, Regular rate/rhythm, Normal S1 S2 Gastrointestinal: Normal bowel sounds, Soft and benign, Non-distended, No tenderness Musculoskeletal: No swelling, No tenderness Integumentary: No rashes, No cyanosis Neurological: Normal strength at 5/5 x4 extr Laboratory Data at Discharge: WBC 4.10 thou/uL (4.3-10.9) L 09/01/23 06:38 Hgb 12.7 g/dL (12.0-15.0) 09/01/23 06:38 Hct 36.9 % (36.0-45.0) 09/01/23 06:38 Plt Count 121 thou/uL (152-406) L 09/01/23 06:38 PT 11.0 SECONDS (9.5-12.5) 08/30/23 23:00 INR 1.00 08/30/23 23:00 APTT 26.3 SECONDS (24.3-36.9) 08/30/23 23:00 Sodium 132 mEq/L (136-145) L 09/03/23 02:30 Potassium 4.3 mEq/L (3.5-5.1) 09/03/23 02:30 BUN 5 mg/dL (7-18) L 09/03/23 02:30 Creatinine 0.71 mg/dL (0.55-1.02) 09/03/23 02:30 Glucose 111 mg/dL (74-106) H 09/03/23 02:30 Phosphorus 2.5 mg/dL (2.5-4.9) 09/03/23 02:30 Magnesium 1.8 mg/dL (1.6-2.4) 09/03/23 02:30 Total Bilirubin 1.0 mg/dL (0.2-1.0) 08/30/23 23:00 AST 11 U/L (15-37) L 08/30/23 23:00 ALT 20 U/L (13-56) 08/30/23 23:00 Alkaline Phosphatase 85 U/L (45-117) 08/30/23 23:00 Home Medications: Ropinirole HCl [Requip*] 1 mg PO BEDTIME 03/26/22 predniSONE [Deltasone*] 10 mg PO BEDTIME 03/26/22 Calcium Carbonate [Calcium] 600 mg PO DAILY 05/07/23 Escitalopram [Lexapro*] 20 mg PO BEDTIME 05/07/23 Magnesium [Magnesium Gluconate] 200 mg PO DAILY 05/07/23 Omeprazole 20 mg PO DAILY 05/07/23 Ciprofloxacin HCl [Cipro] 500 mg PO BID #6 tab 09/03/23 metroNIDAZOLE [Flagyl] 500 mg PO Q8H #9 tab 09/03/23 New Medications: Ciprofloxacin HCl [Cipro] 500 mg PO BID #6 tab metroNIDAZOLE [Flagyl] 500 mg PO Q8H #9 tab Diet: Regular Activity: Ad esperanza Followup: NONE,NONE [UNKNOWN] - 1-2 Weeks Fazal Carrion MD [ACTIVE - CAN ADMIT] - (Within 2 to 4 weeks) Time spent managing pt's care (in minutes): 32
--- NOTE | 2023-09-03 19:04 | RAD REPORT ---
EXAM DESCRIPTION: RAD - Small Bowel Series - 09/03/2023 2:16 pm CLINICAL HISTORY: Enteric intussuception COMPARISON: Abdomen Pelvis W Contrast dated 08/31/2023 TECHNIQUE: Serial AP views of the abdomen were obtained for studying the small bowel following oral administration of barium contrast. FINDINGS: [employer] film shows a nonspecific bowel gas pattern. No obstruction or free air. No suspiciou s calcifications. Gastric size and mucosal fold pattern are normal. No delay in transit of contrast into the small sona l. Small bowel show some patulous segments along the jejunum. Relative increased in ileal folds, alth ough pattern of jejunal folds is preserved. No appreciable mucosal thickening. No intussusceptions ar e noted. No abnormal filling defects. No intrinsic or extrinsic mass identifiable. Terminal ileum has a normal appearance. Transit time to the colon is normal, 1 hour. IMPRESSION: Patulous segments of the jejunum and a relatively increased ileal folds, features which are compatible with known celiac disease. No intussusception or other mucosal abnormalities.
== END 2023-09-03 20:40 | disposition home or self-care (01) | DRG 392 ==
LOC: ER 22:32 → 4TH 08-31 04:34 → OBSVTOIN 09-01 17:35
PROVIDERS: ADMIT Internal Medicine; ATTEND Internal Medicine
DX: A09 Infectious gastroenteritis and colitis, unspecified (principal); K56.1 Intussusception; E87.6 Hypokalemia; E86.0 Dehydration; M06.9 Rheumatoid arthritis, unspecified; G25.81 Restless legs syndrome; I95.9 Hypotension, unspecified; F32.A Depression, unspecified; D69.6 Thrombocytopenia, unspecified; K21.9 Gastro-esophageal reflux disease without esophagitis; M81.0 Age-related osteoporosis without current pathological fracture; Z60.2 Problems related to living alone; Z88.5 Allergy status to narcotic agent; Z79.52 Long term (current) use of systemic steroids; Z90.49 Acquired absence of other specified parts of digestive tract; Z28.310 Unvaccinated for COVID-19; Z87.891 Personal history of nicotine dependence; Z79.899 Other long term (current) drug therapy
CPT/HCPCS: 36415; 71045; 74018; 74177; 74250; 80048; 80053; 81001; 82947; 83605; 83735; 84100; 84443; 84484; 85025; 85610; 85730; 87040; 87804; 87811; 93005; 94760; 96361; 96365; 96366; 97116; 97161; 97530; 99285; J0744; J1644; J2405; J2550; J3475; J3480; J7040; J7512; Q9967

== ENCOUNTER 2023-09-12 22:15 | Emergency (ER) | payer OTHER ==
[2023-09-12 22:56] LABS: Absolute Lymphocytes (CBC) 0.6 K/uL (0.7-4.9); Absolute Monocytes 0.6 K/uL (0.1-1.3); Absolute Neutrophil 5.1 K/uL (1.8-8.0); Basophils % 0.3 % (0-1.3); Eosinophils % 0.6 % (0-4.4); Hematocrit 34.6 % (36.0-45.0); MCH 29.6 pg (27.0-35.0); MCHC 34.7 g/dL (32.0-36.0); MCV 85.3 fL (80-100); MPV 7.9 fL (7.6-11.3); Monocytes % 9.2 % (3.3-12.3); Neutrophils % 79.9 % (41.7-73.7); Nucleated Red Blood Cells % 0.1 % (0-0); Platelets 189 thou/uL (152-406); RBC Red Blood Cell Count 4.06 M/uL (3.86-4.86); Red Cell Distribution Width 15.4 % (12.1-15.2)
[2023-09-12 23:19] LABS: ALT/SGPT 17 U/L (13-56); AST/SGOT 13 U/L (15-37); Alkaline Phosphatase 83 U/L (45-117); Anion Gap 9.5 mEq/L (5.0-15.0); BUN Blood Urea Nitrogen 13 mg/dL (7-18); Bicarbonate 26 mEq/L (21-32); Bilirubin Total 0.7 mg/dL (0.2-1.0); Globulin 2.9 g/dL (2.3-3.5); Glomerular Filtration Rate 103 ml/min (=/>90); Glucose Level 117 mg/dL (74-106); Lipase 39 U/L (13-75); Potassium 3.5 mEq/L (3.5-5.1); Protein, Total 5.9 g/dL (6.4-8.2); Sodium Level 140 mEq/L (136-145)
[2023-09-12 23:24] LABS: Troponin High Sensitivity < 3.0 pg/mL (<58.9)
--- NOTE | 2023-09-13 01:25 | EDPHYS ---
Physician Documentation [facility] Name: Cindy Garcia Age: 53 yrs Sex: Female : 1970 Arrival Date: 09/12/2023 Time: 22:15 Bed 2 Private MD: ED Physician Zach Tang HPI: 09/12 00:46 This 53 yrs old Female presents to ER via EMS with complaints of Abd Pain > 50 y/o, rt Dizziness. 00:46 Patient had a recent mission to the hospital for an intussusception, managed rt conservatively. Patient states that after having a bowel movement today, she developed recurrence of abdominal pain. Patient became sweaty, lightheaded when this occurred. Patient states the symptoms have significantly improved, is almost resolved currently. She denies other acute complaints at this time, symptoms are moderate in severity, no other aggravating or elevating factors.. 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 - Infectious Disease History:: Denies. - Social history:: Smoking status: Patient denies any tobacco usage or history of. - Family history:: not pertinent. ROS: 09/12 00:46 Constitutional: Negative for fever, chills, and weight loss, Cardiovascular: Negative rt for chest pain, palpitations, and edema, Respiratory: Negative for shortness of breath, cough, wheezing, and pleuritic chest pain, MS/Extremity: Negative for injury and deformity, Skin: Negative for injury, rash, and discoloration, Abdomen/GI: Positive for abdominal pain, nausea, Neuro: Positive for dizziness, Negative for altered mental status, Exam: 00:46 Constitutional: This is a well developed, well nourished patient who is awake, alert, rt and in no acute distress. Head/Face: Normocephalic, atraumatic. Chest/axilla: Normal chest wall appearance and motion. Nontender with no deformity. No lesions are appreciated. Cardiovascular: Regular rate and rhythm with a normal S1 and S2. No gallops, murmurs, or rubs. Normal PMI, no JVD. No pulse deficits. Respiratory: Lungs have equal breath sounds bilaterally, clear to auscultation and percussion. No rales, rhonchi or wheezes noted. No increased work of breathing, no retractions or nasal flaring. Abdomen/GI: Soft, non-tender, with normal bowel sounds. No distension or tympany. No guarding or rebound. No evidence of tenderness throughout. Skin: Warm, dry with normal turgor. Normal color with no rashes, no lesions, and no evidence of cellulitis. MS/ Extremity: Pulses equal, no cyanosis. Neurovascular intact. Full, normal range of motion. Neuro: Awake and alert, GCS 15, oriented to person, place, time, and situation. Cranial nerves II-XII grossly intact. Motor strength 5/5 in all extremities. Sensory grossly intact. Cerebellar exam normal. Normal gait. 00:46 ECG was reviewed by the Attending Physician. Vital Signs: 09/11 22:21 BP 97 / 87; Pulse 80; Resp 20; Temp 98.1(O); Pulse Ox 100% on R/A; Weight 45.81 kg; jb4 Height 5 ft. 2 in. ; 23:00 BP 91 / 66; Pulse 66; Resp 16; Pulse Ox 99% on R/A; jb4 09/12 00:43 BP 93 / 64; Pulse 65; Resp 16; Pulse Ox 100% on R/A; jb4 01:30 BP 102 / 80; Pulse 69; Resp 18; Pulse Ox 100% on R/A; km8 09/11 22:21 Body Mass Index 18.47 (45.81 kg, 157.48 cm) jb4 MDM: 09/11 22:36 Patient medically screened. rt 09/12 01:28 Differential diagnosis: Nonspecific abdominal pain, enteritis, intussusception. Data rt reviewed: vital signs, nurses notes, lab test result(s), EKG, radiologic studies. Independent interpretation of the following test(s) in the Emergency Department CT Scan: My interpretation is No bowel obstruction seen on my interpretation of CT scan images. Care significantly affected by the following chronic conditions: RA. Counseling: I had a detailed discussion with the patient and/or guardian regarding the historical points, exam findings, and any diagnostic results supporting the discharge/admit diagnosis, lab results, radiology results, the need for outpatient follow up, to return to the emergency department if symptoms worsen or persist or if there are any questions or concerns that arise at home. Response to treatment: the patient's symptoms have resolved after treatment. 09/11 22:42 Order name: CBC with Diff; Complete Time: 23:26 rt 09/11 22:42 Order name: CMP; Complete Time: 23:26 rt 09/11 22:42 Order name: Lipase; Complete Time: 23:26 rt 09/11 22:42 Order name: Troponin High Sensitivity; Complete Time: 23:26 rt 09/11 22:42 Order name: CT Abd/Pelvis - IV Contrast Only rt 09/11 22:42 Order name: EKG; Complete Time: 22:42 rt 09/11 22:42 Order name: IV Saline Lock; Complete Time: 22:49 rt 09/11 22:42 Order name: Labs collected and sent; Complete Time: 22:49 rt 09/11 22:42 Order name: EKG - Nurse/Tech; Complete Time: 23:39 rt EC:46 Rate is 54 beats/min. Rhythm is regular, Normal Sinus Rhythm with No ectopy. QRS [place] rt is Normal. NE interval is normal. QRS interval is normal. QT interval is normal. No Q waves. T waves are Normal. No ST changes noted. Interpreted by me. Administered Medications: No medications were administered Disposition Summary: 09/13/23 01:24 Discharge Ordered Notes: Location: Home rt Problem: an acute exacerbation rt Symptoms: have improved rt Condition: Stable rt Diagnosis - Abdominal pain, unspecified rt Followup: rt - With: Private Physician - When: 2 - 3 days - Reason: Discharge Instructions: - Discharge Summary Sheet rt - Abdominal Pain, Adult rt Forms: - Medication Reconciliation Form rt - Thank You Letter rt - Antibiotic Education rt - Prescription Opioid Use rt - Patient Portal Instructions rt - Leadership Thank You Letter rt Signatures: Dispatcher [facility]ll Pinedo RN RN jb4 Zach Tang MD MD rt
--- NOTE | 2023-09-13 01:25 | ER ---
Nurse's Notes [facility] Name: Cindy Garcia Age: 53 yrs Sex: Female : 1970 Arrival Date: 09/12/2023 Time: 22:15 Bed 2 Private MD: Diagnosis: Abdominal pain, unspecified Presentation: 09/11 22:21 Chief complaint: Patient states: Pt reports going to the bathroom, becoming light jb4 headed, dizzy, clammy and pain to the umbilical area. Coronavirus screen: At this time, the client does not indicate any symptoms associated with coronavirus-19. Ebola Screen: No symptoms or risks identified at this time. Initial Sepsis Screen: Does the patient meet any 2 criteria? No. Patient's initial sepsis screen is negative. Does the patient have a suspected source of infection? No. Patient's initial sepsis screen is negative. Risk Assessment: Do you want to hurt yourself or someone else? Patient reports no desire to harm self or others. Onset of symptoms was September 12, 2023. Transition of care: patient was not received from another setting of care. 22:21 Method Of Arrival: [facility] jb4 22:21 Acuity: JOSE MIGUEL 3 jb4 Triage Assessment: 22:23 General: Appears in no apparent distress. uncomfortable, Behavior is cooperative, jb4 anxious. Pain: Complains of pain in umbilical area Pain does not radiate. Pain currently is 6 out of 10 on a pain scale. EENT: No signs and/or symptoms were reported regarding the EENT system. Neuro: Level of Consciousness is awake, alert, obeys commands, Oriented to person, place, time, situation. Cardiovascular: Patient's skin is warm and dry. Respiratory: Airway is patent Respiratory effort is even, unlabored, Respiratory pattern is regular, symmetrical. GI: No signs and/or symptoms were reported involving the gastrointestinal system. : No signs and/or symptoms were reported regarding the genitourinary system. Derm: Skin is intact, Skin is pink, warm \T\ dry. Musculoskeletal: Circulation, motion, and sensation intact. Range of motion: intact in all extremities. 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 - Infectious Disease History:: Denies. - Social history:: Smoking status: Patient denies any tobacco usage or history of. - Family history:: not pertinent. Screenin:[facility] ED Fall Risk Assessment (Adult) History of falling in the last 3 months, jb4 including since admission No falls in past 3 months (0 pts) Confusion or Disorientation No (0 pts) Intoxicated or Sedated No (0 pts) Impaired Gait No (0 pts) Mobility Assist Device Used No (0 pt) Altered Elimination No (0 pt) Score/Fall Risk Level 0 - 2 = Low Risk Oriented to surroundings, Maintained a safe environment. Abuse screen: Denies threats or abuse. Nutritional screening: No deficits noted. Tuberculosis screening: No symptoms or risk factors identified. Assessment: 23:47 Reassessment: Patient appears in no apparent distress at this time. Patient and/or jb4 family updated on plan of care and expected duration. Pain level reassessed. Patient is alert, oriented x 3, equal unlabored respirations, skin warm/dry/pink. 09/12 01:03 Reassessment: Patient appears in no apparent distress at this time. Patient and/or bm8 family updated on plan of care and expected duration. Pain level reassessed. Patient is alert, oriented x 3, equal unlabored respirations, skin warm/dry/pink. pt is resting with eyes closed breathing is even unlabored at this time. pt is easily arousable. Vital Signs: 09/11 22:21 BP 97 / 87; Pulse 80; Resp 20; Temp 98.1(O); Pulse Ox 100% on R/A; Weight 45.81 kg; jb4 Height 5 ft. 2 in. ; 23:00 BP 91 / 66; Pulse 66; Resp 16; Pulse Ox 99% on R/A; jb4 09/12 00:43 BP 93 / 64; Pulse 65; Resp 16; Pulse Ox 100% on R/A; jb4 01:30 BP 102 / 80; Pulse 69; Resp 18; Pulse Ox 100% on R/A; km8 09/11 22:21 Body Mass Index 18.47 (45.81 kg, 157.48 cm) jb4 ED Course: 09/11 22:18 Patient arrived in ED. jb4 22:18 Zach Tang MD is Attending Physician. rt 22:23 Triage completed. jb4 22:23 Arm band placed on right wrist. jb4 23:00 Patient has correct armband on for positive identification. Placed in gown. Bed in low jb4 position. Call light in reach. Side rails up X 1. Provided Education on: plan of care. 23:00 No provider procedures requiring assistance completed. jb4 23:38 EKG done, by sterile process tech. reviewed by Zach Tang MD. oe 23:46 CT Abd/Pelvis - IV Contrast Only In Process Unspecified. EDMS 09/12 01:00 Report received from agustina beltrán. bm8 01:03 Efrain Scott, RN is Primary Nurse. bm8 01:43 IV discontinued, intact, bleeding controlled, No redness/swelling at site. Pressure km8 dressing applied. Administered Medications: No medications were administered Medication: 09/11 23:00 VIS not applicable for this client. jb4 Outcome: 09/12 01:24 Discharge ordered by . rt 01:44 Condition: good km8 01:44 Discharge instructions given to patient, Instructed on discharge instructions, follow up and referral plans. Demonstrated understanding of instructions, follow-up care, 01:49 Discharged to home via wheelchair, waiting for ride home in ER lobby; pt making phone km8 calls 01:50 Patient left the ED. km8 Signatures: Dispatcher [employer] EDMS Campbell Arrington, RN RN jb4 Gaetano Cummings Ryan, MD MD rt Adore Salazar RN AGUSTINA km8 Efrain Scott, RN RN bm8
[2023-09-13 11:54] VITALS: BP 102/80; TEMP 98.1; O2SAT 100
--- NOTE | 2023-09-14 10:52 | RAD REPORT ---
EXAM DESCRIPTION: CT - Abdomen Pelvis W Contrast - 09/13/2023 6:53 am CLINICAL HISTORY: 53-year-old female with abdominal pain. COMPARISON: 08/31/2023. TECHNIQUE: CT of the abdomen and pelvis was performed following intravenous administration of contra st. Oral contrast was not administered. Multiplanar reformatted images were provided. This exam was p erformed according to our departmental dose optimization program which includes use of automated expo sure control, adjustment of the mA and/or kV according to patient size and/or use of iterative recons truction technique. FINDINGS: Chest: Evaluation through the lung bases reveals no focal opacity, pleural effusion or pne umothorax. Heart size is within normal limits. No pericardial effusion. Abdomen and pelvis: The liver, pancreas, bilateral kidneys and bilateral adrenal glands are within no rmal limits. Splenomegaly measures 14.3 cm. Surgical clips at the level of the gallbladder fossa status post cholecystectomy. Intra and extrahepa tic biliary dilation, a finding which can be seen following cholecystectomy, without clear findings t o suggest distal obstructive process. The vessels are patent and normal in caliber. No abdominopelvic lymph nodes are noted to be pathologically enlarged by CT measurement criteria. Distal small bowel wall thickening, unchanged in comparison to the previous examination raising the p ossibility of enteritis. No distended loops or transition point to suggest small bowel obstruction. The bowel is within normal limits without abnormal bowel wall thickness or bowel dilation. No free air. No free abdominopelvic fluid collections. The appendix is not identified. The osseous structures demonstrate diffuse demineralization. Chronic compression deformity of the vis ualized thoracolumbar vertebral bodies Postoperative changes of the bilateral femur. Hardware in graham s anatomic alignment. IMPRESSION: 1. No specific acute intra-abdominal findings are noted to suggest etiology of the pat ient's abdominal pain. 2. Distal small bowel wall thickening, unchanged in comparison to the previous examination raising the possibility of enteritis. 3. Splenomegaly. Electronically signed by: Christal May MD 09/13/2023 12:04 AM CDT Due to temporary technical issues with the PACS/Fluency reporting system, reports are being signed by the in house radiologist without review as a courtesy to ensure prompt reporting. The interpreting r adiologist is fully responsible for the content of the report.
--- NOTE | 2023-09-14 12:44 | EKG ---
Test Date: 2023-09-12 Test Time: 23:35:21 Student Success Counselor: MASSIEL MEASUREMENT RESULTS: Intervals: Rate: 64 [place]: 114 QRSD: 78 QT: 414 QTc: 427 [place]: P: 48 [place]: 114 QRS: 71 T: 71 INTERPRETIVE STATEMENTS: Normal sinus rhythm Normal ECG Compared to ECG 08/30/2023 22:10:07 Sinus bradycardia no longer present Electronically Signed On 09-14-23 12:41:11 CDT by Gregg Horowitz
== END 2023-09-13 01:50 | disposition home or self-care (01) ==
LOC: ER 22:15
DX: R10.9 Unspecified abdominal pain (principal); R42 Dizziness and giddiness; Z88.5 Allergy status to narcotic agent; Z88.8 Allergy status to other drugs, medicaments and biological substances
CPT/HCPCS: 93005; 85025; 36415; 84484; 83690; 80053; 74177; 99284; Q9967

== ENCOUNTER 2023-11-10 21:13 | Emergency (ER) | payer OTHER ==
[2023-11-10] MEDS ORDERED: ONDANSETRON 4 MG/2 ML VIAL ONE (21:55)
[2023-11-10] MEDS ORDERED: KETOROLAC 30 MG/ML INJ ONE (21:59)
[2023-11-10 22:30] LABS: Absolute Lymphocytes (CBC) 1.2 K/uL (0.7-4.9); Absolute Monocytes 0.8 K/uL (0.1-1.3); Basophils % 0.1 % (0-1.3); Eosinophils % 0.4 % (0-4.4); Hematocrit 38.9 % (36.0-45.0); Hemoglobin 13.4 g/dL (12.0-15.0); Lymphocytes % 20.1 % (15.3-44.8); MCH 29.7 pg (27.0-35.0); MCHC 34.6 g/dL (32.0-36.0); MCV 85.9 fL (80-100); MPV 8.6 fL (7.6-11.3); Monocytes % 12.7 % (3.3-12.3); Neutrophils % 66.7 % (41.7-73.7); Nucleated Red Blood Cells % 0.1 % (0-0); Platelets 173 thou/uL (152-406); RBC Red Blood Cell Count 4.52 M/uL (3.86-4.86); Red Cell Distribution Width 13.5 % (12.1-15.2)
[2023-11-10 22:37] LABS: Albumin 3.3 g/dL (3.4-5.0); Albumin/Globulin Ratio 1.1 (1.1-1.8); Alkaline Phosphatase 84 U/L (45-117); BUN Blood Urea Nitrogen 13 mg/dL (7-18); Bicarbonate 22 mEq/L (21-32); Bilirubin Total 1.1 mg/dL (0.2-1.0); Globulin 3.1 g/dL (2.3-3.5); Glomerular Filtration Rate 99 ml/min (=/>90); Glucose Level 122 mg/dL (74-106); Lipase 24 U/L (13-75); Protein, Total 6.4 g/dL (6.4-8.2); Sodium Level 139 mEq/L (136-145)
[2023-11-10 22:38] LABS: Anion Gap 9.7 mEq/L (5.0-15.0); Potassium 2.7 mEq/L (3.5-5.1)
[2023-11-10 22:39] LABS: ALT/SGPT < 14 U/L (13-56); AST/SGOT < 10 U/L (15-37)
[2023-11-11] MEDS ORDERED: POTASSIUM CL SA 10 MEQ TAB PO ONE (00:40)
--- NOTE | 2023-11-11 00:54 | ER ---
Nurse's Notes [facility] Name: Cindy Garcia Age: 53 yrs Sex: Female : 1970 Arrival Date: 11/10/2023 Time: 21:13 Bed 7 Private MD: Diagnosis: Enteritis Presentation: 11/09 21:21 Chief complaint: EMS states: abdominal pain that started 2 hours ago. Coronavirus cp4 screen: Client denies travel out of the [place] in the last 14 days. At this time, the client does not indicate any symptoms associated with coronavirus-19. Ebola Screen: Patient negative for fever greater than or equal to 101.5 degrees Fahrenheit, and additional compatible Ebola Virus Disease symptoms Patient denies exposure to infectious person. Patient denies travel to an Ebola-affected area in the 21 days before illness onset. No symptoms or risks identified at this time. Initial Sepsis Screen: Does the patient meet any 2 criteria? No. Patient's initial sepsis screen is negative. Does the patient have a suspected source of infection? No. Patient's initial sepsis screen is negative. Risk Assessment: Do you want to hurt yourself or someone else? Patient reports no desire to harm self or others. Onset of symptoms was November 10, 2023. 21:21 Method Of Arrival: EMS: [facility] cp4 21:21 Acuity: JOSE MIGUEL 3 cp4 Triage Assessment: 21:25 General: Appears uncomfortable, Behavior is calm, cooperative, appropriate for age. cp4 Pain: Complains of pain in abdomen. 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 - Infectious Disease History:: Denies. CDIFF, C. Auris, ESBL, MRSA (w/in 1 year), VRE (w/in 1 year), TB, . - Social history:: Smoking status: Patient denies any tobacco usage or history of. Screenin:[address] [facility] ED Fall Risk Assessment (Adult) History of falling in the last 3 months, cp4 including since admission No falls in past 3 months (0 pts) Confusion or Disorientation No (0 pts) Intoxicated or Sedated No (0 pts) Impaired Gait No (0 pts) Mobility Assist Device Used No (0 pt) Altered Elimination No (0 pt) Score/Fall Risk Level 0 - 2 = Low Risk Oriented to surroundings, Maintained a safe environment, Assessed \T\ reinforced patient's understanding of fall precautions, Hourly rounding (assess needs \T\ fall precautionary measures) done. Abuse screen: Denies threats or abuse. Nutritional screening: No deficits noted. Tuberculosis screening: No symptoms or risk factors identified. Assessment: 21:28 Reassessment: No changes from previously documented assessment. GI: Abdomen is round cp4 non-distended, Bowel sounds present X 4 quads. 11/10 00:58 Reassessment: Dispo pending. Patient awaiting transportation. cp4 Vital Signs: 11/09 21:21 BP 124 / 77; Pulse 63; Resp 18; Temp 97.7; Pulse Ox 100% ; Weight 45.36 kg; Height 5 cp4 ft. 1 in. ; Pain 2/10; 23:00 BP 114 / 78; Pulse 54; Resp 18; Pulse Ox 100% ; cp4 11/10 01:31 BP 103 / 66; Pulse 57; Resp 18; Pulse Ox 100% ; cp4 02:19 BP 95 / 66; Pulse 76; Resp 18; Pulse Ox 100% ; cp4 11/09 21:21 Body Mass Index 18.89 (45.36 kg, 154.94 cm) cp4 11/09 21:21 Pain Scale: Adult cp4 ED Course: 11/09 21:18 Patient arrived in ED. rv1 21:21 Abril Pena is Primary Nurse. cp4 21:25 Triage completed. cp4 21:25 Arm band placed on right wrist. Patient placed in an exam room, on a stretcher. cp4 21:26 Aurea Rivera FNP-C is PHCP. kb 21:26 Florin Porter MD is Attending Physician. kb 21:28 Placed in gown. Bed in low position. Side rails up X2. Provided Education on: abdominal cp4 pain. 21:28 No provider procedures requiring assistance completed. Maintain EMS IV. Dressing cp4 intact. Good blood return noted. Site clean \T\ dry. Gauge \T\ site: 22 RFA. 21:56 Initial lab(s) drawn, by me, sent to lab. vk 21:57 Lipase Sent. vk 21:57 CMP Sent. vk 21:57 CBC with Diff Sent. vk 22:58 CT Abd/Pelvis - IV Contrast Only In Process Unspecified. EDMS 11/10 02:19 intact, bleeding controlled, No redness/swelling at site. Pressure dressing applied. cp4 Administered Medications: 11/09 21:35 Drug: NS 0.9% IV 1000 ml IV at 1 bolus Per protocol; 1000 mL bolus Route: IV; Rate: 1 cp4 bolus; Site: right forearm; 23:25 Follow up: Response: No adverse reaction; IV Status: Completed infusion cp4 21:58 Drug: Ondansetron IVP 4 mg IVP once; over 2 minutes Route: IVP; Site: right forearm; cp4 23:25 Follow up: Response: No adverse reaction cp4 22:04 Drug: Ketorolac IVP 15 mg IVP once Route: IVP; Site: right forearm; cp4 23:24 Follow up: Response: No adverse reaction cp4 11/10 01:00 Follow up: Response: No adverse reaction cp4 00:43 Drug: Potassium Chloride PO 40 mEq PO once Route: PO; cp4 01:00 Follow up: Response: No adverse reaction cp4 00:57 Drug: Dicyclomine PO 20 mg PO once Route: PO; cp4 01:00 Follow up: Response: No adverse reaction cp4 01:16 Drug: metoCLOPramide IVP 10 mg IVP once; over 1 to 2 minutes Route: IVP; Site: right cp4 forearm; 01:16 Follow up: Response: No adverse reaction cp4 Medication: 11/09 21:28 VIS not applicable for this client. cp4 Outcome: 11/10 00:54 Discharge ordered by MD. agee 02:19 Discharged to home via wheelchair, cp4 02:19 Condition: stable 02:19 Discharge instructions given to patient, Instructed on discharge instructions, follow up and referral plans. medication usage, Demonstrated understanding of instructions, follow-up care, medications, Prescriptions given X 1, 03:01 Patient left the ED. cp4 Signatures: Dispatcher [employer] EDMO Aurea Rivera, DIRECTOR OF PROVIDER RELATIONS-C DIRECTOR OF PROVIDER RELATIONS-Ckb [place] rv1 Abril Pena cp4 Aileen Browning
--- NOTE | 2023-11-11 00:54 | EDPHYS ---
Physician Documentation [facility] Name: Cindy Garcia Age: 53 yrs Sex: Female : 1970 Arrival Date: 11/10/2023 Time: 21:13 Bed 7 Private MD: ED Physician Florin Porter HPI: 11/10 00:50 This 53 yrs old Female presents to ER via EMS with complaints of Abdominal Pain. 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 Denies fever. Denies alleviating or aggravating factors. . 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 - Infectious Disease History:: Denies. CDIFF, C. Auris, ESBL, MRSA (w/in 1 year), VRE (w/in 1 year), TB, . - Social history:: Smoking status: Patient denies any tobacco usage or history of. ROS: 11/10 00:50 Constitutional: As per HPI kb Exam: 00:50 Constitutional: This is a well developed, well nourished patient who is awake, alert, kb and in no acute distress. Head/Face: Normocephalic, atraumatic. ENT: Moist Mucous membranes Cardiovascular: Regular rate Respiratory: Respirations even and unlabored. No increased work of breathing. Talking in full sentences Abdomen/GI: Soft, non-tender. No distention Skin: Warm, dry with normal turgor. Normal color. MS/ Extremity: Pulses equal, no cyanosis. Neurovascular intact. Full, normal range of motion. Neuro: Awake and alert, GCS 15, oriented to person, place, time, and situation. Moves all extremities. Normal gait. Vital Signs: 11/09 21:21 BP 124 / 77; Pulse 63; Resp 18; Temp 97.7; Pulse Ox 100% ; Weight 45.36 kg; Height 5 cp4 ft. 1 in. ; Pain 2/10; 23:00 BP 114 / 78; Pulse 54; Resp 18; Pulse Ox 100% ; cp4 11/10 01:31 BP 103 / 66; Pulse 57; Resp 18; Pulse Ox 100% ; cp4 02:19 BP 95 / 66; Pulse 76; Resp 18; Pulse Ox 100% ; cp4 11/09 21:21 Body Mass Index 18.89 (45.36 kg, 154.94 cm) cp4 11/09 21:21 Pain Scale: Adult cp4 MDM: 11/09 21:26 Patient medically screened. kb 11/10 00:51 Differential diagnosis: non-specific abd pain, viral gastroenteritis. Data reviewed: kb vital signs, nurses notes. 00:51 Historians other than the Patient: EMS: [facility]. Counseling: I had a detailed kb discussion with the patient and/or guardian regarding the historical points, exam findings, and any diagnostic results supporting the discharge/admit diagnosis, lab results, radiology results, the need for outpatient follow up, a family practitioner, to return to the emergency department if symptoms worsen or persist or if there are any questions or concerns that arise at home. 00:53 ED course: Pt tolerating po intake. kb 01:46 ED course: EXAMINATION: CTABDOMEN PELVIS WITH IV CONTRAST INDICATION: Female, 53 years sp4 old, ABD PAIN COMPARISON(S): 09/12/2023 (report only available at the time of dictation) TECHNIQUE: CT acquisition of the abdomen and pelvis following the administration of IV contrast. Coronal and sagittal reformatted images provided. This exam was performed according to departmental dose-optimization program which includes automated exposure control, adjustment of the mA and/or kV according to patient size, and/or use of iterative reconstruction technique. FINDINGS: SUPPORTIVE DEVICES: None. LOWER CHEST: Unremarkable. ABDOMEN AND PELVIS: Motion artifact limits assessment of the upper to mid abdomen. Liver: Diffuse hypoenhancement relative to the spleen. Gallbladder and bile ducts: Postcholecystectomy changes. Pancreas: Normal. Spleen: Moderately enlarged. Adrenal glands: Normal. Kidneys and ureters: Normal. Bladder/Reproductive organs: Obscured by streak artifact. No acute finding. GI tract: Normal caliber without wall thickening. No evidence of appendicitis. A few distal small bowel loops as well as proximal and distal large bowel loops are fluid-filled. Lymph nodes: No evident adenopathy. Peritoneum: No evidence of ascites, fluid collection, or free air. Abdominal wall: No significant hernia. Vessels: Atherosclerosis without evidence of aneurysm. MUSCULOSKELETAL: No acute osseous abnormality. Chronic appearing compression deformities of T10-L2. Right femoral neck screw and partially imaged left total hip arthroplasty without evidence of acute hardware complication. IMPRESSION: 1. CT appearance of large and small bowel loops can be seen in the setting of mild enteritis/enterocolitis. 2. Otherwise no acute abdominal or pelvic finding. 3. Additional chronic and incidental findings above. Electronically signed by: Kenroy Trujillo MD 11/10/2023 11:55 PM . 11/09 21:32 Order name: CBC with Diff; Complete Time: 22:38 kb 11/09 21:32 Order name: CMP; Complete Time: 22:44 kb 11/09 21:32 Order name: Lipase; Complete Time: 22:44 kb 11/09 21:32 Order name: CT Abd/Pelvis - IV Contrast Only kb 11/09 21:32 Order name: IV Saline Lock; Complete Time: 21:35 kb 11/09 21:32 Order name: Labs collected and sent; Complete Time: 21:57 kb 11/10 00:15 Order name: PO challenge; Complete Time: 00:43 kb Administered Medications: 11/09 21:35 Drug: NS 0.9% IV 1000 ml IV at 1 bolus Per protocol; 1000 mL bolus Route: IV; Rate: 1 cp4 bolus; Site: right forearm; 23:25 Follow up: Response: No adverse reaction; IV Status: Completed infusion cp4 21:58 Drug: Ondansetron IVP 4 mg IVP once; over 2 minutes Route: IVP; Site: right forearm; cp4 23:25 Follow up: Response: No adverse reaction cp4 22:04 Drug: Ketorolac IVP 15 mg IVP once Route: IVP; Site: right forearm; cp4 23:24 Follow up: Response: No adverse reaction cp4 11/10 01:00 Follow up: Response: No adverse reaction cp4 00:43 Drug: Potassium Chloride PO 40 mEq PO once Route: PO; cp4 01:00 Follow up: Response: No adverse reaction cp4 00:57 Drug: Dicyclomine PO 20 mg PO once Route: PO; cp4 01:00 Follow up: Response: No adverse reaction cp4 01:16 Drug: metoCLOPramide IVP 10 mg IVP once; over 1 to 2 minutes Route: IVP; Site: right cp4 forearm; 01:16 Follow up: Response: No adverse reaction cp4 Disposition: 01:10 Co-signature as Attending Physician, Florin Porter MD I agree with the assessment sp4 and plan of care. I reviewed the patient's care provided by Advanced Practice Provider \T\ agree w/ the diagnosis \T\ care plan. I personally saw the pt \T\ performed a substantive portion of the visit, incldng all aspects of the (History/Exam/Medical Decision Making). Disposition Summary: 11/11/23 00:54 Discharge Ordered Notes: Location: Home kb Condition: Stable kb Diagnosis - Enteritis kb Followup: kb - With: Emergency Department - When: As needed - Reason: Worsening of condition Followup: kb - With: Private Physician - When: 2 - 3 days - Reason: Recheck today's complaints, Continuance of care, Re-evaluation by your physician Discharge Instructions: - Discharge Summary Sheet kb - Viral Gastroenteritis, Adult, [id number] kb Prescriptions: - ondansetron 4 mg Oral Tablet,disintegrating - take 1 tablet ORAL route every 6 hours As needed as needed for nausea and kb vomiting; 12 tablet; Refills: 0, Product Selection Permitted - dicyclomine 20 mg Oral tablet - take 1 tablet ORAL route 4 times per day As needed; 20 tablet; Refills: 0, kb Product Selection Permitted - Reglan 10 mg Oral tablet - take 1 tablet ORAL route every 8 hours . PRN nausea; 30 tablet; Refills: 0, sp4 Product Selection Permitted Signatures: Dispatcher [employer] Aurea Kline, Florin Spangler MD MD sp4 Abril Pena 4
[2023-11-11] MEDS ORDERED: DICYCLOMINE HCL 10 MG CAP ONE (00:56)
[2023-11-11] MEDS ORDERED: METOCLOPRAMIDE 10 MG/2mL INJ ONE (01:11)
[2023-11-11 03:10] VITALS: TEMP 97.7; O2SAT 100
[2023-11-11 03:35] VITALS: BP 95/66
--- NOTE | 2023-11-12 10:36 | RAD REPORT ---
EXAM DESCRIPTION: CT - Abdomen Pelvis W Contrast - 11/11/2023 6:49 am CLINICAL HISTORY: Female, 53 years old, ABD PAIN COMPARISON: 09/12/2023 (report only available at the time of dictation) TECHNIQUE: CT acquisition of the abdomen and pelvis following the administration of IV contrast. Cor onal and sagittal reformatted images provided. This exam was performed according to departmental dose -optimization program which includes automated exposure control, adjustment of the mA and/or kV accor ding to patient size, and/or use of iterative reconstruction technique. FINDINGS: SUPPORTIVE DEVICES: None. LOWER CHEST: Unremarkable. ABDOMEN AND PELVIS: Motion artifact limits assessment of the upper to mid abdomen. Liver: Diffuse hypoenhancement relative to the spleen. Gallbladder and bile ducts: Postcholecystectomy changes. Pancreas: Normal. Spleen: Moderately enlarged. Adrenal glands: Normal. Kidneys and ureters: Normal. Bladder/Reproductive organs: Obscured by streak artifact. No acute finding. GI tract: Normal caliber without wall thickening. No evidence of appendicitis. A few distal small bow el loops as well as proximal and distal large bowel loops are fluid-filled. Lymph nodes: No evident adenopathy. Peritoneum: No evidence of ascites, fluid collection, or free air. Abdominal wall: No significant hernia. Vessels: Atherosclerosis without evidence of aneurysm. MUSCULOSKELETAL: No acute osseous abnormality. Chronic appearing compression deformities of T10-L2. R ight femoral neck screw and partially imaged left total hip arthroplasty without evidence of acute cortez rdware complication. IMPRESSION: 1. CT appearance of large and small bowel loops can be seen in the setting of mild ent eritis/enterocolitis. 2. Otherwise no acute abdominal or pelvic finding. 3. Additional chronic and incidental findings above. Electronically signed by: Kenroy Trujillo MD 11/10/2023 11:55 PM CDT Due to temporary technical issues with the PACS/Fluency reporting system, reports are being signed by the in house radiologist without review as a courtesy to ensure prompt reporting. The interpreting r adiologist is fully responsible for the content of the report.
== END 2023-11-11 03:01 | disposition home or self-care (01) ==
LOC: ER 21:13
DX: K52.9 Noninfective gastroenteritis and colitis, unspecified (principal)
CPT/HCPCS: 96361; 85025; 36415; 83690; 80053; 74177; 96375; 96374; 99284; Q9967; J2765; J2405

== ENCOUNTER 2023-11-24 22:49 | Emergency (ER) | payer OTHER ==
[2023-11-24] MEDS ORDERED: ONDANSETRON 4 MG/2 ML VIAL ONE (23:49)
[2023-11-24] MEDS ORDERED: HALOPERIDOL LACT 5 MG/ML INJ ONE (23:49)
[2023-11-24] MEDS ORDERED: KETOROLAC 30 MG/ML INJ ONE (23:49)
[2023-11-24] MEDS ORDERED: MORPHINE 4 MG/ML SYR ONE (23:50)
[2023-11-24] MEDS ORDERED: FAMOTIDINE 20 MG/2 ML VIAL IV ONE (23:50)
[2023-11-24] MEDS ORDERED: NA CHLORIDE 0.9% 1,000 ML ONE (23:51)
[2023-11-25 00:19] LABS: Albumin 3.3 g/dL (3.4-5.0); Albumin/Globulin Ratio 1.2 (1.1-1.8); Alkaline Phosphatase 77 U/L (45-117); BUN Blood Urea Nitrogen 8 mg/dL (7-18); Bicarbonate 28 mEq/L (21-32); Bilirubin Total 0.9 mg/dL (0.2-1.0); Globulin 2.7 g/dL (2.3-3.5); Glomerular Filtration Rate 103 ml/min (=/>90); Glucose Level 101 mg/dL (74-106); Lipase 34 U/L (13-75); Sodium Level 138 mEq/L (136-145)
[2023-11-25 00:30] LABS: Absolute Lymphocytes (CBC) 1.1 K/uL (0.7-4.9); Absolute Monocytes 0.7 K/uL (0.1-1.3); Absolute Neutrophil 4.6 K/uL (1.8-8.0); Basophils % 0.1 % (0-1.3); Eosinophils % 0.4 % (0-4.4); Hematocrit 36.3 % (36.0-45.0); Hemoglobin 12.5 g/dL (12.0-15.0); Lymphocytes % 17.6 % (15.3-44.8); MCH 29.2 pg (27.0-35.0); MCHC 34.4 g/dL (32.0-36.0); MCV 84.8 fL (80-100); MPV 8.7 fL (7.6-11.3); Monocytes % 11.2 % (3.3-12.3); Neutrophils % 70.7 % (41.7-73.7); Nucleated Red Blood Cells % 0.1 % (0-0); Platelets 145 thou/uL (152-406); RBC Red Blood Cell Count 4.28 M/uL (3.86-4.86); Red Cell Distribution Width 13.3 % (12.1-15.2)
[2023-11-25 00:34] LABS: ALT/SGPT < 14 U/L (13-56); AST/SGOT < 10 U/L (15-37); C-Reactive Protein < 2.90 mg/L (<3.00)
[2023-11-25 01:05] LABS: Specific Gravity 1.027 (1.005-1.030); Sqamous Epithelial <5 /HPF (None Seen); Urine Bacteria <20 /HPF (<20); Urine Bilirubin NEGATIVE (Negative); Urine Blood Negative (Negative); Urine Clarity Extremely Turbid (Clear); Urine Color Yellow (Yellow); Urine Culture Reflex Order REFLEXED; Urine Glucose NEGATIVE (Negative); Urine Ketones NEGATIVE (Negative); Urine Microscopic Reflex YN ORDER UMIC; Urine Mucus 3+ /HPF (None Seen); Urine Nitrite NEGATIVE (Negative); Urine Protein TRACE (Negative); Urine RBC <5 /HPF (None Seen); Urine Urobilinogen Normal (Normal); Urine pH 5.5 (5.0-7.0)
[2023-11-25 01:11] LABS: Barbiturates NEGATIVE (NEGATIVE); Benzodiazepines NEGATIVE (NEGATIVE); Cocaine NEGATIVE (NEGATIVE); METHAMPHETAM NEGATIVE (NEGATIVE); Methadone NEGATIVE (NEGATIVE); Opiates NEGATIVE (NEGATIVE); Phencyclidine NEGATIVE (NEGATIVE); THC Cannibis POSITIVE (NEGATIVE)
[2023-11-25 02:03] LABS: Blood Morphology Comment NOT SEEN (NOT SEEN); Platelet Estimate ADEQ; Platelets Clumped FEW; White Blood Cell Scan OK (OK)
--- NOTE | 2023-11-25 03:31 | ER ---
Nurse's Notes [facility] Name: Cinyd Garcia Age: 53 yrs Sex: Female : 1970 Arrival Date: 11/24/2023 Time: 22:49 Bed 2 Private MD: Diagnosis: Cannabinoid hyperemesis syndrome (CHS), nausea and vomiting, abdominal pain Presentation: 11/23 22:57 Chief complaint: Patient states: SHE HAS SUDDEN ONSET ABD PAIN. +NV. REPORTS IT FEELS lc8 THE SAME WHEN SHE HAD INTUSSUSCEPTION IN THE PAST. 22:57 Coronavirus screen: Client denies travel out of the [place] in the last 14 days. Ebola lc8 Screen: Patient negative for fever greater than or equal to 101.5 degrees Fahrenheit, and additional compatible Ebola Virus Disease symptoms Patient denies exposure to infectious person. Patient denies travel to an Ebola-affected area in the 21 days before illness onset. Initial Sepsis Screen:. Initial Sepsis Screen: Does the patient meet any 2 criteria? No. Patient's initial sepsis screen is negative. Does the patient have a suspected source of infection? No. Patient's initial sepsis screen is negative. Risk Assessment: Do you want to hurt yourself or someone else? Patient reports no desire to harm self or others. Onset of symptoms was November 24, 2023. Care prior to arrival: Medication(s) given: zofran 4 mg, IV initiated. 20 GA, in the right antecubital area. 22:57 Method Of Arrival: EMS: [facility] 22:57 Acuity: JOSE MIGUEL 3 lc8 Triage Assessment: 22:57 General: Appears in no apparent distress. comfortable, Behavior is calm, cooperative. lc8 22:57 EENT: No deficits noted. No signs and/or symptoms were reported regarding the EENT lc8 system. Historical: - Allergies: 22:57 Cyclobenzaprine; ha1 22:57 Oxycodone HCl; ha1 22:57 OxyContin; ha1 - PMHx: 22:57 celiac; chiari malformation; GERD; Osteoporosis; Pseudothrombocytopenia; Rheumatoid ha1 Arthritis; - PSHx: 22:57 Appendectomy; Cholecystectomy; ha1 - Social history:: Patient uses Positive for cannabis use. - Family history:: not pertinent. Screenin:57 Abuse screen: Denies threats or abuse. Denies injuries from another. Nutritional ha1 screening: No deficits noted. Tuberculosis screening: No symptoms or risk factors identified. 22:57 [facility] ED Fall Risk Assessment (Adult) History of falling in the last 3 months, lc8 including since admission No falls in past 3 months (0 pts) Confusion or Disorientation No (0 pts) Intoxicated or Sedated No (0 pts) Impaired Gait No (0 pts) Mobility Assist Device Used No (0 pt) Altered Elimination Score/Fall Risk Level 0 - 2 = Low Risk. Assessment: 11/24 00:00 Reassessment: Patient and/or family updated on plan of care and expected duration. Pain ha1 level reassessed. Patient is alert, oriented x 3, equal unlabored respirations, skin warm/dry/pink. 01:00 Reassessment: Patient and/or family updated on plan of care and expected duration. Pain ha1 level reassessed. Patient is alert, oriented x 3, equal unlabored respirations, skin warm/dry/pink. 02:00 Reassessment: Patient and/or family updated on plan of care and expected duration. Pain ha1 level reassessed. Patient is alert, oriented x 3, equal unlabored respirations, skin warm/dry/pink. 03:00 Reassessment: Patient and/or family updated on plan of care and expected duration. Pain ha1 level reassessed. Patient is alert, oriented x 3, equal unlabored respirations, skin warm/dry/pink. 04:02 Reassessment: discharge pending. awaiting on transportation. ha1 Vital Signs: 11/23 22:55 BP 100 / 82; Pulse 70; Resp 17 S; Pulse Ox 99% on R/A; ha1 11/24 00:00 BP 111 / 85; Pulse 66; Resp 17 S; Pulse Ox 100% on R/A; ha1 02:00 BP 118 / 89; Pulse 65; Resp 17 S; Pulse Ox 99% on R/A; ha1 02:50 BP 111 / 88; Pulse 75; Resp 17 S; Pulse Ox 99% ; ha1 04:00 BP 114 / 84; Pulse 81; Resp 17 S; Pulse Ox 99% on R/A; ha1 [place] Coma Score: 03:25 Eye Response: spontaneous(4). Motor Response: obeys commands(6). Verbal Response: sp4 oriented(5). Total: 15. ED Course: 11/23 22:55 Patient arrived in ED. kmf 22:57 No provider procedures requiring assistance completed. lc8 22:57 Patient has correct armband on for positive identification. Bed in low position. Call lc8 light in reach. Side rails up X 1. Provided Education on: MEDICATION. 23:02 Florin Porter MD is Attending Physician. sp4 23:07 Triage completed. lc8 23:42 CBC with Diff Sent. ha1 23:42 CMP Sent. ha1 23:42 Lipase Sent. ha1 11/24 01:33 CT Abd/Pelvis - IV Contrast Only In Process Unspecified. EDMS 02:42 Urine Culture Sent. ha1 04:24 IV discontinued, intact, Pressure dressing applied. lc8 Administered Medications: 00:03 Drug: Famotidine IVP 20 mg IVP once; dilute with 10 mL 0.9% NaCl; give over 2 minutes ha1 Route: IVP; Site: right forearm; 00:30 Follow up: Response: No adverse reaction; Marked relief of symptoms ha1 00:04 Drug: NS 0.9% IV 1000 ml IV at 1 bolus Per protocol; 1000 mL bolus Route: IV; Rate: 1 ha1 bolus; Site: right forearm; 02:50 Follow up: Response: No adverse reaction; IV Status: Completed infusion; IV Intake: ha1 1000ml 00:04 Drug: TORadol - Ketorolac IVP 30 mg IVP once Route: IVP; Site: right forearm; ha1 00:30 Follow up: Response: No adverse reaction; Marked relief of symptoms ha1 00:04 Drug: Ondansetron IVP 4 mg IVP once; over 2 minutes Route: IVP; Site: right forearm; ha1 00:30 Follow up: Response: No adverse reaction; Marked relief of symptoms ha1 01:28 Drug: Haloperidol IVP 2.5 mg/50 mL 2.5 mg IVP once; Place patient on a air sampling and monitoring lc8 Route: IVP; Site: right forearm; 02:00 Follow up: Response: No adverse reaction ha1 02:20 Drug: morphine IVP or IV 4 mg IVP once over 4 mins Route: IVP; Infused Over: 4 mins; ha1 Site: right forearm; 02:50 Follow up: Response: No adverse reaction; Marked relief of symptoms; Pain is decreased; ha1 RASS: Alert and Calm (0) 04:15 Drug: Promethazine PO 25 mg PO once Route: PO; lc8 04:20 Follow up: Response: No adverse reaction; Marked relief of symptoms ha1 Intake: 02:50 IV: 1000ml; Total: 1000ml. ha1 Outcome: 03:30 Discharge ordered by . ida 04:24 Discharged to home via wheelchair, with family, 8 04:24 Condition: stable 04:24 Discharge instructions given to patient, Instructed on discharge instructions, follow up and referral plans. medication usage, Demonstrated understanding of instructions, follow-up care, medications, Prescriptions given X 1, 04:38 Patient left the ED. ha1 Signatures: Dispatcher [employer] EDMS Cyndie Fitzpatrick RN RN ha1 Florin Porter MD MD sp4 Dina Richard LaBrisha, RN RN lc8 Corrections: (The following items were deleted from the chart) 04:22 03:00 BP 111 / 88; Pulse 75bpm; Resp 17bpm; Spontaneous; Pulse Ox 99%; ha1 ha1
--- NOTE | 2023-11-25 03:31 | EDPHYS ---
Physician Documentation [facility] Name: Cindy Garcia Age: 53 yrs Sex: Female : 1970 Arrival Date: 11/24/2023 Time: 22:49 Bed 2 Private MD: ED Physician Florin Porter HPI: 11/23 23:02 This 53 yrs old Female presents to ER via Unassigned with complaints of sp4 abdominal pain, vomiting . 11/24 03:24 53-year-old female history of celiac disease, Chiari malformation, GERD, osteoporosis, sp4 rheumatoid arthritis, physical debility, presents with acute abdominal pain and vomiting. . Historical: - Allergies: 11/23 22:57 Cyclobenzaprine; ha1 22:57 Oxycodone HCl; ha1 22:57 OxyContin; ha1 - PMHx: 22:57 celiac; chiari malformation; GERD; Osteoporosis; Pseudothrombocytopenia; Rheumatoid ha1 Arthritis; - PSHx: 22:57 Appendectomy; Cholecystectomy; ha1 - Social history:: Patient uses Positive for cannabis use. - Family history:: not pertinent. ROS: 11/24 03:25 Constitutional: Negative for fever, chills, and weight loss, positive abdominal pain sp4 and vomiting All other systems are negative, Exam: 03:25 Constitutional: Small sized female, appears physically debilitated, thin in sp4 appearance, anxious on arrival. Restless Head/Face: Normocephalic, atraumatic. Eyes: Pupils equal round and reactive to light, extra-ocular motions intact. Lids and lashes normal. Conjunctiva and sclera are not injected. Cornea within normal limits. Periorbital areas with no swelling, redness, or edema. ENT: Nares patent. No nasal discharge, no septal abnormalities noted. Tympanic membranes are normal and external auditory canals are clear. Oropharynx with no redness, swelling, or masses, exudates, or evidence of obstruction, uvula midline. Mucous membranes moist. Neck: Trachea midline, no thyromegaly or masses palpated, and no cervical lymphadenopathy. Supple, full range of motion without nuchal rigidity, or vertebral point tenderness. Chest/axilla: Normal chest wall appearance and motion. Nontender with no deformity. No lesions are appreciated. Cardiovascular: Regular rate and rhythm with a normal S1 and S2. No gallops, murmurs, or rubs. Normal PMI, no JVD. No pulse deficits. Respiratory: Lungs have equal breath sounds bilaterally, clear to auscultation and percussion. No rales, rhonchi or wheezes noted. No increased work of breathing, no retractions or nasal flaring. Abdomen/GI: Soft, with normal bowel sounds. No distension or tympany. No guarding or rebound. No evidence of tenderness throughout. Back: No spinal tenderness. No costovertebral tenderness. Skin: Warm, dry with normal turgor. Normal color with no rashes, no lesions, and no evidence of cellulitis. MS/ Extremity: Pulses equal, no cyanosis. Neurovascular intact. Full, normal range of motion. Neuro: Awake and alert, GCS 15, oriented to person, place, time, and situation. Cranial nerves II-XII grossly intact. Motor strength 5/5 in all extremities. Sensory grossly intact. Psych: Awake, alert, with orientation to person, place and time. Positive for restlessness and mild agitation Vital Signs: 11/23 22:55 BP 100 / 82; Pulse 70; Resp 17 S; Pulse Ox 99% on R/A; ha1 11/24 00:00 BP 111 / 85; Pulse 66; Resp 17 S; Pulse Ox 100% on R/A; ha1 02:00 BP 118 / 89; Pulse 65; Resp 17 S; Pulse Ox 99% on R/A; ha1 02:50 BP 111 / 88; Pulse 75; Resp 17 S; Pulse Ox 99% ; ha1 04:00 BP 114 / 84; Pulse 81; Resp 17 S; Pulse Ox 99% on R/A; ha1 [place] Coma Score: 03:25 Eye Response: spontaneous(4). Motor Response: obeys commands(6). Verbal Response: sp4 oriented(5). Total: 15. MDM: 11/23 23:50 Patient medically screened. sp4 11/24 03:21 ED course: PROCEDURE: ABDOMEN PELVIS WITH IV CONTRAST CLINICAL HISTORY: Abd pain. sp4 TECHNIQUE: Contiguous axial images obtained through the abdomen and pelvis following the uneventful administration of IV contrast. Coronal and sagittal reformatted images were provided. This exam was performed according to our departmental dose-optimization program, which includes automated exposure control, adjustment of the mA and/or kV according to patient size and/or use of iterative reconstruction technique. COMPARISON: CTAbdomen pelvis 11/10/2023. FINDINGS: Lung bases: Clear Liver: Unremarkable Gallbladder and biliary system: Mild intra and extrahepatic bile duct dilatation similar to the prior examination and likely manifesting the postcholecystectomy state Pancreas: Unremarkable Spleen: Mild splenomegaly. The spleen measures approximately 14.1 cm longitudinally Adrenals: Unremarkable Kidneys: Normal renal cortical enhancement. No calculi. No hydronephrosis. Questionable mild colonic mucosal thickening along the distal ascending and proximal transverse colon which may be secondary to incomplete distention. Mild segmental colitis cannot be excluded. Appendix: No findings to suggest acute appendicitis. Urinary bladder: Unremarkable Reproductive: Status post hysterectomy. Lymph nodes: No pathologically enlarged lymph nodes. Peritoneum: Nonspecific fluid in the pelvis.. No free air. Vessels: No abdominal aortic aneurysm. Abdominal wall: Unremarkable Bones: [Prosthesis and internal fixation of the right hip. Chronic lower thoracic and lumbar compression deformities, similar to the prior examination IMPRESSION: 1. Questionable mild colonic mucosal thickening along the distal ascending and proximal transverse colon which may be secondary to incomplete distention. Mild segmental colitis cannot be excluded. 2. Nonspecific fluid in the pelvis. 3. Mild splenomegaly. 4. Mild intra and extrahepatic bile duct dilatation similar to the prior examination and likely manifesting the postcholecystectomy state. Electronically signed by: Arthur Falk MD 11/25/2023 02:39 AM CDT RP. 03:25 Differential Diagnosis altered mental status, sepsis, flu, Colitis , enteritis . Data sp4 reviewed: vital signs, nurses notes, EMS record, old medical records, lab test result(s), radiologic studies, CT scan. Consideration of Admission/Observation Escalation of care including admission/observation considered. ED course: Patient has tested positive for cannabis which is the likely source of persistent vomiting and abdominal discomfort. Will advise to discontinue use of cannabis. Otherwise stable for discharge home.. 03:29 ED course: Symptoms have improved. Patient stable for discharge home. She is tolerating sp4 p.o. intake. 11/23 23:05 Order name: CBC with Diff; Complete Time: 02:17 sp4 11/23 23:05 Order name: CMP; Complete Time: 02:17 sp4 11/23 23:05 Order name: Lipase; Complete Time: 02:17 sp4 11/23 23:05 Order name: Urinalysis w/ reflexes; Complete Time: 02:17 sp4 11/23 23:05 Order name: CRP; Complete Time: 02:17 sp4 11/23 23:05 Order name: Urine Drug Screen; Complete Time: 02:17 sp4 11/24 00:38 Order name: CBC Smear Scan; Complete Time: 02:17 EDMS 11/24 01:13 Order name: Urine Culture EDHI 11/23 23:05 Order name: CT Abd/Pelvis - IV Contrast Only sp4 11/23 23:05 Order name: IV Saline Lock; Complete Time: 23:42 sp4 11/23 23:05 Order name: Labs collected and sent; Complete Time: 23:42 sp4 Administered Medications: 00:03 Drug: Famotidine IVP 20 mg IVP once; dilute with 10 mL 0.9% NaCl; give over 2 minutes ha1 Route: IVP; Site: right forearm; 00:30 Follow up: Response: No adverse reaction; Marked relief of symptoms ha1 00:04 Drug: NS 0.9% IV 1000 ml IV at 1 bolus Per protocol; 1000 mL bolus Route: IV; Rate: 1 ha1 bolus; Site: right forearm; 02:50 Follow up: Response: No adverse reaction; IV Status: Completed infusion; IV Intake: ha1 1000ml 00:04 Drug: TORadol - Ketorolac IVP 30 mg IVP once Route: IVP; Site: right forearm; ha1 00:30 Follow up: Response: No adverse reaction; Marked relief of symptoms ha1 00:04 Drug: Ondansetron IVP 4 mg IVP once; over 2 minutes Route: IVP; Site: right forearm; ha1 00:30 Follow up: Response: No adverse reaction; Marked relief of symptoms ha1 01:28 Drug: Haloperidol IVP 2.5 mg/50 mL 2.5 mg IVP once; Place patient on a environmental monitoring technician lc8 Route: IVP; Site: right forearm; 02:00 Follow up: Response: No adverse reaction ha1 02:20 Drug: morphine IVP or IV 4 mg IVP once over 4 mins Route: IVP; Infused Over: 4 mins; ha1 Site: right forearm; 02:50 Follow up: Response: No adverse reaction; Marked relief of symptoms; Pain is decreased; ha1 RASS: Alert and Calm (0) 04:15 Drug: Promethazine PO 25 mg PO once Route: PO; lc8 04:20 Follow up: Response: No adverse reaction; Marked relief of symptoms ha1 Disposition Summary: 11/25/23 03:30 Discharge Ordered Notes: Location: Home sp4 Problem: new sp4 Symptoms: have improved sp4 Condition: Stable sp4 Diagnosis - Cannabinoid hyperemesis syndrome (CHS), nausea and vomiting, abdominal pain sp4 Followup: sp4 - With: Private Physician - When: 7 - 10 days - Reason: Recheck today's complaints Discharge Instructions: - Discharge Summary Sheet sp4 - Cannabinoid Hyperemesis Syndrome sp4 Forms: - Patient Portal Instructions sp4 Prescriptions: - promethazine 25 mg Oral tablet - take 1 tablet ORAL route every 6 hours As needed PRN nausea; 30 tablet; sp4 Refills: 0, Product Selection Permitted Signatures: Dispatcher [employer] EDMS Cyndie Fitzpatrick RN RN ha1 Florin Porter MD MD sp4 Sandy Silva RN RN lc8 Corrections: (The following items were deleted from the chart) 11/23 23:05 23:05 C-REACTIVE PROTEIN+C.LAB.BRZ ordered. EDMS EDMS 23:05 23:05 URINE DRUG SCREEN+UC.LAB.BRZ ordered. EDMS EDMS
[2023-11-25] MEDS ORDERED: PROMETHAZINE 25 MG TABLET ONE (04:10)
[2023-11-25 05:03] VITALS: BP 114/84; O2SAT 99
== END 2023-11-25 04:38 | disposition home or self-care (01) ==
LOC: ER 22:49
DX: R11.2 Nausea with vomiting, unspecified (principal); R10.9 Unspecified abdominal pain
CPT/HCPCS: 36415; 83690; 80053; 86140; J1630; J2405; J7030; 74177; 80307; 81001; 85025; 87086; 87088; Q0169; Q9967

== ENCOUNTER 2024-01-18 23:37 | Emergency (ER) | payer OTHER ==
[2024-01-19 00:56] LABS: Absolute Lymphocytes (CBC) 0.3 K/uL (0.7-4.9); Absolute Monocytes 0.5 K/uL (0.1-1.3); Absolute Neutrophil 5.7 K/uL (1.8-8.0); Basophils % 0.2 % (0-1.3); Eosinophils % 0.2 % (0-4.4); Hematocrit 33.4 % (36.0-45.0); Hemoglobin 11.5 g/dL (12.0-15.0); Lymphocytes % 4.9 % (15.3-44.8); MCH 29.5 pg (27.0-35.0); MCHC 34.3 g/dL (32.0-36.0); MCV 85.8 fL (80-100); MPV 7.1 fL (7.6-11.3); Monocytes % 7.8 % (3.3-12.3); Neutrophils % 86.9 % (41.7-73.7); Nucleated Red Blood Cells % 0.1 % (0-0); Platelets 179 thou/uL (152-406); RBC Red Blood Cell Count 3.89 M/uL (3.86-4.86); Red Cell Distribution Width 14.3 % (12.1-15.2)
[2024-01-19 01:15] LABS: AST/SGOT 16 U/L (15-37); Albumin 2.8 g/dL (3.4-5.0); Alkaline Phosphatase 88 U/L (45-117); Anion Gap 8.3 mEq/L (5.0-15.0); BUN Blood Urea Nitrogen 11 mg/dL (7-18); Bicarbonate 25 mEq/L (21-32); Bilirubin Total 0.6 mg/dL (0.2-1.0); Globulin 2.8 g/dL (2.3-3.5); Glomerular Filtration Rate 95 ml/min (=/>90); Glucose Level 128 mg/dL (74-106); Lipase 34 U/L (13-75); Magnesium 1.6 mg/dL (1.6-2.4); Potassium 3.3 mEq/L (3.5-5.1); Protein, Total 5.6 g/dL (6.4-8.2); Sodium Level 141 mEq/L (136-145)
[2024-01-19 01:18] LABS: ALT/SGPT < 14 U/L (13-56)
--- NOTE | 2024-01-19 02:20 | ER ---
Nurse's Notes [facility] Name: Cindy Garcia Age: 53 yrs Sex: Female : 1970 Arrival Date: 01/18/2024 Time: 23:37 Bed 2 Private MD: Diagnosis: Nausea Presentation: 01/17 23:59 Chief complaint: Patient states: nausea. Coronavirus screen: At this time, the client [facility] does not indicate any symptoms associated with coronavirus-19. Ebola Screen: No symptoms or risks identified at this time. Initial Sepsis Screen: Does the patient meet any 2 criteria? No. Patient's initial sepsis screen is negative. Does the patient have a suspected source of infection? No. Patient's initial sepsis screen is negative. Risk Assessment: Do you want to hurt yourself or someone else? Patient reports no desire to harm self or others. Onset of symptoms was January 19, 2024. 23:59 Method Of Arrival: EMS [facility] 23:59 Acuity: JOSE MIGUEL 4 [id number] Triage Assessment: 01/18 00:01 General: Appears in no apparent distress. Behavior is calm, cooperative. Pain: Denies [facility] pain. EENT: No deficits noted. No signs and/or symptoms were reported regarding the EENT system. Neuro: No deficits noted. Cardiovascular: No deficits noted. Respiratory: No deficits noted. GI: Reports nausea. : No deficits noted. No signs and/or symptoms were reported regarding the genitourinary system. Derm: No deficits noted. No signs and/or symptoms reported regarding the dermatologic system. Musculoskeletal: No deficits noted. No signs and/or symptoms reported regarding the musculoskeletal system. Historical: - Allergies: 00:01 Cyclobenzaprine; 12 00:01 Oxycodone HCl; 12 00:01 OxyContin; 12 - PMHx: 00:01 celiac; chiari malformation; GERD; GERD; Osteoporosis; Pseudothrombocytopenia; 12 Rheumatoid Arthritis; - PSHx: 00:01 Appendectomy; Cholecystectomy; 12 - Immunization history:: Adult Immunizations up to date. - Infectious Disease History:: Denies. - Social history:: Smoking status: Patient denies any tobacco usage or history of. Assessment: 00:03 General: Appears in no apparent distress. Pain: Denies pain. Neuro: No deficits noted. jm12 Cardiovascular: No deficits noted. Respiratory: No deficits noted. Respiratory:. GI: Reports nausea. : No deficits noted. No signs and/or symptoms were reported regarding the genitourinary system. Vital Signs: 01/17 23:59 BP 106 / 70; Pulse 97; Resp 14; Temp 98.6; Pulse Ox 100% ; Weight 44 kg; Height 5 ft. 1 12 in. ; Pain 0/10; 01/18 00:51 BP 96 / 56; Pulse 86; Resp 16; Pulse Ox 100% ; [facility] 02:06 BP 102 / 68; Pulse 78; Resp 14; Pulse Ox 100% ; Pain 0/10; 12 01/17 23:59 Body Mass Index 18.33 (44.00 kg, 154.94 cm) [facility] 01/17 23:59 Pain Scale: Adult [facility] 02:06 Pain Scale: Adult [facility] ED Course: 01/17 23:42 Patient arrived in ED. sb4 23:42 [facility] 4 23:42 Florin Porter MD is Attending Physician. 4 01/18 00:01 Triage completed. 12 00:02 Arm band placed on right wrist. 12 00:03 Maintain EMS IV. Dressing intact. Good blood return noted. Site clean \T\ dry. Gauge \T\ 12 site: 20 LAC. Flushed with 10 mL NS. 00:20 Abdomen 1 View (KUB) XRAY In Process Unspecified. EDMS Administered Medications: 03:04 Drug: Potassium PO Effervescent Tablet 25 mEq PO once; dissolve in 4 ounces of water or jm12 juice Route: PO; Outcome: 02:20 Discharge ordered by . 4 03:45 Patient left the ED. jb4 Signatures: Dispatcher [employer] EDMS Campbell Arirngton RN RN jb4 Nathaly Steiner PA-C PA-C sb4 Floresita Melvin RN RN jm
--- NOTE | 2024-01-19 02:21 | EDPHYS ---
Physician Documentation [facility] Name: Cindy Garcia Age: 53 yrs Sex: Female : 1970 Arrival Date: 01/18/2024 Time: 23:37 Bed 2 Private MD: ED Physician Florin Porter HPI: 01/17 23:49 This 53 yrs old Female presents to ER via Unassigned with complaints of nausea. sb4 23:49 The patient presents to the emergency department with nausea, with "dry heaves". Onset: sb4 The symptoms/episode began/occurred just prior to arrival. Possible causes: unknown. Possible causes: low mag. Associated signs and symptoms: The patient has no apparent associated signs or symptoms. Severity of symptoms: At their worst the symptoms were very mild. The patient has experienced similar episodes in the past, a few times, today's symptoms are similar. The patient has not recently seen a physician. Historical: - Allergies: 01/18 00:01 Cyclobenzaprine; 12 00:01 Oxycodone HCl; 12 00:01 OxyContin; jm12 - PMHx: 00:01 celiac; chiari malformation; GERD; GERD; Osteoporosis; Pseudothrombocytopenia; jm12 Rheumatoid Arthritis; - PSHx: 00:01 Appendectomy; Cholecystectomy; jm12 - Immunization history:: Adult Immunizations up to date. - Infectious Disease History:: Denies. - Social history:: Smoking status: Patient denies any tobacco usage or history of. ROS: 01/17 23:49 Constitutional: Negative for fever, chills, and weight loss, sb4 Abdomen/GI: Positive for nausea, All other systems are negative, Exam: 23:49 Head/Face: Normocephalic, atraumatic. Eyes: Extra-ocular motions intact. Periorbital sb4 areas with no swelling, redness, or edema. ENT: Mucous membranes moist. Cardiovascular: Regular rate and rhythm with a normal S1 and S2. Respiratory: Lungs have equal breath sounds bilaterally, clear to auscultation and percussion. No rales, rhonchi or wheezes noted. No increased work of breathing, no retractions or nasal flaring. Abdomen/GI: Soft, non-tender, no distension. Skin: Warm, dry with normal turgor. Normal color with no rashes, no lesions, and no evidence of cellulitis. MS/ Extremity: Pulses equal, no cyanosis. Neurovascular intact. Full, normal range of motion. 23:49 Constitutional: The patient appears in no acute distress, alert, awake, frail, Vital Signs: 23:59 BP 106 / 70; Pulse 97; Resp 14; Temp 98.6; Pulse Ox 100% ; Weight 44 kg; Height 5 ft. 1 [facility] in. ; Pain 0/10; 01/18 00:51 BP 96 / 56; Pulse 86; Resp 16; Pulse Ox 100% ; 12 02:06 BP 102 / 68; Pulse 78; Resp 14; Pulse Ox 100% ; Pain 0/10; 12 01/17 23:59 Body Mass Index 18.33 (44.00 kg, 154.94 cm) [facility] 01/17 23:59 Pain Scale: Adult [facility] 02:06 Pain Scale: Adult [facility] MDM: 01/17 23:43 Patient medically screened. [facility] 01/18 02:20 Data reviewed: vital signs, nurses notes, lab test result(s), radiologic studies, and sb4 as a result, I will discharge patient. Counseling: I had a detailed discussion with the patient and/or guardian regarding the historical points, exam findings, and any diagnostic results supporting the discharge/admit diagnosis, lab results, radiology results, to return to the emergency department if symptoms worsen or persist or if there are any questions or concerns that arise at home. 01/17 23:48 Order name: CBC with Diff; Complete Time: 02:37 sb4 01/17 23:48 Order name: CMP; Complete Time: 01:19 sb4 01/17 23:48 Order name: Lipase; Complete Time: 01:19 sb4 01/17 23:48 Order name: Magnesium; Complete Time: 01:19 sb4 01/18 02:34 Order name: CBC Smear Scan; Complete Time: 02:37 EDMS 01/17 23:55 Order name: Abdomen 1 View (KUB) XRAY sb4 01/17 23:48 Order name: IV Saline Lock; Complete Time: 00:11 sb4 01/17 23:48 Order name: Labs collected and sent sb4 Administered Medications: 03:04 Drug: Potassium PO Effervescent Tablet 25 mEq PO once; dissolve in 4 ounces of water or jm12 juice Route: PO; Disposition: 22:33 Co-signature as Attending Physician, Florin Porter MD I agree with the assessment sp4 and plan of care. I reviewed the patient's care provided by the Advanced Practice Provider and agree with the diagnosis and treatment plan. Disposition Summary: 01/19/24 02:20 Discharge Ordered Notes: Location: Home sb4 Problem: new sb4 Symptoms: have improved sb4 Condition: Stable sb4 Diagnosis - Nausea sb4 Followup: sb4 - With: Private Physician - When: As needed - Reason: Recheck today's complaints, Re-evaluation by your physician Discharge Instructions: - Discharge Summary Sheet sb4 - Nausea, Adult sb4 Forms: - Patient Portal Instructions sb4 - Leadership Thank You Letter sb4 Prescriptions: - Zofran 4 mg Oral Tablet - take 1 tablet ORAL route every 12 hours As needed; 20 tablet; Refills: 0, sb4 Product Selection Permitted Signatures: Dispatcher [employer] EDMS Nathaly Steiner PA-C PA-C sb4 Florin Porter MD MD sp4 Floresita Melvin RN RN jm12 Corrections: (The following items were deleted from the chart) 01/17 23:49 23:49 CBC+H.LAB.BRZ ordered. EDMS EDMS 23:49 23:49 COMPREHENSIVE METABOLIC PANEL+C.LAB.BRZ ordered. EDMS EDMS 23:49 23:49 LIPASE+C.LAB.BRZ ordered. EDMS EDMS 23:49 23:49 MAGNESIUM+C.LAB.BRZ ordered. EDMS EDMS 23:55 23:55 Abdomen 1 View (KUB)+RAD.RAD.BRZ ordered. EDMS EDMS
[2024-01-19 02:34] LABS: Blood Morphology Comment NOT SEEN (NOT SEEN); Platelet Estimate ADEQ; White Blood Cell Scan OK (OK)
[2024-01-19] MEDS ORDERED: POTASS/SODIUM PHOSPHATE 1 PKT POWD.PACK ONE (02:57)
[2024-01-19 03:49] VITALS: TEMP 98.6; O2SAT 100
[2024-01-19 03:51] VITALS: BP 102/68
--- NOTE | 2024-01-19 11:44 | RAD REPORT ---
EXAM DESCRIPTION: RAD - Abdomen 1 View (KUB) - 01/19/2024 12:18 am CLINICAL HISTORY: 53 years, Female, Vomiting, history of intussusception, abdominal pain. COMPARISON: CT Abdomen pelvis 11/25/2023. FINDINGS: 1 X-ray view of the Abdomen (supine) was performed. Prior films were compared. Catheters/tubes/postoperative changes: Status post cholecystectomy. Bowel: The gas pattern is nondiagnostic. No signs of ileus or obstruction is demonstrated. There is mild fecal stasis. Kidneys: No areas of abnormal calcifications were identified in either renal fossa. The psoas shado ws demonstrate to be symmetric. Bones: Bony structures demonstrate diffuse osteopenia. ORIF right hip joint. Status post total left h ip arthroplasty.. IMPRESSION: Nondiagnostic gas pattern. Mild fecal stasis. Status post cholecystectomy. Status post t otal left hip arthroplasty. Electronically signed by: Moiz Cotto MD 01/19/2024 02:16 AM CDT Due to temporary technical issues with the PACS/Fluency reporting system, reports are being signed by the in house radiologist without review as a courtesy to ensure prompt reporting. The interpreting r adiologist is fully responsible for the content of the report.
== END 2024-01-19 03:45 | disposition home or self-care (01) ==
LOC: ER 23:37
DX: R11.0 Nausea (principal)
CPT/HCPCS: 36415; 74018; 80053; 83690; 83735; 85025

== ENCOUNTER 2024-01-20 17:33 | Inpatient (IN) | payer OTHER ==
[2024-01-20] MEDS ORDERED: ONDANSETRON 4 MG/2 ML VIAL ONE (18:20)
[2024-01-20] MEDS ORDERED: FAMOTIDINE 20 MG/2 ML VIAL IV ONE (18:20)
[2024-01-20] MEDS ORDERED: FENTANYL CITR 100 MCG/2 ML ONE (18:20)
[2024-01-20] MEDS ORDERED: NA CHLORIDE 0.9% 1,000 ML ONE (18:21)
[2024-01-20 18:45] LABS: Absolute Lymphocytes (CBC) 1.1 K/uL (0.7-4.9); Absolute Monocytes 0.5 K/uL (0.1-1.3); Absolute Neutrophil 2.1 K/uL (1.8-8.0); Basophils % 0.3 % (0-1.3); Eosinophils % 0.7 % (0-4.4); Hematocrit 37.5 % (36.0-45.0); Hemoglobin 12.8 g/dL (12.0-15.0); Lymphocytes % 29.3 % (15.3-44.8); MCV 85.3 fL (80-100); MPV 7.7 fL (7.6-11.3); Monocytes % 12.9 % (3.3-12.3); Neutrophils % 56.8 % (41.7-73.7); Nucleated Red Blood Cells % 0.2 % (0-0); Platelets 193 thou/uL (152-406); Red Cell Distribution Width 14.1 % (12.1-15.2)
[2024-01-20 18:46] LABS: Protime INR 0.98
[2024-01-20 19:02] LABS: AST/SGOT 16 U/L (15-37); Alkaline Phosphatase 90 U/L (45-117); Anion Gap 14.8 mEq/L (5.0-15.0); BUN Blood Urea Nitrogen 14 mg/dL (7-18); Bicarbonate 20 mEq/L (21-32); Bilirubin Direct 0.3 mg/dL (0-0.2); Bilirubin Indirect, Calculated 1.2 mg/dL (0.2-0.8); Bilirubin Total 1.5 mg/dL (0.2-1.0); Globulin 3.1 g/dL (2.3-3.5); Glomerular Filtration Rate 110 ml/min (=/>90); Glucose Level 114 mg/dL (74-106); Lipase 28 U/L (13-75); Magnesium 1.8 mg/dL (1.6-2.4); NT PRO-BNP 372 pg/mL (<125); Potassium 2.8 mEq/L (3.5-5.1); Protein, Total 6.1 g/dL (6.4-8.2); Sodium Level 142 mEq/L (136-145)
[2024-01-20 19:17] LABS: ALT/SGPT < 14 U/L (13-56)
--- NOTE | 2024-01-20 19:58 | ER ---
Nurse's Notes [facility] Name: Cindy Garcia Age: 53 yrs Sex: Female : 1970 Arrival Date: 01/20/2024 Time: 17:33 Bed 16 Private MD: Diagnosis: Abdominal pain, Generalized;Vomiting;Hypokalemia;Weakness Presentation: 01/19 17:45 Chief complaint: EMS states: toned out for n/v and weakness. Patient is pale and me1 diaphoretic with pinpoint pupils. 18g to RAC, given NS 350ml and zofran 4 mg. Was seen in ER yesterday with the same complaints. Coronavirus screen: Vaccine status: Patient reports receiving the 2nd dose of the covid vaccine. Ebola Screen: No symptoms or risks identified at this time. Initial Sepsis Screen: Does the patient meet any 2 criteria? No. Patient's initial sepsis screen is negative. Does the patient have a suspected source of infection? No. Patient's initial sepsis screen is negative. Risk Assessment: Do you want to hurt yourself or someone else? Patient reports no desire to harm self or others. Onset of symptoms was January 20, 2024. Care prior to arrival: Medication(s) given: Normal saline infusion, 350 ml zofran 4 mg, IV initiated. 18 GA, in the right antecubital area. 17:45 Method Of Arrival: EMS [facility] [place] 17:45 Acuity: JOSE MIGUEL 4 me1 Triage Assessment: 17:48 General: Appears ill, unkempt, emaciated, Behavior is cooperative, appropriate for age, me1 Reports n/v and weakness. Pain: Denies pain. EENT: No signs and/or symptoms were reported regarding the EENT system. EENT: Neuro: Level of Consciousness is awake, alert, obeys commands, Oriented to person, place, time, situation, Appropriate for age. Cardiovascular: Denies chest pain, shortness of breath. Respiratory: Airway is patent Trachea midline Respiratory effort is even, unlabored, Respiratory pattern is regular, symmetrical. GI: Reports nausea, vomiting. : No signs and/or symptoms were reported regarding the genitourinary system. Derm: Skin is diaphoretic, Skin is pale, Skin temperature is warm. Musculoskeletal: No signs and/or symptoms reported regarding the musculoskeletal system. 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 - Infectious Disease History:: Denies. - Social history:: Smoking status: Patient/guardian denies using tobacco, but has a distant history of tobacco abuse. Screenin:52 [facility] ED Fall Risk Assessment (Adult) History of falling in the last 3 months, me1 including since admission No falls in past 3 months (0 pts) Confusion or Disorientation No (0 pts) Intoxicated or Sedated No (0 pts) Impaired Gait No (0 pts) Mobility Assist Device Used No (0 pt) Altered Elimination No (0 pt) Score/Fall Risk Level 0 - 2 = Low Risk Maintained a safe environment, Provided non-skid footwear, Hourly rounding (assess needs \T\ fall precautionary measures) done. Abuse screen: Denies threats or abuse. Nutritional screening: No deficits noted. Tuberculosis screening: No symptoms or risk factors identified. Assessment: 17:52 General: See triage assessment. . me1 Vital Signs: 17:45 BP 106 / 76; Pulse 71; Resp 18; Temp 98.7; Pulse Ox 98% ; Weight 45.36 kg; Height 5 ft. me1 1 in. ; Pain 0/10; 18:00 BP 110 / 71; Pulse 64; Resp 16; Pulse Ox 98% on R/A; me1 19:00 BP 116 / 78; Pulse 55; Resp 17; Pulse Ox 100% ; me1 20:00 BP 129 / 70; Pulse 61; Resp 14; Pulse Ox 100% on R/A; me1 21:00 BP 159 / 81; Pulse 61; Resp 15; Pulse Ox 100% on R/A; me1 22:00 BP 111 / 75; Pulse 65; Resp 15; Pulse Ox 100% on R/A; me1 17:45 Body Mass Index 18.89 (45.36 kg, 154.94 cm) ok1 17:45 Pain Scale: Adult me1 ED Course: 17:35 Patient arrived in ED. me1 17:48 Triage completed. me1 17:48 Arm band placed on Patient placed in an exam room. me1 17:52 Patient has correct armband on for positive identification. Bed in low position. Call ok1 light in reach. Side rails up X2. Provided Education on: POC. Verbalized understanding.. Client placed on continuous cardiac and pulse oximetry monitoring. NIBP monitoring applied. Pulse ox on. NIBP on. 17:52 No provider procedures requiring assistance completed. Maintain EMS IV. Dressing ok1 intact. Good blood return noted. Site clean \T\ dry. Gauge \T\ site: 18g RAC. Flushed with 10 mL NS. 18:00 Akin Gunderson MD is Attending Physician. [facility] 18:09 Dyan Olmstead, AGUSTINA is Primary Nurse. ok1 18:17 Basic Metabolic Panel Sent. me1 18:17 CBC with Diff Sent. me1 18:17 LFT's Sent. me1 18:17 Magnesium Sent. me1 18:18 NT PRO-BNP Sent. me1 18:18 PT-INR Sent. me1 18:18 Troponin HS Sent. me1 18:25 XRAY Chest (1 view) In Process Unspecified. EDMS 18:29 Initial lab(s) drawn, by ok, sent to lab. ok1 19:23 EKG done, by ED staff. [facility] 19:46 CT Chest, Abdomen, Pelvis - W/Contrast In Process Unspecified. EDOH 19:57 Valdimir Guevara MD is Hospitalizing Provider. [facility] 19:58 Urinalysis w/ reflexes Sent. ok1 19:59 Urine collected: clean catch specimen, clear. ok1 21:01 Garcia Ramos MD is Hospitalizing Provider. [facility] 01/20 02:05 Patient admitted, IV remains in place. al5 Administered Medications: 01/19 18:28 Drug: NS 0.9% IV 1000 ml IV at 1 bolus Per protocol; 1000 mL bolus Route: IV; Rate: 1 me1 bolus; Site: right antecubital; 22:07 Follow up: Response: No adverse reaction; IV Status: Completed infusion; IV Intake: me1 1000ml 18:28 Drug: Ondansetron IVP 4 mg IVP once; over 2 minutes Route: IVP; Site: right antecubital;me1 18:49 Follow up: Response: No adverse reaction; Nausea is decreased me1 18:28 Drug: Famotidine IVP 20 mg IVP once; dilute with 10 mL 0.9% NaCl; give over 2 minutes me1 Route: IVP; Site: right antecubital; 18:49 Follow up: Response: No adverse reaction me1 18:28 Drug: fentaNYL (PF) IVP 50 mcg IVP once Route: IVP; Site: right antecubital; me1 18:49 Follow up: Response: No adverse reaction; Pain is decreased me1 19:21 Drug: Ondansetron IVP 4 mg IVP once; over 2 minutes Route: IVP; Site: right antecubital;me1 19:21 Follow up: Response: No adverse reaction me1 20:03 Drug: Potassium Chloride IV 20 mEq IV at per protocol once; administer over 1-2 hours me1 Route: IV; Rate: per protocol; Site: right antecubital; 22:07 Follow up: Response: No adverse reaction; IV Status: Completed infusion; IV Intake: me1 100ml 20:04 Drug: NS 0.9% with KCl IV 20 mEq/L 1000 ml IV at 125 ml/hr continuous Route: IV; Rate: me1 125 ml/hr; Site: right antecubital; 22:07 Drug: Potassium Chloride IV 20 mEq IV at per protocol once; administer over 1-2 hours me1 Route: IV; Rate: per protocol; Site: right antecubital; Medication: 17:52 VIS not applicable for this client. me1 Intake: 22:07 IV: 100ml; Total: 100ml. me1 22:07 IV: 1000ml; Total: 1100ml. me1 Outcome: 19:58 Decision to Hospitalize by Provider. zaid 22:00 Admitted to ER Hold. Please see [facility] for further documentation. al5 22:00 Condition: good 22:00 Instructed on the need for admit, 01/20 03:22 Patient left the ED. vc1 Signatures: Dispatcher [employer] Akin Moran MD MD cha Calcote, Vanessa, RN RN vc1 Dyan Olmstead RN RN ok1 Dina Richard Iesha Jasso RN RN al5
--- NOTE | 2024-01-20 19:58 | EDPHYS ---
Physician Documentation [facility] Name: Cindy Garcia Age: 53 yrs Sex: Female : 1970 Arrival Date: 01/20/2024 Time: 17:33 Bed 16 Private MD: KATHLEEN Physician Akin Gunderson HPI: 01/19 18:07 This 53 yrs old Female presents to ER via EMS with complaints of zaid Nausea/Vomiting. 18:07 The patient presents to the emergency department with nausea, vomiting, abdominal pain, zaid of the left lower quadrant and abdomen diffusely. Onset: The symptoms/episode began/occurred 2 day(s) ago. Possible causes: unknown. The symptoms are aggravated by nothing. The symptoms are alleviated by nothing. Associated signs and symptoms: Pertinent positives: abdominal pain, nausea, vomiting. Severity of symptoms: At their worst the symptoms were moderate in the emergency department the symptoms are unchanged. The patient has experienced similar episodes in the past, a few times. 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 - Infectious Disease History:: Denies. - Social history:: Smoking status: Patient/guardian denies using tobacco, but has a distant history of tobacco abuse. ROS: 18:08 Constitutional: Negative for fever, chills, and weight loss, Eyes: Negative for injury, zaid pain, redness, and discharge, ENT: Negative for injury, pain, and discharge, Neck: Negative for injury, pain, and swelling, Cardiovascular: Negative for chest pain, palpitations, and edema, Respiratory: Negative for shortness of breath, cough, wheezing, and pleuritic chest pain, Back: Negative for injury and pain, : Negative for injury, bleeding, discharge, and swelling, MS/Extremity: Negative for injury and deformity, Skin: Negative for injury, rash, and discoloration, Neuro: Negative for headache, weakness, numbness, tingling, and seizure, Psych: Negative for depression, anxiety, suicide ideation, homicidal ideation, and hallucinations, Allergy/Immunology: Negative for hives, rash, and allergies, Endocrine: Negative for neck swelling, polydipsia, polyuria, polyphagia, and marked weight changes, Hematologic/Lymphatic: Negative for swollen nodes, abnormal bleeding, and unusual bruising, 18:08 Abdomen/GI: Positive for abdominal pain, nausea and vomiting, nausea, vomiting, abdominal cramps, of the right upper quadrant, left upper quadrant, right lower quadrant and left lower quadrant, Exam: 18:08 Constitutional: This is a well developed, well nourished patient who is awake, alert, zaid and in no acute distress. Head/Face: Normocephalic, atraumatic. Eyes: Pupils equal round and reactive to light, extra-ocular motions intact. Lids and lashes normal. Conjunctiva and sclera are non-icteric and not injected. Cornea within normal limits. Periorbital areas with no swelling, redness, or edema. ENT: Nares patent. No nasal discharge, no septal abnormalities noted. Tympanic membranes are normal and external auditory canals are clear. Oropharynx with no redness, swelling, or masses, exudates, or evidence of obstruction, uvula midline. Mucous membranes moist. Neck: Trachea midline, no thyromegaly or masses palpated, and no cervical lymphadenopathy. Supple, full range of motion without nuchal rigidity, or vertebral point tenderness. No Meningismus. Chest/axilla: Normal chest wall appearance and motion. Nontender with no deformity. No lesions are appreciated. Cardiovascular: Regular rate and rhythm with a normal S1 and S2. No gallops, murmurs, or rubs. Normal PMI, no JVD. No pulse deficits. Respiratory: Lungs have equal breath sounds bilaterally, clear to auscultation and percussion. No rales, rhonchi or wheezes noted. No increased work of breathing, no retractions or nasal flaring. Back: No spinal tenderness. No costovertebral tenderness. Full range of motion. Skin: Warm, dry with normal turgor. Normal color with no rashes, no lesions, and no evidence of cellulitis. MS/ Extremity: Pulses equal, no cyanosis. Neurovascular intact. Full, normal range of motion. Neuro: Awake and alert, GCS 15, oriented to person, place, time, and situation. Cranial nerves II-XII grossly intact. Motor strength 5/5 in all extremities. Sensory grossly intact. Cerebellar exam normal. Normal gait. Psych: Awake, alert, with orientation to person, place and time. Behavior, mood, and affect are within normal limits. 18:08 Abdomen/GI: Inspection: abdomen appears normal, Bowel sounds: hyperactive, in all quadrants, Palpation: moderate abdominal tenderness, in all quadrants, Liver: no appreciated palpable abnormalities, Hernia: not appreciated, 18:08 Musculoskeletal/extremity: Circulation is intact in all extremities. Sensation intact. Compartment Syndrome exam of affected extremity: is normal. DVT Exam: No signs of deep vein thrombosis. no pain, no swelling, no tenderness, negative Homans' sign noted on exam, no appreciated bluish discoloration, no erythema, no increased warmth, Vital Signs: 17:45 BP 106 / 76; Pulse 71; Resp 18; Temp 98.7; Pulse Ox 98% ; Weight 45.36 kg; Height 5 ft. me1 1 in. ; Pain 0/10; 18:00 BP 110 / 71; Pulse 64; Resp 16; Pulse Ox 98% on R/A; me1 19:00 BP 116 / 78; Pulse 55; Resp 17; Pulse Ox 100% ; me1 20:00 BP 129 / 70; Pulse 61; Resp 14; Pulse Ox 100% on R/A; me1 21:00 BP 159 / 81; Pulse 61; Resp 15; Pulse Ox 100% on R/A; me1 22:00 BP 111 / 75; Pulse 65; Resp 15; Pulse Ox 100% on R/A; me1 17:45 Body Mass Index 18.89 (45.36 kg, 154.94 cm) me1 17:45 Pain Scale: Adult me1 MDM: 18:00 Patient medically screened. zaid 18:10 Differential diagnosis: Nonspecific abd pain, gastritis, pancreatitis, diverticulitis, zaid viral gastroenteritis, gastroenteritis, diverticulitis, gastritis, gastroesophageal reflux disease, GI Bleed. Data reviewed: vital signs, nurses notes, EMS record, lab test result(s), EKG, radiologic studies, CT scan, plain films. Consideration of Admission/Observation Patient was admitted/placed on observation. Escalation of care including admission/observation considered. I considered the following discharge prescriptions or medication management in the emergency department Medications were administered in the Emergency Department. See MAR. Independent interpretation of the following test(s) in the Emergency Department EKG: See my EKG interpretation above. Test considered but Not performed: Ultrasound no abd usg. Care significantly affected by the following chronic conditions: celiac,chiari, gered, ra, intussusception. 01/19 18:06 Order name: Basic Metabolic Panel; Complete Time: 19:46 [facility] 01/19 18:06 Order name: CBC with Diff; Complete Time: 19:46 [facility] 01/19 18:06 Order name: LFT's; Complete Time: 19:46 [facility] 01/19 18:06 Order name: Magnesium; Complete Time: 19:46 [facility] 01/19 18:06 Order name: NT PRO-BNP; Complete Time: 19:46 [facility] 01/19 18:06 Order name: PT-INR; Complete Time: 19:46 [facility] 01/19 18:06 Order name: Troponin HS; Complete Time: 19:46 [facility] 01/19 18:06 Order name: Lipase; Complete Time: 19:46 [facility] 01/19 18:06 Order name: Urinalysis w/ reflexes 01/19 19:49 Order name: Phosphorus 01/19 18:06 Order name: XRAY Chest (1 view); Complete Time: 20:07 [facility] 01/19 18:06 Order name: CT Chest, Abdomen, Pelvis - W/Contrast; Complete Time: 20:07 [facility] 01/19 18:06 Order name: EKG; Complete Time: 18:07 [facility] 01/19 18:06 Order name: Cardiac monitoring; Complete Time: 19:23 [facility] 01/19 18:06 Order name: EKG - Nurse/Tech; Complete Time: 19:23 [facility] 01/19 18:06 Order name: IV Saline Lock; Complete Time: 18:10 [facility] 01/19 18:06 Order name: Labs collected and sent; Complete Time: 18:17 [facility] 01/19 18:06 Order name: O2 Per Protocol; Complete Time: 18:10 [facility] 01/19 18:06 Order name: O2 Sat Monitoring; Complete Time: 18:10 [facility] 01/19 18:06 Order name: IV - Large Bore; Complete Time: 18:09 [facility] Administered Medications: 18:28 Drug: NS 0.9% IV 1000 ml IV at 1 bolus Per protocol; 1000 mL bolus Route: IV; Rate: 1 me1 bolus; Site: right antecubital; 22:07 Follow up: Response: No adverse reaction; IV Status: Completed infusion; IV Intake: me1 1000ml 18:28 Drug: Ondansetron IVP 4 mg IVP once; over 2 minutes Route: IVP; Site: right antecubital;me1 18:49 Follow up: Response: No adverse reaction; Nausea is decreased me1 18:28 Drug: Famotidine IVP 20 mg IVP once; dilute with 10 mL 0.9% NaCl; give over 2 minutes me1 Route: IVP; Site: right antecubital; 18:49 Follow up: Response: No adverse reaction me1 18:28 Drug: fentaNYL (PF) IVP 50 mcg IVP once Route: IVP; Site: right antecubital; me1 18:49 Follow up: Response: No adverse reaction; Pain is decreased me1 19:21 Drug: Ondansetron IVP 4 mg IVP once; over 2 minutes Route: IVP; Site: right antecubital;me1 19:21 Follow up: Response: No adverse reaction me1 20:03 Drug: Potassium Chloride IV 20 mEq IV at per protocol once; administer over 1-2 hours me1 Route: IV; Rate: per protocol; Site: right antecubital; 22:07 Follow up: Response: No adverse reaction; IV Status: Completed infusion; IV Intake: me1 100ml 20:04 Drug: NS 0.9% with KCl IV 20 mEq/L 1000 ml IV at 125 ml/hr continuous Route: IV; Rate: me1 125 ml/hr; Site: right antecubital; 22:07 Drug: Potassium Chloride IV 20 mEq IV at per protocol once; administer over 1-2 hours me1 Route: IV; Rate: per protocol; Site: right antecubital; Disposition Summary: 01/20/24 19:58 Hospitalization Ordered Notes: Hospitalization Status: Inpatient Admission zaid Condition: Fair zaid Problem: new zaid Symptoms: have improved zaid Bed/Room Type: Standard zaid Provider: Garcia Ramos(01/20/24 21:01) zaid Location: Telemetry/MedSurg (Inpatient)(01/21/24 01:54) Room Assignment: 409(01/21/24 01:54) kl Diagnosis - Abdominal pain, Generalized zaid - Vomiting zaid - Hypokalemia zaid - Weakness zaid Forms: - Medication Reconciliation Form zaid - SBAR form zaid - Leadership Thank You Letter zaid Signatures: Dispatcher [employer] Rafaela Amaro, RN RN Akin Armas MD MD cha Villegas, Rebecca 1 Dyan Olmstead RN RN me1 Corrections: (The following items were deleted from the chart) 21:01 19:58 Vladimir Guevara cha [facility] 21:48 19:58 Telemetry/MedSurg (Inpatient) [facility] rv1 21:48 19:58 zaid rv1 01/20 01:54 08 21:48 [facility] ER HOLD rv kl 01/20 01:54 01/19 21:48 ERHOLD- rv1 kl
--- NOTE | 2024-01-20 20:00 | RAD REPORT ---
EXAM DESCRIPTION: CT - Chest Abdomen Pelvis W Cont - 01/20/2024 7:44 pm CLINICAL HISTORY: Chest and abdominal pain COMPARISON: November 2023 CT abdomen TECHNIQUE: Computed axial tomography of the chest, abdomen and pelvis was obtained. 100 cc Isovue-30 0 was administered intravenously. Oral contrast was not requested. This limits evaluation of bowel. All CT scans are performed using dose optimization technique as appropriate and may include automated exposure control or mA/KV adjustment according to patient size. FINDINGS: The lungs are clear No mediastinal or hilar lymphadenopathy. No pleural effusion. No pericardial effusion. Mild to moderate dilatation intrahepatic biliary tree. Mild to moderate dilatation extrahepatic bilia ry tree. Cholecystectomy. Mild splenomegaly Pancreas, adrenals and kidneys are unremarkable Small amount of free fluid within pelvis. No adnexal mass. No evidence diverticulitis Postsurgical changes involve the hips Mild compression deformities involve several thoracic vertebral bodies which heart chronic IMPRESSION: Mild to moderate dilatation of the biliary tree can be a normal finding status post chol ecystectomy. Pathology such as a stricture or stone within the duct can also result in this appearanc e. This should be correlated clinically and with appropriate lab values. ERCP or MRCP may be helpful for further evaluation
[2024-01-20] MEDS ORDERED: NS KCL 20MEQ 1,000 ML IV ONE (20:01)
[2024-01-20] MEDS ORDERED: KCL 20 MEQ/100 mL IVPB 200 ML IV ONE (20:01)
--- NOTE | 2024-01-20 20:01 | RAD REPORT ---
EXAM DESCRIPTION: Jose Elias Single View01/20/2024 6:24 pm CLINICAL HISTORY: Abdominal pain COMPARISON: none FINDINGS: Lungs are hyperaerated. The lungs appear clear of acute infiltrate. The heart is normal size
[2024-01-20 20:14] LABS: Specific Gravity 1.027 (1.005-1.030); Sqamous Epithelial None Seen /HPF (None Seen); Urine Bacteria None Seen /HPF (<20); Urine Bilirubin NEGATIVE (Negative); Urine Blood Negative (Negative); Urine Clarity Clear (Clear); Urine Color Colorless (Yellow); Urine Culture Reflex Order NOT NEEDED; Urine Glucose NEGATIVE (Negative); Urine Ketones 1+ (Negative); Urine Microscopic Reflex YN ORDER UMIC; Urine Mucus Slight /HPF (None Seen); Urine Nitrite NEGATIVE (Negative); Urine Protein NEGATIVE (Negative); Urine RBC <5 /HPF (None Seen); Urine Urobilinogen Normal (Normal); Urine WBC <5 /HPF (<5); Urine pH 6.5 (5.0-7.0)
--- NOTE | 2024-01-20 21:20 | P.HP ---
Certification for Inpatient Patient admitted to: Observation With expected LOS: <2 Midnights <Zofia Stevens - Last Filed: 01/21/24 00:43> Patient History Date of Service: 01/21/24 Reason for admission: Dehydration History of Present Illness: 53 yrs old Female with past medical history of celiac; chiari malformation; GERD; Osteoporosis; Pseudothrombocytopenia; Rheumatoid Arthritis presents to the emergency room for heat exhaustion. She reports no or poor air conditioning in her house for 2 days. She reports nausea vomiting abdominal pain she reports symptoms improved with decreased p.o. intake. She reports fatigue, symptoms improved with hydration and rest and air conditioning. Plan to admit for observation dehydration, nausea vomiting abdominal pain, heat exhaustion. 106 / 76; Pulse 71; Resp 18; Temp 98.7; Pulse Ox 98% she was treated with IV fluids, Pepcid, fentanyl, Zofran for nausea. - Past Medical/Surgical History Diabetic: No -: Chiari malformation -: pseudothrombocytopenia -: Rheumatoid arthritis -: Celiac Disease -: Anxiety/depression -: GERD -: Cholecystectomy/Appendectomy -: right ankle reconstruction (pins removed later) -: left Hip repair -: right shoulder repair (pins and Plate) -: Chiari malformation decompression -: femur fracture surgery (gonzalez) -: left knee patella repair -: right wrist Psychosocial/ Personal History: Patient lives at home with her sister - Family History Mother -: Heart disease, Other (see notes) Notes: alcoholic/smoker Father -: Lung disease, Other (see notes) Notes: of Asthma attack - Social History Alcohol use: No CD- Drugs: No Caffeine use: Yes <Zofia Stevens - Last Filed: 01/21/24 00:43> Date of Service: 01/21/24 <Garcia Ramos - Last Filed: 01/21/24 13:59> Allergies oxycodone [From OxyContin] Allergy (Severe, Verified 05/07/23 10:31) Severe vomiting/Vertigo cyclobenzaprine Allergy (Verified 05/07/23 10:31) Nausea/Vomiting Home Medications: Ropinirole HCl [Requip*] 1 mg PO BEDTIME 03/26/22 predniSONE [Deltasone*] 10 mg PO BEDTIME 03/26/22 Escitalopram [Lexapro*] 20 mg PO BEDTIME 05/07/23 Omeprazole 20 mg PO BEDTIME 05/07/23 Review of Systems 10-point ROS is otherwise unremarkable <Zofia Stevens - Last Filed: 01/21/24 00:43> Physical Examination - Physical Exam General: Alert, In no apparent distress, Oriented x3 HEENT: Atraumatic, Normocephalic Neck: 2+ carotid pulse no bruit, JVD not distended Respiratory: Clear to auscultation bilaterally, Normal air movement Cardiovascular: Normal pulses, Regular rate/rhythm Capillary refill: <2 Seconds Gastrointestinal: Normal bowel sounds, Other (Right upper quadrant tenderness) Musculoskeletal: No swelling, No contractures Integumentary: No breakdown, No significant lesion Neurological: Normal speech, Normal strength at 5/5 x4 extr, Cranial nerves 3-12 intact - Studies Laboratory Data (last 24 hrs) 01/20/24 01/20/24 01/20/24 18:16 18:16 18:16 WBC 3.70 L Hgb 12.8 Hct 37.5 Plt Count 193 PT 11.0 INR 0.98 Sodium Potassium BUN Creatinine Glucose Phosphorus 1.9 L Magnesium Total Bilirubin AST ALT Alkaline Phosphatase Lipase 01/20/24 18:16 WBC Hgb Hct Plt Count PT INR Sodium 142 Potassium 2.8 L BUN 14 Creatinine 0.53 L Glucose 114 H Phosphorus Magnesium 1.8 Total Bilirubin 1.5 H AST 16 ALT < 14 Alkaline Phosphatase 90 Lipase 28 <Zofia Stevens - Last Filed: 01/21/24 00:43> - Studies Laboratory Data (last 24 hrs) 01/20/24 01/20/24 01/20/24 18:16 18:16 18:16 WBC 3.70 L Hgb 12.8 Hct 37.5 Plt Count 193 PT 11.0 INR 0.98 Sodium Potassium BUN Creatinine Glucose Phosphorus 1.9 L Magnesium Total Bilirubin AST ALT Alkaline Phosphatase Lipase 01/20/24 18:16 WBC Hgb Hct Plt Count PT INR Sodium 142 Potassium 2.8 L BUN 14 Creatinine 0.53 L Glucose 114 H Phosphorus Magnesium 1.8 Total Bilirubin 1.5 H AST 16 ALT < 14 Alkaline Phosphatase 90 Lipase 28 <Garcia Ramos - Last Filed: 01/21/24 13:59> Assessment and Plan - Plan Assessment plan Right upper quadrant abdominal pain nausea vomiting Dehydration Heat exhaustion Hypokalemia Trend electrolytes replace as needed IV fluids, as needed antiemetics, as needed analgesics. MRCP ordered for the a.m. 53 yrs old Female with past medical history of celiac; chiari malformation; GERD; Osteoporosis; Pseudothrombocytopenia; Rheumatoid Arthritis presents to the emergency room for heat exhaustion. She reports no or poor air conditioning in her house for 2 days. She reports nausea vomiting abdominal pain she reports symptoms improved with decreased p.o. intake. She reports fatigue, symptoms improved with hydration and rest and air conditioning. Plan to admit for observation dehydration, nausea vomiting abdominal pain, heat exhaustion. 106 / 76; Pulse 71; Resp 18; Temp 98.7; Pulse Ox 98% CT of the abdomen IMPRESSION: Mild to moderate dilatation of the biliary tree can be a normal finding status post cholecystectomy. Pathology such as a stricture or stone within the duct can also result in this appearance. This should be correlated clinically and with appropriate lab values. ERCP or MRCP may be helpful for further evaluation celiac chiari malformation GERD Osteoporosis Pseudothrombocytopenia Rheumatoid Arthritis Fall precautions, resume home med Full code DVT SCDs Diet advance as tolerated Disposition Home independent prior Discharge Plan: Home - Advance Directives Does patient have a Living Will: No Does patient have a Durable POA for Healthcare: No - Code Status/Comfort Care Code Status: Full Code Critical Care: No Time Spent Managing Pts Care (In Minutes): 55 <Zofia Stevens - Last Filed: 01/21/24 00:43> - Plan Pt seen and examined. I agree with the note by the GOLD MINER. Pt is a 53 yo male with past medical history of celiac, chiari malformation, GERD, Osteoporosis, Pseudothrombocytopenia, and Rheumatoid Arthritis who presented with heat exhaustion. She reports poor air conditioning in her house for 2 days. On admission, pt complained of decreased po intake, nausea, vomiting, and abdominal pain. On admission, CT abd shows mild dilation of the biliary tree. At bedside, pt complains of feeling hot. The nurse placed cold wet clot on her forehead and armpits. A/P: Heat exhaution: Will continue IVF and place cold wet clot onher head and arm pit. RUQ abd pain: CT abd shows mild dilation of the biliary tree. Will need MRCP. GERD: prornix Will continue home meds for other chronic medical problems. Code: full <Garcia Ramos - Last Filed: 01/21/24 13:59>
[2024-01-20] MEDS: KCL 20 MEQ/100 mL IVPB 20 MEQ/100 ML BAG IV SCH (22:15)
[2024-01-20] MEDS ORDERED: ZOLPIDEM TARTRATE 5 MG TABLET PO PRN (22:15)
[2024-01-20 22:34] VITALS: BMI 18.8
[2024-01-21] MEDS ORDERED: KCL 20 MEQ/100 mL IVPB 100 ML IV ONE (02:15)
[2024-01-21] MEDS ORDERED: NA CHLORIDE 0.9% 500 ML ONE (02:27)
[2024-01-21] MEDS ORDERED: ONDANSETRON 4 MG/2 ML VIAL ONE (02:28)
[2024-01-21] MEDS: NA CHLORIDE 0.9% 1,000 ML IV SCH (03:33)
[2024-01-21] MEDS: POTASSIUM PHOS IN 0.9 % NACL 15 MMOL/250 ML BAG IV ONE (03:33)
[2024-01-21] MEDS: KETOROLAC 30 MG/ML INJ IV PRN (04:13)
[2024-01-21 07:12] LABS: Absolute Lymphocytes (CBC) 0.7 K/uL (0.7-4.9); Absolute Monocytes 0.4 K/uL (0.1-1.3); Absolute Neutrophil 1.8 K/uL (1.8-8.0); Basophils % 0.3 % (0-1.3); Eosinophils % 0.8 % (0-4.4); Hematocrit 34.4 % (36.0-45.0); Hemoglobin 11.6 g/dL (12.0-15.0); Lymphocytes % 22.6 % (15.3-44.8); MCH 29.4 pg (27.0-35.0); MCHC 33.8 g/dL (32.0-36.0); MCV 86.9 fL (80-100); Monocytes % 14.7 % (3.3-12.3); Neutrophils % 61.6 % (41.7-73.7); Platelets 157 thou/uL (152-406); RBC Red Blood Cell Count 3.96 M/uL (3.86-4.86); Red Cell Distribution Width 14.1 % (12.1-15.2)
[2024-01-21 07:31] LABS: Magnesium 1.5 mg/dL (1.6-2.4)
[2024-01-21] MEDS: Magnesium Sulfate 2gm IVPB 2 G/50 ML BAG IV ONE (09:23)
[2024-01-21] MEDS: ONDANSETRON 4 MG/2 ML VIAL IV PRN (10:56)
--- NOTE | 2024-01-21 13:21 | RAD REPORT ---
EXAM DESCRIPTION: MRICholangiogram01/21/2024 12:22 pm CLINICAL HISTORY: Abdominal pain COMPARISON: January 20, 2024 CT TECHNIQUE: Magnetic resonance cholangiogram was performed.3D MIP reconstruction performed. Additiona l axial and coronal magnetic resonance imaging of abdomen obtained. FINDINGS: Some images are degraded by respiratory motion artifact Cholecystectomy Mild dilatation of the intrahepatic biliary tree. Extrahepatic biliary tree is upper limits normal caliber. A filling defect is not seen. No stricture noted Pancreatic duct is normal caliber IMPRESSION: No significant abnormality is displayed
--- NOTE | 2024-01-21 14:03 | P.PN ---
Subjective Date of Service: 01/21/24 Chief Complaint: Dehydration Pt is resting comfortably in bed. She feels hot. The nurse is massaging her with cold water. No other complaints. Review of Systems General: Unremarkable Eyes: Unremarkable ENT: Unremarkable Respiratory: Unremarkable Cardiovascular: Unremarkable Gastrointestinal: Unremarkable Genitourinary: Unremarkable Integumentary: Unremarkable Neurological: Unremarkable Lymphatics: Unremarkable Physical Examination - Vital Signs Temperature: 97.9 F Blood Pressure: 118/75 Pulse: 54 Respirations: 16 Pulse Ox (%): 99 - Physical Exam General: Alert, In no apparent distress, Oriented x3 HEENT: Atraumatic, Normocephalic, PERRLA Neck: Supple, 2+ carotid pulse no bruit, JVD not distended Respiratory: Clear to auscultation bilaterally, Normal air movement Cardiovascular: No edema, Normal pulses, Regular rate/rhythm, Normal S1 S2 Capillary refill: <2 Seconds Gastrointestinal: Normal bowel sounds, Soft and benign, Non-distended Musculoskeletal: No clubbing, No swelling, No contractures Integumentary: No rashes, No breakdown, No significant lesion Neurological: Normal gait, Normal speech, Normal strength at 5/5 x4 extr, Normal tone, Sensation intact Lymphatics: No axilla or inguinal lymphadenopathy - Studies Laboratory Data (last 24 hrs) 01/20/24 01/20/24 01/20/24 18:16 18:16 18:16 WBC 3.70 L Hgb 12.8 Hct 37.5 Plt Count 193 PT 11.0 INR 0.98 Sodium Potassium BUN Creatinine Glucose Phosphorus 1.9 L Magnesium Total Bilirubin AST ALT Alkaline Phosphatase Lipase 01/20/24 18:16 WBC Hgb Hct Plt Count PT INR Sodium 142 Potassium 2.8 L BUN 14 Creatinine 0.53 L Glucose 114 H Phosphorus Magnesium 1.8 Total Bilirubin 1.5 H AST 16 ALT < 14 Alkaline Phosphatase 90 Lipase 28 Assessment And Plan - Plan Heat exhaution: Will continue IVF and place cold wet clot on her head and arm pit. RUQ abd pain: CT abd shows mild dilation of the biliary tree. Will likely do MRCP when pt is medically stable. She will not be able to stay still for MRI at this time. GERD: protonix Will continue home meds for other chronic medical problems. Code: full
[2024-01-22 06:32] LABS: Anion Gap 13.5 mEq/L (5.0-15.0); Magnesium 1.7 mg/dL (1.6-2.4); Phosphorus 2.8 mg/dL (2.5-4.9); Potassium 4.5 mEq/L (3.5-5.1)
[2024-01-22 07:44] LABS: Absolute Lymphocytes (CBC) 0.7 K/uL (0.7-4.9); Absolute Monocytes 0.6 K/uL (0.1-1.3); Absolute Neutrophil 4.3 K/uL (1.8-8.0); Basophils % 0.4 % (0-1.3); Eosinophils % 0.5 % (0-4.4); Hematocrit 41.7 % (36.0-45.0); Hemoglobin 14.1 g/dL (12.0-15.0); Lymphocytes % 11.8 % (15.3-44.8); MCH 29.2 pg (27.0-35.0); MCHC 33.9 g/dL (32.0-36.0); MCV 86.2 fL (80-100); MPV 7.1 fL (7.6-11.3); Monocytes % 10.4 % (3.3-12.3); Neutrophils % 76.9 % (41.7-73.7); Nucleated Red Blood Cells % 0.2 % (0-0); Platelets 247 thou/uL (152-406); RBC Red Blood Cell Count 4.84 M/uL (3.86-4.86); Red Cell Distribution Width 14.3 % (12.1-15.2)
[2024-01-22] MEDS: MAGNESIUM SULFATE 1 gm IVPB 1 GM/100 ML BAG IV ONE (09:43)
[2024-01-22] MEDS: PANTOPRAZOLE 40MG TABLET PO SCH (21:21)
[2024-01-22] MEDS: ESCITALOPRAM 20 MG TAB PO SCH (21:21)
[2024-01-22] MEDS: ROPINIROLE HCL 1 MG TAB PO SCH (21:21)
[2024-01-23] MEDS: MAGNES/ALUMIN/SIMET 30ML UCUP PO PRN (03:02)
[2024-01-23 08:25] LABS: Absolute Lymphocytes (CBC) 0.9 K/uL (0.7-4.9); Absolute Monocytes 0.7 K/uL (0.1-1.3); Basophils % 0.2 % (0-1.3); Eosinophils % 0.6 % (0-4.4); Hematocrit 46.7 % (36.0-45.0); Hemoglobin 16.2 g/dL (12.0-15.0); Lymphocytes % 14.1 % (15.3-44.8); MCH 29.1 pg (27.0-35.0); MCHC 34.7 g/dL (32.0-36.0); MCV 83.9 fL (80-100); MPV 7.2 fL (7.6-11.3); Monocytes % 10.2 % (3.3-12.3); Neutrophils % 74.9 % (41.7-73.7); Nucleated Red Blood Cells % 0.4 % (0-0); Platelets 288 thou/uL (152-406); RBC Red Blood Cell Count 5.57 M/uL (3.86-4.86); Red Cell Distribution Width 14.1 % (12.1-15.2)
[2024-01-23 08:45] LABS: Anion Gap 17.7 mEq/L (5.0-15.0); Magnesium 1.6 mg/dL (1.6-2.4); Potassium 3.7 mEq/L (3.5-5.1)
[2024-01-23] MEDS: D50W 25 GM/50 ML SYRINGE IV ONE (10:19)
[2024-01-23] MEDS: MAGNESIUM SULFATE 1 gm IVPB 1 GM/100 ML BAG IV ONE (10:24)
[2024-01-23] MEDS: POTASSIUM CL SA 10 MEQ TAB PO ONE (10:25)
[2024-01-23] MEDS: D10W 125 ML IV PRN (10:42)
--- NOTE | 2024-01-23 12:58 | P.PN ---
Subjective Date of Service: 01/23/24 Chief Complaint: Dehydration Pt is resting comfortably in bed. She had an unremarkable MRCP. She had hypoglycemia this am and the nurse gave D 10. No other complaints. Review of Systems General: Unremarkable Eyes: Unremarkable ENT: Unremarkable Respiratory: Unremarkable Cardiovascular: Unremarkable Gastrointestinal: Unremarkable Genitourinary: Unremarkable Musculoskeletal: Unremarkable Integumentary: Unremarkable Neurological: Unremarkable Lymphatics: Unremarkable Physical Examination - Vital Signs Temperature: 97.3 F Blood Pressure: 113/71 Pulse: 87 Respirations: 18 Pulse Ox (%): 100 - Physical Exam General: Alert, In no apparent distress, Oriented x3 HEENT: Atraumatic, Normocephalic, PERRLA Neck: Supple, 2+ carotid pulse no bruit Respiratory: Clear to auscultation bilaterally, Normal air movement Cardiovascular: No edema, Normal pulses, Regular rate/rhythm, Normal S1 S2 Capillary refill: <2 Seconds Gastrointestinal: Normal bowel sounds, Soft and benign, Non-distended Musculoskeletal: No clubbing, No swelling, No contractures Integumentary: No rashes, No breakdown, No significant lesion Neurological: Normal gait, Normal speech, Normal strength at 5/5 x4 extr, Normal tone, Sensation intact, Cranial nerves 3-12 intact Lymphatics: No axilla or inguinal lymphadenopathy Assessment And Plan - Plan Heat exhaution: Will continue IVF. Hypoglycemia: Glucose is 48. Will give D10 NS and monitor blood glucose. RUQ abd pain: CT abd shows mild dilation of the biliary tree. MRCP is unremarkable. GERD: protonix Will continue home meds for other chronic medical problems. Code: full
[2024-01-23] MEDS: D5 0.9 NS 1,000 ML IV SCH (16:19)
[2024-01-23] MEDS: MIDODRINE HCL 5 MG TABLET PO SCH (16:22)
[2024-01-23] MEDS: HYDROCORTISONE SUC 100 MG INJ IV ONE (17:10)
--- NOTE | 2024-01-24 04:15 | P.PN ---
Date of Service: 01/22/24 Subjective Patient continues to improve. Clinical symptoms are better. Patient still having episodes where she gets really really hot and then she gets cold. Physical Examination - Vitals Reviewed - Physical Exam General: Alert, In no apparent distress, Oriented x3 Respiratory: Clear to auscultation bilaterally, Normal air movement Cardiovascular: Normal pulses, Regular rate/rhythm Gastrointestinal: Normal bowel sounds, Other (Right upper quadrant tenderness) Musculoskeletal: No swelling, No contractures Integumentary: No breakdown, No significant lesion Neurological: No focal deficits Assessment and Plan - Assessment/Plan Assessment plan Right upper quadrant abdominal pain nausea vomiting Dehydration Heat exhaustion Hypokalemia Further imaging study to evaluate abdominal pain. Continue with intractable nausea and vomiting. Celiac Chiari malformation GERD Osteoporosis Pseudothrombocytopenia Rheumatoid Arthritis Fall precautions, resume home med; Continue with PPI Full code DVT SCDs Diet advance as tolerated Disposition Home independent prior Discharge Plan: Home - Advance Directives Does patient have a Living Will: No Does patient have a Durable POA for Healthcare: No - Code Status/Comfort Care Code Status: Full Code Critical Care: No Time Spent Managing Pts Care (In Minutes): 35
[2024-01-24 07:30] LABS: Absolute Lymphocytes (CBC) 0.7 K/uL (0.7-4.9); Absolute Monocytes 0.4 K/uL (0.1-1.3); Absolute Neutrophil 2.6 K/uL (1.8-8.0); Basophils % 0.1 % (0-1.3); Eosinophils % 0.3 % (0-4.4); Hematocrit 47.2 % (36.0-45.0); Hemoglobin 16.4 g/dL (12.0-15.0); Lymphocytes % 19.4 % (15.3-44.8); MCH 28.8 pg (27.0-35.0); MCHC 34.8 g/dL (32.0-36.0); MCV 82.9 fL (80-100); MPV 7.5 fL (7.6-11.3); Monocytes % 11.4 % (3.3-12.3); Neutrophils % 68.8 % (41.7-73.7); Nucleated Red Blood Cells % 0.4 % (0-0); Platelets 327 thou/uL (152-406); RBC Red Blood Cell Count 5.69 M/uL (3.86-4.86); Red Cell Distribution Width 14.2 % (12.1-15.2)
[2024-01-24 07:59] LABS: Anion Gap 8.8 mEq/L (5.0-15.0); Potassium 3.8 mEq/L (3.5-5.1); Thyroid Stimulating Hormone 0.487 uIU/mL (0.358-3.740)
--- NOTE | 2024-01-24 08:09 | P.PN ---
Subjective Date of Service: 01/24/24 Chief Complaint: Dehydration Pt is resting comfortably in bed. She had an unremarkable MRCP. Hypoglycemia has improved with D5NS. Na is 129. Cortisol is pending because the lab machine is not functional this am. No other complaints. Review of Systems General: Unremarkable Eyes: Unremarkable ENT: Unremarkable Respiratory: Unremarkable Cardiovascular: Unremarkable Gastrointestinal: Unremarkable Genitourinary: Unremarkable Musculoskeletal: Unremarkable Integumentary: Unremarkable Neurological: Unremarkable Lymphatics: Unremarkable Physical Examination - Vital Signs Temperature: 97.2 F Blood Pressure: 106/71 Pulse: 83 Respirations: 18 Pulse Ox (%): 99 - Physical Exam General: Alert, In no apparent distress, Oriented x3, Cachectic HEENT: Atraumatic, Normocephalic, PERRLA Neck: Supple, 2+ carotid pulse no bruit, JVD not distended Respiratory: Clear to auscultation bilaterally, Normal air movement Cardiovascular: No edema, Normal pulses, Regular rate/rhythm, Normal S1 S2 Capillary refill: <2 Seconds Gastrointestinal: Normal bowel sounds, Soft and benign, Non-distended Musculoskeletal: No clubbing, No swelling, No contractures Integumentary: No rashes, No breakdown, No significant lesion Neurological: Normal gait, Normal speech, Normal strength at 5/5 x4 extr, Normal tone, Sensation intact Assessment And Plan - Plan Heat exhaution: Will continue IVF. Hypoglycemia: Glucose is 105. Continue D5NS and monitor blood glucose. Hyponatremia: Na is 129. Will continue NS and f/u Na level. RUQ abd pain: CT abd shows mild dilation of the biliary tree. MRCP is unremarkable. GERD: protonix Will continue home meds for other chronic medical problems. Code: full
[2024-01-24] MEDS: POTASSIUM CL SA 10 MEQ TAB PO ONE (12:19)
[2024-01-24] MEDS ORDERED: COSYNTROPIN 0.25 MG VIAL IV ONE (16:45)
[2024-01-24] MEDS: IBUPROFEN 200 MG TAB PO PRN (22:00)
[2024-01-25] MEDS: COSYNTROPIN 0.25 MG VIAL IV ONE (06:00)
[2024-01-25] MEDS: COSYNTROPIN 0.25 MG VIAL IV SCH (08:10)
[2024-01-25 08:27] LABS: Absolute Lymphocytes (CBC) 0.8 K/uL (0.7-4.9); Absolute Monocytes 0.5 K/uL (0.1-1.3); Absolute Neutrophil 1.6 K/uL (1.8-8.0); Basophils % 0.5 % (0-1.3); Eosinophils % 1.3 % (0-4.4); Hematocrit 38.9 % (36.0-45.0); Hemoglobin 13.3 g/dL (12.0-15.0); Lymphocytes % 27.6 % (15.3-44.8); MCH 28.8 pg (27.0-35.0); MCHC 34.1 g/dL (32.0-36.0); MCV 84.5 fL (80-100); MPV 7.5 fL (7.6-11.3); Neutrophils % 53.6 % (41.7-73.7); Platelets 191 thou/uL (152-406); RBC Red Blood Cell Count 4.61 M/uL (3.86-4.86); Red Cell Distribution Width 14.2 % (12.1-15.2)
[2024-01-25 09:54] LABS: Atypical Lymphocytes 1 %; Blood Morphology Comment NOT SEEN (NOT SEEN); Differential Total Cells Count 100; Eosinophils 2 % (0-3); Lymphocytes 23 % (15-42); Monocytes 15 % (0-10); Platelet Estimate ADEQ; Segmented Neutrophils 59 % (40-80)
--- NOTE | 2024-01-25 12:33 | P.PN ---
Subjective Date of Service: 01/25/24 Chief Complaint: Dehydration Pt is resting comfortably in bed. She had an unremarkable MRCP. Hypoglycemia has improved with D5NS. Hyponatremia has resolved. 138<-129. Cortisol response test is is pending because the lab machine is faulty this am. No other complaints. Review of Systems General: Unremarkable Eyes: Unremarkable ENT: Unremarkable Respiratory: Unremarkable Cardiovascular: Unremarkable Gastrointestinal: Unremarkable Genitourinary: Unremarkable Musculoskeletal: Unremarkable Integumentary: Unremarkable Neurological: Unremarkable Lymphatics: Unremarkable Physical Examination - Vital Signs Temperature: 95.3 F Blood Pressure: 101/64 Pulse: 85 Respirations: 16 Pulse Ox (%): 98 - Physical Exam General: Alert, In no apparent distress, Oriented x3 HEENT: Atraumatic, Normocephalic, PERRLA Neck: Supple, 2+ carotid pulse no bruit, JVD not distended Respiratory: Clear to auscultation bilaterally, Normal air movement Cardiovascular: No edema, Normal pulses, Regular rate/rhythm, Normal S1 S2 Capillary refill: <2 Seconds Gastrointestinal: Normal bowel sounds, Soft and benign, Non-distended Musculoskeletal: No clubbing, No swelling, No contractures Integumentary: No rashes, No breakdown Neurological: Normal gait, Normal speech, Normal strength at 5/5 x4 extr Lymphatics: No axilla or inguinal lymphadenopathy Assessment And Plan - Plan Heat exhaution: improved. Will continue IVF. Hypoglycemia: Glucose is 89. Continue D5NS and monitor blood glucose. Hyponatremia: resolved. Na is 138<- 129. Will continue NS and f/u Na level. RUQ abd pain: CT abd shows mild dilation of the biliary tree. MRCP is unremarkable. Possible adrenal insufficiency: Cortisol response test is pending. GERD: protonix Severe malnutrition: Pt was encouraged to eat. Will consult hedis abstractor. Will continue home meds for other chronic medical problems. Code: full DIspo: Pending hospital course.
[2024-01-25] MEDS: ENSURE ENLIVE 237 ML CAN PO SCH (20:19)
[2024-01-26] VITALS: O2SAT 100
[2024-01-26 06:57] LABS: Absolute Eosinophils 0.1 K/uL (0-0.5); Absolute Lymphocytes (CBC) 0.8 K/uL (0.7-4.9); Absolute Monocytes 0.5 K/uL (0.1-1.3); Absolute Neutrophil 1.3 K/uL (1.8-8.0); Basophils % 0.7 % (0-1.3); Eosinophils % 2.3 % (0-4.4); Hematocrit 34.8 % (36.0-45.0); Hemoglobin 11.9 g/dL (12.0-15.0); Lymphocytes % 29.6 % (15.3-44.8); MCH 29.3 pg (27.0-35.0); MCHC 34.2 g/dL (32.0-36.0); MCV 85.5 fL (80-100); MPV 8.1 fL (7.6-11.3); Monocytes % 19.4 % (3.3-12.3); Platelets 168 thou/uL (152-406); RBC Red Blood Cell Count 4.08 M/uL (3.86-4.86); Red Cell Distribution Width 13.8 % (12.1-15.2)
[2024-01-26 07:02] LABS: Anion Gap 4.5 mEq/L (5.0-15.0); Potassium 3.5 mEq/L (3.5-5.1)
--- NOTE | 2024-01-26 08:00 | P.PN ---
Date of Service: 01/26/24 Subjective Date of Service: 01/25/24 Chief Complaint: Dehydration Review of Systems 10 point system review negative unless listed in HPI Physical Examination - Vital Signs reviewed - Physical Exam General: Alert, In no apparent distress, Oriented x3 HEENT: Atraumatic, Normocephalic, PERRLA Neck: Supple, 2+ carotid pulse no bruit, JVD not distended Respiratory: Clear to auscultation bilaterally, Normal air movement Cardiovascular: No edema, Normal pulses, Regular rate/rhythm, Normal S1 S2 Capillary refill: <2 Seconds Gastrointestinal: Normal bowel sounds, Soft and benign, Non-distended Musculoskeletal: No clubbing, No swelling, No contractures Integumentary: No rashes, No breakdown Neurological: Normal gait, Normal speech, Normal strength at 5/5 x4 extr Lymphatics: No axilla or inguinal lymphadenopathy Assessment And Plan - Plan Heat exhaution: improved. Will continue IVF. Hypoglycemia: Glucose is 89. Continue D5NS and monitor blood glucose. Hyponatremia: resolved. Na is 138<- 129. Will continue NS and f/u Na level. RUQ abd pain: CT abd shows mild dilation of the biliary tree. MRCP is unremarkable. Possible adrenal insufficiency: Cortisol response test is pending. GERD: protonix Severe malnutrition: Pt was encouraged to eat. Will consult needle loom tender. Will continue home meds for other chronic medical problems. Code: full DIspo: Pending hospital course.
--- NOTE | 2024-01-26 08:01 | P.DS ---
Admission Date: 01/20/24 Discharge Date: 01/26/24 Disposition: ROUTINE DISCHARGE Discharge Condition: GOOD Reason for Admission: Dehydration Brief History of Present Illness: 53 yrs old Female with past medical history of celiac; chiari malformation; GERD; Osteoporosis; Pseudothrombocytopenia; Rheumatoid Arthritis presents to the emergency room for heat exhaustion. She reports no or poor air conditioning in her house for 2 days. She reports nausea vomiting abdominal pain she reports symptoms improved with decreased p.o. intake. She reports fatigue, symptoms improved with hydration and rest and air conditioning. Plan to admit for observation dehydration, nausea vomiting abdominal pain, heat exhaustion. 106 / 76; Pulse 71; Resp 18; Temp 98.7; Pulse Ox 98% she was treated with IV fluids, Pepcid, fentanyl, Zofran for nausea. - Physical Exam General: Alert, In no apparent distress, Oriented x3 HEENT: Atraumatic, Normocephalic Neck: 2+ carotid pulse no bruit, JVD not distended Respiratory: Clear to auscultation bilaterally, Normal air movement Cardiovascular: Normal pulses, Regular rate/rhythm Capillary refill: <2 Seconds Gastrointestinal: Normal bowel sounds, Other (Right upper quadrant tenderness) Musculoskeletal: No swelling, No contractures Integumentary: No breakdown, No significant lesion Neurological: Normal speech, Normal strength at 5/5 x4 extr, Cranial nerves 3-12 intact Hospital Course: 53 yrs old Female with past medical history of celiac; chiari malformation; GERD; Osteoporosis; Pseudothrombocytopenia; Rheumatoid Arthritis presents to the emergency room for heat exhaustion. She reports no or poor air conditioning in her house for 2 days. She reports nausea vomiting abdominal pain she reports symptoms improved with decreased p.o. intake. Noted to have nausea vomiting, heat exhaustion, hypokalemia unremarkable MRCP, evaluated for possible adrenal insufficiency, treated with PPI, condition improved, tolerating diet, plan to discharge home, follow-up with PCP in 1 to 2 weeks. Discharge medications Adrenal insufficiency Florinef 0.1 mg daily #30 Midodrine 5 mg 1 p.o. 3 times daily for hypotension Continue home medicines as previously prescribed GOAL: Clear understanding of disease process INSTRUCTIONS: Physician Discharge Instructions: -Follow-up with PCP in 1 to 2 weeks -Please call Dr. Cummings at [phone] if any questions regarding hospital stay -Please call nursing station at [phone] if any nursing or medication questions -Return to the emergency room if symptoms worsen Diet: ADA, low sodium Activity: Fall precautions Vital Signs/Physical Exam: Temp Pulse Resp BP Pulse Ox 98.2 F 76 17 114/65 98 01/26/24 04:00 01/26/24 04:00 01/26/24 04:00 01/26/24 04:00 01/26/24 04:00 Laboratory Data at Discharge: WBC 2.70 thou/uL (4.3-10.9) L 01/26/24 06:34 Hgb 11.9 g/dL (12.0-15.0) L D 01/26/24 06:34 Hct 34.8 % (36.0-45.0) L 01/26/24 06:34 Plt Count 168 thou/uL (152-406) 01/26/24 06:34 PT 11.0 SECONDS (9.4-12.5) 01/20/24 18:16 INR 0.98 01/20/24 18:16 Sodium 139 mEq/L (136-145) 01/26/24 06:39 Potassium 3.5 mEq/L (3.5-5.1) 01/26/24 06:39 BUN 3 mg/dL (7-18) L 01/26/24 06:39 Creatinine 0.63 mg/dL (0.55-1.02) 01/26/24 06:39 Glucose 88 mg/dL (74-106) 01/26/24 06:39 Phosphorus 2.8 mg/dL (2.5-4.9) 01/22/24 05:31 Magnesium 1.6 mg/dL (1.6-2.4) 01/23/24 07:52 Total Bilirubin 1.5 mg/dL (0.2-1.0) H 01/20/24 18:16 AST 16 U/L (15-37) 01/20/24 18:16 ALT < 14 U/L (13-56) 01/20/24 18:16 Alkaline Phosphatase 90 U/L (45-117) 01/20/24 18:16 Lipase 28 U/L (13-75) 01/20/24 18:16 Home Medications: Ropinirole HCl [Requip*] 1 mg PO BEDTIME 03/26/22 predniSONE [Deltasone*] 10 mg PO BEDTIME 03/26/22 Escitalopram [Lexapro*] 20 mg PO BEDTIME 05/07/23 Omeprazole 20 mg PO BEDTIME 05/07/23 Fludrocortisone [Florinef *] 0.1 mg PO DAILY #30 tab 01/26/24 Midodrine HCl [Proamatine*] 5 mg PO TIDWM #90 tab 01/26/24 New Medications: Fludrocortisone [Florinef *] 0.1 mg PO DAILY #30 tab Midodrine HCl [Proamatine*] 5 mg PO TIDWM #90 tab Physician Discharge Instructions: -DC IV and DC home -Follow-up with PCP in 1 to 2 weeks -Follow-up with Rheumatology and Endocrinology in 1 to 2 weeks -Please call Dr. Cummings at [phone] if any questions regarding hospital stay -Please call nursing station at [phone] if any nursing or medication questions -Return to the emergency room if symptoms worsen Followup: James Engel MD [Primary Care Provider] - Time spent managing pt's care (in minutes): 45
[2024-01-26] MEDS ORDERED: HYDROCORTISONE 10 MG TAB PO SCH (09:00)
[2024-01-26] MEDS: FLUDROCORTISONE 0.1 MG TAB PO SCH (09:02)
[2024-01-26] MEDS: POTASSIUM CL SA 10 MEQ TAB PO ONE (09:04)
[2024-01-26 16:16] VITALS: BP 115/73; TEMP 98
--- NOTE | 2024-01-26 18:06 | EKG ---
Test Date: 2024-01-20 Test Time: 19:16:10 Rivet Spinner: TEGAN MEASUREMENT RESULTS: Intervals: Rate: 63 NV: 124 QRSD: 74 QT: 480 QTc: 491 Cartwright: P: 72 NV: 124 QRS: 71 T: 55 INTERPRETIVE STATEMENTS: Normal sinus rhythm Prolonged QT Abnormal ECG Compared to ECG 09/12/2023 23:35:21 Prolonged QT interval now present Electronically Signed On 01-26-24 17:53:38 CDT by Toño Mckinney
== END 2024-01-26 17:17 | disposition home or self-care (01) | DRG 922 ==
LOC: ER 17:33 → ERHOLD 21:06 → 4TH 01-21 03:07
PROVIDERS: ADMIT Hospitalist; ATTEND Hospitalist
DX: T67.5XXA Heat exhaustion, unspecified, initial encounter (principal); E43 Unspecified severe protein-calorie malnutrition; R64 Cachexia; Z68.1 Body mass index [BMI] 19.9 or less, adult; E87.1 Hypo-osmolality and hyponatremia; E27.40 Unspecified adrenocortical insufficiency; Q07.00 Arnold-Chiari syndrome without spina bifida or hydrocephalus; E86.0 Dehydration; E87.6 Hypokalemia; E16.2 Hypoglycemia, unspecified; M06.9 Rheumatoid arthritis, unspecified; K21.9 Gastro-esophageal reflux disease without esophagitis; M81.0 Age-related osteoporosis without current pathological fracture; Z88.5 Allergy status to narcotic agent; Z88.8 Allergy status to other drugs, medicaments and biological substances; Z79.52 Long term (current) use of systemic steroids; Z90.49 Acquired absence of other specified parts of digestive tract; Z79.899 Other long term (current) drug therapy
CPT/HCPCS: 36415; 71045; 71260; 74177; 74181; 80048; 80076; 81001; 82024; 82533; 82550; 82947; 83690; 83735; 83880; 84100; 84443; 84484; 85025; 85610; 93005; 96361; 96365; 96366; 96375; 99285; J0834; J1720; J2405; J3010; J3475; J3480; J7030; J7040; J7042; Q9967

== ENCOUNTER 2024-05-13 13:45 | Emergency (ER) | payer OTHER ==
[2024-05-13] MEDS ORDERED: KETOROLAC 30 MG/ML INJ ONE (14:12)
[2024-05-13] MEDS ORDERED: dexAMETHasone 10 MG/ML VIAL ONE (14:12)
[2024-05-13] MEDS ORDERED: HYDROCODONE/APAP 5/325 MG TAB ONE (14:12)
--- NOTE | 2024-05-13 14:32 | RAD REPORT ---
Exam:Hip Right 2 View HISTORY: Right hip pain FINDINGS: Screws and plates affix an old right femoral fracture. No acute fracture or dislocation Osteoporosis.
--- NOTE | 2024-05-13 14:44 | ER ---
Nurse's Notes [facility] Name: Cindy Garcia Age: 54 yrs Sex: Female : 1970 Arrival Date: 05/13/2024 Time: 13:45 Bed 16 Private MD: Diagnosis: Pain in right hip Presentation: 05/13 13:53 Chief complaint: Patient states: right hip pain X 4 weeks ago, started hurting after iw moving, has arthritis and osteoporosis. Coronavirus screen: At this time, the client does not indicate any symptoms associated with coronavirus-19. Ebola Screen: No symptoms or risks identified at this time. Initial Sepsis Screen: Does the patient meet any 2 criteria? No. Patient's initial sepsis screen is negative. Does the patient have a suspected source of infection? No. Patient's initial sepsis screen is negative. Risk Assessment: Do you want to hurt yourself or someone else? Patient reports no desire to harm self or others. Onset of symptoms was April 2024. 13:53 Method Of Arrival: Wheelchair iw 13:53 Acuity: JOSE MIGUEL 3 iw Historical: - Allergies: 13:55 Cyclobenzaprine; iw 13:55 Oxycodone HCl; iw 13:55 OxyContin; iw - PMHx: 13:55 celiac; chiari malformation; GERD; Osteoporosis; Pseudothrombocytopenia; Rheumatoid iw Arthritis; - PSHx: 13:55 Appendectomy; Cholecystectomy; iw - Immunization history:: Adult Immunizations not up to date. - Infectious Disease History:: Denies. - Social history:: Smoking status: . Screenin:00 [facility] ED Fall Risk Assessment (Adult) History of falling in the last 3 months, rs5 including since admission Yes- single mechanical fall (1 pt) Confusion or Disorientation No (0 pts) Intoxicated or Sedated No (0 pts) Impaired Gait Yes (1 pt) Mobility Assist Device Used Yes (1 pt) Altered Elimination No (0 pt) Score/Fall Risk Level 3 or more points = High Risk Oriented to surroundings, Maintained a safe environment, Hourly rounding (assess needs \T\ fall precautionary measures) done. Abuse screen: Denies threats or abuse. Nutritional screening: No deficits noted. Tuberculosis screening: No symptoms or risk factors identified. Assessment: 14:00 General: Appears in no apparent distress. uncomfortable, Behavior is calm, cooperative. rs5 Pain: Complains of pain in right hip Pain currently is 8 out of 10 on a pain scale. Quality of pain is described as aching, Is continuous. Neuro: Level of Consciousness is awake, alert, obeys commands, Oriented to person, place, time, situation. Cardiovascular: Patient's skin is warm and dry. Respiratory: Airway is patent Respiratory effort is even, unlabored, Respiratory pattern is regular, symmetrical. GI: Abdomen is round non-distended, Abd is soft and non tender X 4 quads. : No signs and/or symptoms were reported regarding the genitourinary system. EENT: No signs and/or symptoms were reported regarding the EENT system. Derm: Skin is intact, Skin is pink, warm \T\ dry. Musculoskeletal: Range of motion: limited in right hip. 14:40 Reassessment: Patient and/or family updated on plan of care and expected duration. Pain rs5 level reassessed. Patient is alert, oriented x 3, equal unlabored respirations, skin warm/dry/pink. 15:00 Reassessment: Patient and/or family updated on plan of care and expected duration. Pain rs5 level reassessed. Patient is alert, oriented x 3, equal unlabored respirations, skin warm/dry/pink. Vital Signs: 13:53 BP 114 / 79; Pulse 101; Resp 16; Temp 97; Pulse Ox 100% on R/A; Weight 45.36 kg; Height iw 5 ft. 1 in. ; Pain 10/10; 14:43 BP 117 / 75; Pulse 80; Resp 17; Pulse Ox 98% on R/A; rs5 13:53 Body Mass Index 18.89 (45.36 kg, 154.94 cm) iw 13:53 Pain Scale: Adult iw ED Course: 13:50 Patient arrived in ED. mg5 13:50 Nathaly Steiner PA-C is PHCP. sb4 13:50 Andie Neville MD is Attending Physician. sb4 13:55 Triage completed. iw 13:55 Arm band placed on. iw 13:59 Elías Kelly, RN is Primary Nurse. rs5 14:00 Patient has correct armband on for positive identification. Placed in gown. Bed in low rs5 position. Call light in reach. Side rails up X2. 14:00 No provider procedures requiring assistance completed. rs5 14:19 Hip Right 2 View XRAY In Process Unspecified. EDMS 14:43 Brandon Boone DO is Referral Physician. sb4 14:43 Nito Lewis MD is Referral Physician. sb4 15:00 Patient did not have IV access during this emergency room visit. rs5 Administered Medications: 14:11 Drug: Ketorolac IM 30 mg IM once Route: IM; Site: left ventrogluteal; rs5 15:00 Follow up: Response: No adverse reaction; Pain is decreased rs5 14:11 Drug: [place] PO 5 mg-325 mg 2 tabs PO once Route: PO; rs5 15:00 Follow up: Response: No adverse reaction; Pain is decreased rs5 14:11 Drug: Dexamethasone IM 10 mg IM once Route: IM; Site: left ventrogluteal; rs5 15:00 Follow up: Response: No adverse reaction rs5 15:02 Drug: Ondansetron Oral Disintegrating Tablet Oral Disintegrating Tablet 4 mg PO once rs5 Route: PO; Medication: 14:43 VIS not applicable for this client. rs5 Outcome: 14:43 Discharge ordered by MD. sb4 15:00 Discharged to home via wheelchair, with family, rs5 15:00 Condition: stable 15:00 Discharge instructions given to patient, family, Instructed on discharge instructions, follow up and referral plans. Demonstrated understanding of instructions, follow-up care, 15:02 Patient left the ED. rs5 Signatures: Dispatcher [employer] EDID Ayana Thomas RN RN iw Brown, Sophia, PA-C PAGloria sb4 Elías Kelly RN RN rs5 Elham Adams mg5 Corrections: (The following items were deleted from the chart) 15:24 15:20 Reassessment: Patient and/or family updated on plan of care and expected rs5 duration. Pain level reassessed. Patient is alert, oriented x 3, equal unlabored respirations, skin warm/dry/pink. rs5
--- NOTE | 2024-05-13 14:44 | EDPHYS ---
Physician Documentation [facility] Name: Cindy Garcia Age: 54 yrs Sex: Female : 1970 Arrival Date: 05/13/2024 Time: 13:45 Bed 16 Private MD: ED Physician Andie Neville HPI: 05/13 14:05 This 54 yrs old Female presents to ER via Wheelchair with complaints of Hip Pain. sb4 14:05 The patient or guardian reports an injury, pain. patient reports chronic issues with sb4 her joints- osteoporosis, RA on daily prednisone- injured her right hip 1 month ago. saw her PCP 2 weeks ago, was given a prescription for norco. states that her pain has not improved. Historical: - Allergies: 13:55 Cyclobenzaprine; iw 13:55 Oxycodone HCl; iw 13:55 OxyContin; iw - PMHx: 13:55 celiac; chiari malformation; GERD; Osteoporosis; Pseudothrombocytopenia; Rheumatoid iw Arthritis; - PSHx: 13:55 Appendectomy; Cholecystectomy; iw - Immunization history:: Adult Immunizations not up to date. - Infectious Disease History:: Denies. - Social history:: Smoking status: . ROS: 14:05 Constitutional: Negative for fever, chills, and weight loss, sb4 14:05 MS/extremity: Positive for injury or acute deformity, pain, of the right hip, 14:05 All other systems are negative, Exam: 14:05 Head/Face: Normocephalic, atraumatic. Eyes: Extra-ocular motions intact. Periorbital sb4 areas with no swelling, redness, or edema. ENT: Mucous membranes moist. Respiratory: No increased work of breathing, no retractions or nasal flaring. 14:05 Constitutional: The patient appears alert, awake, frail, restless, uncomfortable, unkempt, 14:05 ENT: Dental exam: missing teeth, diffusely, 14:05 Musculoskeletal/extremity: Joints: the right hip displays pain at rest, painful range of motion, Vital Signs: 13:53 BP 114 / 79; Pulse 101; Resp 16; Temp 97; Pulse Ox 100% on R/A; Weight 45.36 kg; Height iw 5 ft. 1 in. ; Pain 10/10; 14:43 BP 117 / 75; Pulse 80; Resp 17; Pulse Ox 98% on R/A; rs5 13:53 Body Mass Index 18.89 (45.36 kg, 154.94 cm) iw 13:53 Pain Scale: Adult iw MDM: 13:56 Medical Screening Exam initiated sb4 14:42 Data reviewed: vital signs, nurses notes, radiologic studies, and as a result, I will sb4 discharge patient. Counseling: I had a detailed discussion with the patient and/or guardian regarding the historical points, exam findings, and any diagnostic results supporting the discharge/admit diagnosis, radiology results, the need for outpatient follow up, a orthopedic surgeon, a facilities painter, to return to the emergency department if symptoms worsen or persist or if there are any questions or concerns that arise at home. 05/13 14:05 Order name: Hip Right 2 View XRAY; Complete Time: 14:33 sb4 Administered Medications: 14:11 Drug: Ketorolac IM 30 mg IM once Route: IM; Site: left ventrogluteal; rs5 15:00 Follow up: Response: No adverse reaction; Pain is decreased rs5 14:11 Drug: [place] PO 5 mg-325 mg 2 tabs PO once Route: PO; rs5 15:00 Follow up: Response: No adverse reaction; Pain is decreased rs5 14:11 Drug: Dexamethasone IM 10 mg IM once Route: IM; Site: left ventrogluteal; rs5 15:00 Follow up: Response: No adverse reaction rs5 15:02 Drug: Ondansetron Oral Disintegrating Tablet Oral Disintegrating Tablet 4 mg PO once rs5 Route: PO; Disposition Summary: 05/13/24 14:43 Discharge Ordered Notes: Location: Home sb4 Problem: an ongoing problem sb4 Symptoms: have improved sb4 Condition: Stable sb4 Diagnosis - Pain in right hip sb4 Followup: sb4 - With: Brandon Boone DO - When: As needed - Reason: Recheck today's complaints, Re-evaluation by your physician Followup: sb4 - With: Nito Lewis MD - When: As needed - Reason: Recheck today's complaints, Re-evaluation by your physician Discharge Instructions: - Discharge Summary Sheet sb4 - Joint Pain sb4 - Chronic Pain, Adult sb4 - Hip Pain sb4 - Arthritis, Bkxd-of-Oagi sb4 Forms: - Patient Portal Instructions sb4 - Leadership Thank You Letter sb4 Signatures: Dispatcher [employer] Ayana Israel, Nathaly Pulido RN, PA-C PA-C sb4 Elías Kelly RN RN rs5
[2024-05-13] MEDS ORDERED: ONDANSETRON 4 MG (ODT) TAB ONE (14:54)
[2024-05-13 16:49] VITALS: TEMP 97
[2024-05-13 16:50] VITALS: BP 117/75; O2SAT 98
== END 2024-05-13 15:02 | disposition home or self-care (01) ==
LOC: ER 13:45
DX: M25.551 Pain in right hip (principal); M81.0 Age-related osteoporosis without current pathological fracture; M06.9 Rheumatoid arthritis, unspecified; Z88.5 Allergy status to narcotic agent; Z88.8 Allergy status to other drugs, medicaments and biological substances
CPT/HCPCS: 73502; 96372; 99284; Q0162; J1100

== ENCOUNTER 2024-06-03 15:23 | Emergency (ER) | payer OTHER ==
[2024-06-03] MEDS ORDERED: ONDANSETRON 4 MG/2 ML VIAL ONE (16:03)
[2024-06-03] MEDS ORDERED: METHOCARBAMOL 1,000 MG/10 ML VIAL ONE (16:04)
[2024-06-03] MEDS ORDERED: NA CHLORIDE 0.9% 100 ML ONE (16:04)
[2024-06-03] MEDS ORDERED: NA CHLORIDE 0.9% 1,000 ML ONE (16:04)
[2024-06-03] MEDS ORDERED: KETOROLAC 30 MG/ML INJ ONE (16:04)
[2024-06-03 16:34] LABS: Absolute Lymphocytes (CBC) 1.4 K/uL (0.7-4.9); Absolute Monocytes 0.9 K/uL (0.1-1.3); Absolute Neutrophil 4.8 K/uL (1.8-8.0); Basophils % 0.2 % (0-1.3); Eosinophils % 0.3 % (0-4.4); Hematocrit 44.5 % (36.0-45.0); Hemoglobin 15.2 g/dL (12.0-15.0); Lymphocytes % 20.1 % (15.3-44.8); MCH 29.3 pg (27.0-35.0); MCHC 34.1 g/dL (32.0-36.0); MCV 85.8 fL (80-100); Monocytes % 12.5 % (3.3-12.3); Neutrophils % 66.9 % (41.7-73.7); Nucleated Red Blood Cells % 0.1 % (0-0); Platelets 254 thou/uL (152-406); RBC Red Blood Cell Count 5.19 M/uL (3.86-4.86); Red Cell Distribution Width 15.4 % (12.1-15.2)
[2024-06-03 16:51] LABS: AST/SGOT 14 U/L (15-37); Albumin/Globulin Ratio 1.1 (1.1-1.8); Alkaline Phosphatase 141 U/L (45-117); Anion Gap 9.8 mEq/L (5.0-15.0); BUN Blood Urea Nitrogen 14 mg/dL (7-18); Bicarbonate 27 mEq/L (21-32); Bilirubin Total 1.4 mg/dL (0.2-1.0); Globulin 3.8 g/dL (2.3-3.5); Glomerular Filtration Rate 80 ml/min (=/>90); Glucose Level 85 mg/dL (74-106); Lipase 28 U/L (13-75); Potassium 3.8 mEq/L (3.5-5.1); Protein, Total 7.8 g/dL (6.4-8.2); Sodium Level 134 mEq/L (136-145)
[2024-06-03 16:58] LABS: ALT/SGPT < 14 U/L (13-56)
[2024-06-03] MEDS ORDERED: FENTANYL CITR 100 MCG/2 ML ONE ×2 (17:37→19:57)
[2024-06-03] MEDS ORDERED: dexAMETHasone 10 MG/ML VIAL ONE (17:37)
[2024-06-03 18:13] LABS: Specific Gravity 1.016 (1.005-1.030); Urine Bilirubin NEGATIVE (Negative); Urine Blood Negative (Negative); Urine Clarity Clear (Clear); Urine Color Colorless (Yellow); Urine Glucose NEGATIVE (Negative); Urine Ketones NEGATIVE (Negative); Urine Microscopic Reflex YN NO UMIC; Urine Nitrite NEGATIVE (Negative); Urine Protein NEGATIVE (Negative); Urine Urobilinogen Normal (Normal); Urine pH 5.5 (5.0-7.0)
--- NOTE | 2024-06-03 19:32 | RAD REPORT ---
EXAMINATION: CT Abdomen Pelvis W Contrast CLINICAL INDICATION: Female, 54 years old. Back pain;Abd pain TECHNIQUE: CT abdomen and pelvis was performed, after the administration of IV contrast, as per [facility] protocol. Axial, sagittal and coronal reconstructions were obtained. One or more of the following dose reduction techniques were used: Automated exposure control, adjustment of the mA and k V according to patient size, and iterative reconstruction. Unless otherwise specified, incidental findings do not require dedicated imaging follow-up. COMPARISON: 11/25/2023 And 01/20/2024 FINDINGS: LOWER CHEST: The visualized lung bases are clear. LIVER: Normal in size and contour. No focal lesion. BILIARY SYSTEM: Status post cholecystectomy. SPLEEN: Normal size. No focal lesion. PANCREAS: No mass, ductal dilation, or bhavana-pancreatic fluid. ADRENALS: Normal; no mass. KIDNEYS: Normal size and contour. No hydronephrosis. URINARY BLADDER: Unremarkable. GASTROINTESTINAL TRACT: No evidence of free air, significant intra-abdominal free fluid, bowel obstru ction or abscess. APPENDIX: Normal appendix. LYMPH NODES: No lymphadenopathy. MUSCULOSKELETAL: Progressive endplate compression deformities at L4, now with moderate vertebral body height loss. Progressive inferior endplate compression deformity at L3 as well now with mild vertebral body height loss. Other multilevel vertebral compression deformities are stable. Bilateral hip arthroplasty hardware results in streak artifact which limits evaluation. ADDITIONAL FINDINGS: None. IMPRESSION: Progressive vertebral compression deformities at L4 and to lesser degree at L3, as above. No acute or concerning abnormalities seen within the abdomen or pelvis.
--- NOTE | 2024-06-03 20:25 | ER ---
Nurse's Notes [facility] Name: Cindy Garcia Age: 54 yrs Sex: Female : 1970 Arrival Date: 06/03/2024 Time: 15:23 Bed 16 Private MD: Diagnosis: Low back pain;Fracture of lumbar vertebra-compression type L3 and L4 Presentation: 06/03 15:31 Chief complaint: Patient states: BACK PAIN RADIATING DOWN LEG AND UP TO NECK X 3 DAYS. db HX OF PICKING SOMETHING UP HEAVY X 1 MONTH AGO. Coronavirus screen: Client denies travel out of the [place] in the last 14 days. At this time, the client does not indicate any symptoms associated with coronavirus-19. Ebola Screen: Patient negative for fever greater than or equal to 101.5 degrees Fahrenheit, and additional compatible Ebola Virus Disease symptoms Patient denies exposure to infectious person. Patient denies travel to an Ebola-affected area in the 21 days before illness onset. No symptoms or risks identified at this time. Initial Sepsis Screen: Does the patient meet any 2 criteria? No. Patient's initial sepsis screen is negative. Does the patient have a suspected source of infection? No. Patient's initial sepsis screen is negative. Risk Assessment: Do you want to hurt yourself or someone else? Patient reports no desire to harm self or others. Onset of symptoms was May 31, 2024. 15:31 Method Of Arrival: Wheelchair db 15:31 Acuity: JOSE MIGUEL 3 db Triage Assessment: 15:33 General: Appears in no apparent distress. uncomfortable, Behavior is calm, cooperative. db Pain: Complains of pain in back. Neuro: Level of Consciousness is awake, alert, obeys commands, Oriented to person, place, time, situation. Musculoskeletal: Reports pain in back. Historical: - Allergies: 15:34 Cyclobenzaprine; db 15:34 Oxycodone HCl; db 15:34 OxyContin; db - PMHx: 15:34 chiari malformation; celiac; Osteoporosis; Pseudothrombocytopenia; GERD; Rheumatoid db Arthritis; - PSHx: 15:34 Appendectomy; Cholecystectomy; db - Immunization history:: Adult Immunizations unknown. - Infectious Disease History:: Denies. - Social history:: Smoking status: Patient denies any tobacco usage or history of. Screenin:35 [facility] ED Fall Risk Assessment (Adult) History of falling in the last 3 months, rs5 including since admission No falls in past 3 months (0 pts) Confusion or Disorientation No (0 pts) Intoxicated or Sedated No (0 pts) Impaired Gait Yes (1 pt) Mobility Assist Device Used Yes (1 pt) Altered Elimination No (0 pt) Score/Fall Risk Level 0 - 2 = Low Risk Oriented to surroundings, Maintained a safe environment. Abuse screen: Denies threats or abuse. Nutritional screening: No deficits noted. Tuberculosis screening: No symptoms or risk factors identified. Assessment: 15:33 General: Appears in no apparent distress. uncomfortable, Behavior is calm, cooperative. rs5 Pain: Complains of pain in lower back Pain radiates to up to neck and down to left leg Pain currently is 8 out of 10 on a pain scale. Quality of pain is described as aching. Neuro: Level of Consciousness is awake, alert, obeys commands, Oriented to person, place, time, situation. 15:33 Cardiovascular: Patient's skin is warm and dry. Respiratory: Airway is patent rs5 Respiratory effort is even, unlabored, Respiratory pattern is regular, symmetrical. GI: Abdomen is round non-distended, Abd is soft and non tender X 4 quads. : No signs and/or symptoms were reported regarding the genitourinary system. EENT: No signs and/or symptoms were reported regarding the EENT system. Derm: Skin is intact, Skin is pink, warm \T\ dry. Musculoskeletal: Range of motion: intact in all extremities. 16:45 Reassessment: Patient and/or family updated on plan of care and expected duration. Pain rs5 level reassessed. Patient is alert, oriented x 3, equal unlabored respirations, skin warm/dry/pink. 17:45 Reassessment: Patient and/or family updated on plan of care and expected duration. Pain rs5 level reassessed. Patient is alert, oriented x 3, equal unlabored respirations, skin warm/dry/pink. 18:47 Reassessment: Patient and/or family updated on plan of care and expected duration. Pain rs5 level reassessed. Patient is alert, oriented x 3, equal unlabored respirations, skin warm/dry/pink. 19:10 General: Appears in no apparent distress. Behavior is calm, cooperative, appropriate rg5 for age. Pain: Complains of pain in back Pain radiates to left leg Pain currently is 8 out of 10 on a pain scale. Quality of pain is described as aching. 19:10 Neuro: Level of Consciousness is awake, alert, obeys commands, Oriented to person, rg5 place, time. Cardiovascular: Patient's skin is warm and dry. Respiratory: Airway is patent. GI: Abdomen is round non-distended. : No signs and/or symptoms were reported regarding the genitourinary system. EENT: No signs and/or symptoms were reported regarding the EENT system. Derm: Skin is intact, Skin is normal. Musculoskeletal: Circulation, motion, and sensation intact. Range of motion: intact in all extremities. Vital Signs: 15:31 BP 127 / 94; Pulse 109; Resp 18; Temp 98.2; Pulse Ox 99% ; rs5 17:43 BP 133 / 81; Pulse 88; Resp 17; Pulse Ox 97% on R/A; rs5 18:20 BP 110 / 74; Pulse 77; Resp 17; Pulse Ox 97% on R/A; rs5 19:41 BP 108 / 69; Pulse 85; Resp 19; Pulse Ox 94% on R/A; Pain 10/10; rg5 20:20 BP 97 / 70; Pulse 73; Resp 19; Pulse Ox 96% on R/A; Pain 6/10; rg5 19:41 Pain Scale: Adult rg5 20:20 Pain Scale: Adult rg5 ED Course: 15:24 Patient arrived in ED. ec2 15:25 Akin Donaldson PA is PHCP. cp 15:25 Akin Gunderson MD is Attending Physician. cp 15:33 Triage completed. db 15:33 Arm band placed on Patient placed. db 15:35 Patient has correct armband on for positive identification. Bed in low position. Call rs5 light in reach. Side rails up X2. 15:35 No provider procedures requiring assistance completed. rs5 15:40 Inserted saline lock: 22 gauge in right antecubital area, using aseptic technique. rs5 Blood collected. Flushed with 10 mL NS. 15:58 Elías Kelly, RN is Primary Nurse. rs5 18:22 CT Abd/Pelvis - IV Contrast Only In Process Unspecified. EDMS 20:34 IV discontinued, bleeding controlled, No redness/swelling at site. Pressure dressing rg5 applied. 20:36 Provided Education on: post er care. rg5 Administered Medications: 16:30 Drug: TORadol - Ketorolac IVP 15 mg IVP once Route: IVP; Site: right antecubital; rs5 17:01 Follow up: Response: No adverse reaction; Pain is decreased rs5 16:30 Drug: Ondansetron IVP 4 mg IVP once; over 2 minutes Route: IVP; Site: right antecubital;rs5 17:01 Follow up: Response: No adverse reaction rs5 16:30 Drug: NS 0.9% IV 1000 ml IV at 1 bolus Per protocol; to be given as a bolus over 60 rs5 minutes Route: IV; Rate: 1 bolus; Site: right antecubital; 17:35 Follow up: Response: No adverse reaction; IV Status: Completed infusion; IV Intake: rs5 999ml 16:30 Drug: Methocarbamol IVPB 1 grams IVPB once over 1 hrs; (mix in NS 100 mL) Route: IVPB; rs5 Infused Over: 1 hrs; Site: right antecubital; 17:35 Follow up: Response: No adverse reaction; IV Status: Completed infusion; IV Intake: rs5 100ml 17:42 Drug: Dexamethasone IVP 10 mg IVP once; (not to exceed 40 mg) Route: IVP; Site: right rs5 antecubital; 18:01 Follow up: Response: No adverse reaction; Pain is decreased rs5 17:42 Drug: fentaNYL (PF) IVP 25 mcg IVP once Route: IVP; Site: right antecubital; rs5 18:00 Follow up: Response: No adverse reaction; Pain is decreased rs5 19:59 Drug: fentaNYL (PF) IVP 25 mcg IVP once Route: IVP; Site: right antecubital; rg5 20:36 Follow up: Response: No adverse reaction; Pain is decreased rg5 Medication: 17:46 VIS not applicable for this client. rs5 Intake: 17:35 IV: 999ml; Total: 999ml. rs5 17:35 IV: 100ml; Total: 1099ml. rs5 Outcome: 20:25 Discharge ordered by . cp 20:56 Discharged to home via wheelchair, rg5 20:56 Condition: stable 20:56 Discharge instructions given to patient, Instructed on discharge instructions, follow up and referral plans. Demonstrated understanding of instructions, follow-up care, medications, Prescriptions given X 3, 20:57 Patient left the ED. rg5 Signatures: Dispatcher [employer] EDMS Akin Donaldson PA PA cp Benton, Danielle, RN RN db Elías Kelly RN RN rs5 Kahlil Corral MD MD ec2 Bola Casillas RN RN rg5 Corrections: (The following items were deleted from the chart) 17:44 15:31 BP 127 / 94; Pulse 109bpm; Resp 18bpm; Temp 98.2F; db rs5
--- NOTE | 2024-06-03 20:25 | EDPHYS ---
Physician Documentation [facility] Name: Cindy Garcia Age: 54 yrs Sex: Female : 1970 Arrival Date: 06/03/2024 Time: 15:23 Bed 16 Private MD: ED Physician Akin Gunderson HPI: 06/03 15:55 This 54 yrs old Female presents to ER via Wheelchair with complaints of Back Pain. cp 15:55 The patient presents with pain that is acute, and an injury. The symptoms are located cp in the low back. 15:55 Onset: The symptoms/episode began/occurred 3 day(s) ago. cp 15:55 The pain radiates to the upper back and neck and abdomen and legs. cp 15:55 Associated signs and symptoms: Pertinent positives: abdominal pain, Pertinent cp negatives: constipation, fever, incontinence, numbness, urinary retention. 15:55 Severity of symptoms: in the emergency department the symptoms are unchanged, despite cp home interventions. Patient reports picking up heavy object about 1 month ago, denies trauma and/or fall. Historical: - Allergies: 15:34 Cyclobenzaprine; db 15:34 Oxycodone HCl; db 15:34 OxyContin; db - PMHx: 15:34 chiari malformation; celiac; Osteoporosis; Pseudothrombocytopenia; GERD; Rheumatoid db Arthritis; - PSHx: 15:34 Appendectomy; Cholecystectomy; db - Immunization history:: Adult Immunizations unknown. - Infectious Disease History:: Denies. - Social history:: Smoking status: Patient denies any tobacco usage or history of. ROS: 16:00 Back: Positive for pain at rest, pain with movement, cp 16:00 Constitutional: Negative for body aches, chills, fever, cp 16:00 Eyes: Negative for injury, pain, redness, and discharge, cp 16:00 Cardiovascular: Negative for chest pain, palpitations, 16:00 Respiratory: Negative for cough, shortness of breath, wheezing, 16:00 Abdomen/GI: Positive for abdominal pain, Negative for vomiting, diarrhea, constipation, bowel incontinence, 16:00 : Negative for urinary symptoms, hematuria, difficulty urinating, bladder incontinence, 16:00 Neuro: Negative for altered mental status, headache, numbness, weakness, 16:00 All other systems are negative, Exam: 16:05 Constitutional: The patient appears in no acute distress, alert, awake, non-toxic, well cp developed, in obvious pain, uncomfortable, 16:05 Head/Face: Normocephalic, atraumatic. cp 16:05 Eyes: Periorbital structures: appear normal, Conjunctiva: normal, no exudate, no injection, Sclera: no appreciated abnormality, Lids and lashes: appear normal, bilaterally, 16:05 ENT: External ear(s): are unremarkable, Nose: is normal, Mouth: Lips: moist, Oral mucosa: moist, Posterior pharynx: Airway: no evidence of obstruction, patent, 16:05 Neck: ROM/movement: is normal, is supple, without pain, no range of motions limitations, 16:05 Chest/axilla: Inspection: normal, cp 16:05 Cardiovascular: Rate: tachycardic, Rhythm: regular, Edema: is not appreciated, JVD: is cp not appreciated, 16:05 Respiratory: the patient does not display signs of respiratory distress, Respirations: normal, no use of accessory muscles, no retractions, labored breathing, is not present, Breath sounds: are clear throughout, no decreased breath sounds, no stridor, no wheezing, 16:05 Abdomen/GI: Inspection: abdomen appears normal, Palpation: soft, in all quadrants, moderate abdominal tenderness, in the right lower quadrant and left lower quadrant, 16:05 Back: pain, that is severe, of the low back area and mid back area, ROM is painful, with all movement, 16:05 Neuro: Orientation: to person, place \T\ time. Mentation: is normal, Motor: moves all fours, no focal deficits, Sensation: no obvious gross deficits, Vital Signs: 15:31 BP 127 / 94; Pulse 109; Resp 18; Temp 98.2; Pulse Ox 99% ; rs5 17:43 BP 133 / 81; Pulse 88; Resp 17; Pulse Ox 97% on R/A; rs5 18:20 BP 110 / 74; Pulse 77; Resp 17; Pulse Ox 97% on R/A; rs5 19:41 BP 108 / 69; Pulse 85; Resp 19; Pulse Ox 94% on R/A; Pain 10/10; rg5 20:20 BP 97 / 70; Pulse 73; Resp 19; Pulse Ox 96% on R/A; Pain 6/10; rg5 19:41 Pain Scale: Adult rg5 20:20 Pain Scale: Adult rg5 MDM: 15:31 Medical Screening Exam initiated zaid 20:25 Data reviewed: vital signs, nurses notes, lab test result(s), radiologic studies, CT cp scan, and as a result, I will discharge patient. 20:25 Differential diagnosis: Fatigue Fracture Neoplasm Pyelonephritis ruptured disc, spinal cp injury, vertebral fracture, sciatica, spinal stenosis, cauda equina. Consideration of Admission/Observation Escalation of care including admission/observation considered. I considered the following discharge prescriptions or medication management in the emergency department Medications were administered in the Emergency Department. See MAR. Care significantly affected by the following chronic conditions: osteoporosis, RA. Counseling: I had a detailed discussion with the patient and/or guardian regarding the historical points, exam findings, and any diagnostic results supporting the discharge/admit diagnosis, lab results, radiology results, the need for outpatient follow up, a neurosurgeon, to return to the emergency department if symptoms worsen or persist or if there are any questions or concerns that arise at home. Response to treatment: the patient's symptoms have mildly improved after treatment, and as a result, I will discharge patient. 06/03 15:53 Order name: CBC with Diff; Complete Time: 17:12 06/03 19:44 Interpretation: RBC 5.19; HGB 15.2; RDW 15.4; MN% 12.5; Reviewed. 06/03 15:53 Order name: CMP; Complete Time: 17:12 06/03 15:53 Order name: Lipase; Complete Time: 17:12 06/03 15:53 Order name: Urinalysis w/ reflexes; Complete Time: 19:43 06/03 19:43 Interpretation: Reviewed. 06/03 17:13 Order name: CT Abd/Pelvis - IV Contrast Only; Complete Time: 19:43 06/03 19:44 Interpretation: Report reviewed. 06/03 15:53 Order name: IV Saline Lock; Complete Time: 17:11 06/03 15:53 Order name: Labs collected and sent; Complete Time: 17:11 Administered Medications: 16:30 Drug: TORadol - Ketorolac IVP 15 mg IVP once Route: IVP; Site: right antecubital; rs5 17:01 Follow up: Response: No adverse reaction; Pain is decreased rs5 16:30 Drug: Ondansetron IVP 4 mg IVP once; over 2 minutes Route: IVP; Site: right antecubital;rs5 17:01 Follow up: Response: No adverse reaction rs5 16:30 Drug: NS 0.9% IV 1000 ml IV at 1 bolus Per protocol; to be given as a bolus over 60 rs5 minutes Route: IV; Rate: 1 bolus; Site: right antecubital; 17:35 Follow up: Response: No adverse reaction; IV Status: Completed infusion; IV Intake: rs5 999ml 16:30 Drug: Methocarbamol IVPB 1 grams IVPB once over 1 hrs; (mix in NS 100 mL) Route: IVPB; rs5 Infused Over: 1 hrs; Site: right antecubital; 17:35 Follow up: Response: No adverse reaction; IV Status: Completed infusion; IV Intake: rs5 100ml 17:42 Drug: Dexamethasone IVP 10 mg IVP once; (not to exceed 40 mg) Route: IVP; Site: right rs5 antecubital; 18:01 Follow up: Response: No adverse reaction; Pain is decreased rs5 17:42 Drug: fentaNYL (PF) IVP 25 mcg IVP once Route: IVP; Site: right antecubital; rs5 18:00 Follow up: Response: No adverse reaction; Pain is decreased rs5 19:59 Drug: fentaNYL (PF) IVP 25 mcg IVP once Route: IVP; Site: right antecubital; rg5 20:36 Follow up: Response: No adverse reaction; Pain is decreased rg5 Disposition Summary: 06/03/24 20:25 Discharge Ordered Notes: Location: Home cp Problem: new cp Symptoms: have improved cp Condition: Stable cp Diagnosis - Low back pain cp - Fracture of lumbar vertebra - compression type L3 and L4 cp Followup: cp - With: Private Physician - When: 5 - 6 days - Reason: Recheck today's complaints Discharge Instructions: - Discharge Summary Sheet cp - Spinal Compression Fracture cp Forms: - Medication Reconciliation Form cp - Antibiotic Education cp - Prescription Opioid Use cp - Patient Portal Instructions cp - Leadership Thank You Letter cp Prescriptions: - Celebrex 100 mg Oral capsule - take 1 capsule ORAL route every 12 hours As needed take with food; 30 capsule; cp Refills: 0, Product Selection Permitted - Tramadol 50 mg Oral Tablet - take 1 tablet ORAL route every 8 hours as needed; 12 tablet; Refills: 0, cp Product Selection Permitted - methocarbamol 750 mg Oral tablet - take 1 tablet ORAL route 3 times per day; 30 tablet; Refills: 0, Product cp Selection Permitted Addendum: 06/06/2024 14:59 Co-signature as Attending Physician, Akin Gunderson MD I agree with the assessment and c cortez plan of care. Signatures: Dispatcher [employer] EDMS Akin Gunderson MD MD cha Page, Corey, PA PA cp Adri Gallegos, RN RN db Elías Kelly RN RN rs5 Bola Casillas RN RN rg5 Corrections: (The following items were deleted from the chart) 06/03 15:53 15:53 CBC+H.LAB.BRZ ordered. EDMS EDMS 15:53 15:53 COMPREHENSIVE METABOLIC PANEL+C.LAB.BRZ ordered. EDMS EDMS 15:53 15:53 LIPASE+C.LAB.BRZ ordered. EDMS EDMS 15:53 15:53 Urinalysis+U.LAB.BRZ ordered. EDMS EDMS 19:44 17:12 Reviewed. cp cp 20:27 20:25 Wedge compression fracture of unspecified lumbar vertebra cp cp
[2024-06-03 21:02] VITALS: TEMP 98.2
[2024-06-03 21:09] VITALS: BP 97/70; O2SAT 96
== END 2024-06-03 20:57 | disposition home or self-care (01) ==
LOC: ER 15:23
DX: S32.030A Wedge compression fracture of third lumbar vertebra, initial encounter for closed fracture (principal); S32.040A Wedge compression fracture of fourth lumbar vertebra, initial encounter for closed fracture
CPT/HCPCS: 96365; 85025; 36415; 81003; 83690; 80053; 74177; 96375; 99284; Q9967; J3010 ×2; J1100; J2405; J2800; J7030

== ENCOUNTER 2025-01-13 20:14 | Emergency (ER) | payer OTHER ==
[2025-01-13 21:13] LABS: Absolute Lymphocytes (CBC) 0.7 K/uL (0.7-4.9); Hematocrit 39.8 % (36.0-45.0); Hemoglobin 13.9 g/dL (12.0-15.0); MCH 29.7 pg (27.0-35.0); MCHC 35.0 g/dL (32.0-36.0); MCV 85.0 fL (80-100); MPV 7.7 fL (7.6-11.3); Nucleated RBC Absolute Count 0.0 (0-0); Nucleated Red Blood Cells % 0.1 % (0-0); RBC Red Blood Cell Count 4.68 M/uL (3.86-4.86); White Blood Count 6.00 thou/uL (4.3-10.9)
[2025-01-13 21:24] LABS: PT Prothrombin Time 14.4 SECONDS (10-13.0); PTT, Activated Partial Thromb 32.6 SECONDS (27.2-37.4); Protime INR 1.28
--- NOTE | 2025-01-13 21:32 | RAD REPORT ---
EXAM: CT brain without contrast HISTORY: gen weakness COMPARISON: None TECHNIQUE: Multiple contiguous axial images were obtained and a CT of the brain without contrast. Sag ittal and coronal reformats were performed. One or more of the following dose reduction techniques were used: Automated exposure control, adjust ment of the mA and/or kV according to patient size, and/or iterative reconstruction. FINDINGS: No evidence of hydrocephalus, intracranial hemorrhage, or extra-axial fluid collection. The brain is normal in morphology. No evidence of midline shift or areas of brain edema. Evidence of previous posterior craniectomy. The visualized paranasal sinuses and mastoid air cells ar e essentially clear. IMPRESSION: No evidence of acute intracranial abnormality.
[2025-01-13] MEDS ORDERED: ONDANSETRON 4 MG/2 ML VIAL ONE (21:35)
[2025-01-13] MEDS ORDERED: MULTIVITAMINS 10 ML VIAL (INJ) IV ONE (21:36)
[2025-01-13] MEDS ORDERED: THIAMINE 200 MG/2 ML INJ ONE (21:36)
[2025-01-13] MEDS ORDERED: FOLIC ACID 5 MG/ML VIAL ONE (21:37)
--- NOTE | 2025-01-13 21:37 | RAD REPORT ---
EXAM: CT CHEST, ABDOMEN AND PELVIS WITHOUT CONTRAST CLINICAL INDICATION: gen weakness TECHNIQUE: CT chest, abdomen and pelvis was performed without contrast, as per department protocol. A xial, sagittal and coronal reconstructions were obtained. One or more of the following dose reduction techniques were used: Automated exposure control, adjustment of the mA and/or kV according to patient size, and/or iterative reconstruction. Unless otherwise specified, incidental findings do not require dedicated imaging follow-up. Examination is limited by the lack of intravenous contrast material. COMPARISON: 11/30/2024 FINDINGS: LUNGS: No evidence of airspace or interstitial process. No nodules. PLEURA: No pleural effusion. No pneumothorax. MEDIASTINUM AND LYMPH NODES: No mediastinal mass or fluid collection. Normal size mediastinal, hilar, and axillary lymph nodes. OSSEOUS STRUCTURES AND CHEST WALL: Intact. LIVER: Normal in size and contour. No focal lesion or biliary dilatation. Cholecystectomy clips. PANCREAS: No mass, ductal dilation, or bhavana-pancreatic fluid. SPLEEN: Normal size. No focal lesion. ADRENALS: Normal; no mass. KIDNEYS: Normal size and contour. No hydronephrosis. URINARY BLADDER: Normal contour. GASTROINTESTINAL TRACT: No bowel obstruction, free air, significant free fluid or abscess. APPENDIX: Appendix not visualized, but no inflammatory changes in region of appendix. LYMPH NODES: No lymphadenopathy. MUSCULOSKELETAL: Multiple thoracic and lumbar spine wedge compression deformities of varying degree, unchanged. OTHER: Bilateral total hip arthroplasty. Hardware is present proximal right humerus. IMPRESSION: No acute abnormalities seen in the chest, abdomen or pelvis.
[2025-01-13] MEDS ORDERED: VANCOMYCIN 1 GM/VIAL ONE (21:38)
[2025-01-13] MEDS ORDERED: NA CHLORIDE 0.9% 250 ML ONE (21:38)
[2025-01-13] MEDS ORDERED: NA CHLORIDE 0.9% 2,000 ML ONE (21:39)
[2025-01-13] MEDS ORDERED: ALBUMIN HUMAN 25% 100 ML IV ONE (21:40)
[2025-01-13] MEDS ORDERED: NA CHLORIDE 0.9% 100 ML ONE (21:40)
[2025-01-13] MEDS ORDERED: CEFEPIME 1 GM/VIAL ONE (21:41)
[2025-01-13 21:48] LABS: AST/SGOT 11 U/L (15-37); Albumin 3.7 g/dL (3.4-5.0); Albumin/Globulin Ratio 1.0 (1.1-1.8); Alkaline Phosphatase 108 U/L (45-117); Anion Gap 16.9 mEq/L (5.0-15.0); BUN Blood Urea Nitrogen 13 mg/dL (7-18); Globulin 3.7 g/dL (2.3-3.5); Glucose Level 86 mg/dL (74-106); NT PRO-BNP 183 pg/mL (<125); Potassium 2.9 mEq/L (3.5-5.1); Thyroid Stimulating Hormone 1.110 uIU/mL (0.358-3.740); Troponin High Sensitivity 3.2 pg/mL (<58.9)
[2025-01-13 22:05] LABS: ALT/SGPT < 14 U/L (13-56)
[2025-01-14 00:06] LABS: Sqamous Epithelial None Seen /HPF (None Seen); Urine Micro Reflex YN NO BILL MICROSCOPIC
[2025-01-14] MEDS ORDERED: POTASSIUM CL SA 10 MEQ TAB PO ONE ×2 (00:18→00:19)
[2025-01-14] MEDS ORDERED: KCL 20 MEQ/100 mL IVPB 100 ML IV ONE (00:19)
[2025-01-14 00:22] LABS: METHAMPHETAM NEGATIVE (NEGATIVE); THC Cannibis POSITIVE (NEGATIVE)
[2025-01-14] MEDS ORDERED: GENTAMICIN 0.3% OPTH DROP 5ML ONE (01:09)
[2025-01-14] MEDS ORDERED: FLUORESCEIN SODIUM 1 MG/WRAP ONE (01:09)
[2025-01-14] MEDS ORDERED: MORPHINE 2 MG/ML SYR ONE (01:09)
[2025-01-14] MEDS ORDERED: TETRACAINE HCL 0.5% 4ML OPTH ONE (01:10)
--- NOTE | 2025-01-14 01:14 | ER ---
Nurse's Notes [facility] Name: Cindy Garcia Age: 54 yrs Sex: Female : 1970 Arrival Date: 01/13/2025 Time: 20:14 Bed 19 Private MD: Diagnosis: Acute Left orbital cellulitis, acute Left endophthalmitis, acute bacterial conjunctivitis left eye, ;Cachexia and malnutrition,;Failure to thrive,;Acute hypokalemia;Physical debility Presentation: 01/13 20:35 Chief complaint: EMS states: failure to thrive at home. patient was sitting in BM. pt ss[facility] so family called the EMS. As per patient she is feeling weak since a week. no fever or chills. pt has history of Hep C, HIV, Shingles. Coronavirus screen: Client denies travel out of the [place] in the last 14 days. Ebola Screen: Patient negative for fever greater than or equal to 101.5 degrees Fahrenheit, and additional compatible Ebola Virus Disease symptoms Patient denies exposure to infectious person. Patient denies travel to an Ebola-affected area in the 21 days before illness onset. Initial Sepsis Screen: Does the patient meet any 2 criteria? No. Patient's initial sepsis screen is negative. Does the patient have a suspected source of infection? No. Patient's initial sepsis screen is negative. Risk Assessment: Do you want to hurt yourself or someone else? Patient reports no desire to harm self or others. Onset of symptoms was December 2024. 20:35 Method Of Arrival: EMS: [place] [id number] 20:35 Acuity: JOSE MIGUEL 3 ss12 Triage Assessment: 21:22 General: Appears in no apparent distress. comfortable, Behavior is calm, cooperative, ss12 quiet. Pain: Denies pain. EENT: No deficits noted. No signs and/or symptoms were reported regarding the EENT system. EENT: Eyes with exudate noted from left eye. Neuro: No deficits noted. Level of Consciousness is awake, alert, Oriented to person, place, time, situation. Neuro: No deficits noted. Cardiovascular: No deficits noted. Denies chest pain, nausea, Patient's skin is warm and dry. Respiratory: No deficits noted. Airway is patent Respiratory effort is even, unlabored, Respiratory pattern is regular, symmetrical. GI: No deficits noted. pt full of BM. : No deficits noted. No signs and/or symptoms were reported regarding the genitourinary system. Derm: No deficits noted. No signs and/or symptoms reported regarding the dermatologic system. Musculoskeletal: No deficits noted. No signs and/or symptoms reported regarding the musculoskeletal system. 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 - Infectious Disease History:: Denies. - Social history:: Smoking status: . - Family history:: not pertinent. Screenin:42 [facility] ED Fall Risk Assessment (Adult) History of falling in the last 3 months, ss12 including since admission No falls in past 3 months (0 pts) Confusion or Disorientation No (0 pts) Intoxicated or Sedated No (0 pts) Impaired Gait No (0 pts) Mobility Assist Device Used No (0 pt) Altered Elimination No (0 pt) Score/Fall Risk Level 0 - 2 = Low Risk Oriented to surroundings, Maintained a safe environment, Educated pt \T\ family on fall prevention, incl call for assistance when getting out of bed, Assessed \T\ reinforced patient's understanding of fall precautions, Provided non-skid footwear. 20:44 Abuse screen: Denies threats or abuse. Denies injuries from another. Nutritional ss12 screening: No deficits noted. Tuberculosis screening: No symptoms or risk factors identified. Assessment: 20:35 Reassessment: see triage assessment. ss12 21:30 Reassessment: Patient appears in no apparent distress at this time. Patient and/or ss12 family updated on plan of care and expected duration. Pain level reassessed. Patient is alert, oriented x 3, equal unlabored respirations, skin warm/dry/pink. 22:28 Reassessment: Patient appears in no apparent distress at this time. Patient and/or ss12 family updated on plan of care and expected duration. Pain level reassessed. Patient is alert, oriented x 3, equal unlabored respirations, skin warm/dry/pink. 23:30 Reassessment: Patient appears in no apparent distress at this time. Patient and/or ss12 family updated on plan of care and expected duration. Pain level reassessed. Patient is alert, oriented x 3, equal unlabored respirations, skin warm/dry/pink. 01/14 00:30 Reassessment: Patient appears in no apparent distress at this time. Patient and/or ss12 family updated on plan of care and expected duration. Pain level reassessed. Patient is alert, oriented x 3, equal unlabored respirations, skin warm/dry/pink. 01:20 Reassessment: Patient appears in no apparent distress at this time. Patient and/or ss12 family updated on plan of care and expected duration. Pain level reassessed. Patient is alert, oriented x 3, equal unlabored respirations, skin warm/dry/pink. 02:25 Reassessment: Patient appears in no apparent distress at this time. Patient and/or ss12 family updated on plan of care and expected duration. Pain level reassessed. Patient is alert, oriented x 3, equal unlabored respirations, skin warm/dry/pink. 03:30 Reassessment: Patient appears in no apparent distress at this time. Patient and/or ss12 family updated on plan of care and expected duration. Pain level reassessed. Patient is alert, oriented x 3, equal unlabored respirations, skin warm/dry/pink. Vital Signs: 01/13 20:35 BP 97 / 74; Pulse 106; Resp 16; Temp 98.8; Pulse Ox 98% on R/A; [facility] 21:00 BP 100 / 70; Pulse 98; Resp 16 S; Pulse Ox 97% on R/A; [facility] 21:49 Weight 40 kg; Height 5 ft. 4 in. ; [facility] 01/14 00:02 BP 98 / 64; Pulse 92; Resp 16; Pulse Ox 100% on R/A; [facility] 01:00 BP 105 / 58; Pulse 90; Resp 16 S; Pulse Ox 100% on R/A; [facility] 02:47 BP 113 / 70; Pulse 94; Resp 16 S; Pulse Ox 100% on R/A; [facility] 03:30 BP 104 / 76; Pulse 90; Resp 16 S; Pulse Ox 100% on R/A; ss12 01/13 21:49 Body Mass Index 15.14 (40.00 kg, 162.56 cm) ss12 Nebo Coma Score: 01/13 21:00 Eye Response: spontaneous(4). Motor Response: obeys commands(6). Verbal Response: ss12 oriented(5). Total: 15. 01/14 01:16 Eye Response: spontaneous(4). Motor Response: obeys commands(6). Verbal Response: sp4 oriented(5). Total: 15. ED Course: 01/13 20:31 Patient arrived in ED. vc1 20:33 Florin Porter MD is Attending Physician. sp4 20:33 Paul Miller, AGUSTINA is Primary Nurse. ss12 20:38 Triage completed. ss12 20:57 First set of blood cultures drawn by me. ts3 20:57 Inserted saline lock: 20 gauge in left antecubital area, using aseptic technique. Blood ts3 collected. Flushed with 10 mL NS. 20:58 EKG done, by ED staff, reviewed by Florin Porter MD. me1 20:58 Initial lab(s) drawn, by computer lab assistant, sent to lab. ts3 21:24 CT Head Brain wo Cont In Process Unspecified. EDMS 21:24 CT Chest Abdomen Pelvis W/O Contrast In Process Unspecified. EDMS 21:25 No provider procedures requiring assistance completed. ss12 21:25 Arm band placed on right wrist. ss12 21:25 Patient has correct armband on for positive identification. Provided Education on: plan ss12 of care. 21:29 Maintain EMS IV. Dressing intact. Good blood return noted. Site clean \T\ dry. Gauge \T\ ss 12 site: 20 Moose in right AC. Flushed with 10 mL NS. 22:00 Second set of blood cultures drawn. ts3 23:20 Urine collected: clean catch specimen, sent to lab. ts3 01/14 01:10 Figueroa Saini, RN is Hospitalizing Provider. sp4 01:43 initiated transfer with kristina at [facility]. kmf 02:15 [facility] declined pt. kmf 02:24 intiated transfer with emilee \T\ [facility]. kmf 02:29 HIV Ag/Ab Combo Sent. ss12 02:29 Hepatitis Panel Sent. [facility] 03:23 pt was accepted to [facility] by Messi Schmidt \T\[id number]. Accepting admin Emilee Sean [facility] \T\[id number]. Number for nurse to nurse report [phone]. 03:53 Patient transferred, IV remains in place. 12 Administered Medications: 01/13 21:55 Drug: Ondansetron IVP 4 mg IVP once; over 2 minutes Route: IVP; Site: left antecubital; [facility] 22:30 Follow up: Response: No adverse reaction; Nausea is decreased [facility] 22:20 Drug: NS 0.9% IV (30 ml/kg) 30 ml/kg IV at bolus once; Sepsis Protocol; to be given as [facility] a bolus over 90 minutes Route: IV; Rate: bolus; Site: right antecubital; 22:20 Drug: Albumin IVPB 25 grams 100 ml IVPB once; (Note: Albumin 25% concentration) Volume: ss12 100 ml; Route: IVPB; Site: left antecubital; 23:52 Follow up: IV Status: Completed infusion; IV Intake: 100ml [facility] 22:20 Drug: Cefepime IVPB 2 grams IVPB at 200 ml/hr once over 30 mins; (mix in NS 100 mL) [facility] Route: IVPB; Rate: 200 ml/hr; Infused Over: 30 mins; Site: left antecubital; 23:00 Follow up: IV Status: Completed infusion; IV Intake: 100ml [facility] 23:00 Drug: vancoMYCIN IVPB 1 grams IVPB once over 2 hrs Route: IVPB; Infused Over: 2 hrs; [facility] Site: left antecubital; 23:15 Drug: Potassium Chloride PO 40 mEq PO once Route: PO; [facility] 01/14 02:32 Follow up: Response: No adverse reaction [facility] 01/13 23:15 Drug: Potassium Chloride IV 20 mEq IV at calculated rate once; administer over 1-2 12 hours Route: IV; Rate: calculated rate; Site: left antecubital; 01/14 02:00 Follow up: IV Status: Infusion continued [facility] 01/13 23:45 Drug: Banana Bag - (Multivitamin IV 1 amp, NS 0.9% IV 1000 ml, Thiamine IV 100 mg, 12 foLIC Acid IVPB 1 mg) IV at calculated rate once Route: IV; Rate: calculated rate; Site: left antecubital; 01/14 02:00 Follow up: Response: No adverse reaction 12 01:15 Drug: morphine IVP or IV 2 mg IVP once over 4 mins Route: IVP; Infused Over: 4 mins; ss12 Site: left antecubital; 02:32 Follow up: Response: No adverse reaction; Pain is decreased ss12 02:00 Drug: Tetracaine Ophthalmic Drops 0.5 % 1 drops Ophthalmic once Route: Ophthalmic; 12 Site: left eye; 02:00 Drug: Gentamicin Ophthalmic Drops 0.3 % 2 drops Ophthalmic once Route: Ophthalmic; 12 Site: left eye; 02:30 Not Given (Physician Discretion): tobramycindrops (0.3 %) 2 drops Ophthalmic once ss12 02:30 Drug: Solu-CORTEF IVP 100 mg IVP once Route: IVP; Site: right antecubital; 12 02:30 Follow up: Response: No adverse reaction 12 02:46 Not Given (Physician Discretion): vigamoxdrops 0.5 % 2 drops Ophthalmic once 12 Medication: 01/13 21:25 VIS not applicable for this client. ss12 Intake: 23:00 IV: 100ml; Total: 100ml. ss12 23:52 IV: 100ml; Total: 200ml. ss12 Outcome: 01/14 01:13 Decision to Hospitalize by Provider. sp4 01:47 ER care complete, transfer ordered by . sp4 03:52 Transferred by ground EMS Note: [facility] ss12 03:52 Condition: stable 03:53 Patient left the ED. 12 Signatures: Dispatcher [employer] EDKatarina Lepe RN RN 1 Florin Porter MD MD sp4 Dyan Olmstead RN RN Dina Nelson [facility] [place] Short ts3 Paul Miller RN RN ss12 Corrections: (The following items were deleted from the chart) 01/13 21:19 21:18 Inserted saline lock: 20 gauge in left antecubital area, using aseptic technique. ts3 Blood collected. Flushed with 10 mL NS ts3 21:19 21:18 Initial lab(s) drawn, by computer lab assistant, sent to lab. 3 ts3 22:25 22:20 Albumin IVPB 25 grams 100 ml IVPB in left antecubital [place] [id number] 22:26 22:20 NS 0.9% IV (30 ml/kg) 1200 ml IV at bolus in left antecubital [place] [id number] 22:39 22:28 Reassessment: see triage assessment [place] [id number] 01/14 02:30 02:00 Vigamox Ophthalmic Drops 0.5 % 2 drops Ophthalmic in both eyes [place] [id number]
--- NOTE | 2025-01-14 01:14 | EDPHYS ---
Physician Documentation [facility] Name: Cindy Garcia Age: 54 yrs Sex: Female : 1970 Arrival Date: 01/13/2025 Time: 20:14 Bed 19 Private MD: ED Physician Florin Porter HPI: 01/13 20:33 This 54 yrs old Female presents to ER via Unassigned with complaints of sp4 failure to thrive . 01/14 01:13 Patient is a 54-year-old female with history of celiac disease, Chiari malformation, sp4 GERD, osteoporosis, rheumatoid arthritis also reported HIV and hepatitis C.. 01:14 Additional history adrenal insufficiency, medications at home include ropinirole 1 mg sp4 bedtime, prednisone 10 mg bedtime, Lexapro 20 mg bedtime, omeprazole 20 mg p.o. bedtime, fludrocortisone 0.1 mg p.o. daily, midodrine 5 mg p.o. 3 times daily.. 01:16 Patient presents with EMS secondary to reported failure to thrive. Patient was found in sp4 her trailer covered in fecal matter, patient has signs of generalized weakness, cachexia, significant chronic malnutrition. Patient denied any pain on arrival but reported vomiting.. SCIENTIFIC DIRECTOR: 03:14 unknown ss12 Historical: - Allergies: 01/13 21:20 Cyclobenzaprine; ss12 21:20 Oxycodone HCl; ss12 21:20 OxyContin; ss12 - PMHx: 21:20 celiac; chiari malformation; GERD; Osteoporosis; Pseudothrombocytopenia; Rheumatoid ss12 Arthritis; HIV positive; shingles; hepatitis c; - PSHx: 21:20 Appendectomy; Cholecystectomy; ss12 - Immunization history:: Adult Immunizations unknown. - Infectious Disease History:: Denies. - Social history:: Smoking status: . - Family history:: not pertinent. ROS: 01/14 01:16 Constitutional: Negative for fever, chills, and weight loss, positive for vomiting, sp4 positive for malnutrition, positive for generalized weakness, positive for fecal incontinence All other systems are negative, Exam: 01:16 Constitutional: Emaciated cachectic female , covered in diarrhea, generalized sp4 weakness, signs of chronic malnutrition and physical debility Head/Face: Normocephalic, atraumatic. Eyes: Right pupil equal round and reactive to light, right eye exam is normal. Examination of the left eye reveals that left eye is paralyzed and not mobile. There is significant preseptal cellulitis, significant bacterial type conjunctivitis with yellowish exudate. Left lateral corneal abrasion with fluorescein exam. Possibly orbital cellulitis. Left pupil is mid dilated and fixed ENT: Nares patent. No nasal discharge, no septal abnormalities noted. Tympanic membranes are normal and external auditory canals are clear. Oropharynx with no redness, swelling, or masses, exudates, or evidence of obstruction, uvula midline. Mucous membranes moist. Neck: Trachea midline, no thyromegaly or masses palpated, and no cervical lymphadenopathy. Supple, full range of motion without nuchal rigidity, or vertebral point tenderness. Chest/axilla: Normal chest wall appearance and motion. Nontender with no deformity. No lesions are appreciated. Cardiovascular: Regular rate and rhythm with a normal S1 and S2. No gallops, murmurs, or rubs. No pulse deficits. Respiratory: Lungs have equal breath sounds bilaterally, clear to auscultation and percussion. No rales, rhonchi or wheezes noted. No increased work of breathing, no retractions or nasal flaring. Abdomen/GI: Soft, with normal bowel sounds. No distension or tympany. No guarding or rebound. No evidence of tenderness throughout. Back: No spinal tenderness. No costovertebral tenderness. Female : Normal external genitalia. Patient is incontinent of bowel Skin: Warm, dry with normal turgor. Normal color with no rashes, no lesions, and no evidence of cellulitis. MS/ Extremity: Pulses equal, no cyanosis. Neurovascular intact. Full, normal range of motion. Neuro: Awake and alert, GCS 15, oriented to person, place, time, and situation. Cranial nerves II-XII grossly intact. Motor strength 5/5 in all extremities. Sensory grossly intact. Psych: Awake, alert, with orientation to person, place 01:16 ECG was reviewed by the Attending Physician. EKG at 4 sinus tachycardia at 104 otherwise unremarkable. Vital Signs: 01/13 20:35 BP 97 / 74; Pulse 106; Resp 16; Temp 98.8; Pulse Ox 98% on R/A; ss12 21:00 BP 100 / 70; Pulse 98; Resp 16 S; Pulse Ox 97% on R/A; ss12 21:49 Weight 40 kg; Height 5 ft. 4 in. ; 12 01/14 00:02 BP 98 / 64; Pulse 92; Resp 16; Pulse Ox 100% on R/A; ss12 01:00 BP 105 / 58; Pulse 90; Resp 16 S; Pulse Ox 100% on R/A; ss12 02:47 BP 113 / 70; Pulse 94; Resp 16 S; Pulse Ox 100% on R/A; ss12 03:30 BP 104 / 76; Pulse 90; Resp 16 S; Pulse Ox 100% on R/A; ss12 01/13 21:49 Body Mass Index 15.14 (40.00 kg, 162.56 cm) 12 [place] Coma Score: 01/13 21:00 Eye Response: spontaneous(4). Motor Response: obeys commands(6). Verbal Response: ss12 oriented(5). Total: 15. 01/14 01:16 Eye Response: spontaneous(4). Motor Response: obeys commands(6). Verbal Response: sp4 oriented(5). Total: 15. MDM: 01/13 20:36 Medical Screening Exam initiated sp4 01/14 01:09 ED course: HISTORY: gen weakness COMPARISON: None TECHNIQUE: Multiple contiguous axial sp4 images were obtained and a CT of the brain without contrast. Sagittal and coronal reformats were performed. One or more of the following dose reduction techniques were used: Automated exposure control, adjustment of the mA and/or kV according to patient size, and/or iterative reconstruction. FINDINGS: No evidence of hydrocephalus, intracranial hemorrhage, or extra-axial fluid collection. The brain is normal in morphology. No evidence of midline shift or areas of brain edema. Evidence of previous posterior craniectomy. The visualized paranasal sinuses and mastoid air cells are essentially clear. IMPRESSION: No evidence of acute intracranial abnormality. . ED course: Examination is limited by the lack of intravenous contrast material. COMPARISON: 11/30/2024 FINDINGS: LUNGS: No evidence of airspace or interstitial process. No nodules. PLEURA: No pleural effusion. No pneumothorax. MEDIASTINUM AND LYMPH NODES: No mediastinal mass or fluid collection. Normal size mediastinal, hilar, and axillary lymph nodes. OSSEOUS STRUCTURES AND CHEST WALL: Intact. LIVER: Normal in size and contour. No focal lesion or biliary dilatation. Cholecystectomy clips. PANCREAS: No mass, ductal dilation, or bhavana-pancreatic fluid. SPLEEN: Normal size. No focal lesion. ADRENALS: Normal; no mass. KIDNEYS: Normal size and contour. No hydronephrosis. URINARY BLADDER: Normal contour. GASTROINTESTINAL TRACT: No bowel obstruction, free air, significant free fluid or abscess. APPENDIX: Appendix not visualized, but no inflammatory changes in region of appendix. RADIOLOGY SERVICES REPORT LYMPH NODES: No lymphadenopathy. MUSCULOSKELETAL: Multiple thoracic and lumbar spine wedge compression deformities of varying degree, unchanged. OTHER: Bilateral total hip arthroplasty. Hardware is present proximal right humerus. IMPRESSION: No acute abnormalities seen in the chest, abdomen or pelvis. . 01:19 Differential Diagnosis: cardiac arrhythmia, drug effect, emotional response, idiopathic sp4 syncope, pseudo seizure, seizure, sepsis. Data reviewed: vital signs, nurses notes, EMS record, lab test result(s), EKG, radiologic studies, CT scan. Consideration of Admission/Observation Patient was admitted/placed on observation. Escalation of care including admission/observation considered. Management of patient was discussed with the following: Hospitalist: Patient discussed with admitting team. ED course: Stable for admission for moderate to severe cachexia, malnutrition, hypokalemia, failure to thrive. Will probably require social work consult. 02:05 ED course: Eye pressures 24 on the right side, 21 on the left. Examination of the left sp4 eye reveals mild exophthalmos, moderate to severe conjunctivitis with purulent discharge, left lateral moderate corneal abrasion, signs of periorbital cellulitis preseptal cellulitis, possibly as well orbital cellulitis and complete immobilization of the left eye. Complete loss of vision in the left eye, nonreactive pupil on the left eye with normal intraocular pressure of 21. Suspect endophthalmitis also acute orbital cellulitis with left eye paralysis of extraocular eye movement. Admitting service he requested transfer for higher level of care and ophthalmology consultation.. 02:35 ED course: Patient was discussed with pet sitter at [facility] sp4 who reports that patient will probably require oculoplasty/and this is beyond the scope of practice, beyond capacity of [facility] ophthalmology department. Software Applications Engineer at [facility] has requested transfer to a different facility for higher level of care. Patient was discussed with Paul [facility] pet sitter Dr. Beaver who has accepted the patient as ER to ER transfer for further evaluation. Patient at this time is hemodynamically stable. She received vancomycin and cefepime. Also gentamicin eyedrops.. ED course: To recapitulate patient was declined by [facility] ophthalmology and was then accepted by [facility] ophthalmology. 01/13 20:33 Order name: BNP; Complete Time: 22:55 4 01/13 20:33 Order name: Blood Culture Adult (2) 4 01/13 20:33 Order name: CBC with Diff; Complete Time: 21:56 4 01/13 20:33 Order name: CMP; Complete Time: 22:55 [facility] 01/13 20:33 Order name: Lactate w/ 2H reflex if indic.; Complete Time: 21:56 [facility] 01/13 20:33 Order name: Protime (+inr); Complete Time: 21:56 [facility] 01/13 20:33 Order name: Ptt, Activated; Complete Time: 21:56 [facility] 01/13 20:33 Order name: Troponin HS; Complete Time: 22:55 4 01/13 20:35 Order name: TSH; Complete Time: 22:55 4 01/13 20:35 Order name: T4 Free; Complete Time: 22:55 4 01/13 20:35 Order name: UA W/ Microscopic; Complete Time: 00:56 4 01/13 20:35 Order name: UDS; Complete Time: 00:56 [facility] 01/13 20:35 Order name: Alcohol Level; Complete Time: 21:56 4 01/13 21:27 Order name: Glucose, Ancillary Testing; Complete Time: 21:56 EDMS 01/14 01:15 Order name: Hepatitis Panel [facility] 01/14 01:15 Order name: HIV Ag/Ab Combo [facility] 01/13 20:34 Order name: CT Head Brain wo Cont; Complete Time: 21:56 sp4 01/13 20:34 Order name: CT Chest Abdomen Pelvis W/O Contrast; Complete Time: 21:56 4 01/13 20:33 Order name: Accucheck; Complete Time: 21:17 sp4 01/13 20:33 Order name: Cardiac monitoring; Complete Time: 20:58 sp4 01/13 20:33 Order name: Cath; Complete Time: 22:26 sp4 01/13 20:33 Order name: EKG - Nurse/Tech; Complete Time: 20:57 sp4 01/13 20:33 Order name: IV Saline Lock - Large Bore; Complete Time: 21:17 sp4 01/13 20:33 Order name: Labs collected and sent; Complete Time: 21:18 sp4 01/13 20:33 Order name: O2 Per Protocol; Complete Time: 21:18 sp4 01/13 20:33 Order name: O2 Sat Monitoring; Complete Time: 21:18 sp4 01/13 20:33 Order name: Vital Signs; Complete Time: 21:18 sp4 01/14 01:02 Order name: Eye Tray; Complete Time: 01:04 sp4 01/14 01:02 Order name: Fluoresene Opth strip; Complete Time: 01:18 sp4 EC/08 20:54 Rate is 104 beats/min. Rhythm is regular, Sinus tachycardia. QRS [place] is Normal. [place] sp4 interval is normal. QRS interval is normal. QT interval is normal. T waves are Inverted in leads V3, V4, V5, V6. No ST changes noted. Clinical impression: No evidence of ischemia. Interpreted by me. Reviewed by me. Administered Medications: 21:55 Drug: Ondansetron IVP 4 mg IVP once; over 2 minutes Route: IVP; Site: left antecubital; 12 22:30 Follow up: Response: No adverse reaction; Nausea is decreased 12 22:20 Drug: NS 0.9% IV (30 ml/kg) 30 ml/kg IV at bolus once; Sepsis Protocol; to be given as ss12 a bolus over 90 minutes Route: IV; Rate: bolus; Site: right antecubital; 22:20 Drug: Albumin IVPB 25 grams 100 ml IVPB once; (Note: Albumin 25% concentration) Volume: ss12 100 ml; Route: IVPB; Site: left antecubital; 23:52 Follow up: IV Status: Completed infusion; IV Intake: 100ml ss12 22:20 Drug: Cefepime IVPB 2 grams IVPB at 200 ml/hr once over 30 mins; (mix in NS 100 mL) ss12 Route: IVPB; Rate: 200 ml/hr; Infused Over: 30 mins; Site: left antecubital; 23:00 Follow up: IV Status: Completed infusion; IV Intake: 100ml [facility] [place] 23:00 Drug: vancoMYCIN IVPB 1 grams IVPB once over 2 hrs Route: IVPB; Infused Over: 2 hrs; 12 Site: left antecubital; 23:15 Drug: Potassium Chloride PO 40 mEq PO once Route: PO; 12 01/14 02:32 Follow up: Response: No adverse reaction [facility] [place] 01/13 23:15 Drug: Potassium Chloride IV 20 mEq IV at calculated rate once; administer over 1-2 12 hours Route: IV; Rate: calculated rate; Site: left antecubital; 01/14 02:00 Follow up: IV Status: Infusion continued [facility] [place] 01/13 23:45 Drug: Banana Bag - (Multivitamin IV 1 amp, NS 0.9% IV 1000 ml, Thiamine IV 100 mg, 12 foLIC Acid IVPB 1 mg) IV at calculated rate once Route: IV; Rate: calculated rate; Site: left antecubital; 01/14 02:00 Follow up: Response: No adverse reaction [facility] [place] 01:15 Drug: morphine IVP or IV 2 mg IVP once over 4 mins Route: IVP; Infused Over: 4 mins; 12 Site: left antecubital; 02:32 Follow up: Response: No adverse reaction; Pain is decreased [place] 02:00 Drug: Tetracaine Ophthalmic Drops 0.5 % 1 drops Ophthalmic once Route: Ophthalmic; 12 Site: left eye; 02:00 Drug: Gentamicin Ophthalmic Drops 0.3 % 2 drops Ophthalmic once Route: Ophthalmic; 12 Site: left eye; 02:30 Not Given (Physician Discretion): tobramycindrops (0.3 %) 2 drops Ophthalmic once [place] 02:30 Drug: Solu-CORTEF IVP 100 mg IVP once Route: IVP; Site: right antecubital; 12 02:30 Follow up: Response: No adverse reaction [facility] [place] 02:46 Not Given (Physician Discretion): vigamoxdrops 0.5 % 2 drops Ophthalmic once 12 Disposition: 01:19 Chart complete. sp4 Disposition Summary: 01/14/25 01:47 Transfer Ordered Notes: Reason: Higher level of care sp4 Condition: Stable(01/14/25 01:47) sp4 Problem: new(01/14/25 01:47) sp4 Symptoms: have improved(01/14/25 01:47) sp4 Transfer Location: [facility]-System(01/14/25 02:37) sp4 Accepting Physician: [facility] attending pet sitter(01/14/25 03:53) ss12 Diagnosis - Acute Left orbital cellulitis, acute Left endophthalmitis, acute bacterial sp4 conjunctivitis left eye, - Cachexia and malnutrition, sp4 - Failure to thrive, sp4 - Acute hypokalemia sp4 - Physical debility sp4 Forms: - Medication Reconciliation Form sp4 - SBAR form sp4 Critical care time excluding procedures: 01:19 Critical care time: Bedside Care: 36 minutes, Consultation: 12 minutes, Family sp4 Intervention: 12 minutes. Total time: 60 minutes Signatures: Dispatcher [employer] EDFlorin Doe MD MD sp4 Paul Miller RN RN ss12 Corrections: (The following items were deleted from the chart) 01/13 20:34 20:34 PROBNP+C.LAB.BRZ ordered. EDMS EDMS 20:34 20:34 BLOOD CULTURE*+BA.LAB.BRZ ordered. EDMS EDMS 20:34 20:34 CBC+H.LAB.BRZ ordered. EDMS EDMS 20:34 20:34 COMPREHENSIVE METABOLIC PANEL+C.LAB.BRZ ordered. EDMS EDMS 20:34 20:34 LACTATE+C.LAB.BRZ ordered. EDMS EDMS 20:34 20:34 PROTIME (+INR)+COAG.LAB.BRZ ordered. EDMS EDMS 20:34 20:34 PTT, ACTIVATED+COAG.LAB.BRZ ordered. EDMS EDMS 20:34 20:34 Troponin High Sensitivity+C.LAB.BRZ ordered. EDMS EDMS 20:35 20:34 Chest Abdomen Pelvis Wo Con+CT.RAD.BRZ ordered. EDMS EDMS 20:35 20:35 THYROID STIMULAT HORMONE+C.LAB.BRZ ordered. EDMS EDMS 20:35 20:35 T4 FREE+C.LAB.BRZ ordered. EDMS EDMS 20:35 20:35 UA W/ Microscopic+U.LAB.BRZ ordered. EDMS EDMS 20:35 20:35 URINE DRUG SCREEN+UC.LAB.BRZ ordered. EDMS EDMS 20:35 20:35 ETHANOL+C.LAB.BRZ ordered. EDMS EDMS 01/14 01:43 01:16 Constitutional: Emaciated cachectic female , covered in diarrhea, generalized sp4 weakness, signs of chronic malnutrition and physical debility Head/Face: Normocephalic, atraumatic. Eyes: Pupils equal round and reactive to light, extra-ocular motions intact. Lids and lashes normal. Conjunctiva and sclera are not injected. Cornea within normal limits. Periorbital areas with no swelling, redness, or edema. ENT: Nares patent. No nasal discharge, no septal abnormalities noted. Tympanic membranes are normal and external auditory canals are clear. Oropharynx with no redness, swelling, or masses, exudates, or evidence of obstruction, uvula midline. Mucous membranes moist. Neck: Trachea midline, no thyromegaly or masses palpated, and no cervical lymphadenopathy. Supple, full range of motion without nuchal rigidity, or vertebral point tenderness. Chest/axilla: Normal chest wall appearance and motion. Nontender with no deformity. No lesions are appreciated. Cardiovascular: Regular rate and rhythm with a normal S1 and S2. No gallops, murmurs, or rubs. No pulse deficits. Respiratory: Lungs have equal breath sounds bilaterally, clear to auscultation and percussion. No rales, rhonchi or wheezes noted. No increased work of breathing, no retractions or nasal flaring. Abdomen/GI: Soft, with normal bowel sounds. No distension or tympany. No guarding or rebound. No evidence of tenderness throughout. Back: No spinal tenderness. No costovertebral tenderness. Female : Normal external genitalia. Patient is incontinent of bowel Skin: Warm, dry with normal turgor. Normal color with no rashes, no lesions, and no evidence of cellulitis. MS/ Extremity: Pulses equal, no cyanosis. Neurovascular intact. Full, normal range of motion. Neuro: Awake and alert, GCS 15, oriented to person, place, time, and situation. Cranial nerves II-XII grossly intact. Motor strength 5/5 in all extremities. Sensory grossly intact. Psych: Awake, alert, with orientation to person, place sp4 01:13 Inpatient Admission sp4 sp4 01:13 Figueroa Saini sp4 sp4 01:13 Telemetry/MedSurg (Inpatient) sp4 sp4 01:13 Stable sp4 sp4 01:13 new sp4 sp4 01:13 have improved sp4 sp4 01:13 Standard sp4 sp4 01:13 sp4 sp4 01:13 Adult failure to thrive sp4 sp4 01:13 Acute hypokalemia, chronic malnutrition, cachexia, acute generalized weakness, sp4 HIV, hepatitis C sp4 01:13 Acute Left eye conjunctivitis sp4 sp4 01:59 01:16 Constitutional: Emaciated cachectic female , covered in diarrhea, generalized sp4 weakness, signs of chronic malnutrition and physical debility Head/Face: Normocephalic, atraumatic. Eyes: Pupils equal round and reactive to light, right eye exam is normal. Examination of the left eye reveals that left eye is paralyzed and not mobile. There is significant preseptal cellulitis, significant bacterial type conjunctivitis with yellowish exudate. Left lateral corneal abrasion with fluorescein exam. Possibly orbital cellulitis. ENT: Nares patent. No nasal discharge, no septal abnormalities noted. Tympanic membranes are normal and external auditory canals are clear. Oropharynx with no redness, swelling, or masses, exudates, or evidence of obstruction, uvula midline. Mucous membranes moist. Neck: Trachea midline, no thyromegaly or masses palpated, and no cervical lymphadenopathy. Supple, full range of motion without nuchal rigidity, or vertebral point tenderness. Chest/axilla: Normal chest wall appearance and motion. Nontender with no deformity. No lesions are appreciated. Cardiovascular: Regular rate and rhythm with a normal S1 and S2. No gallops, murmurs, or rubs. No pulse deficits. Respiratory: Lungs have equal breath sounds bilaterally, clear to auscultation and percussion. No rales, rhonchi or wheezes noted. No increased work of breathing, no retractions or nasal flaring. Abdomen/GI: Soft, with normal bowel sounds. No distension or tympany. No guarding or rebound. No evidence of tenderness throughout. Back: No spinal tenderness. No costovertebral tenderness. Female : Normal external genitalia. Patient is incontinent of bowel Skin: Warm, dry with normal turgor. Normal color with no rashes, no lesions, and no evidence of cellulitis. MS/ Extremity: Pulses equal, no cyanosis. Neurovascular intact. Full, normal range of motion. Neuro: Awake and alert, GCS 15, oriented to person, place, time, and situation. Cranial nerves II-XII grossly intact. Motor strength 5/5 in all extremities. Sensory grossly intact. Psych: Awake, alert, with orientation to person, place sp4 02:37 01:47 [facility]' attending MD sp4 sp4 02:37 01:47 [facility] sp4 sp4 03:53 02:37 [facility] attending pet sitter sp4 ss12
[2025-01-14] MEDS ORDERED: HYDROCORTISONE SUC 100 MG INJ ONE (02:34)
[2025-01-14 04:02] VITALS: TEMP 98.8
[2025-01-14 04:05] VITALS: O2SAT 100
[2025-01-14 04:10] VITALS: BP 104/76
[2025-01-14 04:15] LABS: Hepatitis B surface AG Interp. Nonreactive (Nonreactive)
[2025-01-14 04:16] LABS: HBsAG Nonreactive Report Report
== END 2025-01-14 03:53 | disposition short-term general hospital (02) ==
LOC: ER 20:14
DX: H05.012 Cellulitis of left orbit (principal); H44.19 Other endophthalmitis; H10.32 Unspecified acute conjunctivitis, left eye; R53.1 Weakness; R62.7 Adult failure to thrive; E46 Unspecified protein-calorie malnutrition; E87.6 Hypokalemia; R64 Cachexia; Z68.1 Body mass index [BMI] 19.9 or less, adult; Z21 Asymptomatic human immunodeficiency virus [HIV] infection status
CPT/HCPCS: 93005; 87040 ×2; 85025; 81001; 36415; 85610; 82947; 83605; 85730; 84443; 84484; 84439; 80053; 87389; 83880; 80307; 80074; 70450; 71250; 74176; 99285; 82077; J3411; J3480; J3370; J2270; J1720; J2405; P9047; J7050; J7030; J0692